=== PATIENT | male | born 1945 | race Caucasian/White ===

== ENCOUNTER 2018-01-06 07:55 | Inpatient (IN) | payer OTHER ==
--- OUTSIDE RECORDS SUMMARY | 2018-01-06 07:57 | XMS REPORT | Clinical Summary ---
:1945 Author Organization [facility] Address [address] [place] [address] Care Team Providers Name Role Phone Magdy Page MD Primary Care Provider Unavailable Allergies Active Allergy Reactions Severity Noted Date Comments Donepezil Anaphylaxis High 08/08/2017 Current Medications Prescription Sig. Disp. Refills Start Date End Date Status HYDROcodone-acetaminophen Take 1 tablet by Active (NORCO) 5-325 mg per tablet mouth every 6 (six) hours as needed for moderate pain. amLODIPine (NORVASC) 10 mg Take 10 mg by Active tablet mouth daily. bisacodyl 5 mg tablet Take by mouth. Active cephalexin (KEFLEX) 500 MG Take 500 mg by Active capsule mouth 4 (four) times a day. cholecalciferol, vitamin Take 1,000 Units Active D3, (VITAMIN D3) 1,000 unit by mouth daily. tablet senna (SENOKOT) 8.6 mg Take 1 tablet by Active tablet mouth daily. ferrous sulfate, as mg of Take 15 mg by Active FE, (ZIGGY-IN-HANH) 15 mg iron mouth daily. (75 mg)/mL drops hydroCHLOROthiazide Take 12.5 mg by Active (HYDRODIURIL) 12.5 MG mouth daily. tablet lactulose (CEPHULAC) 10 Take 10 g by Active gram packet mouth 3 (three) times a day. memantine (NAMENDA) 10 MG Take 10 mg by Active tablet mouth 2 (two) times a day. menthol-zinc oxide Apply topically Active (CALMOSEPTINE) 0.44-20.6 % as needed. ointment ondansetron (ZOFRAN) 4 MG Take 4 mg by Active tablet mouth every 8 (eight) hours as needed for nausea or vomiting. POLYETHYLENE GLYCOL 3350 Take by mouth. Active (MIRALAX ORAL) simethicone 80 mg tablet Take by mouth. Active tamsulosin (FLOMAX) 0.4 mg Take 0.4 mg by Active capsule,extended release mouth daily. 24hr cholecalciferol, vitamin Take 50,000 Units Active D3, (DECARA) 50,000 unit by mouth daily. capsule Hospital, Clinic, or Other Ordered Dose Route Frequency Start Date End Date Status Facility Administered Medication cefTRIAXone (ROCEPHIN) 1 g IM once 08/08/2017 08/08/2017 Ended injection 1 gIndications: Kidney stone Active Problems Not on file Encounters Date Type Specialty Care Team Description 10/25/2017 Procedure Pass Urology 09/04/2017 Hospital Encounter Radiology Gayle Norman MD 09/04/2017 Hospital Encounter Radiology Gayle Norman MD 09/04/2017 Hospital Encounter Radiology Gayle Norman MD 09/04/2017 Ancillary Orders Radiology Gayle Norman MD 09/04/2017 Telephone Neurology Raciel Nichole MD 08/19/2017 Telephone Urology Gayle Norman MD 08/19/2017 Telephone Urology Gayle Norman MD 08/15/2017 Telephone Urology Gayle Norman, Cerebrovascular accident (CVA), unspecified mechanism (Primary Dx) 08/13/2017 Telephone Urology Gayle Norman MD 08/09/2017 Telephone Urology Gayle Norman MD 08/08/2017 Office Visit Urology Gayle Norman, Kidney stone (Primary Dx); Urinary retention 08/07/2017 Telephone Urology Barbara Brooks MA after 01/05/2017 Social History Tobacco Use Types Packs/Day Years Used Date Former Smoker Smokeless Tobacco: Former User Alcohol Use Drinks/Week oz/Week Comments No Sex Assigned at Date Recorded Not on file Last Filed Vital Signs Not on file Plan of Treatment Health Maintenance Due Date Last Done Comments COLON CANCER SCREENING 1997 SHINGRIX VACCINE (#1) 1997 ZOSTER VACCINE 2007 PNEUMOCOCCAL POLYSACCHARIDE VACCINE AGE 65 AND OVER 02/08/2012 PNEUMOCOCCAL-13 02/08/2012 INFLUENZA VACCINE 03/05/[address] Abd/Pelvic External Study (07/02/2017 3:33 PM) Specimen Performing Laboratory [facility] [address] [place] [address] Narrative This exam was not acquired at a [facility] facility and has not been interpreted by a [facility] Provider.The exam was imported into our imaging system for comparisons purposes. XR Abd/Pelvic External Study (07/02/2017 3:19 PM) Specimen Performing Laboratory [facility] [address] [place] [address] Narrative This exam was not acquired at a [facility] facility and has not been interpreted by a [facility] Provider.The exam was imported into our imaging system for comparisons purposes. XR Chest External Study (07/02/2017 1:24 PM) Specimen Performing Laboratory [facility] [address] [place] [address] Narrative This exam was not acquired at a [facility] facility and has not been interpreted by a [facility] Provider.The exam was imported into our imaging system for comparisons purposes. after 01/05/2017 Insurance Payer Benefit Plan / Group Subscriber ID Type Phone Address MEDICARE MEDICARE PART A AND B xxxxxxxxxx Medicare [place], [place] MEDICAID MEDICAID xxxxxxxxx Medicaid Home: [address] [phone] [place] [address] [address] [place] [address]
[2018-01-06] MEDS ORDERED: GLYCERIN ADULT SUPP PR ONE (09:00)
[2018-01-06 09:04] LABS: Absolute Lymphocytes (CBC) 0.3 K/uL (0.7-4.9); Absolute Monocytes 0.5 K/uL (0.1-1.3); Absolute Neutrophil 6.2 K/uL (1.8-8.0); Basophils % 0.3 % (0-1.3); Eosinophils % 0.7 % (0-4.4); Hematocrit 36.3 % (39.6-49.0); Lymphocytes % 4.2 % (15.3-44.8); MCH 28.4 pg (27.0-35.0); MCV 85.3 fL (80-100); MPV 9.1 fL (7.6-11.3); Monocytes % 7.2 % (3.3-12.3); RBC Red Blood Cell Count 4.25 M/uL (4.33-5.43)
[2018-01-06 09:19] LABS: Potassium 3.8 mEq/L (3.6-5.0)
[2018-01-06] MEDS ORDERED: ONDANSETRON 4 MG/2 ML VIAL ONE (09:20)
[2018-01-06] MEDS ORDERED: NA CHLORIDE 0.9% 1,000 ML ONE (09:24)
[2018-01-06 09:25] LABS: Albumin 3.9 g/dL (3.2-5.5); Bilirubin Direct 0.1 mg/dL (0-0.2); Bilirubin Total 0.6 mg/dL (0.3-1.2); Protein, Total 7.3 g/dL (6.0-8.3)
[2018-01-06 09:56] LABS: Urine Bacteria >50 /HPF (NONE SEEN)
[2018-01-06 09:57] LABS: Urine Culture Reflex Order NOT NEEDED
--- NOTE | 2018-01-06 10:00 | ER ---
Nurse's Notes [facility] Name: Adam Rosas Age: 72 yrs Sex: Male : 1945 Arrival Date: 01/06/2018 Time: 07:58 Bed 20 Private MD: None, None Diagnosis: Vomiting-intractable;Upper abdominal pain, unspecified Presentation: 01/06 08:13 Presenting complaint: Child states: pt has been vomiting "non stop" since 0630 this iw morning, states it was brown and looked like "coffee grounds", emesis noted in basin, appears to be yellow bile, denies diarrhea, pt also c/o abd pain. Transition of care: patient was not received from another setting of care. Onset of symptoms was January 06, 2018. Risk Assessment: Do you want to hurt yourself or someone else? Patient reports no desire to harm self or others. Initial Sepsis Screen: Does the patient meet any 2 criteria? No. Patient's initial sepsis screen is negative. Does the patient have a suspected source of infection? No. Patient's initial sepsis screen is negative. Care prior to arrival: None. 08:13 Method Of Arrival: Wheelchair iw 08:13 Acuity: SCOTT 3 iw Triage Assessment: 14:22 GI: Reports lower abdominal pain, upper abdominal pain, vomiting. ae1 Historical: - Allergies: 08:16 Aricept; iw - Home Meds: 08:22 finasteride 5 mg oral tab 1 tab once daily [Active]; memantine 10 mg oral tab 1 tab iw daily [Active]; tamsulosin 0.4 mg oral cp24 1 cap once daily [Active]; amlodipine 2.5 mg tab 1 tab for BP over 130 systolic [Active]; cephalexin 500 mg Oral cap daily for UTI [Active]; ferrous sulfate 325 mg (65 mg iron) Oral TbEC twice a day [Active]; bisacodyl 5 mg Oral TbEC 1 tab once daily [Active]; Macrobid 100 mg Oral cap daily [Active]; trazodone 50 mg Oral tab 1 tab nightly [Active]; multivitamin oral cap [Active]; - PMHx: 08:16 Dementia; Hyperlipidemia; Hypertension; Kidney stones; one kidney; iw - PSHx: 08:16 Hernia repair; AAA repair; Kidney stents; iw - Immunization history:: Adult Immunizations up to date. - Ebola Screening: : Patient negative for fever greater than or equal to 101.5 degrees Fahrenheit, and additional compatible Ebola Virus Disease symptoms Patient denies exposure to infectious person Patient denies travel to an Ebola-affected area in the 21 days before illness onset No symptoms or risks identified at this time. - Social history:: Smoking status: Patient/guardian denies using tobacco. Screenin:18 Abuse screen: No signs of abuse noted. Nutritional screening: No deficits noted. aa5 Tuberculosis screening: No symptoms or risk factors identified. Fall Risk Fall in past 12 months (25 points). Secondary diagnosis (15 points) dementia, Mental Status- Overestimates/Forgets Limitations (15 pts.). Total Mckay Fall Scale indicates High Risk Score (45 or more points). Fall prevention measures have been instituted. Side Rails Up X 2 Placed Close to Nursing Station Family Present and informed to notify staff if the need to leave the bedside. Assessment: 08:14 General: Appears comfortable, Behavior is calm, cooperative. Pain: Complains of pain in aa5 abdomen Unable to use pain scale. Does not appear to understand pain scale. Pt is unable to state exact location of pain. When asked if he has abdominal pain, pt states "yes". Pt's son states "he told me this morning his stomach was hurting". Neuro: Level of Consciousness is awake, obeys commands, confused, Oriented to none Marine Surveyor are weak bilaterally Moves all extremities. Speech is normal, Facial symmetry appears normal, Pupils are PERRL. Cardiovascular: Heart tones S1 S2 present Rhythm is regular. Respiratory: Airway is patent Respiratory effort is even, unlabored, Respiratory pattern is regular, symmetrical, Breath sounds are clear bilaterally. GI: Abdomen is flat, non-distended, Bowel sounds present X 4 quads. Abd is soft X 4 quads Parent/caregiver reports the patient having vomiting, Pt's son denies diarrhea. : Ro in place to gravity drainage Pt's son reports Ro was placed 2 weeks ago for urinary retention. EENT: No signs and/or symptoms were reported regarding the EENT system. Derm: Skin is pink, warm \\T\\ dry. Musculoskeletal: Range of motion: intact in all extremities. 09:00 Neuro: Level of Consciousness is awake, obeys commands, confused, Oriented to person. aa5 Respiratory: Airway is patent Respiratory effort is even, unlabored, Respiratory pattern is regular, symmetrical. Derm: Skin is pink, warm \\T\\ dry. 09:07 Reassessment: Pt finished drinking CT oral contrast, CT notified . aa5 09:17 Reassessment: Pt vomited bile, approximately 400cc, GOLF BALL MARKER notified . aa5 09:19 Reassessment: GOLF BALL MARKER states CT will be without oral contrast or IV contrast now, CT aa5 notified. . 09:29 Reassessment: Family at bedside, updated on approximate wait time for CT and results. ae1 13:30 Reassessment: Called 2nd floor to give report to receiving nurse, spoke to Claribel, [email or web address] Claribel states Samantha is the nurse and needs "at least 30 minutes" before report can be given, will continue to monitor. 14:23 Reassessment: Called 2nd floor to give report to Samantha, spoke to Ailyn, Ailyn states ae1 Samantha just got a patient back from the shellfish processing laborer and needs "at least 15 minutes" Will continue to monitor. 14:26 Reassessment: Patient appears in no apparent distress at this time. Patient states ae1 feeling better. Vital Signs: 08:16 BP 126 / 79; Pulse 85; Resp 17 S; Temp 97.8(TE); Pulse Ox 99% on R/A; iw 09:25 BP 136 / 85; Pulse 60; Resp 18 S; Pulse Ox 99% ; aa5 11:59 BP 137 / 97; Pulse 72; Resp 16; Pulse Ox 100% on R/A; ae1 12:52 BP 133 / 88; Pulse 68; Resp 16; Pulse Ox 100% on R/A; ae1 14:25 BP 140 / 75; Pulse 82; Resp 16 S; Pulse Ox 97% on R/A; ae1 ED Course: 07:58 Patient arrived in ED. mr 07:59 None, None is Private Physician. mr 08:08 Araceli Elam, RN is Primary Nurse. aa5 08:15 Triage completed. iw 08:16 Arm band placed on. iw 08:16 Patient has correct armband on for positive identification. Bed in low position. Side aa5 rails up X2. Adult w/ patient. 08:19 Ronda Sutherland FNP-C is [facility]. snw 08:19 Dexter Jackson MD is Attending Physician. snw 08:50 Initial lab(s) drawn, by me, sent to lab. Inserted saline lock: 20 gauge in left aa5 forearm, using aseptic technique. Blood collected. 09:07 Report given to YUNIEL Moore. aa5 09:58 Abdomen In Process Unspecified. EDMS 09:58 FranciscaLamine phillips DO is Hospitalizing Provider. snw 11:00 NGT: inserted 14 Fr. via right nare. verified placement of air over stomach, verified ae1 return of gastric contents, Patient tolerated well. 15:10 No provider procedures requiring assistance completed. Patient admitted, IV remains in ae1 place. 19:12 Occult Blood--Ancillary Sent. rg2 Administered Medications: 09:15 Drug: Glycerin (Adult) Suppository 1 supp Route: NH; aa5 09:19 Drug: Zofran 4 mg Route: IVP; Site: left forearm; aa5 09:24 Follow up: Response: No adverse reaction aa5 09:22 Drug: NS 0.9% 1000 ml Route: IV; Rate: 125 ml/hr; Site: left forearm; ae1 10:51 Drug: Cipro 400 mg Volume: 200 ml; Route: IVPB; Infused Over: 60 mins; Site: left ae1 forearm; Outcome: 09:59 Decision to Hospitalize by Provider. snw 15:10 Admitted to Med/surg accompanied by tech, family with patient, via stretcher, room 215, ae1 with chart, Report called to YUNIEL Singh 15:10 Condition: stable 15:10 Instructed on the need for admit, Demonstrated understanding of instructions. 15:11 Patient left the ED. ae1 Signatures: Dispatcher [employer] EDNM Alonzo Esposito rg2 Ronda Sutherland, JAMISON-C ENLISTED ADVISOR-Petra Rodrigues Irene, RN RN iw Araceli Elam RN RN aa5 Oscar Holman RN RN ae1 Corrections: (The following items were deleted from the chart) 08:22 08:16 BP 126 / 79; Pulse 85bpm; Resp 17bpm; Spontaneous; Pulse Ox 99% RA; iw iw 09:22 09:19 Zofran 4 mg IVP in right forearm aa5 aa5 14:25 13:30 Reassessment: Called 2nd floor to give report to receiving nurse, spoke to ae1 Claribel Sorensen states Samantha is the nurse and needs at least 30 minutes before report can be given, will continue to monitor. ae1 19:34 14:25 BP 140 / 75; Pulse 16bpm; Resp 82bpm; Pulse Ox 97% RA; ae1 ae1
--- NOTE | 2018-01-06 10:00 | EDPHYS ---
Physician Documentation [facility] Name: Adam Rosas Age: 72 yrs Sex: Male : 1945 Arrival Date: 01/06/2018 Time: 07:58 Bed 20 Private MD: None, None ED Physician Dexter Jackson HPI: 01/06 10:28 This 72 yrs old Male presents to ER via Wheelchair with complaints of snw Vomiting. 10:28 The patient presents to the emergency department with nausea, vomiting. Onset: The snw symptoms/episode began/occurred suddenly, this morning. Possible causes: unknown. Associated signs and symptoms: Pertinent positives: nausea, vomiting. The patient has not experienced similar symptoms in the past. hx of chronic UTI, + po antibiotics. Historical: - Allergies: 08:16 Aricept; iw - Home Meds: 08:22 finasteride 5 mg oral tab 1 tab once daily [Active]; memantine 10 mg oral tab 1 tab iw daily [Active]; tamsulosin 0.4 mg oral cp24 1 cap once daily [Active]; amlodipine 2.5 mg tab 1 tab for BP over 130 systolic [Active]; cephalexin 500 mg Oral cap daily for UTI [Active]; ferrous sulfate 325 mg (65 mg iron) Oral TbEC twice a day [Active]; bisacodyl 5 mg Oral TbEC 1 tab once daily [Active]; Macrobid 100 mg Oral cap daily [Active]; trazodone 50 mg Oral tab 1 tab nightly [Active]; multivitamin oral cap [Active]; - PMHx: 08:16 Dementia; Hyperlipidemia; Hypertension; Kidney stones; one kidney; iw - PSHx: 08:16 Hernia repair; AAA repair; Kidney stents; iw - Immunization history:: Adult Immunizations up to date. - Ebola Screening: : Patient negative for fever greater than or equal to 101.5 degrees Fahrenheit, and additional compatible Ebola Virus Disease symptoms Patient denies exposure to infectious person Patient denies travel to an Ebola-affected area in the 21 days before illness onset No symptoms or risks identified at this time. - Social history:: Smoking status: Patient/guardian denies using tobacco. ROS: 10:27 Constitutional: Negative for fever, chills, and weight loss, Eyes: Negative for injury, snw pain, redness, and discharge, ENT: Negative for injury, pain, and discharge, Neck: Negative for injury, pain, and swelling, Cardiovascular: Negative for chest pain, palpitations, and edema, Respiratory: Negative for shortness of breath, cough, wheezing, and pleuritic chest pain, Back: Negative for injury and pain, : Negative for injury, bleeding, discharge, and swelling, MS/Extremity: Negative for injury and deformity, Skin: Negative for injury, rash, and discoloration, Neuro: Negative for headache, weakness, numbness, tingling, and seizure. 10:27 Abdomen/GI: Positive for abdominal pain, vomiting, of the epigastric area, right upper quadrant and left upper quadrant. Exam: 08:54 Head/Face: Normocephalic, atraumatic. Eyes: Pupils equal round and reactive to light, snw extra-ocular motions intact. Lids and lashes normal. Conjunctiva and sclera are non-icteric and not injected. Cornea within normal limits. Periorbital areas with no swelling, redness, or edema. ENT: Nares patent. No nasal discharge, no septal abnormalities noted. Tympanic membranes are normal and external auditory canals are clear. Oropharynx with no redness, swelling, or masses, exudates, or evidence of obstruction, uvula midline. Mucous membranes moist. Neck: Trachea midline, no thyromegaly or masses palpated, and no cervical lymphadenopathy. Supple, full range of motion without nuchal rigidity, or vertebral point tenderness. No Meningismus. Chest/axilla: Normal chest wall appearance and motion. Nontender with no deformity. No lesions are appreciated. Cardiovascular: Regular rate and rhythm with a normal S1 and S2. No gallops, murmurs, or rubs. Normal PMI, no JVD. No pulse deficits. Respiratory: Lungs have equal breath sounds bilaterally, clear to auscultation and percussion. No rales, rhonchi or wheezes noted. No increased work of breathing, no retractions or nasal flaring. 08:54 Back: No spinal tenderness. No costovertebral tenderness. Full range of motion. MS/ Extremity: Pulses equal, no cyanosis. Neurovascular intact. Full, normal range of motion. Neuro: Awake and alert, GCS 15, oriented to person, place, time, and situation. Cranial nerves II-XII grossly intact. Motor strength 5/5 in all extremities. Sensory grossly intact. Cerebellar exam normal. Normal gait. 08:54 Constitutional: The patient appears alert, awake, frail, uncomfortable. 08:54 Abdomen/GI: Inspection: abdomen appears normal, Bowel sounds: diminished, Palpation: moderate abdominal tenderness, in the right upper quadrant and left upper quadrant, Rectal exam: rectal tone normal, Stool: guaiac negative, the exam is chaperoned by the nurse, + stool in vault, stool black but guaiac negative. 08:54 Skin: Appearance: normal except for affected area, stage 2 pressure sore to sacral area. Vital Signs: 08:16 BP 126 / 79; Pulse 85; Resp 17 S; Temp 97.8(TE); Pulse Ox 99% on R/A; iw 09:25 BP 136 / 85; Pulse 60; Resp 18 S; Pulse Ox 99% ; aa5 11:59 BP 137 / 97; Pulse 72; Resp 16; Pulse Ox 100% on R/A; ae1 12:52 BP 133 / 88; Pulse 68; Resp 16; Pulse Ox 100% on R/A; ae1 14:25 BP 140 / 75; Pulse 82; Resp 16 S; Pulse Ox 97% on R/A; ae1 MDM: 08:20 Patient medically screened. snw 09:59 Data reviewed: vital signs, nurses notes. Data interpreted: Pulse oximetry: on room air snw is 99 %. 01/06 08:42 Order name: Amylase, Serum; Complete Time: 09:28 snw 01/06 08:42 Order name: Basic Metabolic Panel; Complete Time: 09:28 snw 01/06 08:42 Order name: CBC with Diff; Complete Time: 10:26 snw 01/06 08:42 Order name: Creatinine for Radiology; Complete Time: 09:18 snw 01/06 08:42 Order name: Hepatic Function; Complete Time: 09:28 snw 01/06 08:42 Order name: Lipase; Complete Time: 09:28 snw 01/06 08:42 Order name: Urine Microscopic Only; Complete Time: 09:58 snw 01/06 08:54 Order name: Occult Blood--Ancillary bd 01/06 09:07 Order name: CBC Smear Scan; Complete Time: 10:26 EDMS 01/06 09:21 Order name: Urine Dipstick--Ancillary (enter results); Complete Time: 10:04 bd 01/06 09:22 Order name: Abdomen ; Complete Time: 10:26 EDMS 01/06 08:42 Order name: IV Saline Lock; Complete Time: 09:02 snw 01/06 08:42 Order name: Labs collected and sent; Complete Time: 09:02 snw 01/06 08:42 Order name: Urine Dipstick-Ancillary (obtain specimen); Complete Time: 09:24 snw 01/06 10:27 Order name: NG Tube; Complete Time: 11:20 snw Administered Medications: 09:15 Drug: Glycerin (Adult) Suppository 1 supp Route: DC; aa5 09:19 Drug: Zofran 4 mg Route: IVP; Site: left forearm; aa5 09:24 Follow up: Response: No adverse reaction aa5 09:22 Drug: NS 0.9% 1000 ml Route: IV; Rate: 125 ml/hr; Site: left forearm; ae1 10:51 Drug: Cipro 400 mg Volume: 200 ml; Route: IVPB; Infused Over: 60 mins; Site: left ae1 forearm; Disposition: 01/07 08:14 Co-signature as Attending Physician, Dexter Jackson MD I agree with the assessment and [facility] plan of care. Disposition: 01/06/18 09:59 Hospitalization ordered by Lamine Wu for Observation. Preliminary diagnosis are Vomiting - intractable, Upper abdominal pain, unspecified. - Bed requested for Telemetry/MedSurg (observation). - Status is Observation. ae1 - Condition is Stable. - Problem is new. - Symptoms are unchanged. UTI on Admission? Yes Signatures: Dispatcher [employer] [facility] Katrin Flores Corey, MD MD cha Therrien, Shelly, BUCKLE FRAME SHAPER-C BUCKLE FRAME SHAPER-[employer] Lillian Woo, RN RN iw Araceli Elam, RN RN aa5 Oscar Holman RN RN ae1 Corrections: (The following items were deleted from the chart) 01/06 09:22 08:42 Abdomen Pelvis W Con+CT.RAD.BRZ ordered. EDCT EDMS 13:39 09:59 Hospitalization Ordered by Lamine Wu DO for Observation. Preliminary bd diagnosis is Vomiting - intractable; Upper abdominal pain, unspecified. Bed requested for Telemetry/MedSurg (observation). Status is Observation. Condition is Stable. Problem is new. Symptoms are unchanged. UTI on Admission? Yes. sn 15:11 13:39 01/06/2018 09:59 Hospitalization Ordered by Lamine Wu DO for Observation. ae1 Preliminary diagnosis is Vomiting - intractable; Upper abdominal pain, unspecified. Bed requested for Telemetry/MedSurg (observation). Status is Observation. Condition is Stable. Problem is new. Symptoms are unchanged. UTI on Admission? Yes. bd
[2018-01-06 10:01] LABS: Urine Blood 2+ (NEG); Urine Glucose NEGATIVE (NEG); Urine Protein 3+ (NEG); Urine Specific Gravity >1.030 (1.005-1.030)
[2018-01-06 10:10] LABS: Blood Morphology Comment NOT SEEN (NOT SEEN); Platelet Estimate ADEQ; Urine White Blood Cell Casts OK
--- NOTE | 2018-01-06 10:22 | RAD REPORT ---
EXAM DESCRIPTION: CT - Abdomen Pelvis Wo Contrast - 01/06/2018 9:58 am CLINICAL HISTORY: Abdominal pain, coffee-ground emesis, vomiting COMPARISON: CT study September 2017 TECHNIQUE: Axial [address] imaging of the abdomen and pelvis was performed without IV contrast. No IV contrast was given because of allergy, abnormal renal function, patient refusal or physician re quest. Oral contrast was administered. All CT scans are performed using dose optimization technique as appropriate and may include automated exposure control or mA/KV adjustment according to patient size. FINDINGS: No suspicious findings in the lung bases. The liver, spleen and pancreas show no suspicious findings on non-contrast imaging. Cholecystectomy c lips are present. No biliary tree dilatation. Left kidney is absent. No hydronephrosis of the right kidney. Vascular calcifications are present. No nobstructing caliceal calculi seen lower pole on the right. Bladder is fully contracted around a Fole y catheter. No significant adrenal finding. Isodense renal masses and pyelonephritis cannot be exclu ded in the absence of IV contrast. No gastric dilatation. Stomach is distended mostly by air. Oral contrast is present. No gastric wall thickening or mass. Oral CT contrast has made it into the proximal small bowel. Jejunum is normal in diameter. There is significant dilatation of the jejunum and proximal ileum. Exact transition site is not identifiable. An obstructing mass is not seen. Point of transition is believed to be mid to lowe r right abdomen. Moderately large stool volume present throughout a nondilated colon. The rectum is dilated by a large amount of stool. A primary, acute colon process is not suspected. No free air, free fluid or inflammatory stranding. No mass or bulky lymphadenopathy. No omental thic kening. Disc and bony degenerative changes are present. Patient has dense vascular calcifications. Aortoiliac bypass is in place. No periaortic abnormality seen. Vascular assessment is limited in the absence of IV contrast. IMPRESSION: Small bowel obstruction pattern with an exact transition point not identifiable. Transit ion is most likely in the mid to lower right abdomen. No free air or surgically emergent finding. No bowel wall edema seen. Moderate stool volume throughout the colon with a large amount of stool dilating the rectum. The Left kidney is absent. No hydronephrosis or acute right renal finding. Full assessment is limited is the absence of IV contrast.
[2018-01-06] MEDS ORDERED: CIPROFLOXACIN 400mg IV 400 MG/200 ML BAG IV ONE (10:47)
[2018-01-06] MEDS ORDERED: ACETAMINOPHEN 650MG/RECT SUPP PR PRN (11:05)
[2018-01-06] MEDS ORDERED: SODIUM CHLORIDE 0.9% 10ML INJ IV PRN (11:05)
[2018-01-06] MEDS ORDERED: ACETAMINOPHEN 500 MG TAB PO PRN (11:05)
--- NOTE | 2018-01-06 11:22 | P.HP ---
Certification for Inpatient Patient admitted to: Inpatient With expected LOS: >2 Midnights Patient will require the following post-hospital care: None Practitioner: I am a practitioner with admitting privileges, knowledge of patient current condition, hospital course, and medical plan of care. Services: Services provided to patient in accordance with Admission requirements found in Title 42 Section 412.3 of the Code of Federal Regulations Patient History Date of Service: 01/06/18 Primary Care Provider: Dr. Alvarado; Urology-Dr. Little Reason for admission: Nausea and vomiting History of Present Illness: 72-year-old male presented emergency room with intractable nausea and vomiting. Family at bedside. Family reports the patient has underlying dementia. Patient had intractable nausea and vomiting starting this morning about 6:00 a.m.. Patient had mild pain. As reported by family patient was doing well over the weekend. No fever, chills noted. No significant chest pain or shortness of breath noted. Patient with history of chronic renal disease with prior left nephrectomy and right partial nephrectomy due to renal cell carcinoma. Patient also with underlying BPH, anemia-iron deficiency, hypertension. In the ER patient had multiple episodes of bilious emesis. On lab white count 7.1, hemoglobin 12.1. Sodium 136, potassium 3.8. BUN of 42, creatinine 2.08 with a GFR 32. Glucose 140. Amylase 110, lipase 20. Urinalysis showed possible UTI. CT scan showed small-bowel obstruction transition point likely mid to lower right lower quadrant. Moderate amount of stool was also noted in the rectal area. Due to nature the findings the patient was admitted for treatment. In the ER patient appeared stable when I evaluated him. No significant vomiting noted. Patient was still slightly nauseous. He reported minimal pain to the abdomen. Allergies donepezil [From Aricept] Allergy (Verified 06/26/17 08:24) Unknown Home medications list reviewed: Yes Home Medications: Allopurinol [Zyloprim*] 300 mg PO DAILY 06/25/17 Amlodipine Besylate 5 mg PO DAILY 06/25/17 Bisacodyl [Dulcolax*] 10 mg PO DAILYPRN PRN 06/25/17 Memantine HCl [Namenda*] 20 mg PO BID 06/25/17 Mirtazapine [Remeron] 15 mg PO DAILY 06/25/17 Trazodone [Desyrel*] 50 mg PO BEDTIME 06/25/17 Ferrous Sulfate [Ferrous Sulfate*] 325 mg PO BID 09/04/17 Lactulose [Cephulac*] 20 gm PO DAILY 09/04/17 Polyethylene Glycol 3350 [Miralax] 17 gm PO BID 09/04/17 Tamsulosin [Flomax*] 0.4 mg PO BID 09/04/17 Hydrochlorothiazide [Hydrochlorothiazide*] 12.5 mg PO DAILY 09/05/17 Doxazosin [Cardura*] 1 mg PO DAILY 09/07/17 Hydrocodone 10/APAP 325 [[place] 10/325*] 1 tab PO Q6H PRN 09/07/17 Fludrocortisone [Florinef *] 0.1 mg PO DAILY WITH BREAKFAST #30 tab 09/11/17 Levofloxacin [Levaquin] 500 mg PO DAILY #7 tab 09/11/17 - Past Medical/Surgical History Diabetic: No -: Dementia, Alzheimer's -: History CVA x3 -: Hypertension -: Hyperlipidemia -: Gout -: CAD -: BPH -: Chronic renal disease -: Renal cell carcinoma -: History left nephrectomy, right partial nephrectomy -: History tobacco/alcohol abuse -: History AAA repair -: Left nephrectomy -: Partial right nephrectomy -: AAA repair -: Kidney stents x3 Psychosocial/ Personal History: The patient lives with his son. He is fully dependent on the son. Patient is a . - Family History Father -: Cancer Notes: kidney Mother -: Cancer Notes: throat, lung Brother -: Cancer (Colon cancer) - Social History Smoking Status: Former smoker Alcohol use: No CD- Drugs: No Caffeine use: Yes Place of Residence: Home Review of Systems General: Weakness, As per HPI Eyes: Unremarkable ENT: Unremarkable Respiratory: Unremarkable Cardiovascular: Unremarkable Gastrointestinal: Nausea, Vomiting, Constipation, As per HPI Genitourinary: Unremarkable Musculoskeletal: Unremarkable Integumentary: Unremarkable Neurological: As per HPI Lymphatics: Unremarkable Physical Examination - Physical Exam General: Alert, In no apparent distress, Cooperative, Demented HEENT: Atraumatic, Other (Dry mucous membranes) Neck: Supple, No Thyromegaly Respiratory: Clear to auscultation bilaterally, Normal air movement Cardiovascular: Normal pulses, Regular rate/rhythm Gastrointestinal: Normal bowel sounds, Soft and benign, Non-distended, No masses , No rebound, No guarding, Tenderness (Mild pain to the abdomen) Musculoskeletal: No erythema, No tenderness, No warmth Integumentary: No tenderness/swelling, No erythema, No warmth, No cyanosis Neurological: Normal speech, Normal strength at 5/5 x4 extr, Normal tone, Normal affect, Dementia - Studies Laboratory Data (last 24 hrs) 01/06/18 08:50: Creatinine 2.08 H 01/06/18 08:50: WBC 7.1, Hgb 12.1 L, Hct 36.3 L, Plt Count 149 L 01/06/18 08:50: Sodium 136, Potassium 3.8, BUN 42 H, Creatinine 2.09 H, Glucose 140 H, Total Bilirubin 0.6, AST 21, ALT 14, Alkaline Phosphatase 80, Amylase 110 H, Lipase 20 L Assessment and Plan - Problems (Diagnosis) (1) Small bowel obstruction Current Visit: Yes Status: Acute Plan: Small-bowel obstruction noted. Will place NG tube to intermittent suction. Surgery consulted. Await further recommendations. Will monitor serial abdominal exams. Patient will start IV antibiotic therapy to cover for UTI. (2) Fecal retention Current Visit: Yes Status: Acute Plan: Moderate stool retention noted in the the rectum. Patient may require disimpaction. Qualifiers: Constipation type: unspecified constipation type Qualified Code(s): K59.00 - Constipation, unspecified (3) Chronic renal disease Current Visit: Yes Status: Acute Plan: Acute on chronic renal disease likely from dehydration. Will provide IV fluids. Will monitor closely. Nephrology consulted due to history of left nephrectomy and right partial nephrectomy due to history of renal cell carcinoma. Qualifiers: Chronic kidney disease stage: stage 3 (moderate) Qualified Code(s): N18.3 - Chronic kidney disease, stage 3 (moderate) (4) Urinary tract infection Onset Date: 09/05/17 Current Visit: No Status: Acute Plan: IV antibiotics started. Blood culture and urine culture obtained. Qualifiers: Urinary tract infection type: catheter-associated UTI Indwelling urinary catheter type: indwelling urethral catheter Encounter type: initial encounter Qualified Code(s): T83.511A - Infection and inflammatory reaction due to indwelling urethral catheter, initial encounter; N39.0 - Urinary tract infection , site not specified; N39.0 - Urinary tract infection, site not specified (5) Alzheimer disease Onset Date: 07/01/17 Current Visit: No Status: Chronic Plan: Will monitor closely. Qualifiers: Alzheimer's disease onset: late-onset Dementia behavioral disturbance: without behavioral disturbance Qualified Code(s): G30.1 - Alzheimer's disease with late onset; F02.80 - Dementia in other diseases classified elsewhere without behavioral disturbance; F02.80 - Dementia in other diseases classified elsewhere without behavioral disturbance; F02.80 - Dementia in other diseases classified elsewhere without behavioral disturbance (6) Coronary artery disease Onset Date: 07/01/17 Current Visit: No Status: Chronic Plan: Will continue with DVT prophylaxis. Qualifiers: Coronary Disease-Associated Artery/Lesion type: [place] artery [place] vs. transplanted heart: [place] heart Associated angina: without angina Qualified Code(s): I25.10 - Atherosclerotic heart disease of [place] coronary artery without angina pectoris (7) Essential hypertension Onset Date: 07/01/17 Current Visit: No Status: Chronic Plan: Will provide medication as needed. (8) History of ischemic stroke without residual deficits Onset Date: 07/01/17 Current Visit: No Status: Chronic Plan: Will continue with DVT prophylaxis. (9) Hyperlipidemia Onset Date: 07/01/17 Current Visit: No Status: Chronic Plan: Will obtain and verify home medication Qualifiers: Hyperlipidemia type: mixed hyperlipidemia Qualified Code(s): E78.2 - Mixed hyperlipidemia Discharge Plan: Home Plan to discharge in: Greater than 2 days - Advance Directives Does patient have a Living Will: No Does patient have a Durable POA for Healthcare: Yes - Code Status/Comfort Care Code Status Assessed: Yes (Address with medical power of commercial real estate attorney) Time Spent Managing Pts Care (In Minutes): 55
[2018-01-06] MEDS: NA CHLORIDE 0.9% 1,000 ML IV SCH ×2 (15:34→21:28)
--- NOTE | 2018-01-06 15:45 | P.CNS ---
Date of Consult: 01/06/18 PC: This 72-year-old male was brought to the emergency room by his caretakers for diagnosis and treatment. HPC: Patient had been doing well over the weekend. Was down in [place] yesterday. Patient has Alzheimer's was riding in a car all day. He this morning had almost projectile type vomiting. Copious amounts of vomitus with food abdominal pain. No bowel movement last 48 hr. PMH: Previous left nephrectomy, retention, Alzheimer's, demented PSHx: Nephrectomy SOC: Medications reviewed SYS REVIEW: Patient apparently is relatively active male. He eats well at home. Usually has bowel movements today. Has a Ro catheter O/E awake alert looks comfortable at the moment HEENT: Nasogastric tube draining at the current time Chest: Chest movement equal bilateral ABD: Soft nontender, flat no upper abdominal fullness LOCO: Intact DATA: CT scan suggests possible mid jejunum ileal obstruction IMPRESSION: Possible small bowel ulcer PLAN: Patient has been admitted at this time for IV fluids and nasogastric suction as well as pain relief. We will follow with you. Patient may require surgery next 24-48 hr however.
[2018-01-06 16:41] VITALS: BMI 20.7
[2018-01-06] MEDS ORDERED: ENOXAPARIN 40 MG/0.4 ML SQ SCH (17:00)
[2018-01-06] MEDS ORDERED: ENOXAPARIN 30 MG/0.3 ML SQ SCH (17:00)
[2018-01-06] MEDS: METRONIDAZOLE 500mg IVPB 500 MG/100 ML BAG IV SCH (17:18)
[2018-01-06 19:21] LABS: Urine Appearance CLOUDY; Urine Bilirubin NEGATIVE (NEG); Urine Blood 3+ (NEG); Urine Color DK YELLOW; Urine Glucose NEGATIVE (NEG); Urine Protein 2+ (NEG); Urine Specific Gravity 1.025 (1.005-1.030)
[2018-01-06 19:22] LABS: Urine Microscopic Reflex ORDER UMIC
[2018-01-06 19:38] LABS: Urine Bacteria 20-50 /HPF (NONE SEEN)
[2018-01-06 19:39] LABS: Urine Amorphous Sediment 1+ /HPF (NONE SEEN); Urine Culture Reflex Order REFLEXED; Urine Mucus 1+ /HPF (NONE SEEN)
--- NOTE | 2018-01-06 19:55 | P.CNS ---
Date of Consult: 01/06/18 Reason for Consult: KERRY/ CKD III. Requesting Physician: Lamine Wu Primary Care Provider: Dr. Alvarado; Urology-Dr. Little Chief Complaint: Nausea and vomiting History of Present Illness: 72-year-old male presented emergency room with intractable nausea and vomiting. Family at bedside. Family reports the patient has underlying dementia. Patient had intractable nausea and vomiting starting this morning about 6:00 a.m.. Patient had mild pain. As reported by family patient was doing well over the weekend. No fever, chills noted. No significant chest pain or shortness of breath noted. Patient with history of chronic renal disease with prior left nephrectomy and right partial nephrectomy due to renal cell carcinoma. Patient also with underlying BPH, anemia-iron deficiency, hypertension. In the ER patient had multiple episodes of bilious emesis. On lab white count 7.1, hemoglobin 12.1. Sodium 136, potassium 3.8. BUN of 42, creatinine 2.08 with a GFR 32. Glucose 140. Amylase 110, lipase 20. Urinalysis showed possible UTI. CT scan showed small-bowel obstruction transition point likely mid to lower right lower quadrant. Moderate amount of stool was also noted in the rectal area. Due to nature the findings the patient was admitted for treatment. 10:28 This 72 yrs old Male presents to ER via Wheelchair with complaints of snw Vomiting. 10:28 The patient presents to the emergency department with nausea, vomiting. Onset: The snw symptoms/episode began/occurred suddenly, this morning. Possible causes: unknown. Associated signs and symptoms: Pertinent positives: nausea, vomiting. The patient has not experienced similar symptoms in the past. hx of chronic UTI, + po antibiotics. Limited HPI/ ROS due to dementia. Case discussed with his family at the bedside. Allergies donepezil [From Aricept] Allergy (Verified 01/07/18 11:46) Itching/Hives/Rash Home medications list reviewed: Yes Home Medications: Amlodipine Besylate 2.5 mg PO DAILY 06/25/17 Bisacodyl [Dulcolax*] 10 mg PO DAILYPRN PRN 06/25/17 Memantine HCl [Namenda*] 20 mg PO BID 06/25/17 Trazodone [Desyrel*] 50 mg PO BEDTIME 06/25/17 Ferrous Sulfate [Ferrous Sulfate*] 325 mg PO BID 09/04/17 Lactulose [Cephulac*] 20 gm PO DAILY 09/04/17 Tamsulosin [Flomax*] 0.8 mg PO BEDTIME 09/04/17 Hydrocodone 10/APAP 325 [[place] 10/325*] 1 tab PO Q6H PRN 09/07/17 Cephalexin [Keflex] 500 mg PO DAILY 01/06/18 Finasteride [Proscar] 5 mg PO DAILY 01/06/18 Folic Acid/Mv,Fe,Min [One Daily Complete Tablet] 1 each PO DAILY 01/06/18 Nitrofurantoin Monohyd/M-Cryst [Macrobid 100 mg Capsule] 100 mg PO DAILY - Past Medical/Surgical History Diabetic: No -: Dementia, Alzheimer's -: History CVA x3 -: Hypertension -: Hyperlipidemia -: Gout -: CAD -: BPH -: Chronic renal disease -: Renal cell carcinoma -: History left nephrectomy, right partial nephrectomy -: History tobacco/alcohol abuse -: History AAA repair -: Left nephrectomy -: Partial right nephrectomy -: AAA repair -: Kidney stents x3 Psychosocial/ Personal History: The patient lives with his son. He is fully dependent on the son. Patient is a . - Family History Father Medical History: Cancer Notes: kidney Mother Medical History: Cancer Notes: throat, lung Brother Medical History: Cancer - Social History Smoking Status: Unknown if ever smoked Alcohol use: No CD- Drugs: No Caffeine use: No Place of Residence: Home Review of Systems 10-point ROS is otherwise unremarkable General: Weakness, Malaise Gastrointestinal: Nausea, Vomiting, Abdominal Pain Neurological: Weakness Physical Examination Temp Pulse Resp BP Pulse Ox 97.5 F 71 16 161/90 H 94 01/06/18 16:00 01/06/18 16:00 01/06/18 16:00 01/06/18 16:00 01/06/18 16:00 General: Alert, Cooperative HEENT: Atraumatic, Normocephalic Neck: Supple, JVD not distended Respiratory: Clear to auscultation bilaterally, Normal air movement Cardiovascular: Regular rate/rhythm, No rubs Gastrointestinal: Non-distended, No guarding, Tenderness Musculoskeletal: No clubbing, No contractures Integumentary: No rashes, No cyanosis Neurological: Normal speech Laboratory Data (last 24 hrs) 01/06/18 08:50: Creatinine 2.08 H 01/06/18 08:50: WBC 7.1, Hgb 12.1 L, Hct 36.3 L, Plt Count 149 L 01/06/18 08:50: Sodium 136, Potassium 3.8, BUN 42 H, Creatinine 2.09 H, Glucose 140 H, Total Bilirubin 0.6, AST 21, ALT 14, Alkaline Phosphatase 80, Amylase 110 H, Lipase 20 L Imagings Data: EXAM DESCRIPTION: CT - Abdomen Pelvis Wo Contrast - 01/06/2018 9:58 am CLINICAL HISTORY: Abdominal pain, coffee-ground emesis, vomiting COMPARISON: CT study September 2017 TECHNIQUE: Axial [address] imaging of the abdomen and pelvis was performed without IV contrast. No IV contrast was given because of allergy, abnormal renal function, patient refusal or physician request. Oral contrast was administered. All CT scans are performed using dose optimization technique as appropriate and may include automated exposure control or mA/KV adjustment according to patient size. FINDINGS: No suspicious findings in the lung bases. The liver, spleen and pancreas show no suspicious findings on non-contrast imaging. Cholecystectomy clips are present. No biliary tree dilatation. Left kidney is absent. No hydronephrosis of the right kidney. Vascular calcifications are present. Nonobstructing caliceal calculi seen lower pole on the right. Bladder is fully contracted around a Virk catheter. No significant adrenal finding. Isodense renal masses and pyelonephritis cannot be excluded in the absence of IV contrast. No gastric dilatation. Stomach is distended mostly by air. Oral contrast is present. No gastric wall thickening or mass. Oral CT contrast has made it into the proximal small bowel. Jejunum is normal in diameter. There is significant dilatation of the jejunum and proximal ileum. Exact transition site is not identifiable. An obstructing mass is not seen. Point of transition is believed to be mid to lower right abdomen. Moderately large stool volume present throughout a nondilated colon. The rectum is dilated by a large amount of stool. A primary, acute colon process is not suspected. No free air, free fluid or inflammatory stranding. No mass or bulky lymphadenopathy. No omental thickening. Disc and bony degenerative changes are present. Patient has dense vascular calcifications. Aortoiliac bypass is in place. No periaortic abnormality seen. Vascular assessment is limited in the absence of IV contrast. IMPRESSION: Small bowel obstruction pattern with an exact transition point not identifiable. Transition is most likely in the mid to lower right abdomen. No free air or surgically emergent finding. No bowel wall edema seen. Moderate stool volume throughout the colon with a large amount of stool dilating the rectum. The Left kidney is absent. No hydronephrosis or acute right renal finding. Full assessment is limited is the absence of IV contrast. Conclusions/Impression: A/ KERRY likely prerenal azotemia in the setting of SBO. CKD III with proteinuria. Left nephrectomy with RCC. Partial right nephrectomy. Kidney stents X3. HTN with CKD. IFG. Anemia in chronic illness. Thrombocytopenia. Gout. BPH/ LUTS with chronic virk X2 weeks. SBO. Constipation/ Fecal retention. Alz dementia. P/ Continue current POC and Medications. Surgery evaluation for SBO. NPO. Agree with abx and NGT. Start IVF. AM labs. Daily weight. No NSAIDs. Thank you kindly for the consultation.
[2018-01-06] MEDS ORDERED: TAMSULOSIN 0.4 MG SR CAP PO SCH ×2 (21:00)
[2018-01-06] MEDS ORDERED: DONEPEZIL HCL 5 MG TAB PO SCH (21:00)
[2018-01-06] MEDS: Ciprofloxacin 200mg IV 200 MG/100 ML IV.SOLN. IV SCH (21:28)
[2018-01-07] MEDS: METRONIDAZOLE 500mg IVPB 500 MG/100 ML BAG IV SCH ×3 (00:09→17:16)
[2018-01-07] MEDS ORDERED: LIDOCAINE VISCOUS 2% SOLN 15 ML UDC ONE (04:56)
[2018-01-07 05:14] LABS: Absolute Lymphocytes (CBC) 0.8 K/uL (0.7-4.9); Absolute Monocytes 0.5 K/uL (0.1-1.3); Absolute Neutrophil 2.9 K/uL (1.8-8.0); Basophils % 0.2 % (0-1.3); Eosinophils % 1.8 % (0-4.4); Hematocrit 38.1 % (39.6-49.0); MCH 28.4 pg (27.0-35.0); MCV 85.8 fL (80-100); MPV 8.9 fL (7.6-11.3); Monocytes % 12.5 % (3.3-12.3); RBC Red Blood Cell Count 4.44 M/uL (4.33-5.43)
[2018-01-07 07:17] LABS: Magnesium 1.9 mg/dL (1.8-2.5); Phosphorus 3.6 mg/dL (2.5-4.3); Thyroid Stimulating Hormone 0.96 uIU/mL (0.34-5.60); Uric Acid 6.1 mg/dL (4.8-8.7)
[2018-01-07] MEDS ORDERED: BISACODYL 10 MG RECTAL SUPP PR ONE (07:30)
[2018-01-07] MEDS ORDERED: TRAZODONE 50 MG TABLET PO PRN (08:12)
--- NOTE | 2018-01-07 08:18 | P.PN ---
Subjective Date of Service: 01/07/18 Primary Care Provider: Dr. Alvarado; Urology-Dr. Little Chief Complaint: Nausea and vomiting Subjective: Doing well (Patient is doing better today. Patient pulled out NG tube last night. Patient without any nausea vomiting this morning. No significant pain noted. Daughter at bedside. Daughter reports the patient has had bowel movement and passed gas.) Physical Examination - Vital Signs Temperature: 97.0 F Blood Pressure: 175/95 Pulse: 72 Respirations: 16 Pulse Ox (%): 97 - Physical Exam General: Alert, In no apparent distress, Cooperative, Demented HEENT: Atraumatic Neck: Supple Respiratory: Clear to auscultation bilaterally, Normal air movement Cardiovascular: Normal pulses, Regular rate/rhythm Gastrointestinal: Normal bowel sounds, Soft and benign, Non-distended, No tenderness, No masses, No rebound, No guarding Musculoskeletal: No contractures, No erythema, No tenderness, No warmth Integumentary: No tenderness/swelling, No erythema, No warmth, No cyanosis Neurological: Normal speech, Normal strength at 5/5 x4 extr, Normal tone, Normal affect, Dementia Lymphatics: No axilla or inguinal lymphadenopathy - Studies Laboratory Data (last 24 hrs) 01/06/18 08:50: Creatinine 2.08 H 01/06/18 08:50: WBC 7.1, Hgb 12.1 L, Hct 36.3 L, Plt Count 149 L 01/06/18 08:50: Sodium 136, Potassium 3.8, BUN 42 H, Creatinine 2.09 H, Glucose 140 H, Total Bilirubin 0.6, AST 21, ALT 14, Alkaline Phosphatase 80, Amylase 110 H, Lipase 20 L Medications List Reviewed: Yes Assessment & Plan - Problems (Diagnosis) (1) Small bowel obstruction Onset Date: 01/07/18 Current Visit: Yes Status: Acute Plan: Small-bowel obstruction noted. Will recheck KUB this morning. Patient removed NG tube last night. Patient without any abdominal pain or nausea vomiting. Patient has passed gas and stool. If KUB shows improvement will give a trial of clear liquids. Will discuss with surgery. (2) Fecal retention Onset Date: 01/07/18 Current Visit: Yes Status: Acute Plan: Moderate stool retention noted in the the rectum. This has improved. Will provide lactulose. Qualifiers: Constipation type: unspecified constipation type Qualified Code(s): K59.00 - Constipation, unspecified (3) Chronic renal disease Onset Date: 01/07/18 Current Visit: Yes Status: Acute Plan: Acute on chronic renal disease likely from dehydration. Will continue with IV fluids. Nephrology consulted. Patient has history of left nephrectomy and right partial nephrectomy due to history of renal cell carcinoma. Qualifiers: Chronic kidney disease stage: stage 3 (moderate) Qualified Code(s): N18.3 - Chronic kidney disease, stage 3 (moderate) (4) Urinary tract infection Onset Date: 09/05/17 Current Visit: No Status: Acute Plan: IV antibiotics started. Blood culture and urine culture obtained. Qualifiers: Urinary tract infection type: catheter-associated UTI Indwelling urinary catheter type: indwelling urethral catheter Encounter type: initial encounter Qualified Code(s): T83.511A - Infection and inflammatory reaction due to indwelling urethral catheter, initial encounter; N39.0 - Urinary tract infection , site not specified; N39.0 - Urinary tract infection, site not specified (5) Alzheimer disease Onset Date: 07/01/17 Current Visit: No Status: Chronic Plan: Will monitor closely. Will continue with his medication Qualifiers: Alzheimer's disease onset: late-onset Dementia behavioral disturbance: without behavioral disturbance Qualified Code(s): G30.1 - Alzheimer's disease with late onset; F02.80 - Dementia in other diseases classified elsewhere without behavioral disturbance; F02.80 - Dementia in other diseases classified elsewhere without behavioral disturbance; F02.80 - Dementia in other diseases classified elsewhere without behavioral disturbance (6) Coronary artery disease Onset Date: 07/01/17 Current Visit: No Status: Chronic Plan: Will continue with DVT prophylaxis. Qualifiers: Coronary Disease-Associated Artery/Lesion type: [place] artery [place] vs. transplanted heart: [place] heart Associated angina: without angina Qualified Code(s): I25.10 - Atherosclerotic heart disease of [place] coronary artery without angina pectoris (7) Essential hypertension Onset Date: 07/01/17 Current Visit: No Status: Chronic Plan: Will continue with his medication and adjust appropriately. (8) History of ischemic stroke without residual deficits Onset Date: 07/01/17 Current Visit: No Status: Chronic Plan: Will continue with DVT prophylaxis. (9) BPH (benign prostatic hyperplasia) Current Visit: Yes Status: Chronic Plan: Will restart his home medication Qualifiers: Lower urinary tract symptom presence: unspecified whether lower urinary tract symptoms present Qualified Code(s): N40.0 - Benign prostatic hyperplasia without lower urinary tract symptoms (10) GERD (gastroesophageal reflux disease) Current Visit: Yes Status: Suspected Plan: Will provide PPI Qualifiers: Esophagitis presence: esophagitis presence not specified Qualified Code(s) : K21.9 - Gastro-esophageal reflux disease without esophagitis Discharge Plan: Home Plan to discharge in: 48 Hours Time Spent Managing Pts Care (In Minutes): 55
[2018-01-07] MEDS: Ciprofloxacin 200mg IV 200 MG/100 ML IV.SOLN. IV SCH (09:19)
[2018-01-07] MEDS: FINASTERIDE 5 MG TAB PO SCH (09:20)
[2018-01-07] MEDS: LACTULOSE 20 GM/30 ML UCUP PO SCH (09:20)
[2018-01-07] MEDS: PANTOPRAZOLE 40 MG INJ IVP SCH (09:20)
[2018-01-07] MEDS: MEMANTINE HCL 10 MG TABLET PO SCH ×2 (09:21→21:00)
[2018-01-07] MEDS: AMLODIPINE 2.5 MG TAB PO SCH (09:22)
[2018-01-07] MEDS: MULTIVIT W/ MINERAL TAB PO SCH (09:22)
[2018-01-07] MEDS: NA CHLORIDE 0.9% 1,000 ML IV SCH ×2 (09:23→17:17)
[2018-01-07] MEDS: HYDRALAZINE HCL 20 MG/ML VIAL IV PRN (09:25)
[2018-01-07 10:57] LABS: A1c Component 0.45 mg/dL; Hemoglobin A1c 5.4 % (4-6.0)
[2018-01-07] MEDS: ONDANSETRON 4 MG/2 ML VIAL IV PRN (11:56)
--- NOTE | 2018-01-07 13:09 | RAD REPORT ---
EXAM DESCRIPTION: RAD - Abdomen 1 View (KUB) - 01/07/2018 12:35 pm CLINICAL HISTORY: Bowel obstruction. COMPARISON: 01/06/2018, 09/10/2017 FINDINGS: Multiple prominent left-sided small bowel loops are again noted, appearing mildly to moder ately improved since comparative study. No pneumatosis suspected. Diffuse osteopenia is seen. IMPRESSION: Mild to moderate improvement in small bowel obstruction pattern since 01/06/2018 CT.
[2018-01-07] MEDS ORDERED: PROPOFOL 200 MG/20 ML VIAL IV ONE (13:53)
[2018-01-07] MEDS ORDERED: FENTANYL CITR 100 MCG/2 ML ONE (13:54)
[2018-01-07] MEDS ORDERED: ROCURONIUM 50 MG/5 ML VIAL IV ONE (13:54)
[2018-01-07] MEDS ORDERED: SUCCINYLCHOLINE 20 MG/ML (10 ML) IV ONE (14:02)
--- NOTE | 2018-01-07 14:20 | P.PN ---
Date of Service: 01/07/18 S.: Patient does not feel much better today. NG tube has come out. Still having some abdominal discomfort. O : Abdomen is soft, but still feels distended in the upper abdomen. A : Patient has been decompressed with nasogastric tube. Patient portion pulled out. I do not feel that this is going to resolve however with conservative management. He is still has tenderness and fullness in the low in the abdomen and I think he has a distal small bowel obstruction. P: I will take him to the operating room for exploratory laparotomy. The risks of this procedure have been explained above to the patient and his family. He understands and wants us to proceed.
[2018-01-07] MEDS ORDERED: EPHEDRINE SULF 50 MG/5 ML SYR ONE (14:24)
[2018-01-07] MEDS ORDERED: NS 0.9% VIAL 10 ML ONE ×2 (14:25→14:34)
[2018-01-07] MEDS ORDERED: Phenylephrine HCl 10 MG/ML 1 ML VIAL ONE (14:34)
[2018-01-07] MEDS ORDERED: NA CHLORIDE 0.9% 1,000 ML ONE ×2 (14:34→15:09)
[2018-01-07] MEDS ORDERED: GLYCOPYRROLATE 0.2 MG/ML SYR ONE (15:23)
[2018-01-07] MEDS ORDERED: NEOSTIGMINE 1 MG/ML -5 ML SYRINGE ONE (15:24)
[2018-01-07] MEDS ORDERED: Ringers Lactate 1,000 ML IV ONE (15:35)
--- NOTE | 2018-01-07 15:50 | P.OP ---
Preoperative diagnosis: Small-bowel obstruction Postoperative diagnosis: Small-bowel obstruction secondary to extensive intra- abdominal adhesions Primary procedure: Exploratory laparotomy Secondary procedure: Lyses of extensive intra-abdominal adhesions Anesthesia: General Estimated blood loss: Less than 30 cc Specimen: none Findings: Distal jejunal partial obstruction Operative Technique: The patient brought the operating room placed supine on the table. After the induction of adequate general endotracheal anesthesia, the area of the abdomen was prepped with a DuraPrep solution, and he was draped in usual aseptic manner. A generous midline incision was made. This brought down through the skin and subcutaneous tissue. The fascia was opened in the midline. All suture material was removed. The incision extended from 4 fingers breath below the xiphoid to 4 fingers abruptly pubic symphysis. We were able to enter the peritoneal cavity. We could see dilated loops of proximal small bowel. This extends from the ligament of Treitz down to an area on the right side of the abdomen and consistent with the proximal jejunum. From this point down to the ileocecal valve. There were numerous adhesions of the small bowel to each other with the coiling at, and curling of the bowel at the most dilated section we worked down towards the ileocecal valve. These adhesions were taken down using blunt sharp dissection. As we maneuver to the ileocecal valve we could see that the small bowel was adherent at the mid ileum to the patient's old vascular graft. This was carefully dissected free. The bowel have now completely free, and had dilated up to its normal caliber. Once again the small bowel was run from the ligament of Treitz stent to the ileocecal valve. The whole bowel had now been freed. It was placed back in his normal anatomical position into the peritoneal cavity. The small amount of omentum was placed over the bowel itself. The midline incision was closed with 2 running sutures of 0 nylon 1 started from the top 1 from the bottom tied in the middle. The knot was then buried. Malcolm were used to approximate the skin. At the end of the procedure he was in a stable condition when sent to the recovery room. Needle sponge instrument count were correct. No drains were placed. Complications: None Transferred to: Recovery Room Condition: Good
[2018-01-07] MEDS: MORPHINE 4 MG/ML SYR ONE ×2 (16:18→16:23)
[2018-01-07] MEDS: MORPHINE 4 MG/ML SYR IV PRN (19:47)
[2018-01-07] MEDS: TAMSULOSIN 0.4 MG SR CAP PO SCH (21:00)
--- NOTE | 2018-01-07 21:37 | P.PN ---
Date of Service: 01/07/18 Vital Signs Temp Pulse Resp BP Pulse Ox 98.4 F 89 16 139/92 H 98 01/07/18 20:00 01/07/18 21:00 01/07/18 21:00 01/07/18 21:00 01/07/18 21:00 Medications Acetaminophen (Tylenol -Extra Strength) 500 mg PO Q4HP PRN PRN Reason: [id number] Stop: 02/05/18 11:06 Acetaminophen (Tylenol Suppository) 650 mg [place] Q6HP PRN PRN Reason: [id number] Stop: 02/05/18 11:06 Last Admin: 01/07/18 18:29 Dose: 650 mg Amlodipine Besylate (Norvasc) 2.5 mg PO DAILY [facility] Stop: 02/06/18 09:01 Last Admin: 01/07/18 09:22 Dose: 2.5 mg Finasteride (Proscar) 5 mg PO DAILY [facility] Stop: 02/06/18 09:01 Last Admin: 01/07/18 09:20 Dose: 5 mg Hydralazine HCl (Apresoline) 10 mg IV Q6HP PRN PRN Reason: HIGH BP Stop: 02/05/18 11:06 Last Admin: 01/07/18 09:25 Dose: 10 mg Sodium Chloride (Ns 1000 Ml Ivbag) 1,000 mls @ 100 mls/hr IV .Q10H [facility] Stop: 02/05/18 12:01 Last Admin: 01/07/18 17:17 Dose: 1,000 mls Lactulose (Cephulac) 20 gm PO DAILY [facility] Stop: 02/06/18 09:01 Last Admin: 01/07/18 09:20 Dose: 20 gm Memantine (Namenda) 20 mg PO BID [facility] Stop: 02/06/18 09:01 Last Admin: 01/07/18 21:00 Dose: Not Given Morphine Sulfate (Morphine Sulfate) 4 mg IV Q2H PRN PRN Reason: Pain scale 8-10 (Severe) Stop: 02/06/18 19:24 Last Admin: 01/07/18 19:47 Dose: 4 mg Multivitamins/Minerals (Centrum Silver) 1 tab PO DAILY [facility] Stop: 02/06/18 09:01 Last Admin: 01/07/18 09:22 Dose: 1 tab Ondansetron HCl (Zofran) 4 mg IV Q6HP PRN PRN Reason: NAUSEA / VOMITING Stop: 02/05/18 11:06 Last Admin: 01/07/18 11:56 Dose: 4 mg Pantoprazole Sodium (Protonix Inj) 40 mg IVP DAILY [facility] Stop: 02/06/18 09:01 Last Admin: 01/07/18 09:20 Dose: 40 mg Sodium Chloride (Normal Saline Flush) 10 ml IV BID [facility] Stop: 02/05/18 21:01 Last Admin: 01/07/18 21:00 Dose: Not Given Sodium Chloride (Sodium Chloride 10 Ml Inj) 10 ml IV UD PRN PRN Reason: Diluant Stop: 02/05/18 11:06 Tamsulosin HCl (Flomax) 0.8 mg PO BEDTIME [facility] Stop: 02/06/18 21:01 Last Admin: 01/07/18 21:00 Dose: Not Given Trazodone HCl (Desyrel) 50 mg PO BEDTIME PRN PRN Reason: INSOMNIA Stop: 02/06/18 08:13 Microbiology Results 01/06/18 08:54 Stool Occult Blood - Final Assessment/ Plan: Nephrology. Seen and examined in the ICU. Limited IH/ ROS due to dementia. Denies pain at this time. Case discussed with nurse; reduced urine output since surgery. Vitals, medications, blood work and imaging reviewed in the chart. General: Alert, Cooperative HEENT: Atraumatic, Normocephalic Neck: Supple, JVD not distended Respiratory: Clear to auscultation bilaterally, Normal air movement Cardiovascular: Regular rate/rhythm, No rubs Gastrointestinal: Non-distended, No guarding, Tenderness, surgical wound Musculoskeletal: No clubbing, No contractures. No edema. Integumentary: No rashes, No cyanosis Neurological: Normal speech Laboratory Data (last 24 hrs) 01/06/18 08:50: Creatinine 2.08 H 01/06/18 08:50: WBC 7.1, Hgb 12.1 L, Hct 36.3 L, Plt Count 149 L 01/06/18 08:50: Sodium 136, Potassium 3.8, BUN 42 H, Creatinine 2.09 H, Glucose 140 H, Total Bilirubin 0.6, AST 21, ALT 14, Alkaline Phosphatase 80, Amylase 110 H, Lipase 20 L Imagings Data: EXAM DESCRIPTION: CT - Abdomen Pelvis Wo Contrast - 01/06/2018 9:58 am CLINICAL HISTORY: Abdominal pain, coffee-ground emesis, vomiting COMPARISON: CT study September 2017 TECHNIQUE: Axial [address] imaging of the abdomen and pelvis was performed without IV contrast. No IV contrast was given because of allergy, abnormal renal function, patient refusal or physician request. Oral contrast was administered. All CT scans are performed using dose optimization technique as appropriate and may include automated exposure control or mA/KV adjustment according to patient size. FINDINGS: No suspicious findings in the lung bases. The liver, spleen and pancreas show no suspicious findings on non-contrast imaging. Cholecystectomy clips are present. No biliary tree dilatation. Left kidney is absent. No hydronephrosis of the right kidney. Vascular calcifications are present. Nonobstructing caliceal calculi seen lower pole on the right. Bladder is fully contracted around a Virk catheter. No significant adrenal finding. Isodense renal masses and pyelonephritis cannot be excluded in the absence of IV contrast. No gastric dilatation. Stomach is distended mostly by air. Oral contrast is present. No gastric wall thickening or mass. Oral CT contrast has made it into the proximal small bowel. Jejunum is normal in diameter. There is significant dilatation of the jejunum and proximal ileum. Exact transition site is not identifiable. An obstructing mass is not seen. Point of transition is believed to be mid to lower right abdomen. Moderately large stool volume present throughout a nondilated colon. The rectum is dilated by a large amount of stool. A primary, acute colon process is not suspected. No free air, free fluid or inflammatory stranding. No mass or bulky lymphadenopathy. No omental thickening. Disc and bony degenerative changes are present. Patient has dense vascular calcifications. Aortoiliac bypass is in place. No periaortic abnormality seen. Vascular assessment is limited in the absence of IV contrast. IMPRESSION: Small bowel obstruction pattern with an exact transition point not identifiable. Transition is most likely in the mid to lower right abdomen. No free air or surgically emergent finding. No bowel wall edema seen. Moderate stool volume throughout the colon with a large amount of stool dilating the rectum. The Left kidney is absent. No hydronephrosis or acute right renal finding. Full assessment is limited is the absence of IV contrast. Conclusions/Impression: A/ KERRY likely prerenal azotemia in the setting of SBO. CKD III with proteinuria. Left nephrectomy with RCC. Partial right nephrectomy. Kidney stents X3. HTN with CKD. IFG. Anemia in chronic illness. Thrombocytopenia. Gout. BPH/ LUTS with chronic virk X2 weeks. SBO. Constipation/ Fecal retention. Alz dementia. GNR cystitis. P/ Continue current POC and Medications. Surgery evaluation for SBO. Consider abx for cystitis. Continue IVF. Pain control as needed. AM labs. Daily weight. No NSAIDs.
[2018-01-08] MEDS: MORPHINE 4 MG/ML SYR IV PRN (02:27)
[2018-01-08] MEDS: NA CHLORIDE 0.9% 1,000 ML IV SCH ×3 (04:11→20:12)
[2018-01-08 05:31] LABS: Absolute Lymphocytes (CBC) 0.4 K/uL (0.7-4.9); Absolute Monocytes 0.4 K/uL (0.1-1.3); Absolute Neutrophil 3.9 K/uL (1.8-8.0); Basophils % 0.1 % (0-1.3); Eosinophils % 0.3 % (0-4.4); Lymphocytes % 7.7 % (15.3-44.8); MCH 29.1 pg (27.0-35.0); MCV 85.9 fL (80-100); MPV 8.5 fL (7.6-11.3); Monocytes % 8.9 % (3.3-12.3); RBC Red Blood Cell Count 4.08 M/uL (4.33-5.43)
[2018-01-08 05:50] LABS: Magnesium 1.6 mg/dL (1.8-2.5); Phosphorus 3.2 mg/dL (2.5-4.3); Potassium 4.3 mEq/L (3.6-5.0); Uric Acid 5.3 mg/dL (4.8-8.7)
[2018-01-08 06:22] LABS: Urine Appearance CLOUDY; Urine Bilirubin NEGATIVE (NEG); Urine Blood TRACE (NEG); Urine Color YELLOW; Urine Glucose NEGATIVE (NEG); Urine Protein 1+ (NEG); Urine Urobilinogen 0.2 mg/dL (0.2-1.0)
[2018-01-08] MEDS ORDERED: MAGNESIUM SULFATE 1 gm IVPB 1 GM/100 ML BAG IV ONE (06:26)
[2018-01-08 06:32] LABS: Urine Culture Reflex Order NOT NEEDED
[2018-01-08 06:34] LABS: Urine Bacteria 20-50 /HPF (NONE SEEN); Urine Mucus 1+ /HPF (NONE SEEN); Urine RBC <5 /HPF (NONE SEEN)
[2018-01-08] MEDS: PANTOPRAZOLE 40 MG INJ IVP SCH (08:17)
[2018-01-08] MEDS: ONDANSETRON 4 MG/2 ML VIAL IV PRN (08:17)
[2018-01-08] MEDS: MULTIVIT W/ MINERAL TAB PO SCH (08:18)
[2018-01-08] MEDS: FINASTERIDE 5 MG TAB PO SCH (08:18)
[2018-01-08] MEDS: AMLODIPINE 2.5 MG TAB PO SCH (08:18)
[2018-01-08] MEDS: MEMANTINE HCL 10 MG TABLET PO SCH ×2 (08:19→20:12)
[2018-01-08] MEDS: LACTULOSE 20 GM/30 ML UCUP PO SCH (08:24)
[2018-01-08] MEDS ORDERED: Meropenem 500 MG VIAL IV SCH (09:00)
[2018-01-08] MEDS: Meropenem 500 MG in NA CHLORIDE 0.9% 100 ML IV SCH ×2 (09:01→16:35)
[2018-01-08] MEDS: Morphine 2 MG/2 ML SYR IV PRN ×2 (11:46→18:09)
--- NOTE | 2018-01-08 13:47 | PN ---
Date of Progress Note: 01/08/2018 Subjective: The patient is seen and examined. Chart reviewed and case discussed with RN. The patie nt had uneventful night. No acute events. States pain is controlled. Review of Systems: Negative except as above. Medications: Reviewed. Physical Examination: Vital Signs: Temperature 98, heart rate 84, blood pressure 145/95, respirations 18, O2 97% on room a ir. General: Awake, alert, oriented to self. The patient is elderly gentleman, who is demented, somewha t ill-appearing. CV: S1, S2. Regular rate and rhythm. Peripheral pulses present. No murmurs. Respiratory: Clear to auscultation bilaterally. No wheezing. Gastrointestinal: Abdomen is soft. Mild tenderness to palpation around the incision site. Nondiste nded. Hypoactive bowel sounds. Extremities: No clubbing, cyanosis, edema. Neurologic: Nonfocal. Laboratory Data: Sodium 140, potassium 4.3, chloride 111, CO2 23, BUN 38, creatinine 2, glucose 107, calcium 8.6, magnesium 1.6. WBC 4.7, H and H 11.8 and 35, platelets 61, neutrophils 83%. Blood cul tures, no growth to date. Urine culture shows E. coli as ESBL producing. Assessment And Plan: A 72-year-old male with: 1.Small bowel obstruction, status post exploratory laparotomy, lysis of extensive intraabdominal adh esions, postoperative day #1. Appreciate Dr. Herring's input. The patient to be started on a clear liquid diet. 2.Hypomagnesemia, replace and monitor. 3.Chronic kidney disease, stage 3. The patient has left nephrectomy and right partial nephrectomy d ue to a history of renal cell carcinoma. Nephrology on board. 4.History of renal cell carcinoma status post nephrectomy. 5.Urinary tract infection, ESBL producing Escherichia coli. We will switch antibiotics to meropenem . We will obtain a PICC line. The patient will need at least 2-4 weeks of long-term IV antibiotics. 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 7.Coronary artery disease, [place] artery and [place] heart without angina, stable. 8.Essential hypertension. Continue home medications. 9.History of ischemic stroke without residual deficits. Continue with Lovenox, start once the patie nt is 24 hours post surgery. 10.Hyperlipidemia, mixed. 11.Gout. 12.Gastrointestinal and deep venous thrombosis prophylaxis with PPI, and start Lovenox 24 hours post surgery. Plan: Continue antibiotics. We will likely need SNF referral. /LORENA Voice ID: [id number] Report ID: [id number]
--- NOTE | 2018-01-08 16:00 | RAD REPORT ---
EXAM DESCRIPTION: RAD - Chest Single View - 01/08/2018 3:50 pm CLINICAL HISTORY: PICC line placement COMPARISON: None. FINDINGS: Portable chest was obtained following placement of a left upper extremity PICC line. The c atheter tip is in the mid SVC.
--- NOTE | 2018-01-08 16:48 | P.PN ---
Date of Service: 01/08/18 Vital Signs Temp Pulse Resp BP Pulse Ox 98 F 84 18 145/95 H 98 01/08/18 04:00 01/08/18 08:18 01/08/18 06:00 01/08/18 08:18 01/08/18 06:00 Medications Acetaminophen (Tylenol -Extra Strength) 500 mg PO Q4HP PRN PRN Reason: [id number] Stop: 02/05/18 11:06 Acetaminophen (Tylenol Suppository) 650 mg [place] Q6HP PRN PRN Reason: [id number] Stop: 02/05/18 11:06 Last Admin: 01/07/18 18:29 Dose: 650 mg Amlodipine Besylate (Norvasc) 2.5 mg PO DAILY [facility] Stop: 02/06/18 09:01 Last Admin: 01/08/18 08:18 Dose: 2.5 mg Finasteride (Proscar) 5 mg PO DAILY [facility] Stop: 02/06/18 09:01 Last Admin: 01/08/18 08:18 Dose: 5 mg Hydralazine HCl (Apresoline) 10 mg IV Q6HP PRN PRN Reason: HIGH BP Stop: 02/05/18 11:06 Last Admin: 01/07/18 09:25 Dose: 10 mg Sodium Chloride (Ns 1000 Ml Ivbag) 1,000 mls @ 100 mls/hr IV .Q10H [facility] Stop: 02/05/18 12:01 Last Admin: 01/08/18 16:36 Dose: 1,000 mls Meropenem 500 mg/ Sodium (Chloride) 100 mls @ 100 mls/hr IV Q8HR [facility] Stop: 02/07/18 09:01 Last Admin: 01/08/18 16:35 Dose: 100 mls Lactulose (Cephulac) 20 gm PO DAILY [facility] Stop: 02/06/18 09:01 Last Admin: 01/08/18 08:24 Dose: Not Given Memantine (Namenda) 20 mg PO BID [facility] Stop: 02/06/18 09:01 Last Admin: 01/08/18 08:19 Dose: 20 mg Morphine Sulfate (Morphine Sulfate) 4 mg IV Q2H PRN PRN Reason: Pain scale 8-10 (Severe) Stop: 02/07/18 08:13 Last Admin: 01/08/18 11:46 Dose: 4 mg Multivitamins/Minerals (Centrum Silver) 1 tab PO DAILY [facility] Stop: 02/06/18 09:01 Last Admin: 01/08/18 08:18 Dose: 1 tab Ondansetron HCl (Zofran) 4 mg IV Q6HP PRN PRN Reason: NAUSEA / VOMITING Stop: 02/05/18 11:06 Last Admin: 01/08/18 08:17 Dose: 4 mg Pantoprazole Sodium (Protonix Inj) 40 mg IVP DAILY [facility] Stop: 02/06/18 09:01 Last Admin: 01/08/18 08:17 Dose: 40 mg Sodium Chloride (Normal Saline Flush) 10 ml IV BID [facility] Stop: 02/05/18 21:01 Last Admin: 01/08/18 08:18 Dose: 10 ml Sodium Chloride (Sodium Chloride 10 Ml Inj) 10 ml IV UD PRN PRN Reason: Diluant Stop: 02/05/18 11:06 Tamsulosin HCl (Flomax) 0.8 mg PO BEDTIME [facility] Stop: 02/06/18 21:01 Last Admin: 01/07/18 21:00 Dose: Not Given Trazodone HCl (Desyrel) 50 mg PO BEDTIME PRN PRN Reason: INSOMNIA Stop: 02/06/18 08:13 Microbiology Results 01/06/18 08:54 Stool Occult Blood - Final Assessment/ Plan: Nephrology. Seen and examined in the ICU. Limited IH/ ROS due to dementia. Denies pain at this time. Case discussed with nurse; No acute events overnight. Vitals, medications, blood work and imaging reviewed in the chart. General: Alert, Cooperative HEENT: Atraumatic, Normocephalic Neck: Supple, JVD not distended Respiratory: Clear to auscultation bilaterally, Normal air movement Cardiovascular: Regular rate/rhythm, No rubs Gastrointestinal: Non-distended, No guarding, Tenderness, surgical wound Musculoskeletal: No clubbing, No contractures. No edema. Integumentary: No rashes, No cyanosis Neurological: Normal speech Laboratory Data (last 24 hrs) 01/06/18 08:50: Creatinine 2.08 H 01/06/18 08:50: WBC 7.1, Hgb 12.1 L, Hct 36.3 L, Plt Count 149 L 01/06/18 08:50: Sodium 136, Potassium 3.8, BUN 42 H, Creatinine 2.09 H, Glucose 140 H, Total Bilirubin 0.6, AST 21, ALT 14, Alkaline Phosphatase 80, Amylase 110 H, Lipase 20 L Imagings Data: EXAM DESCRIPTION: CT - Abdomen Pelvis Wo Contrast - 01/06/2018 9:58 am CLINICAL HISTORY: Abdominal pain, coffee-ground emesis, vomiting COMPARISON: CT study September 2017 TECHNIQUE: Axial [address] imaging of the abdomen and pelvis was performed without IV contrast. No IV contrast was given because of allergy, abnormal renal function, patient refusal or physician request. Oral contrast was administered. All CT scans are performed using dose optimization technique as appropriate and may include automated exposure control or mA/KV adjustment according to patient size. FINDINGS: No suspicious findings in the lung bases. The liver, spleen and pancreas show no suspicious findings on non-contrast imaging. Cholecystectomy clips are present. No biliary tree dilatation. Left kidney is absent. No hydronephrosis of the right kidney. Vascular calcifications are present. Nonobstructing caliceal calculi seen lower pole on the right. Bladder is fully contracted around a Virk catheter. No significant adrenal finding. Isodense renal masses and pyelonephritis cannot be excluded in the absence of IV contrast. No gastric dilatation. Stomach is distended mostly by air. Oral contrast is present. No gastric wall thickening or mass. Oral CT contrast has made it into the proximal small bowel. Jejunum is normal in diameter. There is significant dilatation of the jejunum and proximal ileum. Exact transition site is not identifiable. An obstructing mass is not seen. Point of transition is believed to be mid to lower right abdomen. Moderately large stool volume present throughout a nondilated colon. The rectum is dilated by a large amount of stool. A primary, acute colon process is not suspected. No free air, free fluid or inflammatory stranding. No mass or bulky lymphadenopathy. No omental thickening. Disc and bony degenerative changes are present. Patient has dense vascular calcifications. Aortoiliac bypass is in place. No periaortic abnormality seen. Vascular assessment is limited in the absence of IV contrast. IMPRESSION: Small bowel obstruction pattern with an exact transition point not identifiable. Transition is most likely in the mid to lower right abdomen. No free air or surgically emergent finding. No bowel wall edema seen. Moderate stool volume throughout the colon with a large amount of stool dilating the rectum. The Left kidney is absent. No hydronephrosis or acute right renal finding. Full assessment is limited is the absence of IV contrast. Conclusions/Impression: A/ KERRY likely prerenal azotemia in the setting of SBO. CKD III with proteinuria. Left nephrectomy with RCC. Partial right nephrectomy. Kidney stents X3. HTN with CKD. IFG. Anemia in chronic illness. Thrombocytopenia. Gout. BPH/ LUTS with chronic virk X2 weeks. Dr. Little SBO. Constipation/ Fecal retention. Alz dementia. ESBL E.coli cystitis. P/ Continue current POC and Medications. Follow up with surgery for SBO. Agree with meropenem. Continue IVF. Advance diet as tolerated. Pain control as needed. AM labs. Daily weight. No NSAIDs.
--- NOTE | 2018-01-08 17:47 | P.PN ---
Date of Service: 01/08/18 S.: Patient resting at the moment. Was transferred out of the ICU today. Had been up ambulating, is tolerating a soft mechanical diet. 0: Vital signs remain stable incision is clean has hypoactive bowel sounds A: From a surgical standpoint is doing well. Has a PICC line placed. Has been started on a soft mechanical diet. P: Mobilize patient, continue with incentive spirometry. He is going to be markedly hypoproteinemic I suspect and will require supplemental feeding.
[2018-01-08] MEDS: TAMSULOSIN 0.4 MG SR CAP PO SCH (20:11)
[2018-01-09] MEDS: Meropenem 500 MG in NA CHLORIDE 0.9% 100 ML IV SCH ×4 (00:10→22:13)
[2018-01-09] MEDS: HYDRALAZINE HCL 20 MG/ML VIAL IV PRN ×2 (03:38→22:12)
[2018-01-09] MEDS: ONDANSETRON 4 MG/2 ML VIAL IV PRN (03:38)
[2018-01-09] MEDS: Morphine 2 MG/2 ML SYR IV PRN (03:39)
[2018-01-09 05:21] LABS: Absolute Lymphocytes (CBC) 0.4 K/uL (0.7-4.9); Absolute Monocytes 0.5 K/uL (0.1-1.3); Absolute Neutrophil 4.1 K/uL (1.8-8.0); Basophils % 0.2 % (0-1.3); Eosinophils % 2.4 % (0-4.4); Lymphocytes % 7.8 % (15.3-44.8); MCH 28.2 pg (27.0-35.0); MCV 85.1 fL (80-100); MPV 8.5 fL (7.6-11.3); RBC Red Blood Cell Count 3.76 M/uL (4.33-5.43)
[2018-01-09 05:50] LABS: Magnesium 1.9 mg/dL (1.8-2.5); Uric Acid 5.6 mg/dL (4.8-8.7)
[2018-01-09] MEDS ORDERED: MORPHINE 4 MG/ML SYR IV PRN (07:26)
[2018-01-09] MEDS: LACTULOSE 20 GM/30 ML UCUP PO SCH (09:12)
[2018-01-09] MEDS: ENOXAPARIN 30 MG/0.3 ML SQ SCH (09:12)
[2018-01-09] MEDS: PANTOPRAZOLE 40 MG INJ IVP SCH (09:13)
[2018-01-09] MEDS: MEMANTINE HCL 10 MG TABLET PO SCH ×2 (09:13→22:13)
[2018-01-09] MEDS: MULTIVIT W/ MINERAL TAB PO SCH (09:13)
[2018-01-09] MEDS: AMLODIPINE 2.5 MG TAB PO SCH (09:14)
[2018-01-09] MEDS: FINASTERIDE 5 MG TAB PO SCH (09:14)
[2018-01-09] MEDS: NA CHLORIDE 0.9% 1,000 ML IV SCH ×2 (10:00→19:50)
--- NOTE | 2018-01-09 13:13 | PN ---
Date of Progress Note: 01/09/2018 Subjective: The patient seen and examined, chart reviewed, and case discussed with RN. Daughter-in- law at the bedside. Treatment plan explained. All questions answered. The patient having some diff iculty swallowing his pills, was made n.p.o. Speech Therapy evaluation ordered. Review of Systems: Limited due to the patient's medical condition. Medications: Reviewed. Objective: Vital Signs: Temperature 97.6, heart rate 94, blood pressure 156/83, respirations 16, an d O2 97% on room air. General: awake, alert, oriented x3, not in any acute distress. Elderly male, demented. CV: S1, S2. No murmurs. Regular rate and rhythm. Peripheral pulses present. Respiratory: Clear to auscultation bilaterally. No wheezing. No stridor. No use of accessory musc les Gastrointestinal: Abdomen is soft, nontender, nondistended. Positive bowel sounds. No guarding or rigidity. Extremities: No clubbing, cyanosis, or edema. Neurologic: Nonfocal. Laboratory Data: Sodium 139, potassium 4, chloride 110, CO2 24, BUN 34, creatinine 1.81, and glucose 97. Hemoglobin A1c 5.4%. Calcium 8.4, magnesium 1.9. WBC 5.1, H and H 10.6, 32, and platelets 169 . Urine culture growing an ESBL E coli. Blood cultures, no growth to date. Chest x-ray from 2016 shows placement of left upper extremity PICC line. Catheter tip in SVC. Assessment: A 72-year-old male with; 1.Small bowel obstruction, status post exploratory laparotomy, lysis of extensive intraabdominal adh esions. Postoperative day #2. Dr. Herring on board. Started on diet, tolerating well. 2.Dysphagia. Speech Therapy evaluation is completed. We will order modified barium swallow study. Keep n.p.o. for now. 3.Chronic kidney disease stage 3. Creatinine improving. The patient has had left nephrectomy and r ight partial nephrectomy due to history of renal cell carcinoma. Appreciate Nephrology input. 4.History of renal cell carcinoma, status post nephrectomy. 5.Urinary tract infection with extended-spectrum beta-lactamase producing Escherichia coli. Continu e meropenem. PICC line has been placed. The patient will need at least 2 weeks of IV antibiotics. We will obtain SNF referral. [facility] in [place]. 6.Alzheimer's dementia without behavioral disturbance. 7.Coronary artery disease, [place] artery and [place] heart without angina. 8.Essential hypertension. Continue home medications. 9.History of ischemic stroke without residual deficits. Continue Lovenox. 10.Hyperlipidemia, mixed. 11.Gout. Uric acid level is normal. 12.Gastrointestinal and deep venous thrombosis prophylaxis with PPI and Lovenox. Plan: Discharge to SNF once excepted. Followup on modified barium swallow study. /LORENA Voice ID: [id number] Report ID: [id number]
--- NOTE | 2018-01-09 16:55 | RAD REPORT ---
EXAM DESCRIPTION: RAD - Barium Swallow Modified - 01/09/2018 4:32 pm CLINICAL HISTORY: Cough, difficulty swallowing, choking COMPARISON: None. TECHNIQUE: The patient was given liquid, semi-solid and solid forms of barium. Lateral view fluorosc opic imaging was performed in conjunction with speech pathology service. FINDINGS: Aspiration was observed with only a weak cough reflex triggered by the aspiration. Promine nt retention of contrast within the valleculae and piriform sinuses. Patient had a delayed swallow re flex. IMPRESSION: Aspiration was observed with little cough reflex. Findings are further detailed on speech pathology report.
--- NOTE | 2018-01-09 20:51 | P.PN ---
Date of Service: 01/09/18 Vital Signs Temp Pulse Resp BP Pulse Ox 97.6 F 84 16 189/93 H 98 01/09/18 16:00 01/09/18 16:00 01/09/18 16:00 01/09/18 16:00 01/09/18 16:00 Medications Acetaminophen (Tylenol -Extra Strength) 500 mg PO Q4HP PRN PRN Reason: [id number] Stop: 02/05/18 11:06 Amlodipine Besylate (Norvasc) 2.5 mg PO DAILY [facility] Stop: 02/06/18 09:01 Last Admin: 01/09/18 09:14 Dose: 2.5 mg Enoxaparin Sodium (Lovenox 30 Mg Inj) 30 mg SQ DAILY [facility] Stop: 02/08/18 09:01 Last Admin: 01/09/18 09:12 Dose: 30 mg Finasteride (Proscar) 5 mg PO DAILY [facility]ANK Stop: 02/06/18 09:01 Last Admin: 01/09/18 09:14 Dose: 5 mg Hydralazine HCl (Apresoline) 10 mg IV Q6HP PRN PRN Reason: HIGH BP Stop: 02/05/18 11:06 Last Admin: 01/09/18 03:38 Dose: 10 mg Sodium Chloride (Ns 1000 Ml Ivbag) 1,000 mls @ 100 mls/hr IV .Q10H [facility] Stop: 02/05/18 12:01 Last Admin: 01/09/18 19:50 Dose: 1,000 mls Meropenem 500 mg/ Sodium (Chloride) 100 mls @ 100 mls/hr IV Q8HR [facility] Stop: 02/07/18 09:01 Last Admin: 01/09/18 16:50 Dose: 100 mls Lactulose (Cephulac) 20 gm PO DAILY [facility] Stop: 02/06/18 09:01 Last Admin: 01/09/18 09:12 Dose: 20 gm Memantine (Namenda) 20 mg PO BID [facility] Stop: 02/06/18 09:01 Last Admin: 01/09/18 09:13 Dose: 20 mg Morphine Sulfate (Morphine Sulfate) 4 mg IV Q2H PRN PRN Reason: Pain scale 8-10 (Severe) Stop: 02/08/18 07:27 Last Admin: 06/07/18 09:13 Dose: 4 mg Multivitamins/Minerals (Centrum Silver) 1 tab PO DAILY [facility] Stop: 02/06/18 09:01 Last Admin: 01/09/18 09:13 Dose: 1 tab Ondansetron HCl (Zofran) 4 mg IV Q6HP PRN PRN Reason: NAUSEA / VOMITING Stop: 02/05/18 11:06 Last Admin: 01/09/18 03:38 Dose: 4 mg Pantoprazole Sodium (Protonix Inj) 40 mg IVP DAILY [facility] Stop: 02/06/18 09:01 Last Admin: 01/09/18 09:13 Dose: 40 mg Sodium Chloride (Normal Saline Flush) 10 ml IV BID [facility] Stop: 02/05/18 21:01 Last Admin: 01/09/18 09:15 Dose: 10 ml Sodium Chloride (Sodium Chloride 10 Ml Inj) 10 ml IV UD PRN PRN Reason: Diluant Stop: 02/05/18 11:06 Tamsulosin HCl (Flomax) 0.8 mg PO BEDTIME [facility] Stop: 02/06/18 21:01 Last Admin: 01/08/18 20:11 Dose: 0.8 mg Trazodone HCl (Desyrel) 50 mg PO BEDTIME PRN PRN Reason: INSOMNIA Stop: 02/06/18 08:13 Microbiology Results 01/06/18 08:54 Stool Occult Blood - Final Assessment/ Plan: Nephrology. Seen and examined in his room. Limited IH/ ROS due to dementia. Denies pain at this time. No acute events overnight. Vitals, medications, blood work and imaging reviewed in the chart. General: Alert, Cooperative HEENT: Atraumatic, Normocephalic Neck: Supple, JVD not distended Respiratory: Clear to auscultation bilaterally, Normal air movement Cardiovascular: Regular rate/rhythm, No rubs Gastrointestinal: Non-distended, No guarding, Tenderness, surgical wound Musculoskeletal: No clubbing, No contractures. No edema. Integumentary: No rashes, No cyanosis Neurological: Normal speech Laboratory Data (last 24 hrs) 01/06/18 08:50: Creatinine 2.08 H 01/06/18 08:50: WBC 7.1, Hgb 12.1 L, Hct 36.3 L, Plt Count 149 L 01/06/18 08:50: Sodium 136, Potassium 3.8, BUN 42 H, Creatinine 2.09 H, Glucose 140 H, Total Bilirubin 0.6, AST 21, ALT 14, Alkaline Phosphatase 80, Amylase 110 H, Lipase 20 L Imagings Data: EXAM DESCRIPTION: CT - Abdomen Pelvis Wo Contrast - 01/06/2018 9:58 am CLINICAL HISTORY: Abdominal pain, coffee-ground emesis, vomiting COMPARISON: CT study September 2017 TECHNIQUE: Axial [address] imaging of the abdomen and pelvis was performed without IV contrast. No IV contrast was given because of allergy, abnormal renal function, patient refusal or physician request. Oral contrast was administered. All CT scans are performed using dose optimization technique as appropriate and may include automated exposure control or mA/KV adjustment according to patient size. FINDINGS: No suspicious findings in the lung bases. The liver, spleen and pancreas show no suspicious findings on non-contrast imaging. Cholecystectomy clips are present. No biliary tree dilatation. Left kidney is absent. No hydronephrosis of the right kidney. Vascular calcifications are present. Nonobstructing caliceal calculi seen lower pole on the right. Bladder is fully contracted around a Virk catheter. No significant adrenal finding. Isodense renal masses and pyelonephritis cannot be excluded in the absence of IV contrast. No gastric dilatation. Stomach is distended mostly by air. Oral contrast is present. No gastric wall thickening or mass. Oral CT contrast has made it into the proximal small bowel. Jejunum is normal in diameter. There is significant dilatation of the jejunum and proximal ileum. Exact transition site is not identifiable. An obstructing mass is not seen. Point of transition is believed to be mid to lower right abdomen. Moderately large stool volume present throughout a nondilated colon. The rectum is dilated by a large amount of stool. A primary, acute colon process is not suspected. No free air, free fluid or inflammatory stranding. No mass or bulky lymphadenopathy. No omental thickening. Disc and bony degenerative changes are present. Patient has dense vascular calcifications. Aortoiliac bypass is in place. No periaortic abnormality seen. Vascular assessment is limited in the absence of IV contrast. IMPRESSION: Small bowel obstruction pattern with an exact transition point not identifiable. Transition is most likely in the mid to lower right abdomen. No free air or surgically emergent finding. No bowel wall edema seen. Moderate stool volume throughout the colon with a large amount of stool dilating the rectum. The Left kidney is absent. No hydronephrosis or acute right renal finding. Full assessment is limited is the absence of IV contrast. Conclusions/Impression: A/ KERRY likely prerenal azotemia in the setting of SBO, improving with IVF. CKD III with proteinuria. Left nephrectomy with RCC. Partial right nephrectomy. Kidney stents X3. HTN with CKD. IFG. Anemia in chronic illness. Thrombocytopenia. Gout. BPH/ LUTS with chronic virk X2 weeks. Dr. Little SBO. Constipation/ Fecal retention. Alz dementia. ESBL E.coli cystitis. P/ Continue current POC and Medications. Follow up with surgery for SBO. Agree with meropenem. Continue IVF; monitor volume status. Continue Virk catheter. Advance diet as tolerated. Pain control as needed. AM labs. Daily weight. No NSAIDs. Plan for discharge to SNF soon.
[2018-01-09] MEDS: TAMSULOSIN 0.4 MG SR CAP PO SCH (22:13)
[2018-01-10 02:40] VITALS: O2SAT 95
[2018-01-10] MEDS: NA CHLORIDE 0.9% 1,000 ML IV SCH ×2 (04:10→05:55)
[2018-01-10] MEDS: HYDRALAZINE HCL 20 MG/ML VIAL IV PRN (04:36)
[2018-01-10 05:00] LABS: Absolute Lymphocytes (CBC) 0.6 K/uL (0.7-4.9); Absolute Monocytes 0.4 K/uL (0.1-1.3); Basophils % 0.5 % (0-1.3); Eosinophils % 3.8 % (0-4.4); Hematocrit 30.8 % (39.6-49.0); MCH 29.1 pg (27.0-35.0); MCV 84.9 fL (80-100); MPV 8.2 fL (7.6-11.3); Monocytes % 7.1 % (3.3-12.3); RBC Red Blood Cell Count 3.63 M/uL (4.33-5.43)
[2018-01-10 05:56] LABS: Albumin 2.6 g/dL (3.2-5.5); Bilirubin Total 0.7 mg/dL (0.3-1.2); Potassium 3.7 mEq/L (3.6-5.0); Protein, Total 5.2 g/dL (6.0-8.3)
[2018-01-10] MEDS ORDERED: KCL 20 MEQ/100 mL IVPB 20 MEQ/100 ML BAG IV SCH (07:00)
[2018-01-10] MEDS: MEMANTINE HCL 10 MG TABLET PO SCH ×2 (09:31→20:42)
[2018-01-10] MEDS: MULTIVIT W/ MINERAL TAB PO SCH (09:31)
[2018-01-10] MEDS: ENOXAPARIN 30 MG/0.3 ML SQ SCH (09:31)
[2018-01-10] MEDS: Meropenem 500 MG in NA CHLORIDE 0.9% 100 ML IV SCH ×2 (09:31→16:18)
[2018-01-10] MEDS: LACTULOSE 20 GM/30 ML UCUP PO SCH (09:31)
[2018-01-10] MEDS: AMLODIPINE 2.5 MG TAB PO SCH (09:32)
[2018-01-10] MEDS: FINASTERIDE 5 MG TAB PO SCH (09:32)
[2018-01-10] MEDS: PANTOPRAZOLE 40 MG INJ IVP SCH (09:32)
--- NOTE | 2018-01-10 10:50 | P.PN ---
Subjective Date of Service: 01/10/18 Primary Care Provider: Dr. Alvarado; Urology-Dr. Little [place] Complaint: Nausea and vomiting Subjective: Improving Physical Examination - Vital Signs Temperature: 97.7 F Blood Pressure: 170/82 Pulse: 89 Respirations: 16 Pulse Ox (%): 96 - Physical Exam General: Alert, In no apparent distress, Oriented x3, Cooperative, Demented HEENT: Atraumatic Neck: Supple Respiratory: Clear to auscultation bilaterally, Normal air movement Cardiovascular: Normal pulses, Regular rate/rhythm Gastrointestinal: Normal bowel sounds, Soft and benign, Non-distended, No tenderness, No masses, No rebound, No guarding Musculoskeletal: No erythema, No tenderness, No warmth Integumentary: No tenderness/swelling, No erythema, No warmth, No cyanosis Neurological: Normal speech, Normal strength at 5/5 x4 extr, Normal tone, Normal affect, Dementia - Studies Medications List Reviewed: Yes Assessment & Plan - Problems (Diagnosis) (1) Small bowel obstruction Onset Date: 01/07/18 Current Visit: Yes Status: Acute Plan: Patient status post surgery. Lysis of adhesions noted. Patient doing well this time. Awaiting transfer to skilled facility. Patient with UTI. E coli-ESBL identified. PICC line in place. Patient will need 2 weeks of IV antibiotic therapy. Patient currently on meropenem 500 mg IV 3 times a day. (2) Fecal retention Onset Date: 01/07/18 Current Visit: Yes Status: Acute Plan: This appears resolved. Qualifiers: Constipation type: unspecified constipation type Qualified Code(s): K59.00 - Constipation, unspecified (3) Chronic renal disease Onset Date: 01/07/18 Current Visit: Yes Status: Acute Plan: Acute on chronic renal disease likely from dehydration. This has improved. Patient appears to be at baseline. Will discontinue IV fluids. Will discuss with nephrology for further recommendation. Patient has history of left nephrectomy and right partial nephrectomy due to history of renal cell carcinoma. Qualifiers: Chronic kidney disease stage: stage 3 (moderate) Qualified Code(s): N18.3 - Chronic kidney disease, stage 3 (moderate) (4) Urinary tract infection Onset Date: 09/05/17 Current Visit: No Status: Acute Plan: PICC line in place. Patient will need meropenem 500 mg IV 3 times a day for 2 weeks. Patient awaiting skilled placement transfer approval. Qualifiers: Urinary tract infection type: catheter-associated UTI Indwelling urinary catheter type: indwelling urethral catheter Encounter type: initial encounter Qualified Code(s): T83.511A - Infection and inflammatory reaction due to indwelling urethral catheter, initial encounter; N39.0 - Urinary tract infection , site not specified; N39.0 - Urinary tract infection, site not specified (5) Alzheimer disease Onset Date: 07/01/17 Current Visit: No Status: Chronic Plan: Will monitor closely. Will continue with his medication Qualifiers: Alzheimer's disease onset: late-onset Dementia behavioral disturbance: without behavioral disturbance Qualified Code(s): G30.1 - Alzheimer's disease with late onset; F02.80 - Dementia in other diseases classified elsewhere without behavioral disturbance; F02.80 - Dementia in other diseases classified elsewhere without behavioral disturbance; F02.80 - Dementia in other diseases classified elsewhere without behavioral disturbance (6) Coronary artery disease Onset Date: 07/01/17 Current Visit: No Status: Chronic Plan: Will continue with DVT prophylaxis. Qualifiers: Coronary Disease-Associated Artery/Lesion type: [place] artery [place] vs. transplanted heart: [place] heart Associated angina: without angina Qualified Code(s): I25.10 - Atherosclerotic heart disease of [place] coronary artery without angina pectoris (7) Essential hypertension Onset Date: 07/01/17 Current Visit: No Status: Chronic Plan: Blood pressure medication adjusted. (8) History of ischemic stroke without residual deficits Onset Date: 07/01/17 Current Visit: No Status: Chronic Plan: Will continue with DVT prophylaxis. (9) BPH (benign prostatic hyperplasia) Current Visit: Yes Status: Chronic Plan: Continue with home medication Qualifiers: Lower urinary tract symptom presence: unspecified whether lower urinary tract symptoms present Qualified Code(s): N40.0 - Benign prostatic hyperplasia without lower urinary tract symptoms (10) GERD (gastroesophageal reflux disease) Current Visit: Yes Status: Suspected Plan: Will provide PPI Qualifiers: Esophagitis presence: esophagitis presence not specified Qualified Code(s) : K21.9 - Gastro-esophageal reflux disease without esophagitis (11) Dysphagia Current Visit: Yes Status: Acute Plan: Swallow evaluated by speech. Recommendation is to continue a pureed diet. Discharge Plan: Other (Skilled placement facility) Plan to discharge in: 24 Hours Time Spent Managing Pts Care (In Minutes): 55
--- NOTE | 2018-01-10 16:08 | P.DS ---
Admission Date: 01/06/18 Discharge Date: 01/10/18 Primary Care Provider: Dr. Alvarado; Urology-Dr. Little Disposition: TRANSFER TO SNF - MEDICAL Discharge Condition: GOOD Reason for Admission: Nausea and vomiting Consultations: Surgery-Dr. Herring Nephrology-Dr. Simpson Procedures: Surgery: Date 01/07/2018. Surgeon Dr. Adam Herring Preop diagnosis: Small-bowel obstruction Postop diagnosis: Small-bowel obstruction secondary to extensive intra- abdominal adhesions Primary procedure: Exploratory laparotomy Secondary procedure: Lyses of extensive intra-abdominal adhesions. Findings: distal jejunal partial obstruction Speech pathology evaluation: Moderate pharyngeal dysphagia characterized by delayed swallow initiaton, reduced base of tongue retraction and reduced hyolaryngeal excursion. Pooling noted to the pyriform sinuses with thin liquid and nectar thick liquids. Pooling to the valleculae noted with honey and puree consistencies. Moderate to severe pharyngeal residue noted with all consistencies in the valleculae and pyriform sinuses. Deep penetration was observed with thin liquid via cup during the swallow, with aspiration observed post completion of the swallow. Weak, ineffective cough noted with aspiration. ST recommends nectar thick liquids, pureed solids and pills crushed with strict aspiration precautions: SLOW rate of PO intake, sit at 90 degrees with all PO intake, no straws, remain elevated for 30 mins post PO intake. - Problems (1) Small bowel obstruction Onset Date: 01/07/18 Current Visit: Yes Status: Acute (2) Fecal retention Onset Date: 01/07/18 Current Visit: Yes Status: Acute Qualifiers: Constipation type: unspecified constipation type Qualified Code(s): K59.00 - Constipation, unspecified (3) Chronic renal disease Onset Date: 01/07/18 Current Visit: Yes Status: Acute Qualifiers: Chronic kidney disease stage: stage 3 (moderate) Qualified Code(s): N18.3 - Chronic kidney disease, stage 3 (moderate) (4) Urinary tract infection Onset Date: 09/05/17 Current Visit: No Status: Acute Qualifiers: Urinary tract infection type: catheter-associated UTI Indwelling urinary catheter type: indwelling urethral catheter Encounter type: initial encounter Qualified Code(s): T83.511A - Infection and inflammatory reaction due to indwelling urethral catheter, initial encounter; N39.0 - Urinary tract infection , site not specified; N39.0 - Urinary tract infection, site not specified (5) Alzheimer disease Onset Date: 07/01/17 Current Visit: No Status: Chronic Qualifiers: Alzheimer's disease onset: late-onset Dementia behavioral disturbance: without behavioral disturbance Qualified Code(s): G30.1 - Alzheimer's disease with late onset; F02.80 - Dementia in other diseases classified elsewhere without behavioral disturbance; F02.80 - Dementia in other diseases classified elsewhere without behavioral disturbance; F02.80 - Dementia in other diseases classified elsewhere without behavioral disturbance (6) Coronary artery disease Onset Date: 07/01/17 Current Visit: No Status: Chronic Qualifiers: Coronary Disease-Associated Artery/Lesion type: [place] artery [place] vs. transplanted heart: [place] heart Associated angina: without angina Qualified Code(s): I25.10 - Atherosclerotic heart disease of [place] coronary artery without angina pectoris (7) Essential hypertension Onset Date: 07/01/17 Current Visit: No Status: Chronic (8) History of ischemic stroke without residual deficits Onset Date: 07/01/17 Current Visit: No Status: Chronic (9) BPH (benign prostatic hyperplasia) Current Visit: Yes Status: Chronic Qualifiers: Lower urinary tract symptom presence: unspecified whether lower urinary tract symptoms present Qualified Code(s): N40.0 - Benign prostatic hyperplasia without lower urinary tract symptoms (10) GERD (gastroesophageal reflux disease) Current Visit: Yes Status: Suspected Qualifiers: Esophagitis presence: esophagitis presence not specified Qualified Code(s) : K21.9 - Gastro-esophageal reflux disease without esophagitis (11) Dysphagia Current Visit: Yes Status: Acute Brief History of Present Illness: 72-year-old male presented emergency room with intractable nausea and vomiting. Family at bedside. Family reports the patient has underlying dementia. Patient had intractable nausea and vomiting starting this morning about 6:00 a.m.. Patient had mild pain. As reported by family patient was doing well over the weekend. No fever, chills noted. No significant chest pain or shortness of breath noted. Patient with history of chronic renal disease with prior left nephrectomy and right partial nephrectomy due to renal cell carcinoma. Patient also with underlying BPH, anemia-iron deficiency, hypertension. In the ER patient had multiple episodes of bilious emesis. On lab white count 7.1, hemoglobin 12.1. Sodium 136, potassium 3.8. BUN of 42, creatinine 2.08 with a GFR 32. Glucose 140. Amylase 110, lipase 20. Urinalysis showed possible UTI. CT scan showed small-bowel obstruction transition point likely mid to lower right lower quadrant. Moderate amount of stool was also noted in the rectal area. Due to nature the findings the patient was admitted for treatment. In the ER patient appeared stable when I evaluated him. No significant vomiting noted. Patient was still slightly nauseous. He reported minimal pain to the abdomen. Hospital Course: During the course of stay abdominal pain was secondary to his small-bowel obstruction. Surgery was consulted. Patient condition did not improve. Patient required surgery. Surgery performed 01/07/2018 by surgery. Small- bowel obstruction secondary to extensive intra-abdominal adhesions identified. Laparotomy performed with Lyses of extensive intra-abdominal adhesions. Findings findings were consistent of distal jejunal partial obstruction. The patient did well postoperatively. His condition improved. At discharge he was ambulating. Patient will need to follow up with surgery as recommended. Continue with postoperative recommendations. The patient was found to have a UTI as well. Patient was positive for E coli- ESBL. This required IV antibiotic therapy. At discharge patient will continue with meropenem 500 mg IV 3 times a day for total of 2 weeks. Recommendation is to continue with UTI prevention. Recommendation is to recheck urine culture after that time to monitor resolution. PICC line can be removed once this has resolved. Pharmacy will need to monitor and adjust medication. Patient is a history of CVA. Patient did have some dysphagia. Patient was evaluated by speech pathology. Modified barium swallow was done. Speech pathology identified moderate pharyngeal dysphagia characterized by delayed swallow initiaton, reduced base of tongue retraction and reduced hyolaryngeal excursion. Pooling noted to the pyriform sinuses with thin liquid and nectar thick liquids. Pooling to the valleculae noted with honey and puree consistencies. Moderate to severe pharyngeal residue noted with all consistencies in the valleculae and pyriform sinuses. Deep penetration was observed with thin liquid via cup during the swallow, with aspiration observed post completion of the swallow. Weak, ineffective cough noted with aspiration. Speech therapy recommends nectar thick liquids, pureed solids and pills crushed with strict aspiration precautions: SLOW rate of PO intake, sit at 90 degrees with all PO intake, no straws, remain elevated for 30 mins post. Patient with hypertension. Medications have been adjusted. Patient will continue with blood pressure medication-Norvasc 5 mg daily. Recommendations to maintain blood pressures less 150/80. Further adjustment can be done by his PCP. Patient has GERD. Patient continue with Protonix 40 mg 1 pill once daily. Patient with dementia. Patient continue with medication-Namenda 10 mg 1 pill twice daily Patient has BPH. Patient continue with Proscar 5 mg daily and Flomax 0.8 mg daily. Patient with anemia. Patient continue with multi vitamin daily. Patient may continue with aspirin 81 mg daily. Patient with chronic renal disease. This has improved during the course of the stay. Recommendations for the patient follow up with nephrology as directed. Recommendation to recheck lab-BMP in 1 week to monitor his progress. Future medications will need to be renally dosed. Recommendation on no further use of nonsteroidal anti-inflammatories. Vital Signs/Physical Exam: Temp Pulse Resp BP Pulse Ox 98.2 F 84 16 137/80 95 01/10/18 12:00 01/10/18 12:00 01/10/18 12:00 01/10/18 12:00 01/10/18 12:00 General: Alert, In no apparent distress, Oriented x3, Cooperative, Demented HEENT: Atraumatic Neck: Supple Respiratory: Clear to auscultation bilaterally, Normal air movement Cardiovascular: Normal pulses, Regular rate/rhythm Gastrointestinal: Normal bowel sounds, Soft and benign, Non-distended, No tenderness, No masses, No rebound, No guarding Musculoskeletal: No erythema, No tenderness, No warmth Integumentary: No tenderness/swelling, No erythema, No warmth, No cyanosis Neurological: Normal speech, Normal strength at 5/5 x4 extr, Normal tone, Normal affect Lymphatics: No axilla or inguinal lymphadenopathy Laboratory Data at Discharge: WBC 6.3 K/uL (4.3-10.9) D 01/10/18 04:47 Hgb 10.6 g/dL (13.6-17.9) L 01/10/18 04:47 Hct 30.8 % (39.6-49.0) L 01/10/18 04:47 Plt Count 146 K/uL (152-406) L 01/10/18 04:47 Sodium 140 mEq/L (135-145) 01/10/18 04:47 Potassium 3.7 mEq/L (3.6-5.0) 01/10/18 04:47 BUN 27 mg/dL (6-20) H 01/10/18 04:47 Creatinine 1.53 mg/dL (0.61-1.24) H 01/10/18 04:47 Glucose 92 mg/dL (65-120) 01/10/18 04:47 Uric Acid 5.6 mg/dL (4.8-8.7) 01/09/18 04:50 Phosphorus 3.2 mg/dL (2.5-4.3) 01/08/18 05:13 Magnesium 1.9 mg/dL (1.8-2.5) 01/09/18 04:50 Total Bilirubin 0.7 mg/dL (0.3-1.2) 01/10/18 04:47 AST 20 IU/L (10-42) 01/10/18 04:47 ALT 12 IU/L (10-60) 01/10/18 04:47 Alkaline Phosphatase 55 IU/L (42-121) 01/10/18 04:47 Amylase 110 U/L (28-100) H 01/06/18 08:50 Lipase 20 U/L (22-51) L 01/06/18 08:50 Home Medications: Memantine HCl [Namenda*] 20 mg PO BID 06/25/17 Trazodone [Desyrel*] 50 mg PO BEDTIME 06/25/17 Lactulose [Cephulac*] 20 gm PO DAILY 09/04/17 Tamsulosin [Flomax*] 0.8 mg PO BEDTIME 09/04/17 Finasteride [Proscar*] 5 mg PO DAILY 01/06/18 Folic Acid/Mv,Fe,Min [One Daily Complete Tablet] 1 each PO DAILY 01/06/18 Amlodipine [Norvasc*] 5 mg PO DAILY #30 tab 01/10/18 Aspirin [Aspirin EC 81 MG] 81 mg PO DAILY #90 tablet. 01/10/18 Pantoprazole [Protonix Tab] 40 mg PO DAILY #30 tab 01/10/18 New Medications: Amlodipine [Norvasc*] 5 mg PO DAILY #30 tab Aspirin [Aspirin EC 81 MG] 81 mg PO DAILY #90 tablet. Pantoprazole [Protonix Tab] 40 mg PO DAILY #30 tab Patient Discharge Instructions: 1. Patient will go to [facility] facility continue IV antibiotic therapy. Patient may follow up with PCP after that time. 2. Patient presented with abdominal pain. Patient found to have small bowel obstruction secondary to extensive adhesions. Patient had surgery including laparotomy with lysis of adhesions. Patient will continue with postoperative care. Patient will follow up with surgery as directed. 3. Patient found to have a UTI. Patient was positive for E coli-ESBL. PICC line in place. Patient will continue with IV antibiotic therapy-meropenem 500 mg IV 3 times a day for total of 2 weeks. UTI prevention will need to be enforced. Recheck urine culture after that time to monitor resolution. PICC line can be removed after resolution her UTI. Pharmacy will need to monitor and adjust medication. 4. Patient has hypertension. Medications have been adjusted. Patient will continue with Norvasc 5 mg 1 pill daily. Recommendation is to maintain blood pressures less 150/80. Further adjustment can be done by his PCP. 5. Patient has a history of CVA. Patient with dysphagia. Recommendation is to continue with aspirin 81 mg daily. Patient will also continue with speech recommendations for oral intake. 6. Patient has GERD. Patient continue with Protonix 40 mg 1 pill once daily. 7. Patient has BPH. Patient will continue with medication-Proscar 5 mg daily and Flomax 0.8 mg daily. 8. Patient has chronic renal disease. This has remained stable. Recommendation is to recheck lab-BMP in 1-2 weeks to monitor his care. Patient will follow up with nephrology as an outpatient to further monitor. Future medications will need to be renally dosed. Recommendation on no further use of nonsteroidal anti-inflammatories. 9. Patient with mild anemia,patient will continue with multi vitamin daily. Diet: As per speech therapy Activity: Fall precautions Time spent managing pt's care (in minutes): 55
--- NOTE | 2018-01-10 19:53 | P.PN ---
Date of Service: 01/10/18 Patient had a temp of 100.6. Patient's HR was 108; I was told that the family was reluctant to take him to the [facility]. Spoke with son, [id number], and patient; however, patient had dementia and was not really able to tell me a lot about his current condition. Nurses state that room was hot; however, with patient's numerous medical issues, and with his dementia, along with recent abdominal surgery, and now having fever of 100.6 with elevated HR we will err on the side of caution and watch him overnight. If he does well then the patient should be able to go to [facility].
--- NOTE | 2018-01-10 20:04 | P.PN ---
Date of Service: 01/10/18 Vital Signs Temp Pulse Resp BP Pulse Ox 99.1 F 89 16 159/89 H 95 01/10/18 19:57 01/10/18 19:57 01/10/18 19:57 01/10/18 19:57 01/10/18 19:57 Medications Acetaminophen (Tylenol -Extra Strength) 500 mg PO Q4HP PRN PRN Reason: [id number] Stop: 02/05/18 11:06 Amlodipine Besylate (Norvasc) 5 mg PO DAILY [facility] Stop: 02/10/18 09:01 Enoxaparin Sodium (Lovenox 30 Mg Inj) 30 mg SQ DAILY [facility] Stop: 02/08/18 09:01 Last Admin: 01/10/18 09:31 Dose: 30 mg Finasteride (Proscar) 5 mg PO DAILY [facility] Stop: 02/06/18 09:01 Last Admin: 01/10/18 09:32 Dose: 5 mg Hydralazine HCl (Apresoline) 10 mg IV Q6HP PRN PRN Reason: HIGH BP Stop: 02/05/18 11:06 Last Admin: 01/10/18 04:36 Dose: 10 mg Meropenem 500 mg/ Sodium (Chloride) 100 mls @ 100 mls/hr IV Q8HR [facility] Stop: 02/07/18 09:01 Last Admin: 01/10/18 16:18 Dose: 100 mls Lactulose (Cephulac) 20 gm PO DAILY [facility] Stop: 02/06/18 09:01 Last Admin: 01/10/18 09:31 Dose: 20 gm Memantine (Namenda) 20 mg PO BID [facility] Stop: 02/06/18 09:01 Last Admin: 01/10/18 09:31 Dose: 20 mg Morphine Sulfate (Morphine Sulfate) 4 mg IV Q2H PRN PRN Reason: Pain scale 8-10 (Severe) Stop: 02/08/18 07:27 Last Admin: 01/09/18 09:13 Dose: 4 mg Multivitamins/Minerals (Centrum Silver) 1 tab PO DAILY [facility] Stop: 02/06/18 09:01 Last Admin: 01/10/18 09:31 Dose: 1 tab Ondansetron HCl (Zofran) 4 mg IV Q6HP PRN PRN Reason: NAUSEA / VOMITING Stop: 02/05/18 11:06 Last Admin: 01/09/18 03:38 Dose: 4 mg Pantoprazole Sodium (Protonix Inj) 40 mg IVP DAILY FR[facility] Stop: 02/06/18 09:01 Last Admin: 01/10/18 09:32 Dose: 40 mg Sodium Chloride (Normal Saline Flush) 10 ml IV BID FRANK Stop: 02/05/18 21:01 Last Admin: 01/10/18 09:31 Dose: 10 ml Sodium Chloride (Sodium Chloride 10 Ml Inj) 10 ml IV UD PRN PRN Reason: Diluant Stop: 02/05/18 11:06 Tamsulosin HCl (Flomax) 0.8 mg PO BEDTIME FRANK Stop: 02/06/18 21:01 Last Admin: 01/09/18 22:13 Dose: 0.8 mg Trazodone HCl (Desyrel) 50 mg PO BEDTIME PRN PRN Reason: INSOMNIA Stop: 02/06/18 08:13 Microbiology Results 01/06/18 08:54 Stool Occult Blood - Final Assessment/ Plan: Nephrology. Seen and examined in his room. Limited IH/ ROS due to dementia. Denies pain at this time. No acute events overnight. Vitals, medications, blood work and imaging reviewed in the chart. General: Alert, Cooperative HEENT: Atraumatic, Normocephalic Neck: Supple, JVD not distended Respiratory: Clear to auscultation bilaterally, Normal air movement Cardiovascular: Regular rate/rhythm, No rubs Gastrointestinal: Non-distended, No guarding, Tenderness, surgical wound Musculoskeletal: No clubbing, No contractures. No edema. Integumentary: No rashes, No cyanosis Neurological: Normal speech Laboratory Data (last 24 hrs) 01/06/18 08:50: Creatinine 2.08 H 01/06/18 08:50: WBC 7.1, Hgb 12.1 L, Hct 36.3 L, Plt Count 149 L 01/06/18 08:50: Sodium 136, Potassium 3.8, BUN 42 H, Creatinine 2.09 H, Glucose 140 H, Total Bilirubin 0.6, AST 21, ALT 14, Alkaline Phosphatase 80, Amylase 110 H, Lipase 20 L Imagings Data: EXAM DESCRIPTION: CT - Abdomen Pelvis Wo Contrast - 01/06/2018 9:58 am CLINICAL HISTORY: Abdominal pain, coffee-ground emesis, vomiting COMPARISON: CT study September 2017 TECHNIQUE: Axial [address] imaging of the abdomen and pelvis was performed without IV contrast. No IV contrast was given because of allergy, abnormal renal function, patient refusal or physician request. Oral contrast was administered. All CT scans are performed using dose optimization technique as appropriate and may include automated exposure control or mA/KV adjustment according to patient size. FINDINGS: No suspicious findings in the lung bases. The liver, spleen and pancreas show no suspicious findings on non-contrast imaging. Cholecystectomy clips are present. No biliary tree dilatation. Left kidney is absent. No hydronephrosis of the right kidney. Vascular calcifications are present. Nonobstructing caliceal calculi seen lower pole on the right. Bladder is fully contracted around a Virk catheter. No significant adrenal finding. Isodense renal masses and pyelonephritis cannot be excluded in the absence of IV contrast. No gastric dilatation. Stomach is distended mostly by air. Oral contrast is present. No gastric wall thickening or mass. Oral CT contrast has made it into the proximal small bowel. Jejunum is normal in diameter. There is significant dilatation of the jejunum and proximal ileum. Exact transition site is not identifiable. An obstructing mass is not seen. Point of transition is believed to be mid to lower right abdomen. Moderately large stool volume present throughout a nondilated colon. The rectum is dilated by a large amount of stool. A primary, acute colon process is not suspected. No free air, free fluid or inflammatory stranding. No mass or bulky lymphadenopathy. No omental thickening. Disc and bony degenerative changes are present. Patient has dense vascular calcifications. Aortoiliac bypass is in place. No periaortic abnormality seen. Vascular assessment is limited in the absence of IV contrast. IMPRESSION: Small bowel obstruction pattern with an exact transition point not identifiable. Transition is most likely in the mid to lower right abdomen. No free air or surgically emergent finding. No bowel wall edema seen. Moderate stool volume throughout the colon with a large amount of stool dilating the rectum. The Left kidney is absent. No hydronephrosis or acute right renal finding. Full assessment is limited is the absence of IV contrast. Conclusions/Impression: A/ KERRY likely prerenal azotemia in the setting of SBO, improving with IVF. CKD III with proteinuria. Left nephrectomy with RCC. Partial right nephrectomy. Kidney stents X3. HTN with CKD. IFG. Anemia in chronic illness. Thrombocytopenia. Gout. BPH/ LUTS with chronic virk X2 weeks. Dr. Little SBO. Constipation/ Fecal retention. Alz dementia. ESBL E.coli cystitis. P/ Continue current POC and Medications. Follow up with surgery for SBO. Agree with meropenem. IVF discontinued today. Continue Virk catheter due to obstruction. Advance diet as tolerated. Pain control as needed. AM labs. Daily weight. No NSAIDs. Plan for discharge to SNF soon.
[2018-01-10] MEDS: TAMSULOSIN 0.4 MG SR CAP PO SCH (20:42)
[2018-01-11] MEDS: Meropenem 500 MG in NA CHLORIDE 0.9% 100 ML IV SCH (01:22)
[2018-01-11 05:37] LABS: Magnesium 1.6 mg/dL (1.8-2.5); Potassium 3.7 mEq/L (3.6-5.0)
[2018-01-11] MEDS ORDERED: AMLODIPINE 5 MG TAB PO SCH (09:00)
[2018-01-11 09:46] VITALS: BP 160/96; TEMP 98.9
== END 2018-01-11 08:55 | DRG 336 ==
LOC: ER 07:55 → ERHOLD 10:52 → 2ND 13:54 → ERHOLD 13:54 → 2ND 14:57 → 3RD-ICU 01-07 16:56 → 2ND 01-08 16:50
PROVIDERS: ADMIT Family Medicine; ATTEND Family Medicine
PROC: 0DN80ZZ Release Small Intestine, Open Approach (ICD-10-PCS; principal; 2018-01-07 13:15)
PROC: 02HV33Z Insertion of Infusion Device into Superior Vena Cava, Percutaneous Approach (ICD-10-PCS; 2018-01-08)
DX: K56.50 Intestinal adhesions [bands], unspecified as to partial versus complete obstruction (principal); T83.511A Infection and inflammatory reaction due to indwelling urethral catheter, initial encounter; N30.00 Acute cystitis without hematuria; B96.20 Unspecified Escherichia coli [E. coli] as the cause of diseases classified elsewhere; E83.42 Hypomagnesemia; R73.01 Impaired fasting glucose; I12.9 Hypertensive chronic kidney disease with stage 1 through stage 4 chronic kidney disease, or unspecified chronic kidney disease; N18.3 Chronic kidney disease, stage 3 (moderate); E78.5 Hyperlipidemia, unspecified; N40.0 Benign prostatic hyperplasia without lower urinary tract symptoms; G30.9 Alzheimer's disease, unspecified; F02.80 Dementia in other diseases classified elsewhere, unspecified severity, without behavioral disturbance, psychotic disturbance, mood disturbance, and anxiety; I25.10 Atherosclerotic heart disease of native coronary artery without angina pectoris; Z86.73 Personal history of transient ischemic attack (TIA), and cerebral infarction without residual deficits; Z85.528 Personal history of other malignant neoplasm of kidney
CPT/HCPCS: 36415; 71045; 74018; 74176; 74230; 80048; 80053; 80076; 81001; 81003; 81015; 82150; 82272; 83036; 83690; 83735; 84100; 84439; 84443; 84550; 85025; 87040; 87077; 87086; 87088; 87186; 96374; 96375; 97002; 97163; 99285; C9113; J0330; J0360; J0744; J1650; J2270; J2370; J2405; J2710; J3010; J3475; J7030

== ENCOUNTER 2018-02-26 13:03 | Emergency (ER) | payer OTHER ==
--- OUTSIDE RECORDS SUMMARY | 2018-02-26 13:05 | XMS REPORT | Clinical Summary ---
:1945 Author Organization [facility] Address [address] [place] [address] Care Team Providers Name Role Phone Magdy [...] unspecified mechanism (Primary Dx) 08/13/2017 Telephone Urology Gyale Norman MD 08/09/2017 Telephone Urology Gayle Norman MD 08/08/2017 Office Visit Urology Gayle Norman, Kidney stone (Primary Dx); Urinary retention 08/07/2017 Telephone Urology Barbara Brooks MA after 02/25/2017 Social History Tobacco Use Types Packs/Day Years [...] OVER 02/08/2012 PNEUMOCOCCAL-13 02/08/2012 INFLUENZA VACCINE 03/05/2018 Procedures Procedure Name Priority Date/Time Associated Diagnosis Comments CT ABD/PELVIC Routine 07/02/2017 3:33 PM Results for this EXTERNAL [employer]TER procedure are in the results section. XR ABD/PELVIC Routine 07/02/2017 3:19 PM Results for this EXTERNAL STUDY COAL CUTTER procedure are in the results section. XR CHEST EXTERNAL Routine 07/02/2017 1:24 PM Results for this STUDY COAL CUTTER procedure are in the results section. after 02/25/[address] Abd/Pelvic External Study (07/02/2017 3:33 PM) Narrative Performed At This exam was not acquired at a [facility] facility and has not been [facility] interpreted by a [facility] Provider.The exam was imported into our imaging system for comparisons purposes. Performing Organization Address [facility] Phone Number [facility] [address] [place] [address] XR Abd/Pelvic External Study (07/02/2017 3:19 PM) Narrative Performed At This exam was not acquired at a [facility] facility and has not been [facility] interpreted by a [facility] Provider.The exam was imported into our imaging system for comparisons purposes. Performing Organization Address [facility] Phone Number [facility] [address] [place] [address] XR Chest External Study (07/02/2017 1:24 PM) Narrative Performed At This exam was not acquired at a [facility] facility and has not been [facility] interpreted by a [facility] Provider.The exam was imported into our imaging system for comparisons purposes. Performing Organization Address [facility] Phone Number [facility] [address] [place] [address] after 02/25/2017 Insurance Payer Benefit Plan / Group Subscriber ID Type Phone Address MEDICARE MEDICARE PART A AND B xxxxxxxxxx Medicare [place], [place] MEDICA[place] MEDICAID xxxxxxxxx Medicaid
[2018-02-26] MEDS ORDERED: NA CHLORIDE 0.9% 500 ML ONE ×2 (13:40→15:49)
[2018-02-26] MEDS ORDERED: CEFTRIAXONE/SWI 1gm 1 GM/10 ML SYR ONE (13:41)
--- NOTE | 2018-02-26 14:04 | RAD REPORT ---
EXAM DESCRIPTION: RAD - Chest Single View - 02/26/2018 1:58 pm CLINICAL HISTORY: AMS Chest pain. COMPARISON: Chest Single View dated 01/08/2018; Abdomen 1 View (KUB) dated 01/07/2018; Chest Pa And Lat (2 Views) dated 09/04/2017; Chest Single View dated 09/04/2017 FINDINGS: Portable technique limits examination quality. The lungs are grossly clear. The heart is normal in size. Tortuous thoracic aorta. IMPRESSION: No acute intrathoracic process suspected.
--- NOTE | 2018-02-26 14:15 | EKG ---
Test Date: 2018-02-26 Test Time: 13:01:53 Fur Remodeler: WIL MEASUREMENT RESULTS: Intervals: Rate: 54 SD: 140 QRSD: 92 QT: 442 QTc: 419 [place]: P: 81 SD: 140 QRS: 53 T: 57 INTERPRETIVE STATEMENTS: Sinus bradycardia Otherwise normal ECG Compared to ECG 09/04/2017 12:31:12 Sinus rhythm no longer present Electronically Signed On 02-26-18 14:15:16 CDT by Son Ferguson
[2018-02-26 14:19] LABS: Albumin 3.8 g/dL (3.4-5.0); Bilirubin Direct 0.1 mg/dL (0-0.2); Bilirubin Total 0.5 mg/dL (0.2-1.0); Potassium 4.7 mmol/L (3.5-5.1); Protein, Total 7.8 g/dL (6.4-8.2)
[2018-02-26 14:23] LABS: Urine Bacteria <20 /HPF (NONE SEEN); Urine Culture Reflex Order NOT NEEDED; Urine RBC <5 /HPF (NONE SEEN)
[2018-02-26 14:27] LABS: Urine Blood 1+ (NEG); Urine Glucose NEGATIVE (NEG); Urine Protein 2+ (NEG); Urine pH 5.5 (5.0-7.0)
--- NOTE | 2018-02-26 14:31 | RAD REPORT ---
EXAM DESCRIPTION: CT - Head Brain Wo Cont - 02/26/2018 2:01 pm CLINICAL HISTORY: confusion Drowsiness COMPARISON: No comparisons TECHNIQUE: All CT scans are performed using dose optimization technique as appropriate and may inclu de automated exposure control or mA/KV adjustment according to patient size. FINDINGS: No intracranial hemorrhage, hydrocephalus or extra-axial fluid collection.Moderate general ized brain atrophy is present with mild to moderate periventricular and deep white matter chronic davion rovascular ischemic changes.No areas of brain edema or evidence of midline shift. The paranasal sinuses and mastoids are clear. The calvarium is intact. IMPRESSION: No acute intracranial abnormality.
[2018-02-26 14:53] LABS: Absolute Monocytes 0.4 K/uL (0.1-1.3); Absolute Neutrophil 3.6 K/uL (1.8-8.0); Basophils % 0.6 % (0-1.3); Eosinophils % 5.3 % (0-4.4); Hematocrit 37.3 % (39.6-49.0); Lymphocytes % 18.8 % (15.3-44.8); MCH 29.5 pg (27.0-35.0); MCV 88.3 fL (80-100); MPV 9.2 fL (7.6-11.3); Monocytes % 8.4 % (3.3-12.3); RBC Red Blood Cell Count 4.23 M/uL (4.33-5.43)
--- NOTE | 2018-02-26 15:33 | ER ---
Nurse's Notes [facility] Name: Adam Rosas Age: 73 yrs Sex: Male : 1945 Arrival Date: 02/26/2018 Time: 13:10 Bed 15 Private MD: Diagnosis: Urinary tract infection, site not specified;Dehydration Presentation: 02/26 13:10 Presenting complaint: EMS states: was called for pt having high BP and low O2 sat; BP- hj 158/96; O2 sat on scene- 98% RA; hx of dementia, Alzheimer's; A\T\O x 2;. Transition of care: patient was not received from another setting of care. Onset of symptoms was February 26, 2018. Risk Assessment: Do you want to hurt yourself or someone else? Patient reports no desire to harm self or others. Initial Sepsis Screen: Does the patient meet any 2 criteria? No. Patient's initial sepsis screen is negative. Does the patient have a suspected source of infection? No. Patient's initial sepsis screen is negative. Care prior to arrival: None. 13:10 Method Of Arrival: EMS: [facility] 13:10 Acuity: SCOTT 3 hj Triage Assessment: 13:15 General: Appears in no apparent distress. uncomfortable, Behavior is calm, cooperative, hj appropriate for age. Pain: Denies pain. Historical: - Allergies: 13:14 Aricept; hj - Home Meds: 13:14 allopurinol 300 mg Oral tab 1 tab once daily [Active]; amlodipine 5 mg tab 1 tab once hj daily [Active]; amlodipine 2.5 mg tab 1 tab for BP over 130 systolic [Active]; bisacodyl 5 mg Oral chew 2 tabs once daily [Active]; bisacodyl 5 mg Oral chew 1 tab once daily [Active]; ferrous sulfate 325 mg (65 mg iron) Oral tab [Active]; ferrous sulfate 325 mg (65 mg iron) Oral chew twice a day [Active]; finasteride 5 mg Oral tab 1 tab once daily [Active]; hydrochlorothiazide 12.5 mg Oral tab 1 tab once daily [Active]; trazodone 50 mg Oral tab 1 tab nightly [Active]; tamsulosin 0.4 mg Oral cp24 1 cap once daily [Active]; mirtazapine 15 mg Oral tab 1 tab once daily [Active]; memantine 10 mg Oral tab 1 tab daily [Active]; - PMHx: 13:14 Dementia; Hyperlipidemia; Hypertension; Kidney stones; one kidney; hj - PSHx: 13:14 Hernia repair; AAA repair; Kidney stents; hj - Immunization history:: Adult Immunizations unknown. - Social history:: Smoking status: Patient/guardian denies using tobacco. - Ebola Screening: : Patient negative for fever greater than or equal to 101.5 degrees Fahrenheit, and additional compatible Ebola Virus Disease symptoms Patient denies exposure to infectious person Patient denies travel to an Ebola-affected area in the 21 days before illness onset. - Family history:: not pertinent. - Hospitalizations: : No recent hospitalization is reported. Screenin:14 Abuse screen: Denies threats or abuse. Denies injuries from another. Nutritional hj screening: No deficits noted. Tuberculosis screening: No symptoms or risk factors identified. Fall Risk None identified. Assessment: 13:15 Reassessment: see triage for assessment;. hj 14:06 Reassessment: Patient and/or family updated on plan of care and expected duration. Pain hj level reassessed. Patient is alert, oriented x 3, equal unlabored respirations, skin warm/dry/pink. back from CT; family in room;. Vital Signs: 13:15 BP 176 / 102; Pulse 58; Resp 18; Temp 97.9(O); Pulse Ox 100% on R/A; Weight 117.93 kg; hj Height 6 ft. 0 in. (182.88 cm); Pain 0/10; 13:15 Body Mass Index 35.26 (117.93 kg, 182.88 cm) ED Course: 13:10 Patient arrived in ED. sc1 13:10 Chiki Fitzpatrick, RN is Primary Nurse. hj 13:11 Triage completed. hj 13:12 Kimberley Powers FNP is PHCP. kav 13:12 Marcelo Catherine MD is Attending Physician. kav 13:15 Arm band placed on right wrist. hj 13:15 Patient has correct armband on for positive identification. Placed in gown. Bed in low hj position. Call light in reach. Side rails up X2. Adult w/ patient. 13:20 EKG done, by materials engineering technician. reviewed by Marcelo Catherine MD. at1 13:20 Initial lab(s) drawn, by me, sent to lab. Inserted saline lock: 22 gauge in left hj forearm, using aseptic technique. Blood collected. 13:58 XRAY Chest (1 view) In Process Unspecified. EDMS 14:01 CT Head Brain wo Cont In Process Unspecified. EDMS 16:43 No provider procedures requiring assistance completed. IV discontinued, intact, hj bleeding controlled, No redness/swelling at site. Pressure dressing applied. Administered Medications: 13:44 Drug: NS 0.9% 500 ml Route: IV; Rate: bolus; Site: left forearm; hj 15:47 Follow up: IV Status: Completed infusion hj 13:44 Drug: Rocephin - (cefTRIAXone) 1 grams Route: IVPB; Infused Over: 30 mins; Site: left hj forearm; 15:48 Follow up: IV Status: Completed infusion hj 15:25 Drug: NS 0.9% 500 ml Route: IV; Rate: bolus; Site: left forearm; hj 15:47 Follow up: IV Status: Completed infusion Outcome: 15:33 Discharge ordered by MD. rn 16:43 Discharged to home ambulatory, with family. 16:43 Condition: stable 16:43 Discharge instructions given to patient, family, Instructed on discharge instructions, follow up and referral plans. medication usage, Demonstrated understanding of instructions, follow-up care, medications, Prescriptions given X 1. 17:02 Patient left the ED. sv Addendum: 03/01/2018 07:32 Addendum: Culture Results: Positive urine culture. No further action required. Bacteria s s sensitive to prescribed antibiotic. Signatures: Dispatcher [employer] EDOH Maria Guadalupe Fenton, RN Kimberley Hill, WORKERS' COMPENSATION COMMISSIONER WORKERS' COMPENSATION COMMISSIONER Marcelo Maxwell MD MD rn Smirch, Shelby, RN RN Rachel crowe, engineer process EKG Tat1 Chiki Fitzpatrick RN YUNIEL Jonelle Aldrich, RN RN sc1
--- NOTE | 2018-02-26 15:33 | EDPHYS ---
Physician Documentation [facility] Name: Adam Rosas Age: 73 yrs Sex: Male : 1945 Arrival Date: 02/26/2018 Time: 13:10 Bed 15 Private MD: ED Physician Marcelo Catherine HPI: 02/26 15:26 This 73 yrs old Male presents to ER via EMS with complaints of high blood rn pressure, fatigue. 15:26 Reports tired a lot lately, laying in bed a lot, not wanting to do anything, no fever, rn + UTI without meds, Dr. Little sent culture but did not prescribe abx, has indwelling virk. Family member states not really confused or altered, seems at baseline.. Onset: The symptoms/episode began/occurred 4 day(s) ago. Severity of symptoms: At their worst the symptoms were mild in the emergency department the symptoms are unchanged. The patient has experienced similar episodes in the past. The patient has been recently seen by a physician:. Historical: - Allergies: 13:14 Aricept; hj - Home Meds: 13:14 allopurinol 300 mg Oral tab 1 tab once daily [Active]; amlodipine 5 mg tab 1 tab once hj daily [Active]; amlodipine 2.5 mg tab 1 tab for BP over 130 systolic [Active]; bisacodyl 5 mg Oral chew 2 tabs once daily [Active]; bisacodyl 5 mg Oral chew 1 tab once daily [Active]; ferrous sulfate 325 mg (65 mg iron) Oral tab [Active]; ferrous sulfate 325 mg (65 mg iron) Oral chew twice a day [Active]; finasteride 5 mg Oral tab 1 tab once daily [Active]; hydrochlorothiazide 12.5 mg Oral tab 1 tab once daily [Active]; trazodone 50 mg Oral tab 1 tab nightly [Active]; tamsulosin 0.4 mg Oral cp24 1 cap once daily [Active]; mirtazapine 15 mg Oral tab 1 tab once daily [Active]; memantine 10 mg Oral tab 1 tab daily [Active]; - PMHx: 13:14 Dementia; Hyperlipidemia; Hypertension; Kidney stones; one kidney; hj - PSHx: 13:14 Hernia repair; AAA repair; Kidney stents; hj - Immunization history:: Adult Immunizations unknown. - Social history:: Smoking status: Patient/guardian denies using tobacco. - Ebola Screening: : Patient negative for fever greater than or equal to 101.5 degrees Fahrenheit, and additional compatible Ebola Virus Disease symptoms Patient denies exposure to infectious person Patient denies travel to an Ebola-affected area in the 21 days before illness onset. - Family history:: not pertinent. - Hospitalizations: : No recent hospitalization is reported. ROS: 15:26 Constitutional: Negative for fever, chills, and weight loss, Eyes: Negative for injury, rn pain, redness, and discharge, Neck: Negative for injury, pain, and swelling, Cardiovascular: Negative for chest pain, palpitations, and edema, Respiratory: Negative for shortness of breath, cough, wheezing, and pleuritic chest pain, Abdomen/GI: Negative for abdominal pain, nausea, vomiting, diarrhea, and constipation, Back: Negative for injury and pain, MS/Extremity: Negative for injury and deformity, Skin: Negative for injury, rash, and discoloration, Neuro: Negative for headache,numbness, tingling, and seizure. Exam: 15:26 Constitutional: This is a well developed, well nourished patient who is awake, alert, rn and in no acute distress. Head/Face: Normocephalic, atraumatic. Eyes: Pupils equal round and reactive to light, extra-ocular motions intact. Lids and lashes normal. Conjunctiva and sclera are non-icteric and not injected. Cornea within normal limits. Periorbital areas with no swelling, redness, or edema. ENT: dry MM Neck: Trachea midline, no thyromegaly or masses palpated, and no cervical lymphadenopathy. Supple, full range of motion without nuchal rigidity, or vertebral point tenderness. No Meningismus. Cardiovascular: Regular rate and rhythm with a normal S1 and S2. No gallops, murmurs, or rubs. Normal PMI, no JVD. No pulse deficits. Respiratory: Lungs have equal breath sounds bilaterally, clear to auscultation and percussion. No rales, rhonchi or wheezes noted. No increased work of breathing, no retractions or nasal flaring. Abdomen/GI: Soft, non-tender, with normal bowel sounds. No distension or tympany. No guarding or rebound. No evidence of tenderness throughout. Male : + virk in place, cloudy urine MS/ Extremity: Pulses equal, no cyanosis. Neurovascular intact. Full, normal range of motion. Equal circumference. Neuro: Awake and alert, GCS 15, oriented to person, and situation, not time or place. Cranial nerves II-XII grossly intact. Motor strength 4/5 in all extremities. Sensory grossly intact. Vital Signs: 13:15 BP 176 / 102; Pulse 58; Resp 18; Temp 97.9(O); Pulse Ox 100% on R/A; Weight 117.93 kg; hj Height 6 ft. 0 in. (182.88 cm); Pain 0/10; 13:15 Body Mass Index 35.26 (117.93 kg, 182.88 cm) hj MDM: 13:17 Patient medically screened. rn 15:26 Differential Diagnosis UTI, dehydration. Data reviewed: vital signs, nurses notes. rn Counseling: I had a detailed discussion with the patient and/or guardian regarding: the historical points, exam findings, and any diagnostic results supporting the discharge/admit diagnosis, lab results, radiology results, the need for outpatient follow up, to return to the emergency department if symptoms worsen or persist or if there are any questions or concerns that arise at home. Response to treatment: the patient's symptoms have mildly improved after treatment, and as a result, I will discharge patient. Special discussion: I discussed with the patient/guardian in detail that at this point there is no indication for admission to the hospital. It is understood, however, that if the symptoms persist or worsen the patient needs to return immediately for re-evaluation. ED course: Offered observation in hospital, last urine culture shows only oral sensitivity is macrobid, worked before for him, family member wants to take him home, if worsens will return for IV abx and admission.. 02/26 13:21 Order name: CBC with Diff; Complete Time: 15:25 rn 02/26 13:21 Order name: Basic Metabolic Panel; Complete Time: 15:25 rn 02/26 13:21 Order name: Urine Culture rn 02/26 13:21 Order name: Urine Microscopic Only; Complete Time: 15:25 rn 02/26 13:21 Order name: Troponin (emerg Dept Use Only); Complete Time: 15:25 rn 02/26 13:21 Order name: Blood Culture Adult (2) rn 02/26 13:21 Order name: Procalcitonin; Complete Time: 15:25 rn 02/26 13:21 Order name: XRAY Chest (1 view); Complete Time: 15:25 rn 02/26 13:21 Order name: CT Head Brain wo Cont; Complete Time: 15:25 rn 02/26 13:21 Order name: Lipase; Complete Time: 15:25 rn 02/26 13:21 Order name: LFT's; Complete Time: 15:25 rn 02/26 14:24 Order name: Urine Dipstick--Ancillary (enter results); Complete Time: 15:25 bd 02/26 13:21 Order name: IV Start; Complete Time: 13:36 rn 02/26 13:21 Order name: Urine Dipstick-Ancillary (obtain specimen); Complete Time: 13:36 rn 02/26 13:21 Order name: EKG; Complete Time: 13:21 rn 02/26 13:21 Order name: EKG - Nurse/Tech; Complete Time: 13:22 rn Administered Medications: 13:44 Drug: NS 0.9% 500 ml Route: IV; Rate: bolus; Site: left forearm; hj 15:47 Follow up: IV Status: Completed infusion hj 13:44 Drug: Rocephin - (cefTRIAXone) 1 grams Route: IVPB; Infused Over: 30 mins; Site: left hj forearm; 15:48 Follow up: IV Status: Completed infusion hj 15:25 Drug: NS 0.9% 500 ml Route: IV; Rate: bolus; Site: left forearm; hj 15:47 Follow up: IV Status: Completed infusion hj Disposition: 02/26/18 15:33 Discharged to Home. Impression: Urinary tract infection, site not specified, Dehydration. - Condition is Stable. - Discharge Instructions: Dehydration, Adult, Urinary Tract Infection, Adult. - Prescriptions for Macrobid 100 mg Oral Capsule - take 1 capsule by ORAL route every 12 hours for 10 days; 20 capsule. - Medication Reconciliation Form, Thank You Letter, Antibiotic Education, Prescription Opioid Use form. - Follow up: Private Physician; When: 2 - 3 days; Reason: Recheck today's complaints, Re-evaluation by your physician. - Problem is new. - Symptoms have improved. Signatures: Dispatcher [employer] Maria Guadalupe Mueller RN RN sv Nieto, Roman, MD MD rn Joaquin, Henry, RN RN Corrections: (The following items were deleted from the chart) 17:02 15:33 02/26/2018 15:33 Discharged to Home. Impression: Urinary tract infection, site sv not specified; Dehydration. Condition is Stable. Forms are Medication Reconciliation Form, Thank You Letter, Antibiotic Education, Prescription Opioid Use. Follow up: Private Physician; When: 2 - 3 days; Reason: Recheck today's complaints, Re-evaluation by your physician. Problem is new. Symptoms have improved. rn
[2018-02-26 17:08] VITALS: BP 176/102; TEMP 97.9; O2SAT 100
== END 2018-02-26 17:02 | disposition home or self-care (01) ==
LOC: ER 13:03
DX: N39.0 Urinary tract infection, site not specified (principal); E86.0 Dehydration; I10 Essential (primary) hypertension; E78.5 Hyperlipidemia, unspecified; F03.90 Unspecified dementia, unspecified severity, without behavioral disturbance, psychotic disturbance, mood disturbance, and anxiety; Z88.8 Allergy status to other drugs, medicaments and biological substances
CPT/HCPCS: 36415; 70450; 71045; 80048; 80076; 83690; 84145; 84484; 85025; 87040 ×2; 87077; 87086; 87088; 87186; 93005; 96365; 96366; 99284; J0696; 81003; 81015

== ENCOUNTER 2018-03-03 13:24 | Inpatient (IN) | payer OTHER ==
--- OUTSIDE RECORDS SUMMARY | 2018-03-03 13:27 | XMS REPORT | Clinical Summary ---
:1945 Author Organization [facility] Address [address] [place] [address] Care Team Providers Name Role Phone Magdy [...] 08/07/2017 Telephone Urology Barbara Brooks MA after 03/02/2017 Social History Tobacco Use Types Packs/Day Years [...] 3:33 PM Results for this EXTERNAL STUDY CUTTER V GROOVE procedure are in the results section. XR ABD/PELVIC Routine 07/02/2017 3:19 PM Results for this EXTERNAL STUDY CUTTER V GROOVE procedure are in the results section. XR CHEST EXTERNAL Routine 07/02/2017 1:24 PM Results for this STUDY CUTTER V GROOVE procedure are in the results section. after 03/02/[address] Abd/Pelvic External Study (07/02/2017 3:33 PM) Narrative Performed At This exam was not acquired at a [facility] facility and has not been [facility] interpreted by a [facility] Provider.The exam was imported into our imaging system for comparisons purposes. Performing Organization Address [facility] Phone Number [facility] [address] [place] [address] XR Abd/Pelvic External Study (07/02/2017 3:19 PM) Narrative Performed At This exam was not acquired at a [facility] facility and has not been [facility] interpreted by a [facility] Provider.The exam was imported into our imaging system for comparisons purposes. Performing Organization Address [facility] Phone Number [facility] [address] [place] [address] XR Chest External Study (07/02/2017 1:24 PM) Narrative Performed At This exam was not acquired at a [facility] facility and has not been [facility] interpreted by a [facility] Provider.The exam was imported into our imaging system for comparisons purposes. Performing Organization Address [facility] Phone Number [facility] [address] [place] [address] after 03/02/2017 Insurance Payer Benefit Plan / Group Subscriber ID Type Phone Address MEDICARE MEDICARE PART A AND B xxxxxxxxxx Medicare [place], [place] MEDICAID MEDICAID xxxxxxxxx Medicaid
[2018-03-03] MEDS ORDERED: NA CHLORIDE 0.9% 1,000 ML ONE (15:01)
[2018-03-03] MEDS ORDERED: CEFTRIAXONE/SWI 1gm 1 GM/10 ML SYR ONE (15:01)
[2018-03-03 15:30] LABS: Absolute Monocytes 0.5 K/uL (0.1-1.3); Basophils % 0.6 % (0-1.3); Eosinophils % 3.8 % (0-4.4); Hematocrit 35.3 % (39.6-49.0); MCH 29.4 pg (27.0-35.0); MCV 87.6 fL (80-100); MPV 9.2 fL (7.6-11.3); Monocytes % 9.4 % (3.3-12.3); RBC Red Blood Cell Count 4.03 M/uL (4.33-5.43)
--- NOTE | 2018-03-03 15:30 | RAD REPORT ---
EXAM DESCRIPTION: RAD - Chest Single View - 03/03/2018 3:22 pm CLINICAL HISTORY: Sepsis Chest pain. COMPARISON: Chest Single View dated 02/26/2018; Chest Single View dated 01/08/2018; Abdomen 1 View (KUB ) dated 01/07/2018; Chest Pa And Lat (2 Views) dated 09/04/2017 FINDINGS: Portable technique limits examination quality. The lungs are grossly clear. The heart is normal in size. Tortuous thoracic aorta. Calcified right hi lar lymph nodes are present with a granuloma in the right lower lobe compatible with prior granulomat ous infection. IMPRESSION: No acute intrathoracic process suspected.
[2018-03-03 15:42] LABS: Albumin 3.7 g/dL (3.4-5.0); Bilirubin Total 0.5 mg/dL (0.2-1.0); Potassium 4.5 mmol/L (3.5-5.1); Protein, Total 7.6 g/dL (6.4-8.2)
[2018-03-03 15:55] LABS: Urine Blood 2+ (NEG); Urine Glucose NEGATIVE (NEG); Urine Protein 2+ (NEG); Urine Specific Gravity >1.030 (1.005-1.030); Urine pH 5.5 (5.0-7.0)
--- NOTE | 2018-03-03 16:16 | ER ---
Nurse's Notes [facility] Name: Adam Rosas Age: 73 yrs Sex: Male : 1945 Arrival Date: 03/03/2018 Time: 13:27 Bed 26 Private MD: Wanda Alvarado Atiq Diagnosis: complicated UTI;encephalopathy Presentation: 03/03 13:28 Presenting complaint: daughter in law, he started running fever since Saturday with hj urinary problem, with virk catheter placed 2 weeks ago; denies nausea and vomiting;. Transition of care: patient was not received from another setting of care. Onset of symptoms was March 03, 2018. Risk Assessment: Do you want to hurt yourself or someone else? Patient reports no desire to harm self or others. Initial Sepsis Screen: Does the patient meet any 2 criteria? No. Patient's initial sepsis screen is negative. Does the patient have a suspected source of infection? No. Patient's initial sepsis screen is negative. Care prior to arrival: virk catheter. 13:28 Method Of Arrival: Ambulatory 13:28 Acuity: SCOTT 3 hj Triage Assessment: 13:30 General: Appears in no apparent distress. uncomfortable, Behavior is calm, cooperative, hj appropriate for age. Pain: Denies pain. Historical: - Allergies: 13:31 Aricept; hj - Home Meds: 13:31 allopurinol 300 mg Oral tab 1 tab once daily [Active]; amlodipine 5 mg tab 1 tab once hj daily [Active]; amlodipine 2.5 mg tab 1 tab for BP over 130 systolic [Active]; bisacodyl 5 mg Oral chew 2 tabs once daily [Active]; bisacodyl 5 mg Oral chew 1 tab once daily [Active]; ferrous sulfate 325 mg (65 mg iron) Oral tab [Active]; ferrous sulfate 325 mg (65 mg iron) Oral chew twice a day [Active]; finasteride 5 mg Oral tab 1 tab once daily [Active]; hydrochlorothiazide 12.5 mg Oral tab 1 tab once daily [Active]; memantine 10 mg Oral tab 1 tab daily [Active]; mirtazapine 15 mg Oral tab 1 tab once daily [Active]; tamsulosin 0.4 mg Oral cp24 1 cap once daily [Active]; trazodone 50 mg Oral tab 1 tab nightly [Active]; - PMHx: 13:31 Dementia; Hyperlipidemia; Hypertension; Kidney stones; one kidney; hj - PSHx: 13:31 Hernia repair; AAA repair; Kidney stents; hj - Immunization history:: Adult Immunizations up to date. - Social history:: Smoking status: Patient/guardian denies using tobacco, Patient/guardian denies using alcohol. - Ebola Screening: : Patient negative for fever greater than or equal to 101.5 degrees Fahrenheit, and additional compatible Ebola Virus Disease symptoms Patient denies exposure to infectious person Patient denies travel to an Ebola-affected area in the 21 days before illness onset. Screenin:29 Abuse screen: Denies threats or abuse. Denies injuries from another. Nutritional hj screening: No deficits noted. Tuberculosis screening: No symptoms or risk factors identified. Fall Risk None identified. Assessment: 14:45 General: Appears comfortable, Behavior is calm, cooperative, Pt's daughter reports aa5 fever of 104.0 F this morning and states "he has been dealing with a UTI and Dr. Little sent him here to be admitted and put on antibiotics again" . Pain: Denies pain. Neuro: Level of Consciousness is awake, obeys commands, confused, Oriented to person. Cardiovascular: Heart tones S1 S2 present Rhythm is regular. Respiratory: Airway is patent Respiratory effort is even, unlabored, Respiratory pattern is regular, symmetrical. GI: Abdomen is flat, non-distended, Bowel sounds present X 4 quads. Abd is soft and non tender X 4 quads. : Virk in place to gravity drainage. EENT: No signs and/or symptoms were reported regarding the EENT system. Derm: Skin is pink, warm \\T\\ dry. Musculoskeletal: Range of motion: intact in all extremities. 17:34 Reassessment: 2nd floor nurse is busy right now. she will call back to receive the mg2 report. Vital Signs: 13:31 BP 127 / 96; Pulse 74; Resp 18; Temp 98.7(O); Pulse Ox 100% on R/A; Weight 59.87 kg; Height 5 ft. 8 in. (172.72 cm); Pain 0/10; 15:58 BP 162 / 80; Pulse 61; Resp 18; Pulse Ox 100% ; Pain 0/10; mg2 13:31 Body Mass Index 20.07 (59.87 kg, 172.72 cm) ED Course: 13:27 Patient arrived in ED. rg4 13:28 Wanda Alvarado MD is Private Physician. rg4 13:29 Triage completed. hj 13:30 Arm band placed on left wrist. hj 13:31 Patient has correct armband on for positive identification. Placed in gown. Bed in low hj position. Call light in reach. Side rails up X 1. 14:25 Crow Figueroa MD is Attending Physician. ps1 14:44 Araceli Elam, YUNIEL is Primary Nurse. aa5 14:59 Report given to YUNIEL Fuller. aa5 15:23 CXR XRAY In Process Unspecified. EDMS 15:38 Inserted saline lock: 20 gauge in right forearm, using aseptic technique. Blood mg2 collected. 16:01 Door closed. Cleaned of incontinence. mg2 16:15 Lamine Wu DO is Hospitalizing Provider. ps1 17:45 First set of blood cultures drawn. mg2 18:18 Cleaned of incontinence. mg2 18:18 No provider procedures requiring assistance completed. Patient admitted, IV remains in mg2 place. Administered Medications: 15:36 Drug: NS 0.9% 1000 ml Route: IV; Rate: 1 bolus; Site: right forearm; mg2 17:13 Follow up: Response: No adverse reaction; IV Status: Completed infusion mg2 15:37 Drug: Rocephin - (cefTRIAXone) 1 grams Route: IVPB; Infused Over: 30 mins; Site: right mg2 forearm; 17:13 Follow up: Response: No adverse reaction; IV Status: Completed infusion mg2 Outcome: 16:16 Decision to Hospitalize by Provider. ps1 18:19 Admitted to mg2 18:20 Admitted to Med/surg accompanied by nurse, family with patient, via wheelchair, room mg2 213, with chart, Report called to Nurse Pedro 18:20 Condition: stable 18:20 Instructed on the need for admit. 18:21 Patient left the ED. mg2 Signatures: Dispatcher [employer] EDMS Araceli Elam, YUNIEL BRICE aa5 Chiki Fitzpatrick RN RN hj Garcia, Rubi rg4 Crow Figueroa MD MD ps1 Monty Bach RN RN mg2 Corrections: (The following items were deleted from the chart) 13:34 13:31 Pulse 74bpm; Resp 18bpm; Pulse Ox 100% RA; Temp 98.7F Oral; 59.87 kg; Height 5 hj ft. 8 in.; BMI: 20.0; Pain 0/10; hj
--- NOTE | 2018-03-03 16:16 | EDPHYS ---
Physician Documentation [facility] Name: Adam Rosas Age: 73 yrs Sex: Male : 1945 Arrival Date: 03/03/2018 Time: 13:27 Bed 26 Private MD: Wanda Alvarado Atiq ED Physician Crow Figueroa Historical: - Allergies: 03/03 13:31 Aricept; hj - Home Meds: 13:31 allopurinol 300 mg Oral tab 1 tab once daily [Active]; amlodipine 5 mg tab 1 tab once hj daily [Active]; amlodipine 2.5 mg tab 1 tab for BP over 130 systolic [Active]; bisacodyl 5 mg Oral chew 2 tabs once daily [Active]; bisacodyl 5 mg Oral chew 1 tab once daily [Active]; ferrous sulfate 325 mg (65 mg iron) Oral tab [Active]; ferrous sulfate 325 mg (65 mg iron) Oral chew twice a day [Active]; finasteride 5 mg Oral tab 1 tab once daily [Active]; hydrochlorothiazide 12.5 mg Oral tab 1 tab once daily [Active]; memantine 10 mg Oral tab 1 tab daily [Active]; mirtazapine 15 mg Oral tab 1 tab once daily [Active]; tamsulosin 0.4 mg Oral cp24 1 cap once daily [Active]; trazodone 50 mg Oral tab 1 tab nightly [Active]; - PMHx: 13:31 Dementia; Hyperlipidemia; Hypertension; Kidney stones; one kidney; hj - PSHx: 13:31 Hernia repair; AAA repair; Kidney stents; hj - Immunization history:: Adult Immunizations up to date. - Social history:: Smoking status: Patient/guardian denies using tobacco, Patient/guardian denies using alcohol. - Ebola Screening: : Patient negative for fever greater than or equal to 101.5 degrees Fahrenheit, and additional compatible Ebola Virus Disease symptoms Patient denies exposure to infectious person Patient denies travel to an Ebola-affected area in the 21 days before illness onset. Vital Signs: 13:31 BP 127 / 96; Pulse 74; Resp 18; Temp 98.7(O); Pulse Ox 100% on R/A; Weight 59.87 kg; hj Height 5 ft. 8 in. (172.72 cm); Pain 0/10; 15:58 BP 162 / 80; Pulse 61; Resp 18; Pulse Ox 100% ; Pain 0/10; mg2 13:31 Body Mass Index 20.07 (59.87 kg, 172.72 cm) MDM: 14:51 Patient medically screened. [facility] 03/03 13:51 Order name: Urine Microscopic Only 03/03 14:53 Order name: CBC with Diff; Complete Time: 15:50 ps1 03/03 14:53 Order name: CMP; Complete Time: 15:50 [facility] 03/03 14:53 Order name: Lactate; Complete Time: 15:50 [facility] 03/03 14:53 Order name: Urine Culture [facility] 03/03 15:51 Order name: Urine Dipstick--Ancillary (enter results); Complete Time: 15:59 03/03 13:51 Order name: Urine Dipstick-Ancillary (obtain specimen); Complete Time: 15:35 03/03 14:53 Order name: Urine Dipstick-Ancillary (obtain specimen); Complete Time: 15:35 [facility] 03/03 14:53 Order name: CXR XRAY; Complete Time: 15:32 ps1 Administered Medications: 15:36 Drug: NS 0.9% 1000 ml Route: IV; Rate: 1 bolus; Site: right forearm; mg2 17:13 Follow up: Response: No adverse reaction; IV Status: Completed infusion mg2 15:37 Drug: Rocephin - (cefTRIAXone) 1 grams Route: IVPB; Infused Over: 30 mins; Site: right mg2 forearm; 17:13 Follow up: Response: No adverse reaction; IV Status: Completed infusion mg2 Disposition: 03/03/18 16:16 Hospitalization ordered by Lamine Wu for Inpatient Admission. Preliminary diagnosis are complicated UTI, encephalopathy. - Bed requested for Telemetry/MedSurg (Inpatient). - Status is Inpatient Admission. mg2 - Condition is Fair. - Problem is an ongoing problem. - Symptoms have worsened. UTI on Admission? Yes Signatures: Dispatcher [employer] EDMS Katrin Flores Henry, RN RN Crow Figueroa MD MD ps1 Monty Bach RN RN mg2 Corrections: (The following items were deleted from the chart) 17:15 16:16 Hospitalization Ordered by Lamine Wu DO for Inpatient Admission. Preliminary bd diagnosis is complicated UTI; encephalopathy. Bed requested for Telemetry/MedSurg (Inpatient). Status is Inpatient Admission. Condition is Fair. Problem is an ongoing problem. Symptoms have worsened. UTI on Admission? Yes. ps1 18:21 17:15 03/03/2018 16:16 Hospitalization Ordered by Lamine Wu DO for Inpatient mg2 Admission. Preliminary diagnosis is complicated UTI; encephalopathy. Bed requested for Telemetry/MedSurg (Inpatient). Status is Inpatient Admission. Condition is Fair. Problem is an ongoing problem. Symptoms have worsened. UTI on Admission? Yes. bd
[2018-03-03] MEDS ORDERED: ONDANSETRON 4 MG/2 ML VIAL IV PRN (16:39)
[2018-03-03] MEDS ORDERED: ACETAMINOPHEN 500 MG TAB PO PRN (16:39)
--- NOTE | 2018-03-03 16:50 | P.HP ---
Certification for Inpatient Patient admitted to: Inpatient With expected LOS: >2 Midnights Patient will require the following post-hospital care: Other Practitioner: I am a practitioner with admitting privileges, knowledge of patient current condition, hospital course, and medical plan of care. Services: Services provided to patient in accordance with Admission requirements found in Title 42 Section 412.3 of the Code of Federal Regulations Patient History Date of Service: 03/03/18 Primary Care Provider: Dr. Alvarado; Urology-Dr. Little Reason for admission: Fever, UTI History of Present Illness: 73-year-old male presented to emergency room after he was sent over by urology for complicated recurrent UTI. Patient has chronic indwelling catheter. Patient seen by urology recently. Patient found to have UTI earlier in the week. Urine culture was sent off. Patient was sent home with Macrobid. The patient persisted to have fever. Patient had increasing fatigue. Family reports that the patient was not acting himself. Patient has Alzheimer's dementia. Patient has a complicated history of left nephrectomy and partial right nephrectomy with previous recurrent infections. He was sent to the ER for further evaluation and treatment. In the ER patient was evaluated. White count 5.8. Hemoglobin 11.9. BUN of 39 , creatinine 1.7 with a GFR 40. Urinalysis showed evidence bacteria. On 2017 urine culture was positive for E coli-ESBL. Patient admitted for treatment. I saw the patient ER, patient remained stable. He did not appear in any distress. Family was at bedside. Patient with history of dementia, hypertension , previous CVA, BPH. Allergies donepezil [From Aricept] Allergy (Verified 01/07/18 11:46) Itching/Hives/Rash Home medications list reviewed: Yes Home Medications: Memantine HCl [Namenda*] 20 mg PO BID 06/25/17 Trazodone [Desyrel*] 50 mg PO BEDTIME 06/25/17 Lactulose [Cephulac*] 20 gm PO DAILY 09/04/17 Tamsulosin [Flomax*] 0.8 mg PO BEDTIME 09/04/17 Finasteride [Proscar*] 5 mg PO DAILY 01/06/18 Folic Acid/Mv,Fe,Min [One Daily Complete Tablet] 1 each PO DAILY 01/06/18 Amlodipine [Norvasc*] 5 mg PO DAILY #30 tab 01/10/18 Aspirin [Aspirin EC 81 MG] 81 mg PO DAILY #90 tablet. 01/10/18 Meropenem [Merrem 500 MG/100 ML NS IVPB] 500 mg IV Q8H 21 Days bag 01/10/18 Pantoprazole [Protonix Tab] 40 mg PO DAILY #30 tab 01/10/18 - Past Medical/Surgical History Diabetic: No -: Dementia, Alzheimer's -: History CVA x3 -: Hypertension -: Hyperlipidemia -: Gout -: CAD -: BPH -: Chronic renal disease -: Renal cell carcinoma -: History left nephrectomy, right partial nephrectomy -: History tobacco/alcohol abuse -: History AAA repair -: Left nephrectomy -: Partial right nephrectomy -: AAA repair -: Kidney stents x3 Psychosocial/ Personal History: The patient lives with his son. He is fully dependent on the son. Patient is a . - Family History Father -: Cancer Notes: kidney Mother -: Cancer Notes: throat, lung Brother -: Cancer - Social History Smoking Status: Never smoker Alcohol use: No CD- Drugs: No Caffeine use: No Place of Residence: Home Review of Systems General: Fever, Weakness, Malaise, As per HPI Eyes: Unremarkable ENT: Unremarkable Respiratory: Unremarkable Cardiovascular: Unremarkable Gastrointestinal: Unremarkable Genitourinary: As per HPI Musculoskeletal: Unremarkable Integumentary: Unremarkable Neurological: Weakness, Confusion, As per HPI Lymphatics: Unremarkable Physical Examination - Physical Exam General: Alert, In no apparent distress, Cooperative, Demented HEENT: Atraumatic, Normocephalic, Other (Dry mucous membranes) Neck: Supple, No Thyromegaly Respiratory: Clear to auscultation bilaterally, Normal air movement Cardiovascular: Normal pulses, Regular rate/rhythm Gastrointestinal: Normal bowel sounds, Soft and benign, Non-distended, No tenderness, No masses, No rebound, No guarding Musculoskeletal: No erythema, No tenderness, No warmth Integumentary: No tenderness/swelling, No erythema, No warmth, No cyanosis Neurological: Normal speech, Normal strength at 5/5 x4 extr, Normal tone, Dementia Urinary: Ro catheter - Studies Laboratory Data (last 24 hrs) 03/03/18 15:10: Sodium 141, Potassium 4.5, BUN 39 H, Creatinine 1.70 H, Glucose 84, Total Bilirubin 0.5, AST 19, ALT 13, Alkaline Phosphatase 100 03/03/18 15:10: WBC 5.8, Hgb 11.9 L, Hct 35.3 L, Plt Count 152 Assessment and Plan - Problems (Diagnosis) (1) Toxic encephalopathy Current Visit: Yes Status: Acute Plan: Secondary to complicated recurrent UTI with history of left nephrectomy and partial right nephrectomy. Patient also with indwelling catheter. Patient found to have E coli-ESBL on urine culture done 02/26/2018. Patient will be started on meropenem. PICC line has been ordered. Urology consulted. Will need to discuss plan of care by urology. Patient will likely need long-term IV antibiotic therapy. Patient may require placement to continue antibiotics. I will turn the service over to Dr. Pulido tomorrow. I will go over the plan of care with her. (2) Chronic renal disease Onset Date: 01/07/18 Current Visit: No Status: Acute Plan: Will start IV fluids. Continue as above. Qualifiers: Chronic kidney disease stage: stage 3 (moderate) (3) UTI (urinary tract infection) Onset Date: 01/07/18 Current Visit: No Status: Acute Plan: Continue as above. Qualifiers: Urinary tract infection type: site unspecified Hematuria presence: without hematuria Qualified Code(s): N39.0 - Urinary tract infection, site not specified (4) Alzheimer disease Onset Date: 07/01/17 Current Visit: No Status: Chronic Plan: Continue medication Qualifiers: (5) BPH (benign prostatic hyperplasia) Current Visit: No Status: Chronic Plan: Continue medication Qualifiers: Lower urinary tract symptom detail: unspecified (6) Essential hypertension Onset Date: 07/01/17 Current Visit: No Status: Chronic Plan: Continue medication (7) History of ischemic stroke without residual deficits Onset Date: 07/01/17 Current Visit: No Status: Chronic Plan: Overall stable. Will monitor closely. (8) GERD (gastroesophageal reflux disease) Current Visit: No Status: Suspected Plan: Provide medication. Qualifiers: - Advance Directives Does patient have a Living Will: No Does patient have a Durable POA for Healthcare: Yes - Code Status/Comfort Care Code Status Assessed: Yes (Patient is DNR.) Time Spent Managing Pts Care (In Minutes): 55
[2018-03-03] MEDS ORDERED: TRAZODONE 50 MG TABLET PO PRN (18:30)
[2018-03-03] MEDS ORDERED: LACTULOSE 20 GM/30 ML UCUP PO PRN (18:30)
[2018-03-03] MEDS: FINASTERIDE 5 MG TAB PO SCH (20:24)
[2018-03-03] MEDS: ENOXAPARIN 40 MG/0.4 ML SQ SCH (20:24)
[2018-03-03] MEDS: MEMANTINE HCL 10 MG TABLET PO SCH (20:25)
[2018-03-03] MEDS ORDERED: Meropenem 1000 MG/VIAL IV SCH (21:00)
[2018-03-03] MEDS ORDERED: TAMSULOSIN 0.4 MG SR CAP PO SCH (21:00)
[2018-03-03 23:17] LABS: Urine Culture Reflex Order NOT NEEDED
[2018-03-03 23:19] LABS: Urine Bacteria >50 /HPF (NONE SEEN); Urine RBC NONE SEEN /HPF (NONE SEEN)
--- NOTE | 2018-03-04 02:12 | CON ---
Reason For Consultation: Mr. Rosas is admitted for ESBL - E. coli, which is sensitive to nitrofuranto in, cefoxitin, cefotetan, meropenem, amikacin. The patient was having fever at home of 104 and the c atheter was little cloudy, so he was told to come to emergency room where he was admitted by the [facility]. The patient has a history of Alzheimer's dementia, history of left nephrectomy, and partial right nephrectomy. He is admitted for IV antibiotics. Physical Examination: Vital Signs: When he admitted was 98.7, pulse rate 74, respiratory rate 18, blood pressure 127/96, s ats 100%. Allergies: TO ARICEPT. Home Medications: Include Namenda, Desyrel, lactulose, Flomax, Proscar, folic acid, multivitamin, No rvasc, aspirin, meropenem, IV Protonix. Past Medical History: Alzheimer's dementia, history of CVA, hypertension, hyperlipidemia, gout, [place] artery disease, BPH, renal chronic disease, renal cell carcinoma, history of left nephrectomy, r ight partial nephrectomy, tobacco use or alcohol use, a history of AAA repair, kidney stents x3. The patient is a . Family History: Father had cancer. Mother had cancer. Social History: Smoking status, never smoked. Alcohol use, none. Drug use, none. Caffeine use, no ne. Resides at home. Review of Systems: General: Positive for fever, weakness, malaise. Eyes: Unremarkable. ENT: Unremarkable. Respiratory: Unremarkable. Cardiovascular: Unremarkable. Gastrointestinal: Unremarkable. Genitourinary: Unremarkable. Musculoskeletal: Unremarkable. Skin: Unremarkable. Neurologic: Some weakness and confusion. Lymphatics: Unremarkable. Physical Examination: General: He appears alert, oriented. Vital Signs: As mentioned above. HEENT: Atraumatic, normocephalic. Neck: Supple. Respiratory: Clear. Cardiovascular: S1, S2. Gastrointestinal: Normal bowel sounds. Urinary: Ro catheter draining clear urine. Lab Studies: Shows a normal white count of 5.8, H and H 11.9 and 35, platelet count 152. Chemistry: Sodium 141, potassium 4.5, chloride 108, carbon dioxide 26, BUN 39, creatinine 1.7, GFR 40, glucose 84. Urine study shows positive nitrates and positive leukocyte esterase. Urine culture as mentione d above. Assessment: Extended spectrum beta-lactamases. Plan: For IV meropenem, PICC placement, finish antibiotics at home. Thank you very much. GIUSEPPE Voice ID: [id number] Report ID: [id number]
[2018-03-04] MEDS ORDERED: Meropenem 1 GM/100 ML BAG ONE (02:57)
[2018-03-04] MEDS: NA CHLORIDE 0.9% 1,000 ML IV SCH ×2 (03:00→03:01)
[2018-03-04] MEDS: Meropenem 1,000 MG in NA CHLORIDE 0.9% 100 ML IV SCH ×3 (03:02→20:29)
[2018-03-04 05:34] LABS: Absolute Lymphocytes (CBC) 0.8 K/uL (0.7-4.9); Absolute Monocytes 0.4 K/uL (0.1-1.3); Absolute Neutrophil 3.2 K/uL (1.8-8.0); Basophils % 0.7 % (0-1.3); Eosinophils % 4.9 % (0-4.4); Hematocrit 30.8 % (39.6-49.0); MCH 30.3 pg (27.0-35.0); MCV 88.2 fL (80-100); MPV 9.1 fL (7.6-11.3); Monocytes % 9.2 % (3.3-12.3); RBC Red Blood Cell Count 3.49 M/uL (4.33-5.43)
[2018-03-04 05:45] LABS: Potassium 4.1 mmol/L (3.5-5.1)
--- NOTE | 2018-03-04 08:12 | P.CNS ---
Date of Consult: 03/04/18 Reason for Consult: KERRY/ CKD Requesting Physician: Lamine Wu Primary Care Provider: Dr. Alvarado; Urology-Dr. Little Chief Complaint: Fever, UTI History of Present Illness: 73 yo WM Dementia, CKD presented to the ER with AMS in the setting of acute on chronic cystitis. Limited IH/ ROS due to dementia. 73-year-old male presented to emergency room after he was sent over by urology for complicated recurrent UTI. Patient has chronic indwelling catheter. Patient seen by urology recently. Patient found to have UTI earlier in the week. Urine culture was sent off. Patient was sent home with Macrobid. The patient persisted to have fever. Patient had increasing fatigue. Family reports that the patient was not acting himself. Patient has Alzheimer's dementia. Patient has a complicated history of left nephrectomy and partial right nephrectomy with previous recurrent infections. He was sent to the ER for further evaluation and treatment. Allergies donepezil [From Aricept] Allergy (Verified 01/07/18 11:46) Itching/Hives/Rash Home medications list reviewed: Yes Home Medications: Amlodipine [Norvasc*] 10 mg PO DAILY 03/04/18 Ferrous Sulfate 1 tab PO BID 03/04/18 Lactulose 30 ml PO BEDTIME 03/04/18 Memantine HCl 1 tab PO BID 03/04/18 Mirtazapine 1 tab PO BEDTIME 03/04/18 Polyethylene Glycol 8000 [Polyethylene Glycol] 17 gr PO SEECOM 03/04/18 Tamsulosin [Flomax*] 1 cap PO DAILY 03/04/18 Trazodone [Desyrel*] 1 tab PO BEDTIME 03/04/18 Vit D 3 50,000 unit PO SEECOM 03/04/18 - Past Medical/Surgical History Diabetic: No -: Dementia, Alzheimer's -: History CVA x3 -: Hypertension -: Hyperlipidemia -: Gout -: CAD -: BPH -: Chronic renal disease -: Renal cell carcinoma -: History left nephrectomy, right partial nephrectomy -: History tobacco/alcohol abuse -: History AAA repair -: Left nephrectomy -: Partial right nephrectomy -: AAA repair -: Kidney stents x3 Psychosocial/ Personal History: The patient lives with his son. He is fully dependent on the son. Patient is a . - Family History Father Medical History: Cancer Notes: kidney Mother Medical History: Cancer Notes: throat, lung Brother Medical History: Cancer - Social History Smoking Status: Unknown if ever smoked Alcohol use: No CD- Drugs: No Caffeine use: No Place of Residence: Home Review of Systems 10-point ROS is otherwise unremarkable Physical Examination Temp Pulse Resp BP Pulse Ox 97.9 F 52 18 154/77 H 96 03/04/18 04:00 03/04/18 04:00 03/04/18 04:00 03/04/18 04:00 03/04/18 04:00 General: In no apparent distress, Cooperative HEENT: Normocephalic, Mucous membr. moist/pink Neck: Supple, JVD not distended Respiratory: Clear to auscultation bilaterally Cardiovascular: No edema, Regular rate/rhythm, No rubs Gastrointestinal: Soft and benign, Non-distended, No guarding Musculoskeletal: No clubbing, No contractures Integumentary: No rashes, No cyanosis Neurological: Normal speech Laboratory Data (last 24 hrs) 03/03/18 15:10: Sodium 141, Potassium 4.5, BUN 39 H, Creatinine 1.70 H, Glucose 84, Total Bilirubin 0.5, AST 19, ALT 13, Alkaline Phosphatase 100 03/03/18 15:10: WBC 5.8, Hgb 11.9 L, Hct 35.3 L, Plt Count 152 Imagings Data: EXAM DESCRIPTION: RAD - Chest Single View - 03/03/2018 3:22 pm CLINICAL HISTORY: Sepsis Chest pain. COMPARISON: Chest Single View dated 02/26/2018; Chest Single View dated 01/08/2018 ; Abdomen 1 View (KUB) dated 01/07/2018; Chest Pa And Lat (2 Views) dated 2017 FINDINGS: Portable technique limits examination quality. The lungs are grossly clear. The heart is normal in size. Tortuous thoracic aorta. Calcified right hilar lymph nodes are present with a granuloma in the right lower lobe compatible with prior granulomatous infection. IMPRESSION: No acute intrathoracic process suspected. Conclusions/Impression: A/ KERRY in the setting of hypovolemia. CKD III with proteinuria. Left total and Partial Right nephrectomy. HTN with CKD. Anemia in chronic illness. BPH with LUTS. Acute on chronic cystitis. Gout. AMS/ Dementia. P/ Continue current POC and medications. Change IVF 1/2NS. Agree with Abx. Follow up with urology. No NSAIDs. AM labs. Daily weight. Thank you kindly for the consultation.
--- NOTE | 2018-03-04 08:47 | RAD REPORT ---
EXAM DESCRIPTION: RAD - Chest Single View - 03/04/2018 1:42 am CLINICAL HISTORY: PICC line placement A preliminary report was provided at the time of the study and reviewed prior to final report. COMPARISON: March 03 FINDINGS: Portable chest was obtained following placement of a right upper extremity PICC line. The catheter tip is in the mid SVC.
[2018-03-04] MEDS ORDERED: AMLODIPINE 5 MG TAB PO SCH (09:00)
[2018-03-04] MEDS: PANTOPRAZOLE 40MG TABLET PO SCH (09:13)
[2018-03-04] MEDS: MEMANTINE HCL 10 MG TABLET PO SCH ×2 (09:14→20:31)
[2018-03-04] MEDS: ASPIRIN EC 81 MG TAB PO SCH (09:14)
[2018-03-04] MEDS: NACHLORIDE 0.45% 1,000 ML IV SCH ×2 (09:19→20:29)
[2018-03-04] MEDS: ENOXAPARIN 40 MG/0.4 ML SQ SCH (09:44)
--- NOTE | 2018-03-04 11:58 | PN ---
Subjective: The patient is doing well, having breakfast. Objective: Vital Signs: 97.9, pulse 52, respirations 18, BP 154/77, 96% sats on room air. I's and O's, intake 400, output 800. Urine is clear. Assessment: Extended-spectrum beta-lactamase Escherichia coli. The patient on meropenem. Arrangeme nts were made for PICC line and home medications and home IV antibiotics. MEENA/LORENA Voice ID: [id number] Report ID: [id number]
--- NOTE | 2018-03-04 14:35 | P.PN ---
Subjective Date of Service: 03/04/18 Primary Care Provider: Dr. Alvarado; Urology-Dr. Little Chief Complaint: Fever, UTI Subjective: No new changes, No C/O voiced, Tolerating diet, Doing well, Demented Review of Systems General: As per HPI Physical Examination - Vital Signs Temperature: 97.8 F Blood Pressure: 130/79 Pulse: 63 Respirations: 16 Pulse Ox (%): 99 - Physical Exam General: Alert, In no apparent distress, Demented HEENT: Atraumatic Neck: Supple, JVD not distended Respiratory: Clear to auscultation bilaterally, Normal air movement Cardiovascular: Regular rate/rhythm, Normal S1 S2 Gastrointestinal: Normal bowel sounds, Soft and benign, Non-distended, No tenderness Musculoskeletal: No tenderness Integumentary: No rashes Neurological: Normal speech, Normal tone, Normal affect Lymphatics: No axilla or inguinal lymphadenopathy - Studies Laboratory Data (last 24 hrs) 03/03/18 15:10: Sodium 141, Potassium 4.5, BUN 39 H, Creatinine 1.70 H, Glucose 84, Total Bilirubin 0.5, AST 19, ALT 13, Alkaline Phosphatase 100 03/03/18 15:10: WBC 5.8, Hgb 11.9 L, Hct 35.3 L, Plt Count 152 Medications List Reviewed: Yes Assessment & Plan - Problems (Diagnosis) (1) Sepsis Onset Date: 09/05/17 Current Visit: No Status: Acute Plan: Most Likely 2.2 to UTI with ESBL -Resolved now -IV meropeneum -Hemodynamically stable -Blood culture pending Qualifiers: Sepsis type: Escherichia coli Qualified Code(s): A41.51 - Sepsis due to Escherichia coli [E. coli] (2) Toxic encephalopathy Onset Date: 03/04/18 Current Visit: Yes Status: Acute Plan: Most likely 2.2 to UTI. At baseline Patient is demented. -currently alert but not oriented to place time or person -Will await Clinical Improvement (3) Chronic renal disease Onset Date: 01/07/18 Current Visit: No Status: Acute Plan: BUN.CR improved today -IV fluids for now Qualifiers: Chronic kidney disease stage: stage 3 (moderate) Qualified Code(s): N18.3 - Chronic kidney disease, stage 3 (moderate) (4) UTI (urinary tract infection) Onset Date: 01/07/18 Current Visit: No Status: Acute Plan: UTI with ESBL 2.2 to Indwelling catheter -Urine Culture + for ESBL from 03/03/18 -Urology consulted. -IV meropenum for 7 days BID Qualifiers: Urinary tract infection type: catheter-associated UTI Indwelling urinary catheter type: indwelling urethral catheter Encounter type: initial encounter Qualified Code(s): T83.511A - Infection and inflammatory reaction due to indwelling urethral catheter, initial encounter; N39.0 - Urinary tract infection , site not specified (5) Alzheimer disease Onset Date: 07/01/17 Current Visit: No Status: Chronic Qualifiers: Alzheimer's disease onset: early-onset Dementia behavioral disturbance: without behavioral disturbance Qualified Code(s): G30.0 - Alzheimer's disease with early onset; F02.80 - Dementia in other diseases classified elsewhere without behavioral disturbance (6) Coronary artery disease Onset Date: 07/01/17 Current Visit: No Status: Chronic Qualifiers: Coronary Disease-Associated Artery/Lesion type: [place] artery [place] vs. transplanted heart: [place] heart Associated angina: without angina Qualified Code(s): I25.10 - Atherosclerotic heart disease of [place] coronary artery without angina pectoris (7) Essential hypertension Onset Date: 07/01/17 Current Visit: No Status: Chronic (8) History of ischemic stroke without residual deficits Onset Date: 07/01/17 Current Visit: No Status: Chronic (9) GERD (gastroesophageal reflux disease) Onset Date: 03/04/18 Current Visit: No Status: Suspected Qualifiers: Discharge Plan: Home Plan to discharge in: 48 Hours - Code Status/Comfort Care Code Status Assessed: Yes Critical Care: No
[2018-03-04] MEDS ORDERED: POLYETHYLENE GLYCOL PO SCH (16:45)
[2018-03-04] MEDS ORDERED: VIT D PO SCH (16:45)
[2018-03-04] MEDS: POLYETHYL GLY 3350 17 GM/DOSE PO SCH (18:09)
[2018-03-04] MEDS: TRAZODONE 50 MG TABLET PO SCH (20:30)
[2018-03-04] MEDS: FERROUS SULFATE 325 MG TAB PO SCH (20:31)
[2018-03-04] MEDS: LACTULOSE 20 GM/30 ML UCUP PO SCH (20:31)
[2018-03-04] MEDS: MIRTAZAPINE 15 MG TAB PO SCH (20:31)
[2018-03-04] MEDS: FINASTERIDE 5 MG TAB PO SCH (20:31)
[2018-03-04] MEDS ORDERED: HOME MED 1 EA UNK (Lactulose [Lactulose] 30 ML) PO SCH (21:00)
[2018-03-05] MEDS: NACHLORIDE 0.45% 1,000 ML IV SCH ×2 (04:01→14:26)
[2018-03-05 05:04] LABS: Absolute Lymphocytes (CBC) 0.8 K/uL (0.7-4.9); Absolute Monocytes 0.4 K/uL (0.1-1.3); Absolute Neutrophil 3.1 K/uL (1.8-8.0); Basophils % 0.9 % (0-1.3); Eosinophils % 5.3 % (0-4.4); Lymphocytes % 18.2 % (15.3-44.8); MCH 30.3 pg (27.0-35.0); MCV 87.5 fL (80-100); MPV 9.1 fL (7.6-11.3); Monocytes % 8.6 % (3.3-12.3); RBC Red Blood Cell Count 3.54 M/uL (4.33-5.43)
[2018-03-05 05:15] LABS: Phosphorus 2.6 mg/dL (2.5-4.9); Potassium 3.9 mmol/L (3.5-5.1); Uric Acid 5.6 mg/dL (3.5-7.2)
[2018-03-05 05:41] LABS: Urine Appearance CLOUDY; Urine Bilirubin NEGATIVE (NEG); Urine Blood TRACE (NEG); Urine Color YELLOW; Urine Glucose NEGATIVE (NEG); Urine Protein NEGATIVE (NEG); Urine Specific Gravity <=1.005 (1.005-1.030); Urine Urobilinogen 0.2 mg/dL (0.2-1.0)
[2018-03-05] MEDS ORDERED: POTASSIUM 25 MEQ EFFERV TAB PO ONE (06:00)
[2018-03-05 06:08] LABS: Urine Culture Reflex Order NOT NEEDED
[2018-03-05 06:10] LABS: Urine Bacteria <20 /HPF (NONE SEEN); Urine RBC <5 /HPF (NONE SEEN)
[2018-03-05] MEDS: FERROUS SULFATE 325 MG TAB PO SCH ×2 (08:56→20:45)
[2018-03-05] MEDS: AMLODIPINE 10 MG TAB PO SCH (08:57)
[2018-03-05] MEDS: MEMANTINE HCL 10 MG TABLET PO SCH ×2 (08:57→20:45)
[2018-03-05] MEDS: ASPIRIN EC 81 MG TAB PO SCH (08:57)
[2018-03-05] MEDS: TAMSULOSIN 0.4 MG SR CAP PO SCH (08:58)
[2018-03-05] MEDS: PANTOPRAZOLE 40MG TABLET PO SCH (08:59)
[2018-03-05] MEDS ORDERED: DRISDOL (VITAMIN D=ERGOCALCIFEROL) 50000 UNIT CAP PO SCH (09:00)
[2018-03-05] MEDS: POLYETHYL GLY 3350 17 GM/DOSE PO SCH (09:00)
[2018-03-05] MEDS: ENOXAPARIN 40 MG/0.4 ML SQ SCH (09:03)
[2018-03-05] MEDS: Meropenem 1,000 MG in NA CHLORIDE 0.9% 100 ML IV SCH ×2 (09:05→20:47)
--- NOTE | 2018-03-05 15:48 | P.PN ---
Subjective Date of Service: 03/05/18 Primary Care Provider: Dr. Alvarado; Urology-Dr. Little Chief Complaint: Fever, UTI Subjective: No new changes, Tolerating diet, Improving, Doing well Review of Systems General: As per HPI Physical Examination - Vital Signs Temperature: 97.8 F Blood Pressure: 143/87 Pulse: 65 Respirations: 18 Pulse Ox (%): 100 - Physical Exam General: Alert, In no apparent distress, Demented HEENT: Atraumatic, PERRLA, EOMI Neck: Supple, JVD not distended Respiratory: Clear to auscultation bilaterally, Normal air movement Cardiovascular: Regular rate/rhythm, Normal S1 S2 Gastrointestinal: Normal bowel sounds, No tenderness Musculoskeletal: No tenderness Integumentary: No rashes Neurological: Normal speech, Normal tone, Normal affect Lymphatics: No axilla or inguinal lymphadenopathy - Studies Microbiology Data (last 24 hrs): 03/03/18 15:40 Catheterized Urine [place] Count - Final >100,000 CFU/ML. 03/03/18 15:40 Catheterized Urine - Final Escherichia Coli Medications List Reviewed: Yes Assessment & Plan - Problems (Diagnosis) (1) Sepsis Onset Date: 09/05/17 Current Visit: No Status: Acute Plan: Most Likely 2.2 to UTI with ESBL -Resolved now -IV meropeneum -Hemodynamically stable -Blood culture pending Qualifiers: Sepsis type: Escherichia coli Qualified Code(s): A41.51 - Sepsis due to Escherichia coli [E. coli] (2) Toxic encephalopathy Onset Date: 03/04/18 Current Visit: Yes Status: Acute Plan: Most likely 2.2 to UTI. At baseline Patient is demented. -currently alert but not oriented to place time or person -Will await Clinical Improvement (3) Chronic renal disease Onset Date: 01/07/18 Current Visit: No Status: Acute Plan: BUN.CR improved today -IV fluids for now Qualifiers: Chronic kidney disease stage: stage 3 (moderate) Qualified Code(s): N18.3 - Chronic kidney disease, stage 3 (moderate) (4) UTI (urinary tract infection) Onset Date: 01/07/18 Current Visit: No Status: Acute Plan: UTI with ESBL 2.2 to Indwelling catheter -Urine Culture + for ESBL from 03/03/18 -Urology consulted. Appreciate Reccs -IV meropenum for 14 days BID Qualifiers: Urinary tract infection type: catheter-associated UTI Indwelling urinary catheter type: indwelling urethral catheter Encounter type: initial encounter Qualified Code(s): T83.511A - Infection and inflammatory reaction due to indwelling urethral catheter, initial encounter; N39.0 - Urinary tract infection , site not specified (5) Alzheimer disease Onset Date: 07/01/17 Current Visit: No Status: Chronic Qualifiers: Alzheimer's disease onset: early-onset Dementia behavioral disturbance: without behavioral disturbance Qualified Code(s): G30.0 - Alzheimer's disease with early onset; F02.80 - Dementia in other diseases classified elsewhere without behavioral disturbance (6) Coronary artery disease Onset Date: 07/01/17 Current Visit: No Status: Chronic Qualifiers: Coronary Disease-Associated Artery/Lesion type: [place] artery [place] vs. transplanted heart: [place] heart Associated angina: without angina Qualified Code(s): I25.10 - Atherosclerotic heart disease of [place] coronary artery without angina pectoris (7) Essential hypertension Onset Date: 07/01/17 Current Visit: No Status: Chronic (8) History of ischemic stroke without residual deficits Onset Date: 07/01/17 Current Visit: No Status: Chronic (9) GERD (gastroesophageal reflux disease) Onset Date: 03/04/18 Current Visit: No Status: Suspected Qualifiers:
--- NOTE | 2018-03-05 19:43 | P.PN ---
Date of Service: 03/05/18 Vital Signs Temp Pulse Resp BP Pulse Ox 98.3 F 62 18 152/88 H 99 03/05/18 16:00 03/05/18 16:00 03/05/18 16:00 03/05/18 16:00 03/05/18 16:00 Medications Acetaminophen (Tylenol -Extra Strength) 500 mg PO Q4HP PRN PRN Reason: [id number] Stop: 04/02/18 16:40 Amlodipine Besylate (Norvasc) 10 mg PO DAILY FRANK Stop: 04/04/18 09:01 Last Admin: 03/05/18 08:57 Dose: 10 mg Aspirin (Aspirin Ec) 81 mg PO DAILY FRANK Stop: 04/03/18 09:01 Last Admin: 03/05/18 08:57 Dose: 81 mg Enoxaparin Sodium (Lovenox 40 Mg Inj) 40 mg SQ DAILY FRANK Stop: 04/02/18 17:01 Last Admin: 03/05/18 09:03 Dose: 40 mg Ergocalciferol (Drisdol) 50,000 unit PO Q7D@0900 FRANK Stop: 04/04/18 09:01 Last Admin: 03/05/18 08:59 Dose: 50,000 unit Ferrous Sulfate (Feosol) 325 mg PO BID FRANK Stop: 04/03/18 21:01 Last Admin: 03/05/18 08:56 Dose: 325 mg Finasteride (Proscar) 5 mg PO BEDTIME FRANK Stop: 04/02/18 21:01 Last Admin: 03/04/18 20:31 Dose: 5 mg Meropenem 1,000 mg/ Sodium (Chloride) 100 mls @ 100 mls/hr IV Q12HR FRANK Stop: 04/02/18 21:01 Last Admin: 03/05/18 09:05 Dose: 100 mls Sodium Chloride (Sodium Chloride 0.45%) 1,000 mls @ 100 mls/hr IV .Q10H FRANK Stop: 04/03/18 09:01 Last Admin: 03/05/18 14:26 Dose: 1,000 mls Lactulose (Cephulac) 10 gm PO BID PRN PRN Reason: CONSTIPATION Stop: 04/02/18 18:31 Lactulose (Cephulac) 20 gm PO BEDTIME FRANK Stop: 04/03/18 21:01 Last Admin: 03/04/18 20:31 Dose: 20 gm Memantine (Namenda) 10 mg PO BID FRANK Stop: 04/03/18 21:01 Last Admin: 03/05/18 08:57 Dose: 10 mg Mirtazapine (Remeron) 15 mg PO BEDTIME FRANK Stop: 04/03/18 21:01 Last Admin: 03/04/18 20:31 Dose: 15 mg Ondansetron HCl (Zofran) 4 mg IV Q6HP PRN PRN Reason: NAUSEA / VOMITING Stop: 04/02/18 16:40 Pantoprazole Sodium (Protonix Tab) 40 mg PO ACB FRANK Stop: 04/03/18 07:31 Last Admin: 03/05/18 08:59 Dose: 40 mg Polyethylene Glycol (Glycolax) 17 gm PO DAILY FRANK Stop: 04/03/18 18:01 Last Admin: 03/05/18 09:00 Dose: 17 gm Sodium Chloride (Normal Saline Flush) 10 ml IV BID FRANK Stop: 04/02/18 21:01 Last Admin: 03/05/18 09:05 Dose: 10 ml Tamsulosin HCl (Flomax) 0.4 mg PO DAILY FRANK Stop: 04/04/18 09:01 Last Admin: 03/05/18 08:58 Dose: 0.4 mg Trazodone HCl (Desyrel) 50 mg PO BEDTIME FRANK Stop: 04/03/18 21:01 Last Admin: 03/04/18 20:30 Dose: 50 mg Microbiology Results 03/03/18 15:40 Catheterized Urine [place] Count - Final >100,000 CFU/ML. 03/03/18 15:40 Catheterized Urine - Final Escherichia Coli Assessment/ Plan: Nephrology. CPS stable without CP or SOB. Good urine output. No acute events overnight. Limited IH/ ROS due to dementia. Vitals, medications, blood work and imaging reviewed in the chart. General: In no apparent distress, Cooperative HEENT: Normocephalic, Mucous membr. moist/pink Neck: Supple, JVD not distended Respiratory: Clear to auscultation bilaterally Cardiovascular: No edema, Regular rate/rhythm, No rubs Gastrointestinal: Soft and benign, Non-distended, No guarding Musculoskeletal: No clubbing, No contractures Integumentary: No rashes, No cyanosis Neurological: Normal speech Laboratory Data (last 24 hrs) 03/03/18 15:10: Sodium 141, Potassium 4.5, BUN 39 H, Creatinine 1.70 H, Glucose 84, Total Bilirubin 0.5, AST 19, ALT 13, Alkaline Phosphatase 100 03/03/18 15:10: WBC 5.8, Hgb 11.9 L, Hct 35.3 L, Plt Count 152 Imagings Data: EXAM DESCRIPTION: RAD - Chest Single View - 03/03/2018 3:22 pm CLINICAL HISTORY: Sepsis Chest pain. COMPARISON: Chest Single View dated 02/26/2018; Chest Single View dated 01/08/2018 ; Abdomen 1 View (KUB) dated 01/07/2018; Chest Pa And Lat (2 Views) dated 2017 FINDINGS: Portable technique limits examination quality. The lungs are grossly clear. The heart is normal in size. Tortuous thoracic aorta. Calcified right hilar lymph nodes are present with a granuloma in the right lower lobe compatible with prior granulomatous infection. IMPRESSION: No acute intrathoracic process suspected. Conclusions/Impression: A/ KERRY in the setting of hypovolemia. CKD III with proteinuria. Left total and Partial Right nephrectomy. HTN with CKD. Anemia in chronic illness. BPH with LUTS. Acute on chronic cystitis. Gout. AMS/ Dementia. P/ Continue current POC and medications. Continue current IVF; monitor volume status. Agree with Abx. Follow up with urology. No NSAIDs. AM labs. Daily weight.
[2018-03-05] MEDS: MIRTAZAPINE 15 MG TAB PO SCH (20:45)
[2018-03-05] MEDS: FINASTERIDE 5 MG TAB PO SCH (20:45)
[2018-03-05] MEDS: LACTULOSE 20 GM/30 ML UCUP PO SCH (20:45)
[2018-03-05] MEDS: TRAZODONE 50 MG TABLET PO SCH (20:45)
[2018-03-06] MEDS: NACHLORIDE 0.45% 1,000 ML IV SCH ×2 (00:20→11:00)
[2018-03-06 05:28] LABS: Magnesium 1.9 mg/dL (1.8-2.4); Potassium 4.5 mmol/L (3.5-5.1)
[2018-03-06 05:32] LABS: Absolute Lymphocytes (CBC) 0.8 K/uL (0.7-4.9); Absolute Monocytes 0.5 K/uL (0.1-1.3); Absolute Neutrophil 3.4 K/uL (1.8-8.0); Basophils % 0.7 % (0-1.3); Eosinophils % 6.9 % (0-4.4); Hematocrit 31.6 % (39.6-49.0); Lymphocytes % 15.9 % (15.3-44.8); MCH 30.1 pg (27.0-35.0); MCV 87.4 fL (80-100); RBC Red Blood Cell Count 3.62 M/uL (4.33-5.43)
[2018-03-06] MEDS: Meropenem 1,000 MG in NA CHLORIDE 0.9% 100 ML IV SCH (09:09)
[2018-03-06] MEDS: ENOXAPARIN 40 MG/0.4 ML SQ SCH (09:09)
[2018-03-06] MEDS: FERROUS SULFATE 325 MG TAB PO SCH (09:10)
[2018-03-06] MEDS: TAMSULOSIN 0.4 MG SR CAP PO SCH (09:10)
[2018-03-06] MEDS: AMLODIPINE 10 MG TAB PO SCH (09:11)
[2018-03-06] MEDS: POLYETHYL GLY 3350 17 GM/DOSE PO SCH (09:12)
[2018-03-06] MEDS: PANTOPRAZOLE 40MG TABLET PO SCH (09:12)
[2018-03-06] MEDS: ASPIRIN EC 81 MG TAB PO SCH (09:12)
[2018-03-06] MEDS: MEMANTINE HCL 10 MG TABLET PO SCH (09:12)
[2018-03-06 09:46] VITALS: O2SAT 98
[2018-03-06 15:20] VITALS: BP 146/73; TEMP 98.1
--- NOTE | 2018-03-06 15:55 | P.DS ---
Admission Date: 03/03/18 Discharge Date: 03/06/18 Primary Care Provider: Dr. Alvarado; Urology-Dr. Little Disposition: DC HOME/HOME HEALTH CARE Discharge Condition: GOOD Reason for Admission: Fever, UTI Consultations: Dr Little - Problems (1) Sepsis Onset Date: 09/05/17 Status: Acute Qualifiers: Sepsis type: Escherichia coli Qualified Code(s): A41.51 - Sepsis due to Escherichia coli [E. coli] (2) Toxic encephalopathy Onset Date: 03/04/18 Status: Acute (3) Chronic renal disease Onset Date: 01/07/18 Status: Acute Qualifiers: Chronic kidney disease stage: stage 3 (moderate) Qualified Code(s): N18.3 - Chronic kidney disease, stage 3 (moderate) (4) UTI (urinary tract infection) Onset Date: 01/07/18 Status: Acute Qualifiers: Urinary tract infection type: catheter-associated UTI Indwelling urinary catheter type: indwelling urethral catheter Encounter type: initial encounter Qualified Code(s): T83.511A - Infection and inflammatory reaction due to indwelling urethral catheter, initial encounter; N39.0 - Urinary tract infection , site not specified (5) Alzheimer disease Onset Date: 07/01/17 Status: Chronic Qualifiers: Alzheimer's disease onset: early-onset Dementia behavioral disturbance: without behavioral disturbance Qualified Code(s): G30.0 - Alzheimer's disease with early onset; F02.80 - Dementia in other diseases classified elsewhere without behavioral disturbance (6) Coronary artery disease Onset Date: 07/01/17 Status: Chronic Qualifiers: Coronary Disease-Associated Artery/Lesion type: [place] artery [place] vs. transplanted heart: [place] heart Associated angina: without angina Qualified Code(s): I25.10 - Atherosclerotic heart disease of [place] coronary artery without angina pectoris (7) Essential hypertension Onset Date: 07/01/17 Status: Chronic (8) History of ischemic stroke without residual deficits Onset Date: 07/01/17 Status: Chronic (9) GERD (gastroesophageal reflux disease) Onset Date: 03/04/18 Status: Suspected Qualifiers: Brief History of Present Illness: 73-year-old male presented to emergency room after he was sent over by urology for complicated recurrent UTI. Patient has chronic indwelling catheter. Patient seen by urology recently. Patient found to have UTI earlier in the week. Urine culture was sent off. Patient was sent home with Macrobid. The patient persisted to have fever. Patient had increasing fatigue. Family reports that the patient was not acting himself. Patient has Alzheimer's dementia. Patient has a complicated history of left nephrectomy and partial right nephrectomy with previous recurrent infections. He was sent to the ER for further evaluation and treatment. In the ER patient was evaluated. White count 5.8. Hemoglobin 11.9. BUN of 39 , creatinine 1.7 with a GFR 40. Urinalysis showed evidence bacteria. On 2017 urine culture was positive for E coli-ESBL. Patient admitted for treatment. I saw the patient ER, patient remained stable. He did not appear in any distress. Family was at bedside. Patient with history of dementia, hypertension , previous CVA, BPH. Hospital Course: Overall during the hospital stay patient remained stable Patient was initially admitted to the hospital for toxic encephalopathy most likely secondary to UTI. Patient was initially started on IV antibiotics and was found to have E. coli which was multi-drug resistant and thus was switched over to IV meropenem. Patient had a PICC line placed here in the hospital. And home health was arranged for home infusion for IV meropenem 1 g twice daily for total 14 days per urology is recommendation. Patient lives at home with family and is chronically demented at baseline. Family agreed with the plan and patient was then discharged home under stable condition once he had resolution of his symptoms with home health with [facility] to do IV antibiotics for total 14 days Vital Signs/Physical Exam: Temp Pulse Resp BP Pulse Ox 98.1 F 69 18 146/73 H 99 03/06/18 12:00 03/06/18 12:00 03/06/18 12:00 03/06/18 12:03/06/18 12:00 General: Alert, In no apparent distress, Demented HEENT: Atraumatic, PERRLA, EOMI Neck: Supple, JVD not distended Respiratory: Clear to auscultation bilaterally, Normal air movement Cardiovascular: Regular rate/rhythm, Normal S1 S2 Gastrointestinal: Normal bowel sounds, No tenderness Musculoskeletal: No tenderness Integumentary: No rashes Neurological: Normal speech, Normal tone, Normal affect Lymphatics: No axilla or inguinal lymphadenopathy Laboratory Data at Discharge: WBC 5.2 K/uL (4.3-10.9) 03/06/18 05:00 Hgb 10.9 g/dL (13.6-17.9) L 03/06/18 05:00 Hct 31.6 % (39.6-49.0) L 03/06/18 05:00 Plt Count 143 K/uL (152-406) L 03/06/18 05:00 Sodium 144 mmol/L (136-145) 03/06/18 05:00 Potassium 4.5 mmol/L (3.5-5.1) 03/06/18 05:00 BUN 25 mg/dL (7-18) H 03/06/18 05:00 Creatinine 1.20 mg/dL (0.55-1.3) 03/06/18 05:00 Glucose 81 mg/dL (74-106) 03/06/18 05:00 Uric Acid 5.6 mg/dL (3.5-7.2) 03/05/18 04:36 Phosphorus 2.6 mg/dL (2.5-4.9) 03/05/18 04:36 Magnesium 1.9 mg/dL (1.8-2.4) 03/06/18 05:00 Total Bilirubin 0.5 mg/dL (0.2-1.0) 03/03/18 15:10 AST 19 U/L (15-37) 03/03/18 15:10 ALT 13 U/L (12-78) 03/03/18 15:10 Alkaline Phosphatase 100 U/L (45-117) 03/03/18 15:10 Home Medications: Amlodipine [Norvasc*] 10 mg PO DAILY 03/04/18 Ferrous Sulfate 1 tab PO BID 03/04/18 Lactulose 30 ml PO BEDTIME 03/04/18 Memantine HCl 1 tab PO BID 03/04/18 Mirtazapine 1 tab PO BEDTIME 03/04/18 Polyethylene Glycol 8000 [Polyethylene Glycol] 17 gr PO SEECOM 03/04/18 Tamsulosin [Flomax*] 1 cap PO DAILY 03/04/18 Trazodone [Desyrel*] 1 tab PO BEDTIME 03/04/18 Vit D 3 50,000 unit PO SEECOM 03/04/18 Finasteride [Proscar*] 5 mg PO BEDTIME #30 tab 03/05/18 Meropenem [Merrem 1 GM/100 ML NS IVPB] 1 gm IV Q12H #28 bag 03/05/18 New Medications: Finasteride [Proscar*] 5 mg PO BEDTIME #30 tab Meropenem [Merrem 1 GM/100 ML NS IVPB] 1 gm IV Q12H #28 bag Diet: Regular Activity: Ad anjel Followup: Mary Little MD [ACTIVE - CAN ADMIT] - 1 Week (Follow up in office in 1 week. Call to schedule an appointment.)
--- NOTE | 2018-03-07 19:56 | P.PN ---
Date of Service: 03/06/18 Vital Signs Temp Pulse Resp BP Pulse Ox 98.1 F 69 18 146/73 H 99 03/06/18 12:00 03/06/18 12:00 03/06/18 12:00 03/06/18 12:00 03/06/18 12:00 Microbiology Results 03/03/18 15:40 Catheterized Urine [place] Count - Final >100,000 CFU/ML. 03/03/18 15:40 Catheterized Urine - Final Escherichia Coli Assessment/ Plan: Nephrology. CPS stable without CP or SOB. Good urine output. No acute events overnight. Limited IH/ ROS due to dementia. Vitals, medications, blood work and imaging reviewed in the chart. General: In no apparent distress, Cooperative HEENT: Normocephalic, Mucous membr. moist/pink Neck: Supple, JVD not distended Respiratory: Clear to auscultation bilaterally Cardiovascular: No edema, Regular rate/rhythm, No rubs Gastrointestinal: Soft and benign, Non-distended, No guarding Musculoskeletal: No clubbing, No contractures Integumentary: No rashes, No cyanosis Neurological: Normal speech Laboratory Data (last 24 hrs) 03/03/18 15:10: Sodium 141, Potassium 4.5, BUN 39 H, Creatinine 1.70 H, Glucose 84, Total Bilirubin 0.5, AST 19, ALT 13, Alkaline Phosphatase 100 03/03/18 15:10: WBC 5.8, Hgb 11.9 L, Hct 35.3 L, Plt Count 152 Imagings Data: EXAM DESCRIPTION: RAD - Chest Single View - 03/03/2018 3:22 pm CLINICAL HISTORY: Sepsis Chest pain. COMPARISON: Chest Single View dated 02/26/2018; Chest Single View dated 01/08/2018 ; Abdomen 1 View (KUB) dated 01/07/2018; Chest Pa And Lat (2 Views) dated 2017 FINDINGS: Portable technique limits examination quality. The lungs are grossly clear. The heart is normal in size. Tortuous thoracic aorta. Calcified right hilar lymph nodes are present with a granuloma in the right lower lobe compatible with prior granulomatous infection. IMPRESSION: No acute intrathoracic process suspected. Conclusions/Impression: A/ KERRY in the setting of hypovolemia. CKD III with proteinuria. Total Left and Partial Right nephrectomy. HTN with CKD. Anemia in chronic illness. BPH with LUTS. Acute on chronic cystitis. Gout. AMS/ Dementia. P/ Continue current POC and medications. Continue current IVF; monitor volume status. May need to titrate anti-hypertensives. Agree with Abx. Follow up with urology. No NSAIDs. AM labs. Daily weight.
== END 2018-03-06 13:02 | disposition home health service (06) | DRG 698 ==
LOC: ER 13:24 → ERHOLD 16:20 → 2ND 18:00
PROVIDERS: ADMIT Family Medicine; ATTEND Family Medicine
DX: T83.518A Infection and inflammatory reaction due to other urinary catheter, initial encounter (principal); G92 Toxic encephalopathy; A41.51 Sepsis due to Escherichia coli [E. coli]; N17.9 Acute kidney failure, unspecified; Z16.12 Extended spectrum beta lactamase (ESBL) resistance; N18.3 Chronic kidney disease, stage 3 (moderate); G30.0 Alzheimer's disease with early onset; F02.80 Dementia in other diseases classified elsewhere, unspecified severity, without behavioral disturbance, psychotic disturbance, mood disturbance, and anxiety; I12.9 Hypertensive chronic kidney disease with stage 1 through stage 4 chronic kidney disease, or unspecified chronic kidney disease; N40.0 Benign prostatic hyperplasia without lower urinary tract symptoms; K21.9 Gastro-esophageal reflux disease without esophagitis; E78.5 Hyperlipidemia, unspecified; I25.10 Atherosclerotic heart disease of native coronary artery without angina pectoris; M1A.9XX0 Chronic gout, unspecified, without tophus (tophi); D63.8 Anemia in other chronic diseases classified elsewhere; N40.1 Benign prostatic hyperplasia with lower urinary tract symptoms; Z66 Do not resuscitate; Z86.73 Personal history of transient ischemic attack (TIA), and cerebral infarction without residual deficits; Z90.5 Acquired absence of kidney; Z85.528 Personal history of other malignant neoplasm of kidney; Z91.09 Other allergy status, other than to drugs and biological substances
CPT/HCPCS: 36415; 71045; 80048; 80053; 81001; 81003; 81015; 83605; 83735; 84100; 84145; 84550; 85025; 87040; 87077; 87086; 87088; 87186; 96365; 96366; 99285; J0696; J1650; J2185; J7030

== ENCOUNTER 2018-04-09 17:53 | Inpatient (IN) | payer OTHER ==
--- OUTSIDE RECORDS SUMMARY | 2018-04-09 17:55 | XMS REPORT | Clinical Summary ---
:1945 Author Organization [facility] Address [address] [place] [address] Care Team Providers Name Role Phone Magdy [...] 08/07/2017 Telephone Urology Barbara Brooks MA after 04/08/2017 Social History Tobacco Use Types Packs/Day Years [...] 3:33 PM Results for this EXTERNAL STUDY SOLUTION SPEC procedure are in the results section. XR ABD/PELVIC Routine 07/02/2017 3:19 PM Results for this EXTERNAL STUDY SOLUTION SPEC procedure are in the results section. XR CHEST EXTERNAL Routine 07/02/2017 1:24 PM Results for this STUDY SOLUTION SPEC procedure are in the results section. after 04/08/[address] Abd/Pelvic External Study (07/02/2017 3:33 PM) Narrative Performed At This exam was not acquired at a [employer] facility and has not been [facility] interpreted by a [employer] Provider.The exam was imported into our imaging system for comparisons purposes. Performing Organization Address [facility] Phone Number [facility] [address] [place] [address] XR Abd/Pelvic External Study (07/02/2017 3:19 PM) Narrative Performed At This exam was not acquired at a [employer] facility and has not been [facility] interpreted by a [employer] Provider.The exam was imported into our imaging system for comparisons purposes. Performing Organization Address [facility] Phone Number [facility] [address] [place] [address] XR Chest External Study (07/02/2017 1:24 PM) Narrative Performed At This exam was not acquired at a [employer] facility and has not been [facility] interpreted by a [employer] Provider.The exam was imported into our imaging system for comparisons purposes. Performing Organization Address [facility] Phone Number [facility] [address] [place] [address] after 04/08/2017 Insurance Payer Benefit Plan / Group Subscriber ID Type Phone Address MEDICARE MEDICARE PART A AND B xxxxxxxxxx Medicare [place], [place] MEDICAID MEDICAID xxxxxxxxx Medicaid
--- NOTE | 2018-04-09 21:09 | ER ---
Nurse's Notes [facility] Name: Adam Rosas Age: 73 yrs Sex: Male : 1945 Arrival Date: 04/09/2018 Time: 17:58 Bed 20 Private MD: Wanda Alvarado Atiq Diagnosis: Extended spectrum beta lactamase (ESBL) resistance;Urinary tract infection, site not specified Presentation: 04/09 18:20 Presenting complaint: Pt's caregiver states "Dr. Little called today and said to come to aa the ER to be admitted because his urine is positive for ESBL". Jayjay noted. Transition of care: patient was not received from another setting of care. Onset of symptoms was April 09, 2018. Risk Assessment: Do you want to hurt yourself or someone else? Patient reports no desire to harm self or others. Initial Sepsis Screen: Does the patient meet any 2 criteria? No. Patient's initial sepsis screen is negative. Does the patient have a suspected source of infection? No. Patient's initial sepsis screen is negative. Care prior to arrival: None. 18:20 Method Of Arrival: Wheelchair aa 18:20 Acuity: SCOTT 3 aa5 Historical: - Allergies: 18:22 Aricept; aa5 - PMHx: 18:22 Dementia; Hyperlipidemia; Hypertension; Kidney stones; one kidney; aa5 - PSHx: 18:22 Hernia repair; AAA repair; Kidney stents; aa5 - Immunization history:: Adult Immunizations up to date. - Social history:: Smoking status: Patient/guardian denies using tobacco. - Ebola Screening: : No symptoms or risks identified at this time. Screenin:56 Abuse screen: Denies threats or abuse. Nutritional screening: No deficits noted. ea Tuberculosis screening: No symptoms or risk factors identified. Fall Risk None identified. Assessment: 19:54 General: Appears in no apparent distress. Behavior is calm, cooperative, appropriate ea for age. Pain: Denies pain. Neuro: Level of Consciousness is awake, alert, Oriented to person. Cardiovascular: Patient's skin is warm and dry. Respiratory: Airway is patent Respiratory effort is even, unlabored, Respiratory pattern is regular, symmetrical, Breath sounds are clear bilaterally. GI: Abdomen is flat, Bowel sounds present X 4 quads. Abd is soft and non tender X 4 quads. : Ro in place to gravity drainage clamped. EENT: No signs and/or symptoms were reported regarding the EENT system. Derm: Skin is pink, warm \\T\\ dry. Musculoskeletal:. Musculoskeletal: Circulation, motion, and sensation intact. 20:45 Reassessment: Patient and/or family updated on plan of care and expected duration. Pain ea level reassessed. Pt alert and oriented to self, respirations even and unlabored. Chest expansions even and symmetrical. No s/s of pain or discomfort noted at this time. Family at bedside. 21:54 Reassessment: Patient and/or family updated on plan of care and expected duration. Pain ea level reassessed. Pt alert and oriented to self and place, denies pain at this time. Respirations even and unlabored. Chest expansions even and symmetrical. No s/s of pain or discomfort noted at this time. 22:31 Reassessment: Report given to Todd BRICE. ea 22:37 Reassessment: Patient and/or family updated on plan of care and expected duration. Pain ea level reassessed. Pt alert and oriented to self and place. Respirations even and unlabored. Chest expansions even and symmetrical. No s/s of pain or discomfort noted at this time. Pt taken to second floor via stretcher per magnetic testing technician, accompanied by family. Vital Signs: 18:22 BP 149 / 95; Pulse 86; Resp 18 S; Temp 97.8(TE); Pulse Ox 100% on R/A; aa5 20:27 BP 159 / 87; Pulse 57; Resp 16; Pulse Ox 98% on R/A; aa1 21:45 BP 174 / 88; Pulse 58; Resp 18; Temp 98(O); Pulse Ox 99% on R/A; ea 22:35 BP 141 / 77; Pulse 60; Resp 18; Pulse Ox 99% ; Pain 0/10; ea ED Course: 17:58 Patient arrived in ED. mr 17:58 Wanda Alvarado MD is Private Physician. mr 18:21 Triage completed. aa5 18:21 Arm band placed on. aa5 19:04 [facility] jr[facility] 19:04 Dexter Jackson MD is Attending Physician. jr8 19:26 Veronica Alcazar, YUNIEL is Primary Nurse. ea 19:56 Patient has correct armband on for positive identification. Bed in low position. Call ea light in reach. Side rails up X2. 20:25 Initial lab(s) drawn, by me, sent to lab. Inserted saline lock: 22 gauge in left aa1 forearm, using aseptic technique. Blood collected. 21:08 Nitesh Ware MD is Hospitalizing Provider. jr8 21:52 No provider procedures requiring assistance completed. Patient admitted, IV remains in ea place. Administered Medications: 21: Drug: Meropenem 1 grams Route: IV; Rate: calculated rate; Site: left forearm; ea 21:57 Follow up: Response: No adverse reaction; IV Status: Completed infusion; IV Intake: ea 100ml Intake: :57 IV: 100ml; Total: 100ml. ea Outcome: 21:09 Decision to Hospitalize by Provider. jr8 21:51 Instructed on the need for admit, Demonstrated understanding of instructions. ea 22:35 Admitted to Med/surg accompanied by tech, room 224, with chart, Report called to Todd johnston RN 22:35 Condition: stable 22:39 Patient left the ED. ea Signatures: Reva Sy, RN RN aa1 Petra Antonio Araceli Elam, RN RN aa5 Dov Lance PA PA jr8 Veronica Alcazar RN RN ea
--- NOTE | 2018-04-09 21:09 | EDPHYS ---
Physician Documentation [facility] Name: Adam Rosas Age: 73 yrs Sex: Male : 1945 Arrival Date: 04/09/2018 Time: 17:58 Bed 20 Private MD: Wanda Alvarado Atiq ED Physician Dexter Jackson HPI: 04/09 20:57 This 73 yrs old Male presents to ER via Wheelchair with complaints of Urinary jr8 Problem. 20:57 Onset: The symptoms/episode began/occurred gradually, 2 day(s) ago. Associated signs jr8 and symptoms: The patient has no apparent associated signs or symptoms. Modifying factors: The patient symptoms are alleviated by nothing, the patient symptoms are aggravated by nothing. It is unknown whether or not the patient has had similar symptoms in the past. The patient has been recently seen by a physician:. Patient had been running fevers. Urine was cultured and came back ESBL positive. Has indwelling catheter for bladder retention. Saw Dr. Little today and told to come to ED for admission . Historical: - Allergies: 18:22 Aricept; aa5 - PMHx: 18:22 Dementia; Hyperlipidemia; Hypertension; Kidney stones; one kidney; aa5 - PSHx: 18:22 Hernia repair; AAA repair; Kidney stents; aa5 - Immunization history:: Adult Immunizations up to date. - Social history:: Smoking status: Patient/guardian denies using tobacco. - Ebola Screening: : No symptoms or risks identified at this time. ROS: 20:57 Eyes: Negative for injury, pain, redness, and discharge, ENT: Negative for injury, jr8 pain, and discharge, Neck: Negative for injury, pain, and swelling, Cardiovascular: Negative for chest pain, palpitations, and edema, Respiratory: Negative for shortness of breath, cough, wheezing, and pleuritic chest pain, Abdomen/GI: Negative for abdominal pain, nausea, vomiting, diarrhea, and constipation, Back: Negative for injury and pain, MS/Extremity: Negative for injury and deformity, Skin: Negative for injury, rash, and discoloration, Neuro: Negative for headache, weakness, numbness, tingling, and seizure. 20:57 Constitutional: Positive for fever. 20:57 : Positive for urinary symptoms. Exam: 20:57 Eyes: Pupils equal round and reactive to light, extra-ocular motions intact. Lids and jr8 lashes normal. Conjunctiva and sclera are non-icteric and not injected. Cornea within normal limits. Periorbital areas with no swelling, redness, or edema. ENT: Nares patent. No nasal discharge, no septal abnormalities noted. Tympanic membranes are normal and external auditory canals are clear. Oropharynx with no redness, swelling, or masses, exudates, or evidence of obstruction, uvula midline. Mucous membranes moist. Neck: Trachea midline, no thyromegaly or masses palpated, and no cervical lymphadenopathy. Supple, full range of motion without nuchal rigidity, or vertebral point tenderness. No Meningismus. Cardiovascular: Regular rate and rhythm with a normal S1 and S2. No gallops, murmurs, or rubs. Normal PMI, no JVD. No pulse deficits. Respiratory: Lungs have equal breath sounds bilaterally, clear to auscultation and percussion. No rales, rhonchi or wheezes noted. No increased work of breathing, no retractions or nasal flaring. Abdomen/GI: Soft, non-tender, with normal bowel sounds. No distension or tympany. No guarding or rebound. No evidence of tenderness throughout. Back: No spinal tenderness. No costovertebral tenderness. Full range of motion. Skin: Warm, dry with normal turgor. Normal color with no rashes, no lesions, and no evidence of cellulitis. MS/ Extremity: Pulses equal, no cyanosis. Neurovascular intact. Full, normal range of motion. Neuro: Awake and alert, GCS 15, oriented to person. Cranial nerves II-XII grossly intact. Motor strength 5/5 in all extremities. Sensory grossly intact. Baseline dementia Vital Signs: 18:22 BP 149 / 95; Pulse 86; Resp 18 S; Temp 97.8(TE); Pulse Ox 100% on R/A; aa5 20:27 BP 159 / 87; Pulse 57; Resp 16; Pulse Ox 98% on R/A; aa1 21:45 BP 174 / 88; Pulse 58; Resp 18; Temp 98(O); Pulse Ox 99% on R/A; ea 22:35 BP 141 / 77; Pulse 60; Resp 18; Pulse Ox 99% ; Pain 0/10; ea MDM: 19:06 Patient medically screened. [facility] 20:57 Data reviewed: vital signs, nurses notes, old medical records, lab test result(s), and jr8 as a result, I will admit patient. Data interpreted: Pulse oximetry: on room air is 98 %. Interpretation: normal. Counseling: I had a detailed discussion with the patient and/or guardian regarding: the historical points, exam findings, and any diagnostic results supporting the discharge/admit diagnosis, lab results, the need for further work-up and treatment in the hospital. 21:05 Physician consultation: Nitesh Ware MD was called at 21:07, was contacted at 21:07, jr8 regarding admission, to the medical/surgical unit. consult, patient's condition, and will see patient. 04/09 21: Order name: CBC with Diff; Complete Time: 21:38 8 04/09 21:02 Order name: Basic Metabolic Panel; Complete Time: 21:38 [facility] 04/09 19:55 Order name: IV; Complete Time: 20:26 [facility] 04/09 21:03 Order name: CONS Physician Consult EDMS Administered Medications: 21: Drug: Meropenem 1 grams Route: IV; Rate: calculated rate; Site: left forearm; ea 21:57 Follow up: Response: No adverse reaction; IV Status: Completed infusion; IV Intake: ea 100ml Disposition: 04/10 06:49 Co-signature as Attending Physician, Dexter Jackson MD I agree with the assessment and glenis plan of care. Disposition: 04/09/18 21:09 Hospitalization ordered by Nitesh Ware for Inpatient Admission. Preliminary diagnosis are Extended spectrum beta lactamase (ESBL) resistance, Urinary tract infection, site not specified. - Bed requested for Telemetry/MedSurg (Inpatient). - Status is Inpatient Admission. ea - Condition is Stable. - Problem is new. - Symptoms are unchanged. UTI on Admission? Yes Signatures: Dispatcher [employer] EDMS Aditi Ward RN RN kl Anderson, Corey, MD MD cha Calderon, Audri RN RN aa5 Dov Lance PA PA jr8 Veronica Alcazar RN RN ea Corrections: (The following items were deleted from the chart) 04/09 20:27 19:55 CBC with Automated Diff ordered. EDMS EDMS 20:27 19:55 Basic Metabolic Panel ordered. EDPR EDMS 21:49 21:09 Hospitalization Ordered by Nitesh Ware MD for Inpatient Admission. Preliminary kl diagnosis is Extended spectrum beta lactamase (ESBL) resistance; Urinary tract infection, site not specified. Bed requested for Telemetry/MedSurg (Inpatient). Status is Inpatient Admission. Condition is Stable. Problem is new. Symptoms are unchanged. UTI on Admission? Yes. jr8 22:39 21:49 04/09/2018 21:09 Hospitalization Ordered by Nitesh Ware MD for Inpatient ea Admission. Preliminary diagnosis is Extended spectrum beta lactamase (ESBL) resistance; Urinary tract infection, site not specified. Bed requested for Telemetry/MedSurg (Inpatient). Status is Inpatient Admission. Condition is Stable. Problem is new. Symptoms are unchanged. UTI on Admission? Yes. kl
[2018-04-09] MEDS ORDERED: Meropenem 1 GM/100 ML BAG ONE (21:17)
[2018-04-09 21:27] LABS: Absolute Lymphocytes (CBC) 0.8 K/uL (0.7-4.9); Absolute Monocytes 0.3 K/uL (0.1-1.3); Absolute Neutrophil 4.6 K/uL (1.8-8.0); Basophils % 0.4 % (0-1.3); Eosinophils % 1.7 % (0-4.4); Hematocrit 34.9 % (39.6-49.0); Lymphocytes % 14.2 % (15.3-44.8); MCH 29.8 pg (27.0-35.0); MCV 88.3 fL (80-100); MPV 9.4 fL (7.6-11.3); Monocytes % 5.6 % (3.3-12.3); RBC Red Blood Cell Count 3.95 M/uL (4.33-5.43)
[2018-04-09 21:35] LABS: Potassium 4.3 mmol/L (3.5-5.1)
--- NOTE | 2018-04-09 21:39 | P.HP ---
Certification for Inpatient Patient admitted to: Inpatient With expected LOS: >2 Midnights Practitioner: I am a practitioner with admitting privileges, knowledge of patient current condition, hospital course, and medical plan of care. Services: Services provided to patient in accordance with Admission requirements found in Title 42 Section 412.3 of the Code of Federal Regulations Patient History Date of Service: 04/09/18 Reason for admission: E coli with ESBL UTI History of Present Illness: Mr Rosas is a 73-year-old male with history of multiple medical problems including dementia, hypertension, BPH with chronic indwelling catheter placement , who was admitted about 1 month ago due to sepsis secondary to UTI. At that time urine culture was positive for E coli with ESBL. He was discharged home with 14 days of IV meropenem. According to the family after finished his treatment the patient was doing okay, however today he was spiking fever. Dr. Little was following up the patient, and recently he ordered a new urine culture , which according to Dr. Little, it is again positive for E coli with ESBL. Therefore, the patient was referred to the hospital for admission and start IV antibiotics. Allergies donepezil [From Aricept] Allergy (Verified 01/07/18 11:46) Itching/Hives/Rash Home Medications: Amlodipine [Norvasc*] 10 mg PO DAILY 03/04/18 Ferrous Sulfate 1 tab PO BID 03/04/18 Lactulose 30 ml PO BEDTIME 03/04/18 Memantine HCl 1 tab PO BID 03/04/18 Mirtazapine 1 tab PO BEDTIME 03/04/18 Polyethylene Glycol 8000 [Polyethylene Glycol] 17 gr PO SEECOM 03/04/18 Tamsulosin [Flomax*] 1 cap PO DAILY 03/04/18 Trazodone [Desyrel*] 1 tab PO BEDTIME 03/04/18 Vit D 3 50,000 unit PO SEECOM 03/04/18 Finasteride [Proscar*] 5 mg PO BEDTIME #30 tab 03/05/18 Meropenem [Merrem 1 GM/100 ML NS IVPB] 1 gm IV Q12H #28 bag 03/05/18 - Past Medical/Surgical History Diabetic: No -: Dementia, Alzheimer's -: History CVA x3 -: Hypertension -: Hyperlipidemia -: Gout -: CAD -: BPH -: Chronic renal disease -: Renal cell carcinoma -: History left nephrectomy, right partial nephrectomy -: History tobacco/alcohol abuse -: History AAA repair -: Left nephrectomy -: Partial right nephrectomy -: AAA repair -: Kidney stents x3 Psychosocial/ Personal History: The patient lives with his son. He is fully dependent on the son. Patient is a . - Family History Father -: Cancer Notes: kidney Mother -: Cancer Notes: throat, lung Brother -: Cancer - Social History Smoking Status: Former smoker Alcohol use: No CD- Drugs: No Caffeine use: No Place of Residence: Home Review of Systems 10-point ROS is otherwise unremarkable Physical Examination - Physical Exam General: Alert, In no apparent distress, Demented HEENT: Atraumatic, PERRLA, Mucous membr. moist/pink, EOMI, Sclerae nonicteric Neck: Supple, 2+ carotid pulse no bruit, No LAD, Without JVD or thyroid abnormality Respiratory: Clear to auscultation bilaterally, Normal air movement Cardiovascular: Regular rate/rhythm, Normal S1 S2 Gastrointestinal: Normal bowel sounds, No tenderness Musculoskeletal: No tenderness Integumentary: No rashes Neurological: Normal strength at 5/5 x4 extr, Normal tone, Sensation intact, Normal affect Lymphatics: No axilla or inguinal lymphadenopathy - Studies Laboratory Data (last 24 hrs) 04/09/18 19:55: Sodium Cancelled, Potassium Cancelled, BUN Cancelled, Creatinine Cancelled, Glucose Cancelled 04/09/18 19:55: WBC Cancelled, Hgb Cancelled, Hct Cancelled, Plt Count Cancelled 04/09/18 19:05: WBC 5.9, Hgb 11.8 L, Hct 34.9 L, Plt Count 151 L Assessment and Plan - Problems (Diagnosis) (1) UTI related to indwelling catheter Current Visit: Yes Status: Acute (2) Alzheimer disease Onset Date: 07/01/17 Current Visit: No Status: Chronic Qualifiers: Alzheimer's disease onset: early-onset Dementia behavioral disturbance: without behavioral disturbance Qualified Code(s): G30.0 - Alzheimer's disease with early onset; F02.80 - Dementia in other diseases classified elsewhere without behavioral disturbance (3) BPH (benign prostatic hyperplasia) Onset Date: 03/04/18 Current Visit: No Status: Chronic Qualifiers: Lower urinary tract symptom detail: unspecified (4) CKD (chronic kidney disease) stage 3, GFR 30-59 ml/min Onset Date: 07/01/17 Current Visit: No Status: Chronic (5) Coronary artery disease Onset Date: 07/01/17 Current Visit: No Status: Chronic Qualifiers: Coronary Disease-Associated Artery/Lesion type: [place] artery [place] vs. transplanted heart: [place] heart Associated angina: without angina Qualified Code(s): I25.10 - Atherosclerotic heart disease of [place] coronary artery without angina pectoris (6) Essential hypertension Onset Date: 07/01/17 Current Visit: No Status: Chronic - Plan The patient will be admitted to the hospital and start IV meropenem. He will need to continue another round of 14 days. Will order PICC line, social service consult for IV antibiotics arrangement at home. Consult for follow-up while he is in the hospital. - Advance Directives Does patient have a Living Will: No Does patient have a Durable POA for Healthcare: Yes - Code Status/Comfort Care Code Status Assessed: Yes Code Status: Do Not Resuscitate
[2018-04-09] MEDS ORDERED: ONDANSETRON 4 MG/2 ML VIAL IV PRN (22:53)
[2018-04-09] MEDS ORDERED: ACETAMINOPHEN 500 MG TAB PO PRN (22:53)
[2018-04-10] MEDS ORDERED: Meropenem 1000 MG/VIAL IV SCH (03:00)
[2018-04-10] MEDS ORDERED: Meropenem 1 GM/100 ML BAG ONE (03:43)
[2018-04-10 05:21] LABS: Absolute Lymphocytes (CBC) 0.8 K/uL (0.7-4.9); Absolute Monocytes 0.4 K/uL (0.1-1.3); Basophils % 0.5 % (0-1.3); Eosinophils % 6.8 % (0-4.4); Hematocrit 32.3 % (39.6-49.0); Lymphocytes % 18.7 % (15.3-44.8); MCH 29.9 pg (27.0-35.0); MCV 87.9 fL (80-100); MPV 9.3 fL (7.6-11.3); Monocytes % 8.1 % (3.3-12.3); RBC Red Blood Cell Count 3.67 M/uL (4.33-5.43)
[2018-04-10 05:24] LABS: Urine Appearance CLOUDY; Urine Bilirubin NEGATIVE (NEG); Urine Blood TRACE (NEG); Urine Color YELLOW; Urine Glucose NEGATIVE (NEG); Urine Protein 2+ (NEG); Urine Urobilinogen 0.2 mg/dL (0.2-1.0)
[2018-04-10 05:37] LABS: Potassium 3.7 mmol/L (3.5-5.1)
[2018-04-10 06:09] LABS: Urine Microscopic Reflex ORDER UMIC
[2018-04-10 06:13] LABS: Urine Bacteria <20 /HPF (NONE SEEN); Urine Culture Reflex Order REFLEXED; Urine RBC <5 /HPF (NONE SEEN)
[2018-04-10] MEDS ORDERED: KCL 20 MEQ/100 mL IVPB 20 MEQ/100 ML BAG IV SCH (07:00)
--- NOTE | 2018-04-10 08:30 | RAD REPORT ---
EXAM DESCRIPTION: RAD - Chest Single View - 04/10/2018 12:51 am CLINICAL HISTORY: PICC Line COMPARISON: Chest Single View dated 03/04/2018; Chest Single View dated 03/03/2018; Chest Single View dated 02/26/2018; Chest Single View dated 01/08/2018 FINDINGS: Portable chest was obtained following placement of a right upper extremity PICC line. The catheter tip projects over the SVC.
--- NOTE | 2018-04-10 08:34 | P.PN ---
Subjective Date of Service: 04/10/18 Primary Care Provider: Unknown Chief Complaint: E coli with ESBL UTI Subjective: Demented (Patient doing well this time. No complaints noted.) Physical Examination - Vital Signs Temperature: 97.5 F Blood Pressure: 160/85 Pulse: 66 Respirations: 18 Pulse Ox (%): 97 - Physical Exam General: Alert, Cooperative, Demented (But appropriate) Neck: Supple Respiratory: Clear to auscultation bilaterally, Normal air movement Cardiovascular: Normal pulses, Regular rate/rhythm Gastrointestinal: Normal bowel sounds, Soft and benign, Non-distended, No tenderness, No masses, No rebound, No guarding Musculoskeletal: No erythema, No tenderness, No warmth Integumentary: No erythema, No warmth, No cyanosis Neurological: Normal speech, Normal strength at 5/5 x4 extr, Normal tone, Dementia - Studies Laboratory Data (last 24 hrs) 04/09/18 20:27: Sodium 144, Potassium 4.3, BUN 35 H, Creatinine 1.60 H, Glucose 86 04/09/18 19:55: Sodium Cancelled, Potassium Cancelled, BUN Cancelled, Creatinine Cancelled, Glucose Cancelled 04/09/18 19:55: WBC Cancelled, Hgb Cancelled, Hct Cancelled, Plt Count Cancelled 04/09/18 19:05: WBC 5.9, Hgb 11.8 L, Hct 34.9 L, Plt Count 151 L Medications List Reviewed: Yes Assessment & Plan Discharge Plan: Home Plan to discharge in: 48 Hours Physician Review Additional Text: Impression: Recurrent complicated UTI with prior history of E coli-ESBL. BPH Alzheimer's dementia Hypertension History of CVA without residual deficits Chronic renal disease Anemia of chronic disease Insomnia Chronic constipation Plan: Patient recently evaluated by urology. Patient admitted for IV antibiotic therapy for recurrent complicated UTI with prior history of E coli-ESBL. Patient likely has recurrent ESBL. Will need to obtain recent urine culture from urology. PICC line in place. Patient will likely continue with IV meropenem 1000 mg IV 3 times a day for at least 10 days. Will need to check with family to determine whether this will be done at home versus skilled placement. Will discuss with family later. Will continue with BPH medication. Will also continue with hypertensive medication. Patient also takes medication for dementia and insomnia. Patient with chronic renal disease and anemia of chronic disease. Currently stable this time. Will continue monitor electrolytes and lab closely. Pharmacy to monitor and adjust medication. maintenance services dispatcher consulted to help in process of possible IV antibiotic therapy at home. Time Spent Managing Pts Care (In Minutes): 55
[2018-04-10] MEDS ORDERED: CHOLECALCIFEROL 50000 UNIT PO SCH (09:00)
[2018-04-10] MEDS: AMLODIPINE 10 MG TAB PO SCH (09:52)
[2018-04-10] MEDS: TAMSULOSIN 0.4 MG SR CAP PO SCH (09:52)
[2018-04-10] MEDS: MEMANTINE HCL 10 MG TABLET PO SCH ×2 (09:52→21:06)
[2018-04-10] MEDS: DRISDOL (VITAMIN D=ERGOCALCIFEROL) 50000 UNIT CAP PO SCH (09:52)
[2018-04-10] MEDS: FERROUS SULFATE 325 MG TAB PO SCH ×2 (09:52→21:06)
[2018-04-10] MEDS: NA CHLORIDE 0.9% 1,000 ML IV SCH ×2 (09:53)
[2018-04-10] MEDS: Meropenem 1,000 MG in NA CHLORIDE 0.9% 100 ML IV SCH ×2 (09:53→16:35)
[2018-04-10] MEDS: D5 0.45 NS 1,000 ML IV SCH (14:36)
--- NOTE | 2018-04-10 15:24 | CON ---
History Of Present Illness: A 73-year-old gentleman with multiple medical problems including dementi a, hypertension, BPH, chronic indwelling catheter. He was supposed to be irrigating his catheter at home, but that is not happening, so he keeps having these UTIs, usually ESBL and he has to be treated with IV meropenem, now twice a month. The family has failed to do what they need to do to keep the infection down. So, he is admitted again for IV meropenem. Allergies: DONEPEZIL. Home Medications: Amlodipine, iron, lactulose, rimantadine, mirtazapine, polyethylene glycol, tamsul osin, Detrol, vitamin D3, finasteride, meropenem. Past Medical History: Hypertension, hyperlipidemia, gout, coronary artery disease, BPH, chronic chris l disease, renal cell carcinoma, history of left nephrectomy, right partial nephrectomy, history of a lcohol abuse, tobacco abuse, AAA repair, left kidney stents x3. Psychosocial: Lives with his family. Family History: Father had kidney cancer. Mother had throat cancer and lung cancer. Brother had ca ncer also. Social History: Former smoker. No alcohol use. No drug use. No caffeine use. Resides at home. Review of Systems: A 10-point review of systems otherwise unremarkable. Physical Examination: General: He is afebrile, demented, no acute distress. Vital Signs: Stable. HEENT: Atraumatic, normocephalic. Neck: Supple. Respiratory: Clear. Cardiovascular: S1-S2. Gastrointestinal: Soft. Bowel sounds nontender. Musculoskeletal: No tenderness. Skin: No rashes. Neurological: He is alert. Sensations intact. Motor intact. Lymphatics: Negative. Laboratory Data: The patient has some type of ESBL growing, grew on 03/03 was E coli. We are going t o treat him with fosfomycin, but family was not agreeable to paying the 300 dollars for the cost, can s occur for IV antibiotics. He had a new urine culture now and is growing gram-negative rods, most l ikely the same organism. Plan: I agree with plan. I agree with IV meropenem for now. He does need catheter flushes 2-3 time s a day at home, may not be drinking enough fluids, but I cannot get the family to do it for some jamil son and see if social service worker can work on the issue. MEENA/LORENA Voice ID: [id number] Report ID: [id number]
[2018-04-10] MEDS: MIRTAZAPINE 15 MG TAB PO SCH (21:06)
[2018-04-10] MEDS: TRAZODONE 50 MG TABLET PO SCH (21:07)
[2018-04-10] MEDS: FINASTERIDE 5 MG TAB PO SCH (21:07)
[2018-04-11] MEDS: Meropenem 1,000 MG in NA CHLORIDE 0.9% 100 ML IV SCH ×3 (01:22→16:03)
[2018-04-11] MEDS: D5 0.45 NS 1,000 ML IV SCH ×3 (04:41→23:05)
[2018-04-11 05:04] VITALS: BMI 19.1
[2018-04-11 05:08] LABS: Potassium 3.7 mmol/L (3.5-5.1)
[2018-04-11] MEDS ORDERED: KCL 20 MEQ/100 mL IVPB 20 MEQ/100 ML BAG IV SCH (06:00)
[2018-04-11] MEDS: TAMSULOSIN 0.4 MG SR CAP PO SCH (09:18)
[2018-04-11] MEDS: FERROUS SULFATE 325 MG TAB PO SCH ×2 (09:18→22:44)
[2018-04-11] MEDS: MEMANTINE HCL 10 MG TABLET PO SCH ×2 (09:19→22:45)
[2018-04-11] MEDS: AMLODIPINE 10 MG TAB PO SCH (09:19)
--- NOTE | 2018-04-11 14:27 | P.PN ---
Subjective Date of Service: 04/11/18 Primary Care Provider: Unknown Chief Complaint: E coli with ESBL UTI Subjective: Doing well, Demented Physical Examination - Vital Signs Temperature: 97.8 F Blood Pressure: 141/82 Pulse: 62 Respirations: 18 Pulse Ox (%): 99 - Physical Exam General: Alert, Cooperative, Demented HEENT: Atraumatic Neck: Supple Respiratory: Clear to auscultation bilaterally, Normal air movement Cardiovascular: Normal pulses, Regular rate/rhythm Gastrointestinal: Normal bowel sounds, Soft and benign, Non-distended, No tenderness, No masses, No rebound, No guarding Musculoskeletal: No erythema, No tenderness, No warmth Integumentary: No erythema, No warmth, No cyanosis Neurological: Normal speech, Normal strength at 5/5 x4 extr, Normal tone, Normal affect, Dementia - Studies Medications List Reviewed: Yes Assessment & Plan Physician Review Additional Text: Impression: Recurrent complicated UTI with prior history of E coli-ESBL. BPH Alzheimer's dementia Hypertension History of CVA without residual deficits Chronic renal disease Anemia of chronic disease Insomnia Chronic constipation Plan: Patient recently evaluated by urology. Will continue with IV antibiotic therapy for for current complicated UTI likely E coli with ESBL. Patient with history of ESBL. PICC line in place. Patient continues on IV meropenem 1000 mg IV 3 times a day. Family desires the patient to go to a skilled facility. Patient looking to go to [facility] which can do IV antibiotic therapy. Spoke with public health social worker to help arrange for this. So far urine culture pending. Anticipate need for IV antibiotic therapy for 10 days. Will continue with his other medications. Will monitor closely. Pharmacy to monitor and adjust appropriately. Patient on medication for hypertension, BPH and dementia.
--- NOTE | 2018-04-11 19:20 | PN ---
Subjective: The patient is feeling well. He is sitting up in bed having lunch. Objective: The patient's urine culture grew Pseudomonas and E coli, sensitive to meropenem. Assessment: Extended-spectrum beta-lactamase and Pseudomonas, chronic Ro catheter. Plan: Continue IV meropenem for 7-10 days. Teach family how to irrigate catheter 2-3 times a day with 1:10 strength vinegar, acetic acid. This patient has dementia. I believe he is not drinking enough water at home, therefore, his bladder needs to be flushed more at home. The family NEEDS to get more involved in helping this patient out. MEENA/LORENA Voice ID: [id number] Report ID: [id number] [facility]
[2018-04-11] MEDS: MIRTAZAPINE 15 MG TAB PO SCH (22:44)
[2018-04-11] MEDS: TRAZODONE 50 MG TABLET PO SCH (22:46)
[2018-04-11] MEDS: FINASTERIDE 5 MG TAB PO SCH (22:46)
[2018-04-12] MEDS: Meropenem 1,000 MG in NA CHLORIDE 0.9% 100 ML IV SCH ×3 (01:08→22:22)
[2018-04-12 05:12] LABS: Magnesium 1.9 mg/dL (1.8-2.4); Potassium 3.8 mmol/L (3.5-5.1)
[2018-04-12] MEDS ORDERED: KCL 20 MEQ/100 mL IVPB 20 MEQ/100 ML BAG IV SCH (07:00)
[2018-04-12] MEDS: AMLODIPINE 10 MG TAB PO SCH (08:49)
[2018-04-12] MEDS: MEMANTINE HCL 10 MG TABLET PO SCH ×2 (08:49→22:05)
[2018-04-12] MEDS: TAMSULOSIN 0.4 MG SR CAP PO SCH (08:49)
[2018-04-12] MEDS: FERROUS SULFATE 325 MG TAB PO SCH ×2 (08:49→22:05)
[2018-04-12 09:10] LABS: Absolute Lymphocytes (CBC) 0.4 K/uL (0.7-4.9); Absolute Monocytes 0.4 K/uL (0.1-1.3); Absolute Neutrophil 3.4 K/uL (1.8-8.0); Basophils % 0.4 % (0-1.3); Eosinophils % 7.2 % (0-4.4); Hematocrit 31.6 % (39.6-49.0); Lymphocytes % 9.4 % (15.3-44.8); MCV 86.9 fL (80-100); MPV 10.4 fL (7.6-11.3); Monocytes % 8.4 % (3.3-12.3); RBC Red Blood Cell Count 3.64 M/uL (4.33-5.43)
--- NOTE | 2018-04-12 11:53 | P.PN ---
Subjective Date of Service: 04/12/18 Primary Care Provider: Unknown Chief Complaint: E coli with ESBL UTI Subjective: Doing well Physical Examination - Vital Signs Temperature: 97.8 F Blood Pressure: 151/84 Pulse: 64 Respirations: 18 Pulse Ox (%): 96 - Physical Exam General: Alert, Cooperative, Demented HEENT: Atraumatic Neck: Supple Respiratory: Clear to auscultation bilaterally, Normal air movement Cardiovascular: Normal pulses, Regular rate/rhythm Gastrointestinal: Normal bowel sounds, Soft and benign, Non-distended, No tenderness, No masses, No rebound, No guarding Musculoskeletal: No erythema, No tenderness, No warmth Integumentary: No tenderness/swelling, No erythema, No warmth, No cyanosis Neurological: Normal speech, Normal strength at 5/5 x4 extr, Normal tone, Dementia - Studies Medications List Reviewed: Yes Assessment & Plan Physician Review Additional Text: Impression: Recurrent complicated UTI with prior history of E coli-ESBL. BPH Alzheimer's dementia Hypertension History of CVA without residual deficits Chronic renal disease Anemia of chronic disease Insomnia Chronic constipation Plan: Patient recently evaluated by urology. Will continue with IV antibiotic therapy for current complicated UTI likely E coli with ESBL. Patient with history of ESBL. PICC line in place. So far urine culture unremarkable on this admission. Will need to obtain urine culture done as an outpatient. Case discussed with urology. Patient needs to continue with IV antibiotic therapy. Will continue to [facility] which [facility] IV antibiotic therapy. This will likely occur on Saturday. Patient to get a total of 10 days of IV antibiotic therapy. Will further discuss with urology. Continue with medication for BPH, dementia, hypertension. Otherwise patient is stable. Will continue with physical therapy. Time Spent Managing Pts Care (In Minutes): 55
[2018-04-12] MEDS: D5 0.45 NS 1,000 ML IV SCH ×2 (15:04→22:04)
[2018-04-12] MEDS: FINASTERIDE 5 MG TAB PO SCH (22:05)
[2018-04-12] MEDS: TRAZODONE 50 MG TABLET PO SCH (22:05)
[2018-04-12] MEDS: MIRTAZAPINE 15 MG TAB PO SCH (22:05)
[2018-04-12] MEDS: LACTULOSE 20 GM/30 ML UCUP PO PRN (22:05)
[2018-04-13 04:58] LABS: Absolute Lymphocytes (CBC) 0.8 K/uL (0.7-4.9); Absolute Monocytes 0.4 K/uL (0.1-1.3); Absolute Neutrophil 2.4 K/uL (1.8-8.0); Basophils % 0.6 % (0-1.3); Eosinophils % 9.5 % (0-4.4); Hematocrit 31.4 % (39.6-49.0); Lymphocytes % 19.1 % (15.3-44.8); MCH 30.1 pg (27.0-35.0); MPV 9.4 fL (7.6-11.3); RBC Red Blood Cell Count 3.61 M/uL (4.33-5.43)
--- NOTE | 2018-04-13 08:59 | P.PN ---
Subjective Date of Service: 04/13/18 Primary Care Provider: Unknown Chief Complaint: E coli with ESBL UTI Subjective: Improving Physical Examination - Vital Signs Temperature: 97.6 F Blood Pressure: 160/80 Pulse: 60 Respirations: 15 Pulse Ox (%): 99 - Physical Exam General: Alert, In no apparent distress, Cooperative, Demented HEENT: Atraumatic Neck: Supple Respiratory: Clear to auscultation bilaterally, Normal air movement Cardiovascular: Normal pulses, Regular rate/rhythm Gastrointestinal: Normal bowel sounds, Soft and benign, Non-distended, No tenderness, No masses, No rebound, No guarding Musculoskeletal: No erythema, No tenderness, No warmth Integumentary: No erythema, No warmth, No cyanosis Neurological: Normal speech, Normal strength at 5/5 x4 extr, Normal tone, Dementia - Studies Medications List Reviewed: Yes Assessment & Plan Discharge Plan: Other (Skilled placement/rehab) Plan to discharge in: 24 Hours Physician Review Additional Text: Impression: Recurrent complicated UTI likely ESBL with prior history of E coli-ESBL. BPH Alzheimer's dementia Hypertension History of CVA without residual deficits Chronic renal disease Anemia of chronic disease Insomnia Chronic constipation Plan: Patient recently evaluated by urology. Urology recommends to continue with IV antibiotic therapy for complicated recurrent UTI for 10 days. Tomorrow will be his 4th day. PICC line in place. Patient currently on IV meropenem. Patient will continue with medication for another 5 more days after tomorrow. enterprise services manager currently arranging skilled placement at [facility] which can do IV antibiotic therapy. Will continue with medication for BPH, dementia, hypertension. Will discontinue IV fluids. Overall stable. Lab stable. Patient continues to work with physical therapy. Time Spent Managing Pts Care (In Minutes): 55
[2018-04-13] MEDS: TAMSULOSIN 0.4 MG SR CAP PO SCH (09:13)
[2018-04-13] MEDS: MEMANTINE HCL 10 MG TABLET PO SCH ×2 (09:13→21:56)
[2018-04-13] MEDS: Meropenem 1,000 MG in NA CHLORIDE 0.9% 100 ML IV SCH ×2 (09:14→21:50)
[2018-04-13] MEDS: AMLODIPINE 10 MG TAB PO SCH (09:14)
[2018-04-13] MEDS: FERROUS SULFATE 325 MG TAB PO SCH ×2 (09:14→21:50)
[2018-04-13] MEDS: ASPIRIN EC 81 MG TAB PO SCH (10:03)
[2018-04-13] MEDS: ENOXAPARIN 30 MG/0.3 ML SQ SCH (17:10)
[2018-04-13] MEDS: FINASTERIDE 5 MG TAB PO SCH (21:50)
[2018-04-13] MEDS: TRAZODONE 50 MG TABLET PO SCH (21:51)
[2018-04-13] MEDS: MIRTAZAPINE 15 MG TAB PO SCH (21:51)
[2018-04-14 04:59] LABS: Absolute Lymphocytes (CBC) 0.9 K/uL (0.7-4.9); Absolute Monocytes 0.4 K/uL (0.1-1.3); Absolute Neutrophil 2.9 K/uL (1.8-8.0); Basophils % 0.9 % (0-1.3); Eosinophils % 8.1 % (0-4.4); Hematocrit 32.5 % (39.6-49.0); MCH 30.1 pg (27.0-35.0); MCV 87.4 fL (80-100); MPV 9.5 fL (7.6-11.3); Monocytes % 8.9 % (3.3-12.3); RBC Red Blood Cell Count 3.72 M/uL (4.33-5.43)
[2018-04-14 05:09] LABS: Magnesium 2.1 mg/dL (1.8-2.4); Potassium 4.4 mmol/L (3.5-5.1)
[2018-04-14] MEDS: Meropenem 1,000 MG in NA CHLORIDE 0.9% 100 ML IV SCH ×2 (09:18→22:01)
[2018-04-14] MEDS: TAMSULOSIN 0.4 MG SR CAP PO SCH (09:19)
[2018-04-14] MEDS: FERROUS SULFATE 325 MG TAB PO SCH ×2 (09:19→21:51)
[2018-04-14] MEDS: AMLODIPINE 10 MG TAB PO SCH (09:20)
[2018-04-14] MEDS: ASPIRIN EC 81 MG TAB PO SCH (09:20)
[2018-04-14] MEDS: MEMANTINE HCL 10 MG TABLET PO SCH ×2 (09:20→21:51)
--- NOTE | 2018-04-14 12:38 | P.PN ---
Subjective Date of Service: 04/14/18 Primary Care Provider: Unknown Chief Complaint: E coli with ESBL UTI Subjective: Doing well (Stable. No changes noted.) Physical Examination - Vital Signs Temperature: 97.5 F Blood Pressure: 137/75 Pulse: 65 Respirations: 16 Pulse Ox (%): 98 - Physical Exam General: Alert, In no apparent distress, Cooperative HEENT: Atraumatic Neck: Supple Respiratory: Clear to auscultation bilaterally, Normal air movement Cardiovascular: Normal pulses, Regular rate/rhythm Gastrointestinal: Normal bowel sounds, Soft and benign, Non-distended, No tenderness, No masses, No rebound, No guarding Musculoskeletal: No tenderness, No warmth Integumentary: No erythema, No warmth, No cyanosis Neurological: Normal speech, Normal strength at 5/5 x4 extr, Normal tone, Dementia - Studies Medications List Reviewed: Yes Assessment & Plan Discharge Plan: Other (Rehab versus skilled placement facility) Plan to discharge in: 24 Hours Physician Review Additional Text: Impression: Recurrent complicated UTI likely ESBL with prior history of E coli-ESBL. BPH Alzheimer's dementia Hypertension History of CVA without residual deficits Chronic renal disease Anemia of chronic disease Insomnia Chronic constipation Plan: Patient recently evaluated by urology. Urology recommends to continue with IV antibiotic therapy for complicated recurrent UTI for total of 10 days. Today we will make his 5th day. PICC line in place. Will continue with IV meropenem. Patient will need to continue with 5 more days of IV antibiotic therapy. Recheck urine culture and blood culture at that time to determine whether the patient will require more therapy. Family desires patient to go to a skilled facility at [facility]. Awaiting approval. If not approved to go to [facility], other option would be a skilled facility in the local area. non emergency services ambulance driver is helping arrange for transfer. Patient with BPH, continue medication. Patient with dementia, continue medication. Overall stable. Continue with hypertensive medication. Will continue monitor and adjust appropriately. Otherwise stable. I will turn the service over to Dr. Pulido tomorrow. I will go over the plan of her with her. Time Spent Managing Pts Care (In Minutes): 55
[2018-04-14] MEDS: ENOXAPARIN 30 MG/0.3 ML SQ SCH (17:33)
--- NOTE | 2018-04-14 17:37 | PN ---
Subjective: The patient is feeling well. Urine is clear. Nurses have been irrigating once a day an d nurse told to showed the family how to irrigate. I do not believe much irrigation has been done at home. They need to take care of this patient better at home by irrigating his catheter 2-3 times a day with 1/10th of vinegar. He is here for IV meropenem for another ESBL Pseudomonas and E coli. He is going to go to a skilled care nursing facility to continue for 10 days. He has done about 4 days now and the family needs to take care of this patient at home. MEENA/LORENA Voice ID: [id number] Report ID: [id number]
[2018-04-14] MEDS: FINASTERIDE 5 MG TAB PO SCH (21:50)
[2018-04-14] MEDS: TRAZODONE 50 MG TABLET PO SCH (21:51)
[2018-04-14] MEDS: MIRTAZAPINE 15 MG TAB PO SCH (21:51)
[2018-04-15 05:43] LABS: Absolute Lymphocytes (CBC) 0.9 K/uL (0.7-4.9); Absolute Monocytes 0.4 K/uL (0.1-1.3); Absolute Neutrophil 2.6 K/uL (1.8-8.0); Eosinophils % 8.8 % (0-4.4); Hematocrit 32.2 % (39.6-49.0); Lymphocytes % 20.5 % (15.3-44.8); MCH 29.9 pg (27.0-35.0); MCV 87.5 fL (80-100); MPV 9.8 fL (7.6-11.3); Monocytes % 8.3 % (3.3-12.3); RBC Red Blood Cell Count 3.67 M/uL (4.33-5.43)
[2018-04-15 05:54] LABS: Magnesium 2.4 mg/dL (1.8-2.4); Potassium 4.5 mmol/L (3.5-5.1)
[2018-04-15] MEDS: AMLODIPINE 10 MG TAB PO SCH (08:12)
[2018-04-15] MEDS: FERROUS SULFATE 325 MG TAB PO SCH ×2 (08:12→20:39)
[2018-04-15] MEDS: ASPIRIN EC 81 MG TAB PO SCH (08:12)
[2018-04-15] MEDS: MEMANTINE HCL 10 MG TABLET PO SCH ×2 (08:12→20:38)
[2018-04-15] MEDS: TAMSULOSIN 0.4 MG SR CAP PO SCH (08:12)
[2018-04-15] MEDS: Meropenem 1,000 MG in NA CHLORIDE 0.9% 100 ML IV SCH ×2 (08:12→20:38)
[2018-04-15] MEDS: ENOXAPARIN 30 MG/0.3 ML SQ SCH (16:30)
--- NOTE | 2018-04-15 16:54 | PN ---
Date of Progress Note: 04/15/2018 The patient seen and examined. Chart reviewed and case discussed with RN. Subjective: Code status, DNR. The patient has no complaints. No acute events overnight. Review of Systems: Negative except as above. Medications: List reviewed. Physical Examination: Vital Signs: Temperature 98, heart rate 81, blood pressure 108/72, respirations 16, O2 98% on room a ir. General: Awake, alert, oriented x3 without any acute distress, ill-appearing elderly male, cachectic , BMI 19. CV: S1, S2. No murmurs. Peripheral pulses present. Respiratory: Moving air well bilaterally. No wheezing. Gastrointestinal: Abdomen is soft, nontender, nondistended. Positive bowel sounds. No guarding or rigidity. Extremities: No clubbing, cyanosis, or edema. Neurologic: Nonfocal. Laboratory Data: Sodium 141, potassium 4.5, chloride 108, CO2 30, BUN 35, creatinine 1.5, glucose 77 , calcium 9, magnesium 2.4. WBC 4.3, H and H 11 and 32.2, platelets 147, neutrophils 61%. Urine cul ture shows mixed yoan. Assessment And Plan: 1.Recent complicated urinary tract infection with extended-spectrum beta-lactamase, Escherichia coli . We will continue meropenem for a total of 2 weeks. 2.Benign prostatic hyperplasia, on chronic indwelling catheter. 3.Alzheimer dementia, early onset without behavioral disturbance. 4.Essential hypertension. Continue home medications. 5.History of cerebrovascular accident without residual deficits, stable. 6.Chronic kidney disease, stage 2. We will monitor creatinine, currently at baseline. 7.Anemia of chronic disease. Monitor hemoglobin and hematocrit. 8.Insomnia. 9.Chronic constipation. Plan: Follow up neurology recommendations. PICC line has already been placed. We will continue IV meropenem, awaiting referral to SNF versus LTAC. [facility] is 1 option. Discharge once acce pted. /LORENA Voice ID: [id number] Report ID: [id number]
[2018-04-15] MEDS: LACTULOSE 20 GM/30 ML UCUP PO PRN (20:38)
[2018-04-15] MEDS: FINASTERIDE 5 MG TAB PO SCH (20:39)
[2018-04-15] MEDS: MIRTAZAPINE 15 MG TAB PO SCH (20:39)
[2018-04-15] MEDS: TRAZODONE 50 MG TABLET PO SCH (20:39)
--- NOTE | 2018-04-15 21:01 | PN ---
Subjective: The patient is feeling well. He is up and sitting in chair. Objective: Vital Signs: Afebrile, stable. Assessment: Extended-spectrum beta-lactamase Escherichia coli and Pseudomonas. He is receiving IV m eropenem. Will be going to his residential to finish up another week or so of his IV therapy. Sandra mo still needs to learn to irrigate the catheter with 1/10th of acetic acid b.i.d. while he is at [facility]. MEENA/LORENA Voice ID: [id number] Report ID: [id number]
[2018-04-16 05:40] LABS: Potassium 4.8 mmol/L (3.5-5.1)
[2018-04-16] MEDS: FERROUS SULFATE 325 MG TAB PO SCH ×2 (10:18→20:38)
[2018-04-16] MEDS: TAMSULOSIN 0.4 MG SR CAP PO SCH (10:18)
[2018-04-16] MEDS: ASPIRIN EC 81 MG TAB PO SCH (10:18)
[2018-04-16] MEDS: AMLODIPINE 10 MG TAB PO SCH (10:19)
[2018-04-16] MEDS: MEMANTINE HCL 10 MG TABLET PO SCH ×2 (10:19→20:37)
[2018-04-16] MEDS: Meropenem 1,000 MG in NA CHLORIDE 0.9% 100 ML IV SCH ×2 (10:20→20:36)
--- NOTE | 2018-04-16 19:46 | RAD REPORT ---
EXAM DESCRIPTION: CT - Pelvis Wo Cont - 04/16/2018 7:22 pm CLINICAL HISTORY: Surgical planning study, pending suprapubic catheter COMPARISON: None. FINDINGS: Axial 5 millimeter thick images of the abdomen were obtained. Initial images showed urinar y bladder fully contracted around a Ro catheter. Exam was repeated following retrograde filling of the urinary bladder. On second acquisition a 2 millimeter bone algorithm was inadvertently selected. On the initial imaging with the urinary bladder contracted there are several loops of bowel interpose d between the lower anterior abdominal wall in the bladder. Patient has a very large amount of stool dilating the rectum. Moderate stool elsewhere in the imaged portions of the colon. The second acquisition with the bladder well filled show superior disperse minute of the bowel loops. With the bladder well filled there is no bowel interposed between the urinary bladder and the distal 8 cm of the midline lower anterior abdominal wall. IMPRESSION: When the urinary bladder is well filled, there is no bowel interposed between the anteri or urinary bladder wall and the distal 8 cm of the midline lower anterior abdominal wall.
--- NOTE | 2018-04-16 19:53 | PN ---
Date of Progress Note: 04/16/2018 Subjective: The patient seen and examined. Chart reviewed and case discussed with RN and Dr. Little. Dr. Little recommends TURP. Spoke with the family, were agreeable to procedure. [id number] is the medical power of air crew supervisor. Son also present at the bedside. They understand the risks and complications, want to proceed. The patient denies any complaints. Review of Systems: Negative except as above. Medications: List reviewed. Physical Examination: Vital Signs: Temperature 97.3, heart rate 77, blood pressure 105/66, respirations 18, O2 92% on room air. General: Awake, alert, oriented x2, no acute distress. Elderly male, frail, cachectic appearing. CV: S1, S2. Peripheral pulses present. No murmurs. Regular rate and rhythm Respiratory: Moving air well bilaterally. No wheezing or stridor. Gastrointestinal: Abdomen is soft, nontender, nondistended. Positive bowel sounds. No guarding or rigidity. Extremities: No clubbing, cyanosis, or edema. Neuro: The patient is nonfocal. Laboratory Data: Sodium 143, potassium 4.8, chloride 107, CO2 29, BUN 45, creatinine 1.6, glucose 74, calcium 9.2. Assessment And Plan: 1. Recent complicated urinary tract infection with ESBL Escherichia coli. We will continue meropenem for a total of 2 weeks. 2. Benign prostatic hyperplasia, chronic indwelling catheter. Dr. Little with Urology recommends transurethral resection of the prostate. The patient and family agreeable. The patient had a recent echocardiogram with normal ejection fraction. 3. Alzheimer's dementia early onset without behavioral disturbance. 4. Essential hypertension, stable on home medications. 5. History of cerebrovascular accident without residual deficits, stable. 6. Chronic kidney disease stage 2. Creatinine slightly bumped up today. We will continue to monitor. 7. Anemia of chronic disease. We will monitor H and H, currently stable. 8. Insomnia. 9. Chronic constipation. We will continue bowel regimen. plan due to recurrent urinary tract infections and drug resistant bacterial infections recommendation for transurethral resection of the prostate, we will anticipate surgery. /LORENA Voice ID: [id number] Report ID: [id number] [place]
[2018-04-16] MEDS: MIRTAZAPINE 15 MG TAB PO SCH (20:37)
[2018-04-16] MEDS: FINASTERIDE 5 MG TAB PO SCH (20:38)
[2018-04-16] MEDS: TRAZODONE 50 MG TABLET PO SCH (20:38)
[2018-04-16] MEDS ORDERED: NA CHLORIDE 0.9% 100 ML ONE (20:39)
--- NOTE | 2018-04-16 20:44 | PN ---
Subjective: Mr. Rosas had an accident last night, pulled his catheter out again, had to be replaced. He has had multiple problems with his catheter including ESBL infections twice a month and lately tr aumatic catheter removal at home by him plus a [employer] [place] of problems continuously going on. In another hospital for IV antibiotics. He has never had a TURP. He does have dementia. The only option right now is to place a suprapubic tube plus or minus a TURP. I talked to the family. Family is in favor of it and doing something to get rid of the urethral catheter, which he pulls on. We can turn into suprapubic tube and go ahead and do a TURP to see if he can void by just pushing. 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 history, and we will stop his aspirin, Lovenox, and we will try to do about [address] scan of the pelvis is pending to rule out bowel between the abdominal wall and the bladder. Thank you very much end dictation. MEENA/LORENA Voice ID: [id number] Report ID: [id number]
[2018-04-17 05:32] LABS: Absolute Lymphocytes (CBC) 0.7 K/uL (0.7-4.9); Absolute Monocytes 0.5 K/uL (0.1-1.3); Absolute Neutrophil 3.9 K/uL (1.8-8.0); Basophils % 0.6 % (0-1.3); Eosinophils % 4.1 % (0-4.4); Hematocrit 29.4 % (39.6-49.0); Lymphocytes % 13.7 % (15.3-44.8); MCH 30.4 pg (27.0-35.0); MCV 87.4 fL (80-100); MPV 9.7 fL (7.6-11.3); Monocytes % 8.6 % (3.3-12.3); RBC Red Blood Cell Count 3.36 M/uL (4.33-5.43)
[2018-04-17 05:38] LABS: Albumin 3.3 g/dL (3.4-5.0); Bilirubin Total 0.4 mg/dL (0.2-1.0); Potassium 5.3 mmol/L (3.5-5.1); Protein, Total 6.7 g/dL (6.4-8.2)
[2018-04-17] MEDS: AMLODIPINE 10 MG TAB PO SCH (08:49)
[2018-04-17] MEDS: FERROUS SULFATE 325 MG TAB PO SCH ×2 (08:50→20:50)
[2018-04-17] MEDS: MEMANTINE HCL 10 MG TABLET PO SCH ×2 (08:50→20:51)
[2018-04-17] MEDS: DRISDOL (VITAMIN D=ERGOCALCIFEROL) 50000 UNIT CAP PO SCH (08:50)
[2018-04-17] MEDS: Meropenem 1,000 MG in NA CHLORIDE 0.9% 100 ML IV SCH ×2 (08:50→20:55)
[2018-04-17] MEDS: TAMSULOSIN 0.4 MG SR CAP PO SCH (08:50)
[2018-04-17] MEDS ORDERED: SOD POLYSTYREN SUL 15 GM/60 ML UCUP PO ONE (17:00)
[2018-04-17] MEDS: MIRTAZAPINE 15 MG TAB PO SCH (20:52)
[2018-04-17] MEDS: TRAZODONE 50 MG TABLET PO SCH (20:52)
[2018-04-17] MEDS: FINASTERIDE 5 MG TAB PO SCH (20:55)
[2018-04-17] MEDS ORDERED: NA CHLORIDE 0.9% 50 ML ONE (21:00)
--- NOTE | 2018-04-17 21:56 | PN ---
Date of Progress Note: 04/17/2018 Subjective: The patient was seen and examined. Chart reviewed and case discussed with RN and Dr. James alonso. The patient going for a TURP procedure tomorrow. No complaints today. Ambulating well with ph ysical therapy. Review of Systems: Negative except as above. Medications: List reviewed. Physical Examination: Vital Signs: Temperature 97.7, heart rate 75, blood pressure 101/64, respirations 18, O2 97% on room air. General: Awake, alert, oriented x3, no acute distress. Elderly male, frail, cachectic. CV: S1, S2. No murmurs. Respiratory: Moving air well bilaterally. No wheezing. Abdomen: Soft, nontender, nondistended. Positive bowel sounds. Extremities: No clubbing, cyanosis, or edema. Neurologic: Nonfocal. Laboratory Data: Sodium 140, potassium 5.3, chloride 108, CO2 29, BUN 49, creatinine 1.5, glucose 88 , calcium 9.2. WBC 5.3, H and H of 10.2 and 29.4, platelets 165, neutrophils 73%. Assessment And Plan: A 73-year-old male with: 1.Recent complicated urinary tract infection with extended spectrum Beta-Lactamase infection, acute cystitis. We will continue meropenem. 2.Benign prostatic hyperplasia with chronic indwelling catheter. The patient keeps Foley catheter. Urology recommendation is for TURP and suprapubic catheter. Family has agreed. The patie nt had a recent echocardiogram with normal ejection fraction. We will go ahead and proceed with surg ical clearance. 3.Alzheimer's dementia, early onset without behavioral disturbance. Continue home medications. 4.Essential hypertension, stable. 5.History of cerebrovascular accident without residual deficits, stable. 6.Chronic kidney disease stage 2. Creatinine is improved. Continue to monitor. 7.Hyperkalemia. We will give Kayexalate and monitor. 8.Anemia of chronic disease. Monitor H and H. 9.Insomnia. 10.Chronic constipation. Continue bowel regimen. Plan: Anticipate surgery in a.m. /LORENA Voice ID: [id number] Report ID: [id number]
--- NOTE | 2018-04-17 21:59 | PN ---
The patient is doing well. Informed consent has been obtained for the procedure tomorrow. He had a CT scan for planning the suprapubic placement to rule out bowel between the abdominal wall and the bl adder initially, and a CT scan. The bladder did not have enough urine, so it was retrograde fill. W hen the bladder was not full, I could see loops of intestines between the bladder wall and the abdomi nal wall. However, on the second acquisition when the bladder was full, there was no bowel between t he urinary bladder and distal 8 cm of the midline. No abdominal wall, which should be safe for placi ng a suprapubic tube. So plan is to do cysto-TURP tomorrow. All general information, alternatives, and risks were given and patient wishes to proceed. The [id number] wishes to proceed. MEENA/LORENA Voice ID: [id number] Report ID: [id number]
[2018-04-18] MEDS: LORAZEPAM 0.5 MG TABLET PO PRN ×2 (04:37→15:18)
[2018-04-18 09:56] LABS: Absolute Lymphocytes (CBC) 1.2 K/uL (0.7-4.9); Absolute Monocytes 0.5 K/uL (0.1-1.3); Basophils % 0.8 % (0-1.3); Eosinophils % 4.2 % (0-4.4); Hematocrit 28.7 % (39.6-49.0); Lymphocytes % 24.3 % (15.3-44.8); MCH 30.3 pg (27.0-35.0); MCV 87.8 fL (80-100); MPV 9.3 fL (7.6-11.3); Monocytes % 10.7 % (3.3-12.3); RBC Red Blood Cell Count 3.27 M/uL (4.33-5.43)
[2018-04-18] MEDS: Meropenem 1,000 MG in NA CHLORIDE 0.9% 100 ML IV SCH ×2 (10:26→20:21)
[2018-04-18 11:18] LABS: Albumin 3.4 g/dL (3.4-5.0); Bilirubin Total 0.2 mg/dL (0.2-1.0); Potassium 4.9 mmol/L (3.5-5.1); Protein, Total 6.9 g/dL (6.4-8.2)
[2018-04-18] MEDS ORDERED: MIDAZOLAM HCL 2 MG/2 ML INJ ONE (11:43)
[2018-04-18] MEDS ORDERED: Ringers Lactate 1,000 ML IV ONE (11:43)
[2018-04-18] MEDS ORDERED: LIDOCAINE 2% MPF 5 ML VIAL ONE (11:43)
[2018-04-18] MEDS ORDERED: PROPOFOL 200 MG/20 ML VIAL IV ONE (11:43)
[2018-04-18] MEDS ORDERED: FENTANYL CITR 100 MCG/2 ML ONE (11:43)
[2018-04-18] MEDS ORDERED: EPHEDRINE SULF 50 MG/10 ML SYR ONE (12:27)
[2018-04-18] MEDS ORDERED: LIDOCAINE 1% MPF 30 ML VIAL ONE (12:42)
[2018-04-18] MEDS ORDERED: GLYCOPYRROLATE 0.2 MG/ML SYR ONE (13:06)
[2018-04-18] MEDS ORDERED: SODIUM CHL 0.9% IRR SOLN 2000 ML IRR SCH ×2 (14:00)
[2018-04-18] MEDS: TAMSULOSIN 0.4 MG SR CAP PO SCH (15:18)
[2018-04-18] MEDS: AMLODIPINE 10 MG TAB PO SCH (15:18)
[2018-04-18] MEDS: MEMANTINE HCL 10 MG TABLET PO SCH ×2 (15:18→21:00)
[2018-04-18] MEDS: FERROUS SULFATE 325 MG TAB PO SCH ×2 (15:18→21:00)
[2018-04-18] MEDS: FINASTERIDE 5 MG TAB PO SCH (21:03)
[2018-04-18] MEDS: TRAZODONE 50 MG TABLET PO SCH (21:03)
[2018-04-18] MEDS: MIRTAZAPINE 15 MG TAB PO SCH (21:03)
--- NOTE | 2018-04-18 22:06 | PN ---
Date of Progress Note: 04/18/2018 Subjective: The patient was seen and examined. Chart was reviewed and case was discussed with RN. The patient was for TURP and suprapubic catheter placement today. The patient did have some agitatio n overnight, likely sundowning and calmed down after [id number] came to the hospital. Review of Systems: Negative except as above. Medications: List reviewed. Physical Examination: Vital Signs: Temperature 97.3, heart rate 79, blood pressure 147/79, respirations 16, and O2 100% on room air. General: Awake, alert, and oriented x2, in no acute distress, elderly frail male. CV: S1, S2. Peripheral pulses are present. No murmurs. Respiratory: Moving air well bilaterally. Abdomen: Soft, nontender, and nondistended. Positive bowel sounds. Extremities: No clubbing, cyanosis, or edema. Neurologic: Nonfocal. Laboratory Data: Sodium 142, potassium 4.9, chloride 107, CO2 29, BUN 50, creatinine 9.6, glucose 81 , and calcium 9. WBC 5, H and H 9.9 and 28.7, platelets 165, and neutrophils 60%. Assessment And Plan: A 73-year-old male with: 1.Recent complicated urinary tract infection with ESBL Escherichia coli, acute cystitis. Continue m eropenem. 2.Benign prostatic hyperplasia with chronic indwelling catheter with recurrent urinary tract infecti ons. The patient is undergoing transurethral resection of prostate today with suprapubic catheter pl acement. 3.Alzheimer's dementia, early onset, with behavioral disturbance overnight. The patient is likely s undowning. We will help to have family at the bedside. We will use current medication for behaviora l disturbance. 4.Essential hypertension, stable. 5.History of cerebrovascular accident without residual deficits, stable. Continue home medication. 6.Chronic kidney disease, stage 2. Creatinine is improved. 7.Hyperkalemia, corrected. We will continue to monitor. 8.Anemia of chronic disease. H and H stable. Continue to monitor. We will expect postoperative an emia. 9.Insomnia. 10.Chronic constipation, improving. Continue with bowel regimen. 11.Gastrointestinal and deep venous thrombosis prophylaxis. We will resume Lovenox 24 hours post araya rgery. /LORENA Voice ID: [id number] Report ID: [id number]
[2018-04-19 05:40] LABS: Absolute Lymphocytes (CBC) 0.7 K/uL (0.7-4.9); Absolute Monocytes 0.4 K/uL (0.1-1.3); Absolute Neutrophil 3.1 K/uL (1.8-8.0); Basophils % 0.7 % (0-1.3); Eosinophils % 3.7 % (0-4.4); Hematocrit 27.9 % (39.6-49.0); Lymphocytes % 16.6 % (15.3-44.8); MCH 30.3 pg (27.0-35.0); MCV 87.8 fL (80-100); MPV 9.2 fL (7.6-11.3); RBC Red Blood Cell Count 3.18 M/uL (4.33-5.43)
[2018-04-19] MEDS: NACL 0.9% IRR SOLN 2,000 ML IRR PRN ×2 (05:46→09:31)
[2018-04-19 05:57] LABS: Albumin 3.2 g/dL (3.4-5.0); Bilirubin Total 0.4 mg/dL (0.2-1.0); Potassium 4.5 mmol/L (3.5-5.1); Protein, Total 6.7 g/dL (6.4-8.2)
[2018-04-19] MEDS: FERROUS SULFATE 325 MG TAB PO SCH ×2 (08:41→21:20)
[2018-04-19] MEDS: TAMSULOSIN 0.4 MG SR CAP PO SCH (08:42)
[2018-04-19] MEDS: MEMANTINE HCL 10 MG TABLET PO SCH ×2 (08:42→21:20)
[2018-04-19] MEDS: AMLODIPINE 10 MG TAB PO SCH (08:44)
[2018-04-19] MEDS: Meropenem 1,000 MG in NA CHLORIDE 0.9% 100 ML IV SCH ×2 (08:44→21:21)
--- NOTE | 2018-04-19 12:53 | PN ---
Subjective: The patient is doing well. Objective: Afebrile. Vital signs stable. Ins and outs, 4560 in and 4800 out. Due to the CBI, his urine is clear. His abdomen is soft, nontender. Laboratory Data: H and H 9.6 and 28, stable. White count is stable at 4.4. Assessment: Status post transurethral resection of prostatic and suprapubic tube placement, postop d ay 1. Plan: We will go ahead and remove the urethral Ro today and probably slowly start his anticoagula tion next day or so. PB/MODL Voice ID: [id number] Report ID: [id number]
--- NOTE | 2018-04-19 15:58 | PN ---
Subjective: The patient seen and examined, chart reviewed, and case discussed with RN. The patient tolerated procedure well yesterday by Dr. Little, also had suprapubic catheter insertion. Review of Systems: Limited due to patient's medical condition; however, he denies any specific complaints or pain. No a cute events overnight per nursing staff. Medications: List reviewed. Physical Examination: Vital Signs: Temperature 98.1, heart rate 91, blood pressure 133/81, respirations 18, O2 99% on room air. General: Awake, alert, oriented x2. No acute distress. Elderly male, frail. BMI 19. CV: S1, S2. No murmurs. Pulses present. Respiratory: Moving air well bilaterally. No wheezing. Gastrointestinal: Abdomen is soft, nontender, nondistended. Positive bowel sounds. : Suprapubic catheter in place. Extremities: No clubbing, cyanosis, edema. Neurologic: Nonfocal. Laboratory Data: Sodium 142, potassium 4.5, chloride 108, CO2 29, BUN 39, creatinine 1.4, glucose 77 , calcium 8.9, albumin 3.2. WBC 4.4, H and H 9.6 and 27.9, platelets 148. Assessment And Plan: A 73-year-old male with. 1.Recurrent complicated urinary tract infections. 2.Acute cystitis, recurrent with Extended-Spectrum Beta-Lactamase Escherichia coli. We will continu e meropenem. 3.Benign prostatic hypertrophy with chronic indwelling Ro catheter, now status post TURP and supr apubic catheter by Dr. Little. The patient doing well postoperatively. 4.Alzheimer dementia early onset with behavioral disturbance. Continue medication. 5.Essential hypertension, stable. 6.History of cerebrovascular accident without residual deficits, stable. Continue home medications. 7.Chronic kidney disease stage 2. Creatinine stable. We will continue to monitor. 8.Anemia of chronic disease. H and H stable. No significant drop after surgery. We will continue to monitor. Transfuse as needed. 9.Insomnia. 10.Chronic constipation, improving. Continue stool softeners. 11.Gastrointestinal and deep venous thrombosis prophylaxis. We will resume Lovenox today 24 hours p ost surgery. Plan: DC once accepted to SNF. SA/MODL Voice ID: [id number] Report ID: [id number]
[2018-04-19] MEDS ORDERED: ENOXAPARIN 30 MG/0.3 ML SQ SCH (17:00)
[2018-04-19] MEDS: LACTULOSE 20 GM/30 ML UCUP PO PRN (21:18)
[2018-04-19] MEDS: MIRTAZAPINE 15 MG TAB PO SCH (21:20)
[2018-04-19] MEDS: FINASTERIDE 5 MG TAB PO SCH (21:20)
[2018-04-19] MEDS: TRAZODONE 50 MG TABLET PO SCH (21:21)
[2018-04-20 05:07] LABS: Absolute Lymphocytes (CBC) 0.9 K/uL (0.7-4.9); Absolute Monocytes 0.4 K/uL (0.1-1.3); Absolute Neutrophil 2.4 K/uL (1.8-8.0); Eosinophils % 4.6 % (0-4.4); Hematocrit 27.4 % (39.6-49.0); Lymphocytes % 22.3 % (15.3-44.8); MCH 30.1 pg (27.0-35.0); MCV 88.5 fL (80-100); MPV 9.1 fL (7.6-11.3); Monocytes % 10.6 % (3.3-12.3)
[2018-04-20 05:44] LABS: Albumin 3.2 g/dL (3.4-5.0); Bilirubin Total 0.3 mg/dL (0.2-1.0); Potassium 4.3 mmol/L (3.5-5.1); Protein, Total 6.7 g/dL (6.4-8.2)
[2018-04-20] MEDS: Meropenem 1,000 MG in NA CHLORIDE 0.9% 100 ML IV SCH ×2 (08:29→21:23)
[2018-04-20] MEDS: AMLODIPINE 10 MG TAB PO SCH (08:30)
[2018-04-20] MEDS: TAMSULOSIN 0.4 MG SR CAP PO SCH (08:30)
[2018-04-20] MEDS: FERROUS SULFATE 325 MG TAB PO SCH ×2 (08:30→21:23)
[2018-04-20] MEDS: MEMANTINE HCL 10 MG TABLET PO SCH ×2 (08:30→21:24)
--- NOTE | 2018-04-20 15:03 | PN ---
Subjective: The patient is doing okay. His Lovenox was started yesterday. His suprapubic tube urin e became bloody. Ureteral catheter has been removed. Objective: Vital Signs: 97.3, pulse 67, respirations 20, BP 158/79, 99% sats. Is and Os 416 in, 50 5 out via suprapubic tube. Laboratory Data: H and H stable at 9.3 and 27.4. Chemistry, creatinine stable at 1.4. GFR stable a t 50. Assessment: Status post TURP 2 days ago and suprapubic tube placement. Urethral catheter was removed yesterday. Lovenox was began, but the patient started bleeding, so we need to hold the Lovenox. Us ually, the prostate does not heal for 7 days. We will need to hold Lovenox manual irrigation for now . Once it is clear, I would start the aspirin first, 1 per day. MEENA/LORENA Voice ID: [id number] Report ID: [id number]
--- NOTE | 2018-04-20 18:15 | PN ---
Date of Progress Note: 04/20/2018 Subjective: The patient seen and examined. Chart reviewed and case discussed with RN. The patient doing well postoperatively. Urine is clearing up. No further behavior disturbances overnight. Review of Systems: Negative except as above. Medications: List reviewed. Physical Examination: Vital Signs: Temperature 97.6, heart rate 72, blood pressure 159/80, respirations 18, O2 97% on room air. General: Awake, alert, oriented x2, not in any acute distress. Elderly male, frail. BMI 19. CV: S1, S2. Peripheral pulses present. Regular rate and rhythm. Respiratory: Moving air well bilaterally. No wheezing. Gastrointestinal: Abdomen is soft, nontender, nondistended. Positive bowel sounds. Suprapubic cath eter in place. Extremities: No clubbing, cyanosis, edema. Neurologic: Nonfocal. Laboratory Data: Sodium 145, potassium 4.3, chloride 110, CO2 28, BUN 45, creatinine 1.4, glucose 89 , calcium 9 2. WBC 3.9, H and H 9.3, 27.4, platelets 162. Assessment And Plan: A 73-year-old male with recurrent complicated UTI, acute cystitis with extended spectrum beta lactamase E. coli. Continue meropenem. 1.Benign prostatic hypertrophy with chronic indwelling Ro catheter, status post TURP and now with suprapubic catheter. Appreciate Dr. Little's input. 2.Alzheimer's dementia early onset without behavioral disturbance. We will continue medication. 3.Essential hypertension, stable. 4.History of cerebrovascular accident without residual deficits, stable. 5.Chronic kidney disease stage 2. We will continue to monitor creatinine. 6.Anemia of chronic disease. H and H stable. Transfuse as needed. Continue iron. 7.Insomnia. 8.Chronic constipation, improving. No difficulty with bowel movements. 9.Gastrointestinal and deep venous thrombosis prophylaxis addressed. Plan: [facility] once [facility]. SA/MODL Voice ID: [id number] Report ID: [id number]
[2018-04-20] MEDS: MIRTAZAPINE 15 MG TAB PO SCH (21:23)
[2018-04-20] MEDS: FINASTERIDE 5 MG TAB PO SCH (21:24)
[2018-04-20] MEDS: TRAZODONE 50 MG TABLET PO SCH (21:24)
[2018-04-20] MEDS: LACTULOSE 20 GM/30 ML UCUP PO PRN (21:26)
[2018-04-21 05:32] LABS: Absolute Lymphocytes (CBC) 0.8 K/uL (0.7-4.9); Absolute Monocytes 0.5 K/uL (0.1-1.3); Absolute Neutrophil 2.8 K/uL (1.8-8.0); Basophils % 0.7 % (0-1.3); Eosinophils % 8.3 % (0-4.4); Lymphocytes % 18.2 % (15.3-44.8); MCH 30.4 pg (27.0-35.0); MCV 89.3 fL (80-100); MPV 9.1 fL (7.6-11.3); Monocytes % 10.2 % (3.3-12.3); RBC Red Blood Cell Count 3.13 M/uL (4.33-5.43)
[2018-04-21 05:44] LABS: Albumin 3.3 g/dL (3.4-5.0); Bilirubin Total 0.4 mg/dL (0.2-1.0); Potassium 4.2 mmol/L (3.5-5.1); Protein, Total 6.9 g/dL (6.4-8.2)
[2018-04-21] MEDS: Meropenem 1,000 MG in NA CHLORIDE 0.9% 100 ML IV SCH ×2 (08:31→21:29)
[2018-04-21] MEDS: FERROUS SULFATE 325 MG TAB PO SCH ×2 (08:32→21:22)
[2018-04-21] MEDS: TAMSULOSIN 0.4 MG SR CAP PO SCH (08:32)
[2018-04-21] MEDS: AMLODIPINE 10 MG TAB PO SCH (08:32)
[2018-04-21] MEDS: MEMANTINE HCL 10 MG TABLET PO SCH ×2 (08:33→21:22)
--- NOTE | 2018-04-21 17:33 | PN ---
Date of Progress Note: 04/21/2018 Subjective: The patient seen and examined. Chart reviewed and case discussed with RN. The patient doing well. No acute events overnight. Review of Systems: Negative except as above. Medications: List reviewed. Physical Examination: Vital Signs: Temperature 97, heart rate 72, blood pressure 163/79, respirations 18, O2 98% on room a ir. General: Awake, alert, oriented x2, elderly male, frail. CV: S1, S2. No murmurs. Regular rate and rhythm. Peripheral pulses present. Respiratory: Moving air well bilaterally. No wheezing. Gastrointestinal: Abdomen is soft, nontender, nondistended. Positive bowel sounds. Extremities: No clubbing, cyanosis, edema. Neurologic: Nonfocal. : Suprapubic catheter in place. Laboratory Data: Sodium 143, potassium 4.2, chloride 110, CO2 28, BUN 47, creatinine 1.3, glucose 95 , calcium 9.3. WBC 4.4, H and H 7.5, 28, platelets 148. Assessment And Plan: A 73-year-old male with: 1.Recurrent and complicated urinary tract infection, acute cystitis with extended spectrum beta lact amase E coli. We will continue meropenem, the patient has received a total of 10 days. 2.Benign prostatic hyperplasia with chronic indwelling Ro catheter, status post TURP, now with araya prapubic catheter. 3.Alzheimer's dementia early onset without behavior disturbance. 4.Essential hypertension, stable. Continue home medications. 5.History of cerebrovascular accident without residual deficits. 6.Chronic kidney disease stage 2. Creatinine improved, now normalized. Avoid NSAIDs. 7.Anemia of chronic disease. H and H is stable. Continue iron supplementation. 8.Insomnia. 9.Chronic constipation. The patient has not had a bowel movement despite bowel regimen and stool so fteners. We will add enema. 10.Gastrointestinal and deep venous thrombosis prophylaxis, addressed. Plan: The patient is ambulating well. We will have PT, OT reevaluate the patient and see if he can be discharged home with home PT as he has completed 10 days of meropenem. No chemical anticoagulatio n due to hematuria. We will discontinue Lovenox. SA/MODL Voice ID: [id number] Report ID: [id number]
--- NOTE | 2018-04-21 19:12 | PN ---
Subjective: The patient is doing well. No complaints. Objective: Vital signs: 97 temperature, 69 pulse, 18 respirations, 142/70, blood pressure, 98% sats on room air. The patient is doing well. Urine is now clear since the Lovenox was stopped. The patient is postope rative day 3 from suprapubic tube and TURP. His pathology is still pending. I believe he is okay to go home now. He should have enough of meropenem for his urinary tract infection. We started him on a baby aspirin and discharged home. Follow up in 1 month to have a suprapubic tube change in the of justin. The family still needs to irrigate his catheter twice a day at 1/10 of acetic acid strength, s tart in a few weeks once the prostate heals. MEENA/LORENA Voice ID: [id number] Report ID: [id number]
[2018-04-21] MEDS: FINASTERIDE 5 MG TAB PO SCH (21:22)
[2018-04-21] MEDS: TRAZODONE 50 MG TABLET PO SCH (21:22)
[2018-04-21] MEDS: MIRTAZAPINE 15 MG TAB PO SCH (21:22)
[2018-04-21] MEDS: MAGNESIUM HYDROXIDE 8% 30 ML PO PRN (21:23)
[2018-04-22 04:00] VITALS: O2SAT 98
[2018-04-22 05:32] LABS: Absolute Lymphocytes (CBC) 0.8 K/uL (0.7-4.9); Absolute Monocytes 0.4 K/uL (0.1-1.3); Absolute Neutrophil 2.5 K/uL (1.8-8.0); Basophils % 0.8 % (0-1.3); Hematocrit 26.6 % (39.6-49.0); Lymphocytes % 18.3 % (15.3-44.8); MCH 30.3 pg (27.0-35.0); MCV 87.7 fL (80-100); Monocytes % 9.8 % (3.3-12.3); RBC Red Blood Cell Count 3.03 M/uL (4.33-5.43)
[2018-04-22 05:52] LABS: Albumin 3.1 g/dL (3.4-5.0); Bilirubin Total 0.4 mg/dL (0.2-1.0); Potassium 4.5 mmol/L (3.5-5.1); Protein, Total 6.4 g/dL (6.4-8.2)
[2018-04-22] MEDS ORDERED: ASPIRIN EC 81 MG TAB PO SCH (09:00)
[2018-04-22] MEDS: FERROUS SULFATE 325 MG TAB PO SCH (09:37)
[2018-04-22] MEDS: MEMANTINE HCL 10 MG TABLET PO SCH (09:38)
[2018-04-22] MEDS: AMLODIPINE 10 MG TAB PO SCH (09:38)
[2018-04-22] MEDS: TAMSULOSIN 0.4 MG SR CAP PO SCH (09:38)
[2018-04-22] MEDS: MAGNESIUM HYDROXIDE 8% 30 ML PO PRN (09:38)
[2018-04-22] MEDS: Meropenem 1,000 MG in NA CHLORIDE 0.9% 100 ML IV SCH (09:38)
--- NOTE | 2018-04-22 11:53 | PN ---
Subjective: The patient is doing well. He is ambulating in the hallway with physical therapy today. Objective: Vital Signs: Temperature 98.1, pulse 71, respirations 18, blood pressure 146/73, 99% sat uration on room air. Genitourinary: Urine looks good. No significant bleeding just slight pink, which is looks normal af ter TURP and suprapubic tube. The TURP catheter is out, only the suprapubic tube is draining. Assessment: Status post transurethral resection of the prostate, suprapubic placement. Postop day # 4, doing well, almost ready for home. PB/MODL Voice ID: [id number] Report ID: [id number]
--- NOTE | 2018-04-22 15:52 | P.DS ---
Admission Date: 04/09/18 Discharge Date: 04/22/18 Primary Care Provider: Unknown Disposition: [place] HOME/HOME HEALTH CARE Discharge Condition: GOOD Reason for Admission: E coli with ESBL UTI Consultations: Urology-Dr. Little Procedures: Surgery: Cystoscopy, TURP and Suprapubic catheter placement Medical Problem List: Recurrent and complicated urinary tract infection, acute cystitis with ESBL-E coli. Completed treatment Benign prostatic hyperplasia status post cystoscopy, TURP and suprapubic catheter placement Alzheimer's dementia, early onset without behavioral disturbance History of CVA without residual deficit Chronic kidney disease, stage II Anemia of chronic disease Insomnia Chronic constipation Brief History of Present Illness: 73-year-old male presented emergency room after he is found to have recurrent and complicated UTI. He was sent over by urology for treatment. Patient has history of ESBL. Patient was admitted for treatment. Hospital Course: Patient presented with Recurrent and complicated urinary tract infection, acute cystitis with ESBL-E coli. Patient completed course of antibiotic therapy- meropenem. Patient received over 10 day course. Patient was evaluated by urology. Education on prevention of UTI was addressed in detail. Patient has history of Benign prostatic hyperplasia. patient had chronic indwelling catheter. Patient was evaluated by urology. Urology recommended urological intervention. Patient had cystoscopy, TURP and suprapubic catheter placement. Patient will need to continue with medication including Flomax 0.4 mg daily and Proscar 5 mg daily. Patient will need to have suprapubic catheter changed in 1 month. With load. Family will need to irrigate his catheter twice a day with 1/10 of acetic acid. Recommendation to follow up with urology in 1 week to follow up this hospitalization. Patient has Alzheimer's dementia, early onset without behavioral disturbance. Patient will continue with his medication including Namenda 20 mg 1 pill twice daily. Patient with history of CVA without residual deficit. Patient continue with aspirin 81 mg daily. Patient with Chronic kidney disease, stage II. Recommendation to recheck lab- BMP in 1 week to monitor his progress. Patient with Anemia of chronic disease. Recommendation to recheck lab-CBC in 1 week to monitor his progress. Patient will continue with iron supplementation 325 mg 1 pill twice daily. Patient with Insomnia. Patient will continue with his medication. Remeron 15 mg every night and trazodone 50 mg 1 pill daily. Patient with Chronic constipation. Patient will continue with lactulose twice daily as needed. Vital Signs/Physical Exam: Temp Pulse Resp BP Pulse Ox 97.6 F 104 H 18 100/52 L 98 04/22/18 12:00 04/22/18 12:00 04/22/18 12:00 04/22/18 12:00 04/22/18 12:00 General: Alert, In no apparent distress, Oriented x3, Cooperative HEENT: Atraumatic, Normocephalic Neck: Supple Respiratory: Clear to auscultation bilaterally, Normal air movement Cardiovascular: Normal pulses, Regular rate/rhythm Gastrointestinal: Normal bowel sounds, Soft and benign, Non-distended, No tenderness, No masses, No rebound, No guarding Musculoskeletal: No erythema, No tenderness, No warmth Integumentary: No tenderness/swelling, No erythema, No warmth, No cyanosis Neurological: Normal speech, Normal strength at 5/5 x4 extr, Normal tone, Normal affect Laboratory Data at Discharge: WBC 4.1 K/uL (4.3-10.9) L 04/22/18 04:58 Hgb 9.2 g/dL (13.6-17.9) L 04/22/18 04:58 Hct 26.6 % (39.6-49.0) L 04/22/18 04:58 Plt Count 158 K/uL (152-406) 04/22/18 04:58 Sodium 144 mmol/L (136-145) 04/22/18 04:58 Potassium 4.5 mmol/L (3.5-5.1) 04/22/18 04:58 BUN 45 mg/dL (7-18) H 04/22/18 04:58 Creatinine 1.50 mg/dL (0.55-1.3) H 04/22/18 04:58 Glucose 96 mg/dL (74-106) 04/22/18 04:58 Magnesium 2.4 mg/dL (1.8-2.4) 04/15/18 04:30 Total Bilirubin 0.4 mg/dL (0.2-1.0) 04/22/18 04:58 AST 15 U/L (15-37) 04/22/18 04:58 ALT 15 U/L (12-78) 04/22/18 04:58 Alkaline Phosphatase 65 U/L (45-117) 04/22/18 04:58 Home Medications: Amlodipine Besylate [Norvasc] 10 mg PO DAILY 04/10/18 Cholecalciferol (Vitamin D3) [Vitamin D] 50,000 unit PO SEECOM 04/10/18 Ferrous Sulfate [Feosol] 325 mg PO BID 04/10/18 Finasteride [Proscar*] 5 mg PO BEDTIME 04/10/18 Lactulose [Cephulac] 20 gm PO BEDTIME 04/10/18 Memantine HCl [Namenda] 2 tab PO BID 04/10/18 Mirtazapine 15 mg PO BEDTIME 04/10/18 Polyethylene Glycol 8000 [Polyethylene Glycol] 17 gr PO SEECOM 04/10/18 Tamsulosin [Flomax] 0.4 mg PO DAILY 04/10/18 Trazodone [Desyrel] 50 mg PO BEDTIME 04/10/18 LORazepam [Ativan*] 1 tab PO BID 04/13/18 Patient Discharge Instructions: 1. Patient will need to follow up with his PCP in 1 week to follow up this hospitalization. 2. Patient presented with Recurrent and complicated urinary tract infection, acute cystitis with ESBL-E coli. Patient completed course of antibiotic therapy-meropenem. Patient received over 10 day course. Patient was evaluated by urology. Education on prevention of UTI was addressed in detail. Teach virk care. 3. Patient has history of Benign prostatic hyperplasia. patient had chronic indwelling catheter. Patient was evaluated by urology. Urology recommended urological intervention. Patient had cystoscopy, TURP and suprapubic catheter placement. Patient will need to continue with medication including Flomax 0.4 mg daily and Proscar 5 mg daily. Patient will need to have suprapubic catheter changed in 1 month. With load. Family will need to irrigate his catheter twice a day with 1 /10 of acetic acid. Recommendation to follow up with urology in 1 week to follow up this hospitalization. 4. Patient has Alzheimer's dementia, early onset without behavioral disturbance. Patient will continue with his medication including Namenda 20 mg 1 pill twice daily. 5. Patient with history of CVA without residual deficit. Patient continue with aspirin 81 mg daily. 6. Patient with Chronic kidney disease, stage II. Recommendation to recheck lab-BMP in 1 week to monitor his progress. 7. Patient with Anemia of chronic disease. Recommendation to recheck lab-CBC in 1 week to monitor his progress. Patient will continue with iron supplementation 325 mg 1 pill twice daily. 7. Patient with Insomnia. Patient will continue with his medication. Remeron 15 mg every night and trazodone 50 mg 1 pill daily. 8. Patient with Chronic constipation. Patient will continue with lactulose twice daily as needed. Diet: Renal Activity: Fall precautions Time spent managing pt's care (in minutes): 55
[2018-04-22 17:15] VITALS: BP 92/52; TEMP 97.7
== END 2018-04-22 18:52 | disposition home health service (06) | DRG 667 ==
LOC: ER 17:53 → ERHOLD 21:21 → 2ND 22:11
PROVIDERS: ADMIT Internal Medicine; ATTEND Family Medicine
PROC: 02HV33Z Insertion of Infusion Device into Superior Vena Cava, Percutaneous Approach (ICD-10-PCS; 2018-04-10)
PROC: 0VT08ZZ Resection of Prostate, Via Natural or Artificial Opening Endoscopic (ICD-10-PCS; principal; 2018-04-18 12:00)
PROC: 0T9B30Z Drainage of Bladder with Drainage Device, Percutaneous Approach (ICD-10-PCS; 2018-04-18 12:00)
DX: T83.511A Infection and inflammatory reaction due to indwelling urethral catheter, initial encounter (principal); N40.1 Benign prostatic hyperplasia with lower urinary tract symptoms; N39.0 Urinary tract infection, site not specified; I12.9 Hypertensive chronic kidney disease with stage 1 through stage 4 chronic kidney disease, or unspecified chronic kidney disease; E78.5 Hyperlipidemia, unspecified; M10.9 Gout, unspecified; N18.2 Chronic kidney disease, stage 2 (mild); D63.1 Anemia in chronic kidney disease; B96.5 Pseudomonas (aeruginosa) (mallei) (pseudomallei) as the cause of diseases classified elsewhere; B96.20 Unspecified Escherichia coli [E. coli] as the cause of diseases classified elsewhere; E87.5 Hyperkalemia; I25.10 Atherosclerotic heart disease of native coronary artery without angina pectoris; K59.09 Other constipation; G30.9 Alzheimer's disease, unspecified; F02.80 Dementia in other diseases classified elsewhere, unspecified severity, without behavioral disturbance, psychotic disturbance, mood disturbance, and anxiety; G47.00 Insomnia, unspecified; Z87.891 Personal history of nicotine dependence
CPT/HCPCS: 36415; 71045; 72192; 80048; 80053; 81003; 81015; 82962; 83735; 85025; 87077; 87086; 87088; 87186; 88305; 96365; 97163; 99285; J1650; J2185; J2250; J3010; J7030

== ENCOUNTER 2018-04-28 11:02 | Emergency (ER) | payer OTHER ==
[2018-04-28 11:57] LABS: Absolute Lymphocytes (CBC) 0.8 K/uL (0.7-4.9); Absolute Monocytes 0.4 K/uL (0.1-1.3); Absolute Neutrophil 3.4 K/uL (1.8-8.0); Eosinophils % 2.6 % (0-4.4); Lymphocytes % 16.4 % (15.3-44.8); MCH 30.2 pg (27.0-35.0); MCV 89.3 fL (80-100); MPV 8.7 fL (7.6-11.3); Monocytes % 7.7 % (3.3-12.3); RBC Red Blood Cell Count 3.36 M/uL (4.33-5.43)
[2018-04-28 12:29] LABS: Urine Blood 3+ (NEG); Urine Glucose NEGATIVE (NEG); Urine Protein 3+ (NEG); Urine Specific Gravity 1.025 (1.005-1.030)
[2018-04-28 12:29] LABS: Urine Bacteria 20-50 /HPF (NONE SEEN); Urine Culture Reflex Order NOT NEEDED; Urine Mucus 2+ /HPF (NONE SEEN); Urine RBC >50 /HPF (NONE SEEN)
[2018-04-28] MEDS ORDERED: Meropenem 1 GM/100 ML BAG ONE (12:57)
--- OUTSIDE RECORDS SUMMARY | 2018-04-28 13:01 | XMS REPORT | Clinical Summary ---
:1945 Author Organization [facility] Address [address] [place] [address] Care Team Providers Name Role Phone Magdy [...] 08/07/2017 Telephone Urology Barbara Brooks MA after 04/27/2017 Social History Tobacco Use Types Packs/Day Years [...] 3:33 PM Results for this EXTERNAL STUDY GATE MANAGER procedure are in the results section. XR ABD/PELVIC Routine 07/02/2017 3:19 PM Results for this EXTERNAL STUDY GATE MANAGER procedure are in the results section. XR CHEST EXTERNAL Routine 07/02/2017 1:24 PM Results for this STUDY GATE MANAGER procedure are in the results section. after 04/27/[address] Abd/Pelvic External Study (07/02/2017 3:33 PM) Narrative Performed At This exam was not acquired at a [facility] facility and has not been [facility] interpreted by a [facility] Provider.The exam was imported into our imaging system for comparisons purposes. Performing Organization Address [facility] Phone Number [facility] [address] [place] [address] XR Abd/Pelvic External Study (07/02/2017 3:19 PM) Narrative Performed At This exam was not acquired at a [facility] facility and has not been [facility] interpreted by a [facility] Provider.The exam was imported into our imaging system for comparisons purposes. Performing Organization Address [facility] Phone Number [facility] [address] [place] [address] XR Chest External Study (07/02/2017 1:24 PM) Narrative Performed At This exam was not acquired at a [facility] facility and has not been [facility] interpreted by a [facility] Provider.The exam was imported into our imaging system for comparisons purposes. Performing Organization Address [facility] Phone Number [facility] [address] [place] [address] after 04/27/2017 Insurance Payer Benefit Plan / Group Subscriber ID Type Phone Address MEDICARE MEDICARE PART A AND B xxxxxxxxxx Medicare [place], [place] MEDICAID MEDICAID xxxxxxxxx Medicaid
[2018-04-28 13:03] LABS: Potassium 3.9 mmol/L (3.5-5.1)
--- NOTE | 2018-04-28 13:06 | ER ---
Nurse's Notes [facility] Name: Adam Rosas Age: 73 yrs Sex: Male : 1945 Arrival Date: 04/28/2018 Time: 11:07 Bed 23 Private MD: Wanda Alvarado Atiq Diagnosis: Urinary tract infection, site not specified Presentation: 04/28 11:11 Presenting complaint: caregiver reports being sent here by Dr. Little for positive urine aa5 culture. Transition of care: patient was not received from another setting of care. Onset of symptoms was April 28, 2018. Risk Assessment: Do you want to hurt yourself or someone else? Patient reports no desire to harm self or others. Initial Sepsis Screen: Does the patient meet any 2 criteria? No. Patient's initial sepsis screen is negative. Does the patient have a suspected source of infection? No. Patient's initial sepsis screen is negative. Care prior to arrival: None. 11:11 Method Of Arrival: Wheelchair aa5 11:11 Acuity: SCOTT 3 aa5 Historical: - Allergies: 11:14 Aricept; aa5 - PMHx: 11:14 Dementia; Hyperlipidemia; Hypertension; Kidney stones; Kidney cancer; aa5 11:14 Alzheimers; kidney failure; aa5 - PSHx: 11:14 Hernia repair; AAA repair; Kidney stents; Left kidney removed; aa5 - Immunization history:: Adult Immunizations. - Social history:: Smoking status: Patient/guardian denies using tobacco. - Ebola Screening: : No symptoms or risks identified at this time. Screenin:24 Abuse screen: Denies threats or abuse. Denies injuries from another. Nutritional aj screening: No deficits noted. Tuberculosis screening: No symptoms or risk factors identified. Fall Risk Ambulatory Aid- None/Bed Rest/Nurse Assist (0 pts). Gait- Impaired (20 pts.). Mental Status- Overestimates/Forgets Limitations (15 pts.). Assessment: 11:24 General: Appears in no apparent distress. comfortable, Behavior is calm, quiet. Pain: aj Unable to use pain scale. Does not appear to understand pain scale. Neuro: Level of Consciousness is awake, obeys commands, Oriented to WNL for patient according to caregiver. Respiratory: Airway is patent Respiratory effort is even, unlabored, Respiratory pattern is regular, symmetrical. : suprapubic catheter in place to gravity drainage Leg bag in place with 700 ML of cloudy foul smelling urine. Derm: Skin is intact, is healthy with good turgor, Skin is pink, warm \\T\\ dry. normal. 13:20 Reassessment: Patient's family requested clarification from Dr Nicholas about Home Health aj for patient. Dr Nicholas contacted and he stated that he would send Heel Wheeler to see patient and family in ER to discuss options. 14:08 Reassessment: Patient appears in no apparent distress at this time. No changes from previously documented assessment. Patient and/or family updated on plan of care and expected duration. Pain level reassessed. Patient is alert, oriented x 3, equal unlabored respirations, skin warm/dry/pink. Waiting for social scientist. 14:50 Reassessment: Asked patient's family if social scientist had been in to see her and the aj patient, family responded "yes she was just in here and I am upset because I don't understand why he isn't being admitted. I want to talk to Michi. " Patient's family member informed that Dr Borden dualtagracia come down and see the patient and decided, after speaking with Dr Murillo and Soraya SWIFT that patient did not meet admission criteria. Patient's family member then stated "this man is sick, it took 4 people to get him into the car today." This nurse stated to patient's family that I would get my director to come speak with her. Maddy Guallpa Notified and Dr Borden notified of family's complaints. 15:06 Reassessment: Maddy Guallpa at bedside speaking to family. 15:44 Reassessment: Dr Martinez, Heel Wheeler, and Soraya SWIFT at bedside spoke with patient's family member. Family member denied having any further questions for providers while they were in the room. When providers left room family member states "No, I'm not satisfied and I don't feel like they are going to do anything but you do what you do what you need to do, you are fine.". 15:52 Reassessment: Patient's son arrived to milk pickup driver patient. Vital Signs: 11:12 BP 125 / 79; Pulse 72; Resp 16 S; Temp 98.4(TE); Pulse Ox 99% on R/A; Pain 0/10; aa5 12:46 BP 156 / 95; Pulse 63; Resp 17; Temp 98.5; Pulse Ox 99% on R/A; aj 15:10 BP 149 / 81; Pulse 64; Resp 16; Pulse Ox 99% on R/A; aj ED Course: 11:07 Patient arrived in ED. mr 11:07 Wanda Alvarado MD is Private Physician. mr 11:12 Triage completed. aa5 11:12 Arm band placed on. aa5 11:14 Rachel Olivares, RN is Primary Nurse. aj 11:17 Soraya Shanks FNP-C is PHCP. kb 11:17 Dexter Jackson MD is Attending Physician. kb 11:24 Patient has correct armband on for positive identification. Placed in gown. Bed in low aj position. Call light in reach. Side rails up X2. Pulse ox on. NIBP on. 11:35 Initial lab(s) drawn, by sc, sent to lab. First set of blood cultures drawn. em1 11:45 Suprapubic catheter bandage changed. Brown bloody gauze with urine smell on initial aj dressing. Leg bag changed to gravity bag. Inserted saline lock: 20 gauge in right forearm, using aseptic technique. Blood collected. By Vernon Mcdonnell. 11:55 Second set of blood cultures drawn by sc. em1 13:06 Mary Little MD is Referral Physician. kb 15:52 No provider procedures requiring assistance completed. IV discontinued, intact, aj bleeding controlled, No redness/swelling at site. Pressure dressing applied. Administered Medications: 12:56 Drug: Meropenem 1 grams Route: IV; Rate: calculated rate; Site: right forearm; aj 13:45 Follow up: Response: No adverse reaction; IV Status: Completed infusion; IV Intake: aj 100ml Intake: 13:45 IV: 100ml; Total: 100ml. aj Outcome: 13:05 Discharge ordered by . kb 15:10 Discharged to home via wheelchair, with family. aj 15:10 Condition: stable 15:10 Discharge instructions given to family, Instructed on discharge instructions, follow up and referral plans. Demonstrated understanding of instructions, follow-up care. 15:54 Patient left the ED. aj Addendum: 05/01/2018 10:51 Addendum: Culture Results: Positive urine culture. Pt followed up with Dr. Pulido per s s Dr. Wu under strict instructions. Signatures: Soraya Shanks, FLOORING PROFESSIONAL-C FLOORING PROFESSIONAL-Ckb Rachel Olivares RN RN Petra Wu, Vernon em1 Araceli Elam RN RN aa5 Kala River RN RN ss Corrections: (The following items were deleted from the chart) 04/28 15:53 15:52 BP 149 / 81; Pulse 64bpm; Resp 16bpm; Pulse Ox 99% RA; manda holman
--- NOTE | 2018-04-28 13:06 | EDPHYS ---
Physician Documentation [facility] Name: Adam Rosas Age: 73 yrs Sex: Male : 1945 Arrival Date: 04/28/2018 Time: 11:07 Bed 23 Private MD: Wanda Alvarado Atiq ED Physician Dexter Jackson HPI: 04/28 12:11 This 73 yrs old Male presents to ER via Wheelchair with complaints of Urinary kb Problem. 12:11 The patient presents with urinary symptoms, dark urine. Onset: The symptoms/episode kb began/occurred yesterday. Modifying factors: The symptoms are alleviated by nothing, the symptoms are aggravated by nothing. Associated signs and symptoms: Pertinent positives: fever, Pertinent negatives: abdominal pain, constipation, diarrhea, dysuria, hematuria, nausea, vomiting. Severity of symptoms: At their worst the symptoms were moderate, in the emergency department the symptoms are unchanged. The patient has experienced similar episodes in the past. The patient has been recently been admitted at [facility], was discharged last week. Family member states she called Dr Little's office about pt running fever and dark urine. Was told to come to the ER for evaluation for admission. Historical: - Allergies: 11:14 Aricept; aa5 - PMHx: 11:14 Dementia; Hyperlipidemia; Hypertension; Kidney stones; Kidney cancer; aa5 11:14 Alzheimers; kidney failure; aa5 - PSHx: 11:14 Hernia repair; AAA repair; Kidney stents; Left kidney removed; aa5 - Immunization history:: Adult Immunizations. - Social history:: Smoking status: Patient/guardian denies using tobacco. - Ebola Screening: : No symptoms or risks identified at this time. ROS: 12:09 Cardiovascular: Negative for chest pain, palpitations, and edema, Respiratory: Negative kb for shortness of breath, cough, wheezing, and pleuritic chest pain, Abdomen/GI: Negative for abdominal pain, nausea, vomiting, diarrhea, and constipation, Back: Negative for injury and pain, MS/Extremity: Negative for injury and deformity, Skin: Negative for injury, rash, and discoloration. 12:09 Constitutional: Positive for fever, Negative for body aches, chills, fatigue, malaise, poor PO intake, weight loss. 12:09 : Positive for dark colored urine. Exam: 12:10 Constitutional: This is a well developed, well nourished patient who is awake, alert, kb and in no acute distress. Head/Face: Normocephalic, atraumatic. Chest/axilla: Normal chest wall appearance and motion. Nontender with no deformity. No lesions are appreciated. Cardiovascular: Regular rate and rhythm with a normal S1 and S2. No gallops, murmurs, or rubs. Normal PMI, no JVD. No pulse deficits. Respiratory: Lungs have equal breath sounds bilaterally, clear to auscultation and percussion. No rales, rhonchi or wheezes noted. No increased work of breathing, no retractions or nasal flaring. Back: No spinal tenderness. No costovertebral tenderness. Full range of motion. Skin: Warm, dry with normal turgor. Normal color with no rashes, no lesions, and no evidence of cellulitis. 12:10 : a suprapubic catheter is noted. Vital Signs: 11:12 BP 125 / 79; Pulse 72; Resp 16 S; Temp 98.4(TE); Pulse Ox 99% on R/A; Pain 0/10; aa5 12:46 BP 156 / 95; Pulse 63; Resp 17; Temp 98.5; Pulse Ox 99% on R/A; aj 15:10 BP 149 / 81; Pulse 64; Resp 16; Pulse Ox 99% on R/A; aj MDM: 11:17 Patient medically screened. kb 12:09 Data reviewed: vital signs, nurses notes. Data interpreted: Pulse oximetry: on room air kb is 99 %. Interpretation: normal. 12:46 Counseling: I had a detailed discussion with the patient and/or guardian regarding: the kb historical points, exam findings, and any diagnostic results supporting the discharge/admit diagnosis, lab results, the need for outpatient follow up, a family practitioner, a urologist, to return to the emergency department if symptoms worsen or persist or if there are any questions or concerns that arise at home. Physician consultation: Lamine Wu DO was contacted at 12:47, regarding consult, patient's condition, in the emergency department to see patient at 12:47. 16:48 ED course: Dr Wu, mental health social worker and I all spoke to [id number] about plan of kb care. Appt made with Dr Pulido for tomorrow at 1330 to establish care with PCP and get home health to start coming to see patient. . 04/28 11:23 Order name: CBC with Diff; Complete Time: 12:07 kb 04/28 11:23 Order name: Basic Metabolic Panel; Complete Time: 13:04 kb 04/28 11:23 Order name: Urine Culture 04/28 11:23 Order name: Urine Microscopic Only; Complete Time: 12:30 kb 04/28 11:23 Order name: Lactate; Complete Time: 12:18 kb 04/28 11:23 Order name: Procalcitonin; Complete Time: 12:32 kb 04/28 11:23 Order name: Urine Dipstick-Ancillary (obtain specimen); Complete Time: 12:11 kb 04/28 11:23 Order name: Blood Culture Adult (2) 04/28 11:23 Order name: IV Start; Complete Time: 11:47 kb 04/28 12:25 Order name: Urine Dipstick--Ancillary (enter results) 04/28 12:46 Order name: Consult Internal Medicine-Lamine Wu DO ([facility]) Administered Medications: 12:56 Drug: Meropenem 1 grams Route: IV; Rate: calculated rate; Site: right forearm; aj 13:45 Follow up: Response: No adverse reaction; IV Status: Completed infusion; IV Intake: aj 100ml Disposition: 16:11 Co-signature as Attending Physician, Dexter Jackson MD I agree with the assessment and glenis plan of care. Disposition: 04/28/18 13:05 Discharged to Home. Impression: Urinary tract infection, site not specified. - Condition is Stable. - Discharge Instructions: Urinary Tract Infection, Adult, [id number], Suprapubic Catheter Home Guide. - Medication Reconciliation Form, Thank You Letter, Antibiotic Education, Prescription Opioid Use form. - Follow up: Emergency Department; When: As needed; Reason: Worsening of condition. Follow up: Private Physician; When: 2 - 3 days; Reason: Recheck today's complaints, Continuance of care, Re-evaluation by your physician. Follow up: Mary Little MD; When: 2 - 3 days; Reason: Recheck today's complaints, Continuance of care, Re-evaluation by your physician. Signatures: Dispatcher [employer] Soraya Crum FNP-C COOK DESSERT-Ckb Rachel Olivares, RN Dexter Crandall MD MD cha Calderon, Audri, RN RN aa5 Corrections: (The following items were deleted from the chart) 13:06 13:05 04/28/2018 13:05 Discharged to Home. Impression: Urinary tract infection, site kb not specified. Condition is Stable. Forms are Medication Reconciliation Form, Thank You Letter, Antibiotic Education, Prescription Opioid Use. Follow up: Emergency Department; When: As needed; Reason: Worsening of condition. Follow up: Private Physician; When: 2 - 3 days; Reason: Recheck today's complaints, Continuance of care, Re-evaluation by your physician. kb 15:54 13:06 04/28/2018 13:05 Discharged to Home. Impression: Urinary tract infection, site aj not specified. Condition is Stable. Discharge Instructions: Urinary Tract Infection, Adult, [id number], Suprapubic Catheter Home Guide. Forms are Medication Reconciliation Form, Thank You Letter, Antibiotic Education, Prescription Opioid Use. Follow up: Emergency Department; When: As needed; Reason: Worsening of condition. Follow up: Private Physician; When: 2 - 3 days; Reason: Recheck today's complaints, Continuance of care, Re-evaluation by your physician. Follow up: Mary Little; When: 2 - 3 days; Reason: Recheck today's complaints, Continuance of care, Re-evaluation by your physician. kb
[2018-04-28 16:11] VITALS: O2SAT 99
[2018-04-28 16:12] VITALS: TEMP 98.5
[2018-04-28 16:13] VITALS: BP 149/81
--- NOTE | 2018-04-28 17:30 | P.CNS ---
Date of Consult: 04/28/18 Reason for Consult: ER consultation Primary Care Provider: None; Urology-Dr. Little Chief Complaint: Possible fever History of Present Illness: 73-year-old male presented to the ER with suspected UTI. Patient was recently hospitalized from 04/09/2018 through 04/22/2018. At that time patient had recurrent with complicated UTI and acute cystitis related to E coli-ESBL. Patient completed a 10 day course of IV antibiotic therapy. Patient also with history of benign prostatic hyperplasia, Alzheimer's dementia, history of CVA, chronic renal disease stage II, anemia of chronic disease, insomnia, and chronic constipation. Family brought the patient to the ER for suspected UTI. In the ER patient was evaluated. CBC unremarkable. Pro calcitonin unremarkable. BMP noted without any significant change from previous admission. Patient had asymptomatic bacteriuria I was asked by the ER to evaluate patient. When I evaluated the patient, he appeared appropriate. No fever noted. Blood pressure stable. Patient was appropriate as per last discharge. Patient did not appear in any distress. Patient reported no nausea, vomiting, fever, headaches, dizziness, chest pain, abdominal pain. Patient has suprapubic catheter in place. Patient with skin tear to the left arm. Allergies donepezil [From Aricept] Allergy (Verified 01/07/18 11:46) Itching/Hives/Rash Home Medications: Amlodipine Besylate [Norvasc] 10 mg PO DAILY 04/10/18 Cholecalciferol (Vitamin D3) [Vitamin D] 50,000 unit PO SEECOM 04/10/18 Ferrous Sulfate [Feosol] 325 mg PO BID 04/10/18 Finasteride [Proscar*] 5 mg PO BEDTIME 04/10/18 Lactulose [Cephulac] 20 gm PO BEDTIME 04/10/18 Memantine HCl [Namenda] 2 tab PO BID 04/10/18 Mirtazapine 15 mg PO BEDTIME 04/10/18 Polyethylene Glycol 8000 [Polyethylene Glycol] 17 gr PO SEECOM 04/10/18 Tamsulosin [Flomax] 0.4 mg PO DAILY 04/10/18 Trazodone [Desyrel] 50 mg PO BEDTIME 04/10/18 LORazepam [Ativan*] 1 tab PO BID 04/13/18 - Past Medical/Surgical History Diabetic: No -: Recurrent UTI with history of ESBL -: Hypertension -: Hypertension hyperlipidemia -: Benign prostatic hyperplasia now with suprapubic catheter -: Gout -: CAD -: Alzheimer's dementia with behavioral disturbance -: Chronic renal disease, stage II -: History of Renal cell carcinoma -: History left nephrectomy, right partial nephrectomy -: History tobacco/alcohol abuse -: History AAA repair -: Left nephrectomy -: Partial right nephrectomy -: AAA repair -: Kidney stents x3 -: Suprapubic catheter Psychosocial/ Personal History: The patient lives with his son. He is fully dependent on the son. Patient is a . - Family History Father Medical History: Cancer Notes: kidney Mother Medical History: Cancer Notes: throat, lung Brother Medical History: Cancer - Social History Smoking Status: Unknown if ever smoked Alcohol use: Yes CD- Drugs: No Caffeine use: No Place of Residence: Home Review of Systems General: Unremarkable Eyes: Unremarkable ENT: Unremarkable Respiratory: Unremarkable Cardiovascular: Unremarkable Gastrointestinal: Unremarkable Genitourinary: Unremarkable Integumentary: Unremarkable Neurological: As per HPI (Family is noting behavioral disturbances with his dementia. Family is considering fpc placement.) Lymphatics: Unremarkable Physical Examination Temp Pulse Resp BP Pulse Ox 98.5 F 64 16 149/81 H 04/28/18 12:46 04/28/18 15:10 04/28/18 15:10 04/28/18 15:10 General: Alert, In no apparent distress, Cooperative, Demented HEENT: Atraumatic, Normocephalic, PERRLA, Mucous membr. moist/pink Neck: Supple Respiratory: Clear to auscultation bilaterally, Normal air movement Cardiovascular: Normal pulses, Regular rate/rhythm Gastrointestinal: Normal bowel sounds, Soft and benign, Non-distended, No tenderness, No masses, No rebound, No guarding Musculoskeletal: No erythema, No tenderness, No warmth Integumentary: Other (Non bleeding skin tear small to the left arm) Neurological: Normal speech, Normal strength at 5/5 x4 extr, Normal tone, Dementia Urinary: Suprapubic catheter Laboratory Data (last 24 hrs) 04/28/18 11:35: Sodium 144, Potassium 3.9, BUN 34 H, Creatinine 1.70 H, Glucose 95 04/28/18 11:35: WBC 4.7 D, Hgb 10.1 L, Hct 30.0 L, Plt Count 206 D Conclusions/Impression: Impression: Asymptomatic bacteriuria with history of recurrent UTI and recent hospitalization for ESBL treated for 10 days now with suprapubic catheter Alzheimer's dementia with mild behavioral disturbance Skin tear left arm Chronic kidney disease, stage II Insomnia Chronic constipation Anemia chronic disease Plan: Asymptomatic bacteriuria with history of recurrent UTI and recent hospitalization for ESBL treated for 10 days now with suprapubic catheter: Patient with asymptomatic bacteriuria. Case discussed at length with urology. No need for the admission. No need for antibiotic therapy. Urology did recommend to provide 1 dose of meropenem in the emergency room. Urology also recommends to obtain urine culture. Patient will need a follow up with urology within 1 week to monitor his care. Patient to continue with prior recommendations of medication including irrigating catheter twice a day with 1/ 10 of acidic acid. Patient will need to establish care will local physician to continue home health. Since last admission it was recommended that the patient establish care with a PCP to continue home health. Family has not done this since the discharge. Social Work reported that home health had been counseling the [id number] daily to address this. Vnrcbqyg-vh-zit denies this. Alzheimer's dementia with mild behavioral disturbance: Patient with increasing behavioral disturbance. Patient seemed to be appropriate. Patient likely with sundowning. Recommendation is for the patient to establish care with a local physician to further address. Patient is seen by a custom feed mill operator helper. Recommend for reassessment for possible medication treatment. Gdefssoi-wn-vdq all expresses that it is been difficult to take care patient due to his dementia especially at night. Recommendation is for the patient to follow up with his custom feed mill operator helper more consistently with close follow up to address this issue. Family is considering fpc placement. This can be done as an outpatient Skin tear left arm: Wound care address in the emergency room. Tegaderm provide. Fall precautions address in detail. Chronic kidney disease, stage II: This remained stable. Recommendation to recheck lab-BMP in 1 week to monitor his progress. Insomnia: Patient takes trazodone. This can be continued and further addressed by PCP. Chronic constipation: Patient will continue with medication. Anemia chronic disease: Hemoglobin stable. This can be recheck in 1 week to monitor his progress. Plan of care was addressed in detail with the ijkbbrlu-il-wxo along with nurse practitioner, social work therapist and nurse supervisor heat treating. Nfsrcyxo-wv-hvd understands that she needs to follow up with a PCP to establish care. Social work and myself arranged for that the patient to be seen tomorrow by a local physician to establish care and continue with home health. Daughter in-law is considering plans for fpc placement. This can be done as an outpatient. It was explained that the patient does not require admission for antibiotic therapy. Patient with asymptomatic bacteriuria. Patient was given meropenem 1 dose as recommended by urology. Urine culture obtained. This can be followed up with Urology. Patient will need a follow up with urology as directed. It is also recommended that the patient follow up with his custom feed mill operator helper to further address his behavioral disturbance. Patient may require medication for this. Utswydgr-ft-udz all understands plan of care. She agrees with plan. Time Spent Managing Pts care (In Minutes): 55
== END 2018-04-28 15:54 | disposition home or self-care (01) ==
LOC: ER 11:02
DX: N39.0 Urinary tract infection, site not specified (principal); G30.9 Alzheimer's disease, unspecified; F02.80 Dementia in other diseases classified elsewhere, unspecified severity, without behavioral disturbance, psychotic disturbance, mood disturbance, and anxiety
CPT/HCPCS: 36415; 80048; 83605; 84145; 85025; 87040 ×2; 87077 ×2; 87086; 87088; 87186 ×2; 96365; 99284; J2185; 81003; 81015

== ENCOUNTER 2018-06-13 20:08 | Inpatient (IN) | payer OTHER ==
--- OUTSIDE RECORDS SUMMARY | 2018-06-13 20:11 | XMS REPORT | Clinical Summary ---
:1945 Author Organization [facility] Address [address] [place] [address] Care Team Providers Name Role Phone Magdy [...] 08/07/2017 Telephone Urology Barbara Brooks MA after 06/12/2017 Social History Tobacco Use Types Packs/Day Years [...] 3:33 PM Results for this EXTERNAL STUDY MEAT CUTTER APPRENTICE procedure are in the results section. XR ABD/PELVIC Routine 07/02/2017 3:19 PM Results for this EXTERNAL STUDY MEAT CUTTER APPRENTICE procedure are in the results section. XR CHEST EXTERNAL Routine 07/02/2017 1:24 PM Results for this STUDY MEAT CUTTER APPRENTICE procedure are in the results section. after 06/12/[address] Abd/Pelvic External Study (07/02/2017 3:33 PM) Narrative Performed At This exam was not acquired at a [facility] facility and has not been [facility] interpreted by a [facility] Provider.The exam was imported into our imaging system for comparisons purposes. Performing Organization Address [facility] [[email or web address] Phone Number [facility] [address] [place] [address] XR Abd/Pelvic External Study (07/02/2017 3:19 PM) Narrative Performed At This exam was not acquired at a [facility] facility and has not been [facility] interpreted by a [facility] Provider.The exam was imported into our imaging system for comparisons purposes. Performing Organization Address [facility] [[email or web address] Phone Number [facility] [address] [place] [address] XR Chest External Study (07/02/2017 1:24 PM) Narrative Performed At This exam was not acquired at a [facility] facility and has not been [facility] interpreted by a [facility] Provider.The exam was imported into our imaging system for comparisons purposes. Performing Organization Address [facility] Phone Number [facility] [address] [place] [address] after 06/12/2017 Insurance Payer Benefit Plan / Group Subscriber ID Type Phone Address MEDICARE MEDICARE PART A AND B xxxxxxxxxx Medicare [place], [place] MEDICAID MEDICAID xxxxxxxxx Medicaid
[2018-06-13 22:29] LABS: Urine RBC <5 /HPF (NONE SEEN)
[2018-06-13 22:30] LABS: Urine Bacteria LOADED /HPF (NONE SEEN); Urine Culture Reflex Order NOT NEEDED; Urine White Blood Cell Casts 0-5 /LPF (NONE SEEN)
[2018-06-13 22:38] LABS: Absolute Lymphocytes (CBC) 0.7 K/uL (0.7-4.9); Absolute Monocytes 0.7 K/uL (0.1-1.3); Absolute Neutrophil 8.5 K/uL (1.8-8.0); Basophils % 0.3 % (0-1.3); Eosinophils % 0.2 % (0-4.4); Hematocrit 35.8 % (39.6-49.0); Lymphocytes % 7.1 % (15.3-44.8); MCH 30.9 pg (27.0-35.0); MCV 90.2 fL (80-100); MPV 9.6 fL (7.6-11.3); Monocytes % 7.1 % (3.3-12.3); RBC Red Blood Cell Count 3.97 M/uL (4.33-5.43)
[2018-06-13 22:55] LABS: Protime INR 1.09
[2018-06-13 22:59] LABS: ALT/SGPT 16 U/L (12-78); AST/SGOT 16 U/L (15-37); Albumin 3.9 g/dL (3.4-5.0); Alkaline Phosphatase 87 U/L (45-117); BUN Blood Urea Nitrogen 43 mg/dL (7-18); Bicarbonate 28 mmol/L (21-32); Bilirubin Direct 0.1 mg/dL (0-0.2); Bilirubin Total 0.4 mg/dL (0.2-1.0); Glucose Level 111 mg/dL (74-106); NT PRO-BNP 529 pg/mL (<125); Potassium 4.6 mmol/L (3.5-5.1); Protein, Total 7.8 g/dL (6.4-8.2); Sodium Level 141 mmol/L (136-145); Troponin (Emerg Dept Use Only) < 0.02 ng/mL (0.0-0.045)
[2018-06-13] MEDS ORDERED: Meropenem 1 GM/100 ML BAG ONE (23:31)
--- NOTE | 2018-06-14 00:22 | ER ---
Nurse's Notes [facility] Name: Adam Rosas Age: 73 yrs Sex: Male : 1945 Arrival Date: 06/13/2018 Time: 20:11 Bed 19 Private MD: Diagnosis: Acute UTI Presentation: 06/13 20:19 Presenting complaint: Child states: Reports high blood pressure reading today by home aj health and PCP today. Also reports "cottage cheese" from suprapubic catheter. Transition of care: patient was not received from another setting of care. Onset of symptoms was June 13, 2018. Risk Assessment: Do you want to hurt yourself or someone else? Patient reports no desire to harm self or others. Initial Sepsis Screen: Does the patient meet any 2 criteria? No. Patient's initial sepsis screen is negative. Does the patient have a suspected source of infection? No. Patient's initial sepsis screen is negative. Care prior to arrival: None. 20:19 Method Of Arrival: Wheelchair aj 20:19 Acuity: SCOTT 3 aj Triage Assessment: 20:22 General: Appears in no apparent distress. comfortable, Behavior is calm, cooperative, aj appropriate for age. Neuro: Level of Consciousness is awake, confused, Oriented to WNL for patient. Respiratory: Airway is patent Respiratory effort is even, unlabored, Respiratory pattern is regular, symmetrical. : Parent/caregiver report the patient having. Derm: Skin is intact, is healthy with good turgor, Skin is pink, warm \\T\\ dry. normal. Historical: - Allergies: 20:22 Aricept; aj - Home Meds: 20:22 allopurinol 300 mg Oral tab 1 tab once daily [Active]; amlodipine 5 mg tab 1 tab once aj daily [Active]; amlodipine 2.5 mg tab 1 tab for BP over 130 systolic [Active]; bisacodyl 5 mg Oral chew 2 tabs once daily [Active]; bisacodyl 5 mg Oral chew 1 tab once daily [Active]; ferrous sulfate 325 mg (65 mg iron) Oral tab [Active]; ferrous sulfate 325 mg (65 mg iron) Oral chew twice a day [Active]; finasteride 5 mg Oral tab 1 tab once daily [Active]; hydrochlorothiazide 12.5 mg Oral tab 1 tab once daily [Active]; memantine 10 mg Oral tab 1 tab daily [Active]; mirtazapine 15 mg Oral tab 1 tab once daily [Active]; tamsulosin 0.4 mg Oral cp24 1 cap once daily [Active]; trazodone 50 mg Oral tab 1 tab nightly [Active]; - PMHx: 20:22 Alzheimers; Dementia; Hyperlipidemia; Hypertension; kidney cancer; kidney failure; aj Kidney stones; one kidney; CVA; suprapubic cathter; - PSHx: 20:22 Hernia repair; AAA repair; Kidney stents; Left kidney removed; aj - Immunization history:: Adult Immunizations up to date. - Social history:: Smoking status: Patient/guardian denies using tobacco. - Ebola Screening: : Patient negative for fever greater than or equal to 101.5 degrees Fahrenheit, and additional compatible Ebola Virus Disease symptoms Patient denies exposure to infectious person Patient denies travel to an Ebola-affected area in the 21 days before illness onset No symptoms or risks identified at this time. - Family history:: not pertinent. - Hospitalizations: : No recent hospitalization is reported. Screenin:00 Abuse screen: Denies threats or abuse. Nutritional screening: No deficits noted. jb4 Tuberculosis screening: No symptoms or risk factors identified. Fall Risk Secondary diagnosis (15 points) dementia, Mental Status- Overestimates/Forgets Limitations (15 pts.). Total Mckay Fall Scale indicates Low Risk Score (25-44 pts). Fall prevention measures have been instituted. Side Rails Up X 2 Placed close to Nursing Station Frequent Obs/Assesments occuring Family Present and informed to notify staff if they need to leave bedside As available Patient and Family Educated on Fall Prevention Program and strategies. Assessment: 21:00 General: Appears in no apparent distress. comfortable, Behavior is calm, cooperative. jb4 Pain: Denies pain. Neuro: Level of Consciousness is awake, alert, obeys commands, Oriented to person, Family reports this is the pt's norm.. Cardiovascular: Heart tones S1 S2 Patient's skin is warm and dry. Respiratory: Airway is patent Respiratory effort is even, unlabored, Respiratory pattern is regular, symmetrical, Breath sounds are clear bilaterally. GI: No signs and/or symptoms were reported involving the gastrointestinal system. : suprapubic catheter in place Urine is clear, odor noted to suprapubic catheter dressing. EENT: No signs and/or symptoms were reported regarding the EENT system. Derm: Skin is intact, Skin is pink, warm \\T\\ dry. Musculoskeletal: Circulation, motion, and sensation intact. 22:41 Reassessment: Patient appears in no apparent distress at this time. Patient and/or jb4 family updated on plan of care and expected duration. Pain level reassessed. respirations even and unlabored. Pt is A\\T\\O x1, this is the reported norm. see above documentation. family is at the bedside. 23:41 Reassessment: Patient appears in no apparent distress at this time. No changes from jb4 previously documented assessment. Patient and/or family updated on plan of care and expected duration. Pain level reassessed. 06/14 00:41 Reassessment: Patient appears in no apparent distress at this time. No changes from jb4 previously documented assessment. Patient and/or family updated on plan of care and expected duration. Pain level reassessed. family is no longer at the bedside. 01:24 Reassessment: Patient appears in no apparent distress at this time. No changes from jb4 previously documented assessment. Patient and/or family updated on plan of care and expected duration. Pain level reassessed. Vital Signs: 06/13 20:22 BP 121 / 82; Pulse 66; Resp 19; Temp 97.5; Pulse Ox 100% on R/A; Weight 62.14 kg; aj Height 5 ft. 8 in. (172.72 cm); 21:15 BP 169 / 83; Pulse 63; Resp 18; Pulse Ox 100% on R/A; jb4 22:30 BP 159 / 91; Pulse 59; Resp 18; Pulse Ox 100% on R/A; jb4 23:30 BP 170 / 99; Pulse 53; Resp 16; Pulse Ox 100% on R/A; jb4 06/14 00:45 BP 164 / 95; Pulse 60; Resp 14; Pulse Ox 100% on R/A; jb4 01:15 BP 156 / 88; Pulse 54; Resp 16; Pulse Ox 100% on R/A; jb4 06/13 20:22 Body Mass Index 20.83 (62.14 kg, 172.72 cm) aj ED Course: 06/13 20:11 Patient arrived in ED. ag3 20:21 Triage completed. aj 20:22 Arm band placed on left wrist. Patient placed in an exam room. aj 20:58 Adam Garner, RN is Primary Nurse. jb4 21:00 Patient has correct armband on for positive identification. Bed in low position. Call jb4 light in reach. Side rails up X2. Pulse ox on. NIBP on. 21:10 Av De Luna MD is Attending Physician. wi 22:20 Inserted saline lock: 20 gauge in left antecubital area, using aseptic technique. Blood mw2 collected. 22:44 XRAY Chest (1 view) In Process Unspecified. EDMS 23:30 Dressings: Tegaderm X 1; suprapubic area 4X4s X 2; suprapubic area. jb4 06/14 00:20 Carlos Lopez MD is Hospitalizing Provider. wi 01:41 No provider procedures requiring assistance completed. Patient admitted, IV remains in jb4 place. Administered Medications: 06/13 23:31 Drug: Meropenem 1000 mg Route: IV; Rate: mg/hr; Site: left antecubital; jb4 06/14 00:30 Follow up: Response: No adverse reaction; IV Status: Completed infusion jb4 Outcome: 00:21 Decision to Hospitalize by Provider. wa 01:41 Admitted to Med/surg accompanied by tech, via stretcher, room 220, with chart, Report jb4 called to YUNIEL Brooks 01:41 Condition: stable 01:41 Discharge instructions given to family, Instructed on the need for admit, Demonstrated understanding of instructions. 01:42 Patient left the ED. jb4 Signatures: Dispatcher [employer] EDWI Rachel Olivares RN RN aj Bryson, James, YUNIEL BRICE jb4 Av De Luna MD MD wa [place], MyKena mw2 Deborah Puentes ag3 Corrections: (The following items were deleted from the chart) 06/13 22:01 21:00 : suprapubic catheter in place jb4 jb4
--- NOTE | 2018-06-14 00:22 | EDPHYS ---
Physician Documentation [facility] Name: Adam Rosas Age: 73 yrs Sex: Male : 1945 Arrival Date: 06/13/2018 Time: 20:11 Bed 19 Private MD: ED Physician Av De Luna HPI: 06/14 00:11 This 73 yrs old Male presents to ER via Wheelchair with complaints of High wa Blood Pressure, Problem With Urinary Catheter. 00:11 The patient presents with discharge from suprapubic catheter site. also fever. daughter wa c/o elevated BP as well. pt unable to give history due to dementia. Onset: The symptoms/episode began/occurred today. Modifying factors: The symptoms are alleviated by nothing, the symptoms are aggravated by nothing. Associated signs and symptoms: Pertinent positives: fever, Pertinent negatives: diarrhea, vomiting. Severity of symptoms: At their worst the symptoms were moderate, in the emergency department the symptoms are unchanged. The patient has experienced similar episodes in the past, a few times. The patient has been recently seen by a physician: the patient's primary care provider. Historical: - Allergies: 06/13 20:22 Aricept; aj - Home Meds: 20:22 allopurinol 300 mg Oral tab 1 tab once daily [Active]; amlodipine 5 mg tab 1 tab once aj daily [Active]; amlodipine 2.5 mg tab 1 tab for BP over 130 systolic [Active]; bisacodyl 5 mg Oral chew 2 tabs once daily [Active]; bisacodyl 5 mg Oral chew 1 tab once daily [Active]; ferrous sulfate 325 mg (65 mg iron) Oral tab [Active]; ferrous sulfate 325 mg (65 mg iron) Oral chew twice a day [Active]; finasteride 5 mg Oral tab 1 tab once daily [Active]; hydrochlorothiazide 12.5 mg Oral tab 1 tab once daily [Active]; memantine 10 mg Oral tab 1 tab daily [Active]; mirtazapine 15 mg Oral tab 1 tab once daily [Active]; tamsulosin 0.4 mg Oral cp24 1 cap once daily [Active]; trazodone 50 mg Oral tab 1 tab nightly [Active]; - PMHx: 20:22 Alzheimers; Dementia; Hyperlipidemia; Hypertension; kidney cancer; kidney failure; aj Kidney stones; one kidney; CVA; suprapubic cathter; - PSHx: 20:22 Hernia repair; AAA repair; Kidney stents; Left kidney removed; aj - Immunization history:: Adult Immunizations up to date. - Social history:: Smoking status: Patient/guardian denies using tobacco. - Ebola Screening: : Patient negative for fever greater than or equal to 101.5 degrees Fahrenheit, and additional compatible Ebola Virus Disease symptoms Patient denies exposure to infectious person Patient denies travel to an Ebola-affected area in the 21 days before illness onset No symptoms or risks identified at this time. - Family history:: not pertinent. - Hospitalizations: : No recent hospitalization is reported. ROS: 06/14 00:14 ENT: Negative for injury, pain, and discharge, Neck: Negative for injury, pain, and wa swelling, Cardiovascular: Negative for chest pain, palpitations, and edema, Respiratory: Negative for shortness of breath, cough, wheezing, and pleuritic chest pain, Abdomen/GI: Negative for abdominal pain, nausea, vomiting, diarrhea, and constipation, Back: Negative for injury and pain, MS/Extremity: Negative for injury and deformity, Skin: Negative for injury, rash, and discoloration. Constitutional: Positive for fever. : Positive for discharge at catheter site. Exam: 00:15 Constitutional: This is a well developed, well nourished patient who is awake, alert, wa and in no acute distress. Head/Face: Normocephalic, atraumatic. Eyes: Pupils equal round and reactive to light, extra-ocular motions intact. Lids and lashes normal. Conjunctiva and sclera are non-icteric and not injected. Cornea within normal limits. Periorbital areas with no swelling, redness, or edema. ENT: Nares patent. No nasal discharge, no septal abnormalities noted. Tympanic membranes are normal and external auditory canals are clear. Oropharynx with no redness, swelling, or masses, exudates, or evidence of obstruction, uvula midline. Mucous membranes moist. Neck: Trachea midline, no thyromegaly or masses palpated, and no cervical lymphadenopathy. Supple, full range of motion without nuchal rigidity, or vertebral point tenderness. No Meningismus. Chest/axilla: Normal chest wall appearance and motion. Nontender with no deformity. No lesions are appreciated. Cardiovascular: Regular rate and rhythm with a normal S1 and S2. No gallops, murmurs, or rubs. Normal PMI, no JVD. No pulse deficits. Respiratory: Lungs have equal breath sounds bilaterally, clear to auscultation and percussion. No rales, rhonchi or wheezes noted. No increased work of breathing, no retractions or nasal flaring. Abdomen/GI: Soft, non-tender, with normal bowel sounds. No distension or tympany. No guarding or rebound. No evidence of tenderness throughout. Back: No spinal tenderness. No costovertebral tenderness. Full range of motion. Skin: Warm, dry with normal turgor. Normal color with no rashes, no lesions, and no evidence of cellulitis. MS/ Extremity: Pulses equal, no cyanosis. Neurovascular intact. Full, normal range of motion. Neuro: Awake and alert, GCS 15, oriented to person, place, time, and situation. Cranial nerves II-XII grossly intact. Motor strength 5/5 in all extremities. Sensory grossly intact. Cerebellar exam normal. Normal gait. 00:15 : Bladder: discharge noted at site of suprapubic catheter. Vital Signs: 06/13 20:22 BP 121 / 82; Pulse 66; Resp 19; Temp 97.5; Pulse Ox 100% on R/A; Weight 62.14 kg; aj Height 5 ft. 8 in. (172.72 cm); 21:15 BP 169 / 83; Pulse 63; Resp 18; Pulse Ox 100% on R/A; jb4 22:30 BP 159 / 91; Pulse 59; Resp 18; Pulse Ox 100% on R/A; jb4 23:30 BP 170 / 99; Pulse 53; Resp 16; Pulse Ox 100% on R/A; jb4 06/14 00:45 BP 164 / 95; Pulse 60; Resp 14; Pulse Ox 100% on R/A; jb4 01:15 BP 156 / 88; Pulse 54; Resp 16; Pulse Ox 100% on R/A; jb4 06/13 20:22 Body Mass Index 20.83 (62.14 kg, 172.72 cm) aj MDM: 06/13 21:10 Patient medically screened. dc 06/14 00:16 Differential diagnosis: fever. r/o acute infectious process. reassess. Data reviewed: dc vital signs, nurses notes. Test interpretation: by ED physician or midlevel provider: Cr noted at 2.0. CXR: no acute process. UA noted for TNTC wbc. Response to treatment: the patient's symptoms have markedly improved after treatment. Physician consultation: Carlos Lopez MD was called at 00:18. Admission orders: after a detailed discussion of the patient's condition and case, the admit orders are written by me. 00:18 ED course: fever, per family. multi-resistant organism from previous culture. merrem IV wa given. . 06/13 22:04 Order name: Basic Metabolic Panel; Complete Time: 23:12 dc 06/13 22:04 Order name: CBC with Diff dc 06/13 22:04 Order name: LFT's; Complete Time: 23:12 dc 06/13 22:04 Order name: NT PRO-BNP; Complete Time: 23:12 dc 06/13 22:04 Order name: PT-INR; Complete Time: 23:12 dc 06/13 22:04 Order name: Troponin (emerg Dept Use Only); Complete Time: 23:12 dc 06/13 22:04 Order name: XRAY Chest (1 view) dc 06/13 22:04 Order name: EKG; Complete Time: 22:27 dc 06/13 22:19 Order name: Urine Culture [facility] 06/13 22:24 Order name: Urine Microscopic Only; Complete Time: 23:12 EDNJ 06/14 00:54 Order name: CBC Smear Scan [facility] 06/13 22:04 Order name: Cardiac monitoring; Complete Time: 22:25 dc 06/13 22:04 Order name: EKG - Nurse/Tech; Complete Time: 22:24 dc 06/13 22:04 Order name: IV Saline Lock; Complete Time: 22:24 dc 06/13 22:04 Order name: Labs collected and sent; Complete Time: 22:24 dc 06/13 22:04 Order name: O2 Per Protocol; Complete Time: 22:05 dc 06/13 22:04 Order name: O2 Sat Monitoring; Complete Time: 22:05 dc 06/13 22:04 Order name: Urine Dipstick-Ancillary (obtain specimen); Complete Time: 22:19 dc Administered Medications: 06/13 23:31 Drug: Meropenem 1000 mg Route: IV; Rate: mg/hr; Site: left antecubital; jb4 06/14 00:30 Follow up: Response: No adverse reaction; IV Status: Completed infusion jb4 Disposition: 06/14/18 00:21 Hospitalization ordered by Carlos Lopez for Observation. Preliminary diagnosis is Acute UTI. - Bed requested for Telemetry/MedSurg (observation). - Status is Observation. jb4 - Condition is Stable. - Problem is chronic. - Symptoms have improved. UTI on Admission? Yes Signatures: Dispatcher [employer] EDNJ Aliya Caballero RN RN mw Myers, Amanda, RN RN aj Bryson, James, RN RN jb4 Av De Luna MD MD wa Corrections: (The following items were deleted from the chart) 06/13 22:32 22:26 UA MICROSCOPIC+U.LAB.BRZ ordered. EDNJ EDNJ 22:37 22:24 Urine Culture ordered. [facility] 06/14 00:43 00:21 Hospitalization Ordered by Carlos Lopez MD for Observation. Preliminary diagnosis is Acute UTI. Bed requested for Telemetry/MedSurg (observation). Status is Observation. Condition is Stable. Problem is chronic. Symptoms have improved. UTI on Admission? Yes. dc 01:42 00:43 06/14/2018 00:21 Hospitalization Ordered by Carlos Lopez MD for Observation. [facility] Preliminary diagnosis is Acute UTI. Bed requested for Telemetry/MedSurg (observation). Status is Observation. Condition is Stable. Problem is chronic. Symptoms have improved. UTI on Admission? Yes.
[2018-06-14 00:54] LABS: Blood Morphology Comment NOT SEEN (NOT SEEN); Platelet Estimate ADEQ; Urine White Blood Cell Casts OK
[2018-06-14] MEDS ORDERED: MORPHINE 2 MG/ML SYR IV PRN (01:15)
[2018-06-14] MEDS ORDERED: ONDANSETRON 4 MG/2 ML VIAL IV PRN (01:15)
[2018-06-14] MEDS ORDERED: ACETAMINOPHEN 500 MG TAB PO PRN (01:15)
[2018-06-14] MEDS: NA CHLORIDE 0.9% 1,000 ML IV SCH ×2 (02:21→12:56)
[2018-06-14 05:34] VITALS: BMI 20.8
--- NOTE | 2018-06-14 07:10 | EKG ---
Test Date: 2018-06-13 Test Time: 22:25:20 [employer] Technician: BONNIE MEASUREMENT RESULTS: Intervals: Rate: 55 OH: 134 QRSD: 90 QT: 438 QTc: 419 Apex: P: 39 OH: 134 QRS: 85 T: 46 INTERPRETIVE STATEMENTS: Sinus bradycardia Otherwise normal ECG Compared to ECG 02/26/2018 13:01:53 No significant changes Electronically Signed On 06-14-18 07:09:32 SAP BPC ARCHITECT by Son Ferguson
[2018-06-14 08:25] LABS: Absolute Lymphocytes (CBC) 0.6 K/uL (0.7-4.9); Absolute Neutrophil 8.7 K/uL (1.8-8.0); Basophils % 0.3 % (0-1.3); Eosinophils % 0.2 % (0-4.4); Hematocrit 34.4 % (39.6-49.0); Lymphocytes % 5.7 % (15.3-44.8); MCH 30.4 pg (27.0-35.0); MCV 90.4 fL (80-100); MPV 9.1 fL (7.6-11.3); Monocytes % 9.5 % (3.3-12.3)
[2018-06-14] MEDS ORDERED: LACTULOSE 20 GM/30 ML UCUP PO PRN (08:37)
[2018-06-14 08:38] LABS: Phosphorus 2.9 mg/dL (2.5-4.9); Potassium 4.2 mmol/L (3.5-5.1)
[2018-06-14] MEDS ORDERED: Meropenem 500 MG VIAL IV SCH (09:00)
--- NOTE | 2018-06-14 09:32 | RAD REPORT ---
EXAM DESCRIPTION: Evelyn Single View06/13/2018 10:44 pm CLINICAL HISTORY: Fever COMPARISON: April 2018 FINDINGS: The lungs appear clear of acute infiltrate. The heart is normal size. Aorta is tortuous/ectatic Calcified hilar lymph nodes and calcified lung granulomas seen IMPRESSION: No acute abnormalities displayed
[2018-06-14] MEDS: AMLODIPINE 10 MG TAB PO SCH (09:40)
[2018-06-14] MEDS: TAMSULOSIN 0.4 MG SR CAP PO SCH (09:40)
[2018-06-14] MEDS: Meropenem 500 MG in NA CHLORIDE 0.9% 100 ML IV SCH ×2 (09:40→20:36)
--- NOTE | 2018-06-14 10:30 | P.HP ---
Certification for Inpatient Patient admitted to: Observation With expected LOS: <2 Midnights Patient will require the following post-hospital care: None Practitioner: I am a practitioner with admitting privileges, knowledge of patient current condition, hospital course, and medical plan of care. Services: Services provided to patient in accordance with Admission requirements found in Title 42 Section 412.3 of the Code of Federal Regulations Patient History Date of Service: 06/14/18 Reason for admission: Suprapubic tenderness with purulent drainage History of Present Illness: Patient is a 73-year-old gentleman with a history of stroke, and pt is not really able to give much history. Patient presents to the hospital with suprapubic tenderness & drainage from the wound where a suprapubic catheter was placed. Patient's drainage was discolored and greenish. Patient was started on IV Merrem as patient has a history of ESBL resistant organism. This appears to be Pseudomonas which should be susceptible to Merrem. Await culture results. Allergies donepezil [From Aricept] Allergy (Verified 01/07/18 11:46) Itching/Hives/Rash Home Medications: Amlodipine [Norvasc] 10 mg PO DAILY 06/14/18 Finasteride [Proscar] 5 mg PO BEDTIME 06/14/18 Lactulose [Cephulac] 20 gm PO BEDTIME 06/14/18 Meclizine HCl [Antivert] 12.5 mg PO BID 06/14/18 Memantine HCl [Namenda] 2 tab PO BEDTIME 06/14/18 Mirtazapine [Remeron] 15 mg PO BEDTIME 06/14/18 Omeprazole 20 mg PO DAILY 06/14/18 Tamsulosin [Flomax] 0.4 mg PO DAILY 06/14/18 Trazodone [Desyrel] 50 mg PO BEDTIME 06/14/18 - Past Medical/Surgical History Has patient received pneumonia vaccine in the past: Yes Diabetic: No -: Recurrent UTI with history of ESBL -: Hypertension -: Hypertension hyperlipidemia -: Benign prostatic hyperplasia now with suprapubic catheter -: Gout -: CAD -: Alzheimer's dementia with behavioral disturbance -: Chronic renal disease, stage II -: History of Renal cell carcinoma -: History left nephrectomy, right partial nephrectomy -: History tobacco/alcohol abuse -: History AAA repair -: Left nephrectomy -: Partial right nephrectomy -: AAA repair -: Kidney stents x3 -: Suprapubic catheter Psychosocial/ Personal History: The patient lives with his son. He is fully dependent on the son. Patient is a . - Family History Father Medical History: Cancer Notes: kidney Mother Medical History: Cancer Notes: throat, lung Brother Medical History: Cancer - Social History Smoking Status: Never smoker Alcohol use: No CD- Drugs: No Caffeine use: No Place of Residence: Home Review of Systems 10-point ROS is otherwise unremarkable Physical Examination - Vital Signs Temperature: 97.8 F Blood Pressure: 154/85 Pulse: 63 Respirations: 18 Pulse Ox (%): 99 - Physical Exam General: Alert, In no apparent distress, Oriented x3 HEENT: Atraumatic, PERRLA, Mucous membr. moist/pink, EOMI, Sclerae nonicteric Neck: Supple, 2+ carotid pulse no bruit, No LAD, Without JVD or thyroid abnormality Respiratory: Clear to auscultation bilaterally, Normal air movement Cardiovascular: Regular rate/rhythm, Normal S1 S2 Gastrointestinal: Normal bowel sounds, No tenderness Musculoskeletal: No tenderness Integumentary: No rashes Neurological: Normal gait, Normal speech, Normal strength at 5/5 x4 extr, Normal tone, Normal affect, Other (Suprapubic tenderness) Lymphatics: No axilla or inguinal lymphadenopathy Urinary: Suprapubic catheter (With purulent drainage around the catheter) - Studies Laboratory Data (last 24 hrs) 06/13/18 22:22: PT 12.9 H, INR 1.09 06/13/18 22:22: WBC 10.0, Hgb 12.3 L, Hct 35.8 L, Plt Count 162 06/13/18 22:22: Sodium 141, Potassium 4.6, BUN 43 H, Creatinine 2.00 H, Glucose 111 H, Total Bilirubin 0.4, AST 16, ALT 16, Alkaline Phosphatase 87 Assessment & Plan - Problems (Diagnosis) (1) Obstructive uropathy Current Visit: Yes Status: Acute (2) Dehydration Onset Date: 07/01/17 Current Visit: No Status: Acute (3) UTI (urinary tract infection) Onset Date: 01/07/18 Current Visit: No Status: Acute Qualifiers: (4) Coronary artery disease Onset Date: 07/01/17 Current Visit: No Status: Chronic Qualifiers: (5) Essential hypertension Onset Date: 07/01/17 Current Visit: No Status: Chronic (6) History of ischemic stroke without residual deficits Onset Date: 07/01/17 Current Visit: No Status: Chronic - Plan 1. Continue with IV hydration 2. Continue with IV antibiotics 3. Continue with pain control 4. NPO 5. Urology consultation; outpatient colonoscopy/cystoscopy in 6-12 weeks 6. Serial H&H, and we will monitor CBC, BMP, LFTs and lipase along with electrolytes. 7. GI and DVT prophylaxis Discharge Plan: Home Plan to discharge in: 48 Hours - Advance Directives Does patient have a Living Will: Yes Does patient have a Durable POA for Healthcare: Yes - Code Status/Comfort Care Code Status Assessed: Yes Code Status: Full Code Critical Care: Yes Time Spent Managing PTS Care (In Minutes): 50
--- NOTE | 2018-06-14 11:20 | P.PN ---
Subjective Date of Service: 06/14/18 Primary Care Provider: Dr. Pulido Chief Complaint: Suprapubic tenderness with purulent drainage Subjective: Doing well, Demented Physical Examination - Vital Signs Temperature: 97.8 F Blood Pressure: 154/85 Pulse: 63 Respirations: 18 Pulse Ox (%): 99 - Physical Exam General: Alert, In no apparent distress, Demented HEENT: Atraumatic Neck: Supple Respiratory: Clear to auscultation bilaterally, Normal air movement Cardiovascular: Normal pulses, Regular rate/rhythm Gastrointestinal: Normal bowel sounds, Soft and benign, Non-distended, No masses , No rebound, No guarding Musculoskeletal: No tenderness, No warmth Integumentary: No erythema, No warmth, No cyanosis Neurological: Normal speech, Normal strength at 5/5 x4 extr, Normal tone, Dementia Urinary: Suprapubic catheter - Studies Laboratory Data (last 24 hrs) 06/13/18 22:22: PT 12.9 H, INR 1.09 06/13/18 22:22: WBC 10.0, Hgb 12.3 L, Hct 35.8 L, Plt Count 162 06/13/18 22:22: Sodium 141, Potassium 4.6, BUN 43 H, Creatinine 2.00 H, Glucose 111 H, Total Bilirubin 0.4, AST 16, ALT 16, Alkaline Phosphatase 87 Medications List Reviewed: Yes Assessment & Plan Discharge Plan: Home Plan to discharge in: 48 Hours Physician Review Additional Text: Impression: Recurrent UTI with history of complicated UTI and prior culture positive for ESBL Benign prostatic hyperplasia with recent side cystoscopy, TURP, suprapubic catheter placement Alzheimer's dementia, early onset without behavioral disturbance History of CVA without residual deficit Hypertension Acute on chronic kidney disease, stage III Insomnia Chronic constipation Anemia of chronic disease Plan: Recurrent UTI with history of complicated UTI and prior culture positive for ESBL: Will continue with IV antibiotic therapy-meropenem. Suspect ESBL again. Will monitor closely. Await urine culture results. Will continue with IV fluids. Benign prostatic hyperplasia with recent side cystoscopy, TURP, suprapubic catheter placement: Suprapubic catheter in place. Will continue with medications-Flomax and Proscar. Will monitor closely. Alzheimer's dementia, early onset without behavioral disturbance: Will review and restart home medication. Overall stable. History of CVA without residual deficit: Will continue with DVT prophylaxis. Will monitor closely. Hypertension: Will continue with home medication-Norvasc. Will monitor and adjust appropriately. Acute on chronic kidney disease, stage III: Patient with mild dehydration. Will continue with IV fluids. Will monitor and adjust appropriately. Insomnia: Will continue with home medication. Chronic constipation: Will provide medications-docusate and lactulose as needed. Anemia of chronic disease: Will monitor closely. Time Spent Managing Pts Care (In Minutes): 55
[2018-06-14] MEDS ORDERED: DOCUSATE NA 100 MG CAP PO PRN (11:22)
[2018-06-14] MEDS ORDERED: MIRTAZAPINE 15 MG TAB PO PRN (12:00)
[2018-06-14] MEDS: FINASTERIDE 5 MG TAB PO SCH (20:37)
[2018-06-14] MEDS: MEMANTINE HCL 10 MG TABLET PO SCH (20:37)
[2018-06-15] MEDS: TRAZODONE 50 MG TABLET PO PRN ×2 (00:48→20:11)
[2018-06-15] MEDS: PANTOPRAZOLE 40MG TABLET PO SCH (05:36)
[2018-06-15] MEDS: NA CHLORIDE 0.9% 1,000 ML IV SCH ×2 (05:36→19:02)
[2018-06-15 05:59] LABS: Absolute Lymphocytes (CBC) 0.4 K/uL (0.7-4.9); Absolute Monocytes 0.6 K/uL (0.1-1.3); Absolute Neutrophil 4.6 K/uL (1.8-8.0); Basophils % 0.3 % (0-1.3); Eosinophils % 1.2 % (0-4.4); Hematocrit 31.8 % (39.6-49.0); Lymphocytes % 6.7 % (15.3-44.8); MCH 30.9 pg (27.0-35.0); MCV 89.8 fL (80-100); MPV 9.9 fL (7.6-11.3); RBC Red Blood Cell Count 3.54 M/uL (4.33-5.43)
[2018-06-15 06:23] LABS: Magnesium 1.9 mg/dL (1.8-2.4)
[2018-06-15] MEDS ORDERED: HOME MED 1 EA UNK (Omeprazole [Omeprazole] 20 MG) PO SCH (09:00)
[2018-06-15] MEDS: AMLODIPINE 10 MG TAB PO SCH (09:34)
[2018-06-15] MEDS: Meropenem 500 MG in NA CHLORIDE 0.9% 100 ML IV SCH ×2 (09:34→20:10)
[2018-06-15] MEDS: TAMSULOSIN 0.4 MG SR CAP PO SCH (09:35)
--- NOTE | 2018-06-15 14:58 | P.PN ---
Subjective Date of Service: 06/15/18 (Hospitalist) Primary Care Provider: Dr. Pulido Chief Complaint: Suprapubic tenderness with purulent drainage Subjective: Improving (Patient doing well no new complaints) Review of Systems Unremarkable Physical Examination - Vital Signs Temperature: 97.6 F Blood Pressure: 140/85 Pulse: 85 Respirations: 16 Pulse Ox (%): 97 - Physical Exam General: Alert, Oriented x3, Cooperative Neck: Supple Respiratory: Clear to auscultation bilaterally Cardiovascular: No edema Gastrointestinal: Normal bowel sounds, Soft and benign - Studies Microbiology Data (last 24 hrs): 06/13/18 22:32 Catheterized Urine [place] Count - Final >100,000 CFU/ML. 06/13/18 22:32 Catheterized Urine - Final Kluyvera Ascorbata Medications List Reviewed: Yes Assessment & Plan - Problems (Diagnosis) (1) UTI related to indwelling catheter Onset Date: 04/10/18 Current Visit: No Status: Acute Plan: Patient is doing well he does have any has he has ESBL infection and will need 2 weeks of meropenem will plan for a PICC line discharged home once meropenem as been setup patient's renal function is improving although is little hypernatremic continue with IV fluids Physician Review Additional Text: Impression: Recurrent UTI with history of complicated UTI and prior culture positive for ESBL Benign prostatic hyperplasia with recent side cystoscopy, TURP, suprapubic catheter placement Alzheimer's dementia, early onset without behavioral disturbance History of CVA without residual deficit Hypertension Acute on chronic kidney disease, stage III Insomnia Chronic constipation Anemia of chronic disease Plan: Recurrent UTI with history of complicated UTI and prior culture positive for ESBL: Will continue with IV antibiotic therapy-meropenem. Suspect ESBL again. Will monitor closely. Await urine culture results. Will continue with IV fluids. Benign prostatic hyperplasia with recent side cystoscopy, TURP, suprapubic catheter placement: Suprapubic catheter in place. Will continue with medications-Flomax and Proscar. Will monitor closely. Alzheimer's dementia, early onset without behavioral disturbance: Will review and restart home medication. Overall stable. History of CVA without residual deficit: Will continue with DVT prophylaxis. Will monitor closely. Hypertension: Will continue with home medication-Norvasc. Will monitor and adjust appropriately. Acute on chronic kidney disease, stage III: Patient with mild dehydration. Will continue with IV fluids. Will monitor and adjust appropriately. Insomnia: Will continue with home medication. Chronic constipation: Will provide medications-docusate and lactulose as needed. Anemia of chronic disease: Will monitor closely.
[2018-06-15] MEDS: FINASTERIDE 5 MG TAB PO SCH (20:10)
[2018-06-15] MEDS: MEMANTINE HCL 10 MG TABLET PO SCH (20:11)
[2018-06-16] MEDS: PANTOPRAZOLE 40MG TABLET PO SCH (05:44)
[2018-06-16 06:21] LABS: Absolute Lymphocytes (CBC) 0.5 K/uL (0.7-4.9); Absolute Monocytes 0.7 K/uL (0.1-1.3); Absolute Neutrophil 2.4 K/uL (1.8-8.0); Basophils % 0.6 % (0-1.3); Eosinophils % 3.5 % (0-4.4); Hematocrit 30.5 % (39.6-49.0); Lymphocytes % 14.4 % (15.3-44.8); MCH 30.7 pg (27.0-35.0); MCV 89.5 fL (80-100); MPV 9.8 fL (7.6-11.3); Monocytes % 17.4 % (3.3-12.3); RBC Red Blood Cell Count 3.41 M/uL (4.33-5.43)
[2018-06-16 06:50] LABS: Magnesium 1.6 mg/dL (1.8-2.4); Potassium 4.1 mmol/L (3.5-5.1)
[2018-06-16] MEDS ORDERED: MAGNESIUM SULFATE 1 gm IVPB 1 GM/100 ML BAG IV ONE (07:00)
--- NOTE | 2018-06-16 07:12 | RAD REPORT ---
EXAM DESCRIPTION: RAD - Chest Single View - 06/15/2018 11:29 pm CLINICAL HISTORY: PICC line placement A preliminary report was provided at the time of the study and reviewed prior to final report. COMPARISON: June 13 FINDINGS: Portable chest was obtained following placement of a left upper extremity PICC line. The c atheter tip is in the distal SVC.
[2018-06-16] MEDS: NA CHLORIDE 0.9% 1,000 ML IV SCH ×2 (07:20→20:16)
[2018-06-16] MEDS: Meropenem 500 MG in NA CHLORIDE 0.9% 100 ML IV SCH ×2 (09:01→20:13)
[2018-06-16] MEDS: TAMSULOSIN 0.4 MG SR CAP PO SCH (09:02)
[2018-06-16] MEDS: AMLODIPINE 10 MG TAB PO SCH (09:02)
[2018-06-16] MEDS ORDERED: NACL 0.9% IV SCH (10:00)
[2018-06-16] MEDS ORDERED: GENTAMICIN IV SCH (10:00)
[2018-06-16] MEDS ORDERED: IRR IV SCH (10:00)
--- NOTE | 2018-06-16 15:25 | P.PN ---
Subjective Date of Service: 06/16/18 Primary Care Provider: Dr. Pulido Chief Complaint: Suprapubic tenderness with purulent drainage pt seen and examined at bedside and chart reviewed. Case DW with Urology. No complains to offer. Working with PT at this time. Review of Systems 10-point ROS is otherwise unremarkable Physical Examination - Vital Signs Temperature: 97.8 F Blood Pressure: 176/83 Pulse: 69 Respirations: 18 Pulse Ox (%): 94 - Physical Exam General: Alert, In no apparent distress, Oriented x1 HEENT: Atraumatic, PERRLA, EOMI Neck: Supple, JVD not distended Respiratory: Clear to auscultation bilaterally, Normal air movement Cardiovascular: Regular rate/rhythm, Normal S1 S2 Gastrointestinal: Normal bowel sounds, No tenderness Musculoskeletal: No tenderness Integumentary: No rashes Neurological: Normal speech, Normal tone, Normal affect Lymphatics: No axilla or inguinal lymphadenopathy - Studies Medications List Reviewed: Yes Assessment And Plan - Current Problems (Diagnosis) (1) Toxic encephalopathy Onset Date: 03/04/18 Current Visit: No Status: Acute Plan: AMS most likely 2.2 to UTI -Recurrent UTI with history of complicated UTI and prior culture positive for ESBL -Will continue with IV antibiotic therapy-meropenem. -Urine Culture + for ESBL again. Will monitor closely. (2) UTI (urinary tract infection) Onset Date: 06/16/18 Current Visit: Yes Status: Acute Plan: -Recurrent UTI with history of complicated UTI and prior culture positive for ESBL -This Culture + for ESBL as well -IV meropenum for now -Urology consulted. Appreciate [facility] Qualifiers: Urinary tract infection type: catheter-associated UTI Indwelling urinary catheter type: cystostomy catheter Encounter type: initial encounter Qualified Code(s): T83.510A - Infection and inflammatory reaction due to cystostomy catheter, initial encounter; N39.0 - Urinary tract infection, site not specified (3) Alzheimer disease Onset Date: 07/01/17 Current Visit: No Status: Chronic Qualifiers: Alzheimer's disease onset: early-onset Dementia behavioral disturbance: without behavioral disturbance Qualified Code(s): G30.0 - Alzheimer's disease with early onset; F02.80 - Dementia in other diseases classified elsewhere without behavioral disturbance (4) BPH (benign prostatic hyperplasia) Onset Date: 03/04/18 Current Visit: No Status: Chronic Plan: Benign prostatic hyperplasia with recent side cystoscopy, TURP, suprapubic catheter placement: Suprapubic catheter in place. Will continue with medications-Flomax and Proscar. Will monitor closely. Qualifiers: Lower urinary tract symptom detail: unspecified (5) CKD (chronic kidney disease) stage 3, GFR 30-59 ml/min Onset Date: 07/01/17 Current Visit: No Status: Chronic (6) Coronary artery disease Onset Date: 07/01/17 Current Visit: No Status: Chronic Qualifiers: Coronary Disease-Associated Artery/Lesion type: [place] artery [place] vs. transplanted heart: [place] heart Associated angina: without angina Qualified Code(s): I25.10 - Atherosclerotic heart disease of [place] coronary artery without angina pectoris (7) Essential hypertension Onset Date: 07/01/17 Current Visit: No Status: Chronic (8) GERD (gastroesophageal reflux disease) Onset Date: 03/04/18 Current Visit: No Status: Suspected Qualifiers: Esophagitis presence: without esophagitis Qualified Code(s): K21.9 - Gastro -esophageal reflux disease without esophagitis Discharge Plan: Home Plan to discharge in: 48 Hours - Code Status/Comfort Care Code Status Assessed: Yes Critical Care: No
--- NOTE | 2018-06-16 16:28 | CON ---
History Of Present Illness: A 73-year-old gentleman with history of stroke, BPH , urinary retention with a suprapubic tube. He is also status post TURP. The patient had a suprapubic tube, but has been dressed daily. The wound is not able to breathe and has some greenish purulent. Grew very resistant bug. He grew Kluyvera ascorbata only sensitive to meropenem and Amikacin. He is currently getting IV meropenem, but I think this may be over treatment. He may just need the wound to be opened up, air dry, cleaning up with Betadine 3 times a day should be enough. I will change his Ro catheter tomorrow. I have ordered a Ro catheter bag to be changed and also some bladder irrigations for him. I think the wound just needs to breathe so it can heal and drain. Past Medical History: As mentioned above patient has stroke, BPH, urinary retention, UTI, ESBL, hypertension, gout, Alzheimer's, solitary kidney, chronic renal disease, history of renal cell carcinoma, left radical nephrectomy, right partial nephrectomy, history of tobacco abuse, AAA, kidney stents, suprapubic catheter. Home Medications: Amlodipine, finasteride, lactulose, meclizine, , Remeron , omeprazole, tamsulosin, ___, Proscar, and Flomax. Past Surgical History: He had a TURP. Allergies: ARICEPT. Family History: Noncontributory. Social History: Nonsmoking. Resides at home. No caffeine use. No alcohol use. Review of Systems: A 10-point review of systems otherwise unremarkable. Physical Examination: Vital Signs: Afebrile, stable. HEENT: Normocephalic, atraumatic. Neck: Supple. Respiratory: Clear. Cardiovascular: S1-S2. Gastrointestinal: Soft. Skin: Suprapubic was covered with Cob[place] and 4x4. site unable to breathe, it was opened up. There was some drainage on the 4x4, left the wound open, covered this with a diaper. Assessment And Plan: Suprapubic tube infection by the skin area. We will leave area open up to drain. Clean the area with Betadine 3 times a day. Continue meropenem for another day. Bladder irrigation for another day. Discharge the patient home soon. PB/LORENA Voice ID: [id number] Report ID: [id number] SIER[place]
[2018-06-16] MEDS: FINASTERIDE 5 MG TAB PO SCH (20:13)
[2018-06-16] MEDS: MEMANTINE HCL 10 MG TABLET PO SCH (20:14)
[2018-06-17 05:44] LABS: Absolute Lymphocytes (CBC) 0.7 K/uL (0.7-4.9); Absolute Monocytes 0.6 K/uL (0.1-1.3); Absolute Neutrophil 2.1 K/uL (1.8-8.0); Basophils % 0.7 % (0-1.3); Eosinophils % 5.9 % (0-4.4); Hematocrit 32.1 % (39.6-49.0); Lymphocytes % 18.8 % (15.3-44.8); MCH 30.3 pg (27.0-35.0); MPV 9.3 fL (7.6-11.3); Monocytes % 15.8 % (3.3-12.3); RBC Red Blood Cell Count 3.57 M/uL (4.33-5.43)
[2018-06-17 06:00] LABS: Magnesium 1.8 mg/dL (1.8-2.4); Potassium 4.2 mmol/L (3.5-5.1)
[2018-06-17] MEDS: PANTOPRAZOLE 40MG TABLET PO SCH (06:11)
[2018-06-17 06:38] LABS: Blood Morphology Comment NOT SEEN (NOT SEEN); Platelet Estimate ADEQ
[2018-06-17 06:39] LABS: Anisocytosis 1+
[2018-06-17] MEDS: NA CHLORIDE 0.9% 1,000 ML IV SCH ×2 (10:10→22:39)
[2018-06-17] MEDS: Meropenem 500 MG in NA CHLORIDE 0.9% 100 ML IV SCH ×2 (10:10→22:40)
[2018-06-17] MEDS: AMLODIPINE 10 MG TAB PO SCH (10:12)
[2018-06-17] MEDS: TAMSULOSIN 0.4 MG SR CAP PO SCH (10:12)
--- NOTE | 2018-06-17 13:23 | P.PN ---
Subjective Date of Service: 06/17/18 Primary Care Provider: Dr. Pulido Chief Complaint: Suprapubic tenderness with purulent drainage pt seen and examined at bedside and chart reviewed. Case DW with Urology. No complains to offer. Working with PT at this time. Talked to patient family regarding the plan of care. Pt is Currently doing better. Will be ready to be Discharged [place] AM as family needs some time to setup the house for his return. Review of Systems 10-point ROS is otherwise unremarkable Physical Examination - Vital Signs Temperature: 98.1 F Blood Pressure: 146/86 Pulse: 82 Respirations: 18 Pulse Ox (%): 98 - Physical Exam General: Alert, In no apparent distress, Oriented x2 HEENT: Atraumatic, PERRLA, EOMI Neck: Supple, JVD not distended Respiratory: Clear to auscultation bilaterally, Normal air movement Cardiovascular: Regular rate/rhythm, Normal S1 S2 Gastrointestinal: Normal bowel sounds, No tenderness Musculoskeletal: No tenderness Integumentary: No rashes Neurological: Normal speech, Normal tone, Normal affect Lymphatics: No axilla or inguinal lymphadenopathy - Studies Medications List Reviewed: Yes Assessment And Plan - Current Problems (Diagnosis) (1) Toxic encephalopathy Onset Date: 03/04/18 Current Visit: No Status: Acute Plan: AMS most likely 2.2 to UTI -Recurrent UTI with history of complicated UTI and prior culture positive for ESBL -pt is Chronic colonizer for ESBL -Urine Culture + for ESBL again. -urology consulted. Appreciate [facility] -DC home after Gentamycin clean out (2) UTI (urinary tract infection) Onset Date: 06/16/18 Current Visit: Yes Status: Acute Plan: -Recurrent UTI with history of complicated UTI and prior culture positive for ESBL -This Culture + for ESBL as well -Urology consulted. Appreciate Re[facility] -DC home now. -No further need for Abx as patient is chronic colonizer Qualifiers: Urinary tract infection type: catheter-associated UTI Indwelling urinary catheter type: cystostomy catheter Encounter type: initial encounter Qualified Code(s): T83.510A - Infection and inflammatory reaction due to cystostomy catheter, initial encounter; N39.0 - Urinary tract infection, site not specified (3) Alzheimer disease Onset Date: 07/01/17 Current Visit: No Status: Chronic Qualifiers: Alzheimer's disease onset: early-onset Dementia behavioral disturbance: without behavioral disturbance Qualified Code(s): G30.0 - Alzheimer's disease with early onset; F02.80 - Dementia in other diseases classified elsewhere without behavioral disturbance (4) BPH (benign prostatic hyperplasia) Onset Date: 03/04/18 Current Visit: No Status: Chronic Plan: Benign prostatic hyperplasia with recent cystoscopy, TURP, suprapubic catheter placement -Will continue with medications-Flomax and Proscar. Qualifiers: Lower urinary tract symptom detail: unspecified (5) CKD (chronic kidney disease) stage 3, GFR 30-59 ml/min Onset Date: 07/01/17 Current Visit: No Status: Chronic (6) Coronary artery disease Onset Date: 07/01/17 Current Visit: No Status: Chronic Qualifiers: Coronary Disease-Associated Artery/Lesion type: [place] artery [place] vs. transplanted heart: [place] heart Associated angina: without angina Qualified Code(s): I25.10 - Atherosclerotic heart disease of [place] coronary artery without angina pectoris (7) Essential hypertension Onset Date: 07/01/17 Current Visit: No Status: Chronic (8) GERD (gastroesophageal reflux disease) Onset Date: 03/04/18 Current Visit: No Status: Suspected Qualifiers: Esophagitis presence: without esophagitis Qualified Code(s): K21.9 - Gastro -esophageal reflux disease without esophagitis Discharge Plan: Home Plan to discharge in: 24 Hours - Code Status/Comfort Care Code Status Assessed: Yes Critical Care: No
[2018-06-17] MEDS ORDERED: MECLIZINE HCL 12.5 MG TAB PO PRN (14:41)
--- NOTE | 2018-06-17 20:37 | PN ---
Subjective: Patient is stable, doing well. Objective: Patient is stable. Afebrile. Vital signs are stable. The suprapubic site is now clean. No more pus coming from the site, looks good. No redness. No signs of infection. Assessment: Suprapubic site infection. Plan: We are going ahead and change to our 16-[place] Ro suprapubic kit. He now has a new Ro a nd a new bag to go home. He is discharged home. Family is to clean the area with soap and water payal ry day. Only breathable dressing should be on the site or no dressing at all and there is to continu e irrigating his bladder also as prescribed previously every day. The patient can follow up with me in 1 month. MEENA/LORENA Voice ID: [id number] Report ID: [id number]
[2018-06-17] MEDS ORDERED: LORAZEPAM 1 MG TABLET PO SCH (21:00)
[2018-06-17] MEDS: FINASTERIDE 5 MG TAB PO SCH (22:40)
[2018-06-17] MEDS: FERROUS SULFATE 325 MG TAB PO SCH (22:40)
[2018-06-17] MEDS: MEMANTINE HCL 10 MG TABLET PO SCH (22:40)
[2018-06-18 00:41] VITALS: O2SAT 95
[2018-06-18] MEDS: PANTOPRAZOLE 40MG TABLET PO SCH (06:12)
[2018-06-18] MEDS: Meropenem 500 MG in NA CHLORIDE 0.9% 100 ML IV SCH (08:27)
[2018-06-18] MEDS: FERROUS SULFATE 325 MG TAB PO SCH (08:27)
[2018-06-18] MEDS: TAMSULOSIN 0.4 MG SR CAP PO SCH (08:27)
[2018-06-18] MEDS: AMLODIPINE 10 MG TAB PO SCH (08:28)
[2018-06-18] MEDS ORDERED: ASPIRIN EC 81 MG TAB PO SCH (09:00)
[2018-06-18] MEDS ORDERED: VITAMIN D 1000 UNIT TAB PO SCH (09:00)
[2018-06-18] MEDS: NA CHLORIDE 0.9% 1,000 ML IV SCH (12:40)
--- NOTE | 2018-06-18 16:23 | PN ---
Subjective: The patient is feeling rather well and ready to go home. Objective: Vital Signs: Temperature 98.2, pulse 102, respirations 16, BP 144/83. Assessment: Status post urinary tract infection and suprapubic tube infection positive dr gaxiola, clean. Bladder has been irrigated with gentamicin irrigation. Urine looks clear and the pat ient is ready for discharge. He is to follow up with me in 1 month for suprapubic change in the offi ce. PB/MODL Voice ID: [id number] Report ID: [id number]
--- NOTE | 2018-06-18 16:38 | P.DS ---
Admission Date: 06/15/18 Discharge Date: 06/18/18 Primary Care Provider: Dr. Pulido Disposition: ROUTINE DISCHARGE Discharge Condition: GOOD Reason for Admission: Suprapubic tenderness with purulent drainage Consultations: Urology - Dr Little Procedures: Suprapubic catheter revisit - Problems (1) Toxic encephalopathy Onset Date: 03/04/18 Current Visit: No Status: Acute (2) UTI (urinary tract infection) Onset Date: 06/16/18 Current Visit: Yes Status: Acute Qualifiers: Urinary tract infection type: catheter-associated UTI Indwelling urinary catheter type: cystostomy catheter Encounter type: initial encounter Qualified Code(s): T83.510A - Infection and inflammatory reaction due to cystostomy catheter, initial encounter; N39.0 - Urinary tract infection, site not specified (3) Alzheimer disease Onset Date: 07/01/17 Current Visit: No Status: Chronic Qualifiers: Alzheimer's disease onset: early-onset Dementia behavioral disturbance: without behavioral disturbance Qualified Code(s): G30.0 - Alzheimer's disease with early onset; F02.80 - Dementia in other diseases classified elsewhere without behavioral disturbance (4) BPH (benign prostatic hyperplasia) Onset Date: 03/04/18 Current Visit: No Status: Chronic Qualifiers: Lower urinary tract symptom detail: unspecified (5) CKD (chronic kidney disease) stage 3, GFR 30-59 ml/min Onset Date: 07/01/17 Current Visit: No Status: Chronic (6) Coronary artery disease Onset Date: 07/01/17 Current Visit: No Status: Chronic Qualifiers: Coronary Disease-Associated Artery/Lesion type: [place] artery [place] vs. transplanted heart: [place] heart Associated angina: without angina Qualified Code(s): I25.10 - Atherosclerotic heart disease of [place] coronary artery without angina pectoris (7) Essential hypertension Onset Date: 07/01/17 Current Visit: No Status: Chronic (8) GERD (gastroesophageal reflux disease) Onset Date: 03/04/18 Current Visit: No Status: Suspected Qualifiers: Esophagitis presence: without esophagitis Qualified Code(s): K21.9 - Gastro -esophageal reflux disease without esophagitis Brief History of Present Illness: Patient is a 73-year-old gentleman with a history of stroke, and pt is not really able to give much history. Patient presents to the hospital with suprapubic tenderness & drainage from the wound where a suprapubic catheter was placed. Patient's drainage was discolored and greenish. Patient was started on IV Merrem as patient has a history of ESBL resistant organism. This appears to be Pseudomonas which should be susceptible to Merrem. Await culture results. Hospital Course: Overall during the hospital stay patient remained stable The patient was admitted to the hospital initially for toxic metabolic encephalopathy most likely secondary to UTI. Patient has a chronic indwelling suprapubic catheter that was removed recently and started noticing drainage from the area. Urology was consulted who recommended the patient received 3 days of IV meropenem and then be washed away gentamicin and be sent home after that. Patient had IV meropenem here in the hospital. Did also have gentamicin washout. After which he did feel better and thus was discharged home under stable condition. Patient is a chronic colonizer of the es BL. Infectious disease was also consulted who agreed with the plan. Patient's family and patient at bedside were educated extensively and patient was discharged home under stable condition once patient had marked improvement in his symptoms. Vital Signs/Physical Exam: Temp Pulse Resp BP Pulse Ox 97.4 F 85 16 124/79 98 06/18/18 12:00 06/18/18 12:00 06/18/18 12:00 06/18/18 12:00 06/18/18 12:00 General: Alert, In no apparent distress HEENT: Atraumatic, PERRLA, EOMI Neck: Supple, JVD not distended Respiratory: Clear to auscultation bilaterally, Normal air movement Cardiovascular: Regular rate/rhythm, Normal S1 S2 Gastrointestinal: Normal bowel sounds, No tenderness Musculoskeletal: No tenderness Integumentary: No rashes Neurological: Normal speech, Normal tone, Normal affect Lymphatics: No axilla or inguinal lymphadenopathy Laboratory Data at Discharge: WBC 3.6 K/uL (4.3-10.9) L 06/17/18 05:31 Hgb 10.8 g/dL (13.6-17.9) L 06/17/18 05:31 Hct 32.1 % (39.6-49.0) L 06/17/18 05:31 Plt Count 140 K/uL (152-406) L 06/17/18 05:31 PT 12.9 SECONDS (9.5-12.5) H 06/13/18 22:22 INR 1.09 06/13/18 22:22 Sodium 144 mmol/L (136-145) 06/17/18 05:31 Potassium 4.2 mmol/L (3.5-5.1) 06/17/18 05:31 BUN 31 mg/dL (7-18) H 06/17/18 05:31 Creatinine 1.30 mg/dL (0.55-1.3) 06/17/18 05:31 Glucose 95 mg/dL (74-106) 06/17/18 05:31 Phosphorus 2.9 mg/dL (2.5-4.9) 06/14/18 08:14 Magnesium 1.8 mg/dL (1.8-2.4) 06/17/18 05:31 Total Bilirubin 0.4 mg/dL (0.2-1.0) 06/13/18 22:22 AST 16 U/L (15-37) 06/13/18 22:22 ALT 16 U/L (12-78) 06/13/18 22:22 Alkaline Phosphatase 87 U/L (45-117) 06/13/18 22:22 Home Medications: Amlodipine [Norvasc*] 5 mg PO DAILY 06/14/18 Finasteride [Proscar*] 5 mg PO BEDTIME 06/14/18 Lactulose [Cephulac*] 20 gm PO DAILY 06/14/18 Meclizine HCl [Antivert*] 12.5 mg PO BID PRN 06/14/18 Memantine HCl [Namenda*] 2 tab PO BID 06/14/18 Mirtazapine [Remeron] 15 mg PO BEDTIME 06/14/18 Omeprazole 20 mg PO DAILY PRN 06/14/18 Tamsulosin [Flomax*] 0.4 mg PO BEDTIME 06/14/18 Trazodone [Desyrel*] 100 mg PO BEDTIME 06/14/18 Aspirin [Aspir-Low] 81 mg PO DAILY 06/15/18 Cholecalciferol (Vitamin D3) [Vitamin D3] 1,000 unit PO DAILY 06/15/18 Ferrous Sulfate [Iron] 325 mg PO BID 06/15/18 LORazepam [Ativan*] 1 mg PO BEDTIME 06/15/18 Patient Discharge Instructions: Please f.u with PCP and Dr Little in 2 week post discharge. No New medication Diet: Regular Activity: Ad anjel Followup: Mary Little MD [ACTIVE - CAN ADMIT] - 1-2 Weeks (Call for appointment.) Be Vazquez MD [ACTIVE - CAN ADMIT] - 1 Week (Call for appointment.) Mike Pulido, [Primary Care Provider] - 1 Week (Call for appointment.)
[2018-06-18 17:32] VITALS: BP 157/81; TEMP 98
== END 2018-06-18 17:09 | disposition home health service (06) | DRG 698 ==
LOC: ER 20:08 → ERHOLD 06-14 00:43 → 2ND 06-14 01:24 → OBSVTOIN 06-15 16:10
PROVIDERS: ADMIT Hospitalist; ATTEND Family Medicine
PROC: 02HV33Z Insertion of Infusion Device into Superior Vena Cava, Percutaneous Approach (ICD-10-PCS; principal; 2018-06-15)
PROC: B548ZZA Ultrasonography of Superior Vena Cava, Guidance (ICD-10-PCS; 2018-06-15)
DX: T83.511A Infection and inflammatory reaction due to indwelling urethral catheter, initial encounter (principal); G92 Toxic encephalopathy; N17.9 Acute kidney failure, unspecified; N39.0 Urinary tract infection, site not specified; N99.511 Cystostomy infection; G30.0 Alzheimer's disease with early onset; F02.80 Dementia in other diseases classified elsewhere, unspecified severity, without behavioral disturbance, psychotic disturbance, mood disturbance, and anxiety; N40.1 Benign prostatic hyperplasia with lower urinary tract symptoms; I25.10 Atherosclerotic heart disease of native coronary artery without angina pectoris; K21.9 Gastro-esophageal reflux disease without esophagitis; I12.9 Hypertensive chronic kidney disease with stage 1 through stage 4 chronic kidney disease, or unspecified chronic kidney disease; N18.3 Chronic kidney disease, stage 3 (moderate); Z86.73 Personal history of transient ischemic attack (TIA), and cerebral infarction without residual deficits; E78.5 Hyperlipidemia, unspecified; Z85.528 Personal history of other malignant neoplasm of kidney; Z90.5 Acquired absence of kidney; Z87.891 Personal history of nicotine dependence; E86.0 Dehydration; G47.00 Insomnia, unspecified; K59.09 Other constipation
CPT/HCPCS: 36415; 71045; 80048; 80076; 81015; 83735; 83880; 84100; 84484; 85025; 85610; 87077; 87086; 87088; 87186; 93005; 96365; 97163; 99285; G0378; J1580; J2185; J3475; J7030

== ENCOUNTER 2018-07-13 06:44 | Emergency (ER) | payer OTHER ==
--- OUTSIDE RECORDS SUMMARY | 2018-07-13 06:47 | XMS REPORT | Clinical Summary ---
:1945 Author Organization [facility] Address [address] [place] [address] Care Team Providers Name Role Phone Magdy Page MD Primary Care Provider Unavailable Allergies Active Allergy Reactions Severity Noted Date Comments Donepezil Anaphylaxis High 08/08/2017 Medications Medication Sig Dispensed Refills Start Date End Date Status HYDROcodone-acetaminophen Take 1 tablet 0 Active (NORCO) 5-325 mg per by mouth every tablet 6 (six) hours as needed for moderate pain. amLODIPine (NORVASC) 10 Take 10 mg by 0 Active mg tablet mouth daily. bisacodyl 5 mg tablet Take by mouth. 0 Active cephalexin (KEFLEX) 500 Take 500 mg by 0 Active MG capsule mouth 4 (four) times a day. cholecalciferol, vitamin Take 1,000 0 Active D3, (VITAMIN D3) 1,000 Units by mouth unit tablet daily. senna (SENOKOT) 8.6 mg Take 1 tablet 0 Active tablet by mouth daily. ferrous sulfate, as mg of Take 15 mg by 0 Active FE, (ZIGGY-IN-HANH) 15 mg mouth daily. iron (75 mg)/mL drops hydroCHLOROthiazide Take 12.5 mg by 0 Active (HYDRODIURIL) 12.5 MG mouth daily. tablet lactulose (CEPHULAC) 10 Take 10 g by 0 Active gram packet mouth 3 (three) times a day. memantine (NAMENDA) 10 MG Take 10 mg by 0 Active tablet mouth 2 (two) times a day. menthol-zinc oxide Apply topically 0 Active (CALMOSEPTINE) 0.44-20.6 as needed. % ointment ondansetron (ZOFRAN) 4 MG Take 4 mg by 0 Active tablet mouth every 8 (eight) hours as needed for nausea or vomiting. POLYETHYLENE GLYCOL 3350 Take by mouth. 0 Active (MIRALAX ORAL) simethicone 80 mg tablet Take by mouth. 0 Active tamsulosin (FLOMAX) 0.4 Take 0.4 mg by 0 Active mg capsule,extended mouth daily. release 24hr cholecalciferol, vitamin Take 50,000 0 Active D3, (DECARA) 50,000 unit Units by mouth capsule daily. Hospital, Clinic, or Other Ordered Dose Route Frequency Start Date End Date Status Facility Administered Medication cefTRIAXone (ROCEPHIN) 1 g IM once 08/08/2017 08/08/2017 Ended injection 1 gIndications: Kidney stone Active Problems Not on file Encounters Date Type Specialty Care Team Description 09/04/2017 Hospital Encounter Radiology Gayle Norman MD 09/04/2017 Hospital Encounter Radiology Gayle Norman MD 09/04/2017 Hospital Encounter Radiology Gayle Norman MD 09/04/2017 Telephone Neurology [...] 08/07/2017 Telephone Urology Barbara Brooks MA after 07/12/2017 Social History Tobacco Use Types Packs/Day Years Used Date Former Smoker Smokeless Tobacco: Former User Alcohol Use Drinks/Week oz/Week Comments No Sex Assigned at Date Recorded Not on file Job Start Date Occupation Industry Not on file Not on file Not on file Travel History Travel Start Travel End No recent travel history available. Last Filed Vital Signs Not on file Plan of Treatment Health Maintenance Due Date Last Done Comments COLON CANCER SCREENING 1997 SHINGRIX VACCINE (1 of 2) 1997 ZOSTER VACCINE 2007 PNEUMOCOCCAL POLYSACCHARIDE VACCINE AGE 65 AND OVER 02/08/2012 PNEUMOCOCCAL-13 02/08/2012 INFLUENZA VACCINE 03/05/2018 Results Not on fileafter 07/12/2017 Insurance Payer Benefit Plan / Group Subscriber ID Type Phone Address MEDICARE MEDICARE PART A AND B xxxxxxxxxx Medicare [place], [place] MEDICAID MEDICAID xxxxxxxxx Medicaid Advance Directives Patient has advance care planning documents on file. For more information, please contact:Emeka Chiang[address] [place] [address]
--- NOTE | 2018-07-13 08:33 | ER ---
Nurse's Notes [facility] Name: Adam Rosas Age: 73 yrs Sex: Male : 1945 Arrival Date: 07/13/2018 Time: 06:55 Bed 14 Private MD: Diagnosis: Displacement of cystostomy catheter Presentation: 07/13 06:45 Presenting complaint: EMS states: pulled out his suprapubic catheter at 0600H this cc3 morning. Transition of care: [facility]. Onset of symptoms was July 13, 2018. Risk Assessment: Do you want to hurt yourself or someone else? Patient reports no desire to harm self or others. Initial Sepsis Screen: Does the patient meet any 2 criteria? No. Patient's initial sepsis screen is negative. Does the patient have a suspected source of infection? No. Patient's initial sepsis screen is negative. Care prior to arrival: None. 06:45 Method Of Arrival: EMS: [facility] cc3 06:45 Acuity: SCOTT 4 cc3 Triage Assessment: 06:45 General: Appears in no apparent distress. comfortable, Behavior is calm, cooperative. cc3 Pain: Denies pain. : pulled out suprapubic catheter. Historical: - Allergies: 06:45 Aricept; cc3 - Home Meds: 06:45 allopurinol 300 mg Oral tab 1 tab once daily [Active]; amlodipine 5 mg tab 1 tab once cc3 daily [Active]; amlodipine 2.5 mg tab 1 tab for BP over 130 systolic [Active]; bisacodyl 5 mg Oral chew 2 tabs once daily [Active]; bisacodyl 5 mg Oral chew 1 tab once daily [Active]; ferrous sulfate 325 mg (65 mg iron) Oral tab [Active]; ferrous sulfate 325 mg (65 mg iron) Oral chew twice a day [Active]; finasteride 5 mg Oral tab 1 tab once daily [Active]; hydrochlorothiazide 12.5 mg Oral tab 1 tab once daily [Active]; memantine 10 mg Oral tab 1 tab daily [Active]; mirtazapine 15 mg Oral tab 1 tab once daily [Active]; tamsulosin 0.4 mg Oral cp24 1 cap once daily [Active]; trazodone 50 mg Oral tab 1 tab nightly [Active]; - PMHx: 06:45 Alzheimers; CVA; Dementia; Hyperlipidemia; Hypertension; kidney cancer; kidney failure; cc3 Kidney stones; one kidney; suprapubic cathter; - Immunization history:: Adult Immunizations unknown. - Social history:: Smoking status: unknown. - Ebola Screening: : No symptoms or risks identified at this time. Screenin:45 Abuse screen: Denies threats or abuse. Denies injuries from another. Nutritional cc3 screening: No deficits noted. Tuberculosis screening: No symptoms or risk factors identified. Fall Risk Ambulatory Aid- None/Bed Rest/Nurse Assist (0 pts). Gait- Impaired (20 pts.). Mental Status- Overestimates/Forgets Limitations (15 pts.). Assessment: 07:00 General: Appears in no apparent distress. uncomfortable, Behavior is calm, cooperative, jl7 appropriate for age. Pain: Denies pain. Neuro: Level of Consciousness is obeys commands. Cardiovascular: Patient's skin is warm and dry. Respiratory: Airway is patent Respiratory effort is even, unlabored, Respiratory pattern is regular, symmetrical. Derm: Skin is pink, warm \T\ dry. 08:00 Reassessment: No changes from previously documented assessment. Patient and/or family jl7 updated on plan of care and expected duration. Pain level reassessed. Patient is alert, oriented x 3, equal unlabored respirations, skin warm/dry/pink. Vital Signs: 06:45 BP 132 / 80; Pulse 77; Resp 19 S; Temp 98.5(O); Pulse Ox 99% on R/A; cc3 08:00 BP 130 / 79; Pulse 75; Resp 16 S; Pulse Ox 99% on R/A; jl7 ED Course: 06:45 Arm band placed on right wrist. cc3 06:45 Patient has correct armband on for positive identification. Bed in low position. Call cc3 light in reach. Side rails up X2. Pulse ox on. NIBP on. 06:55 Patient arrived in ED. ds1 06:57 Report given to YUNIEL Benedict. cc3 07:00 Marichuy Mejia RN is Primary Nurse. jl7 07:00 Ronda Sutherland FNP-C is PHCP. snw 07:00 Crow Figueroa MD is Attending Physician. snw 07:06 Triage completed. cc3 08:00 No provider procedures requiring assistance completed. Patient did not have IV access [facility] during this emergency room visit. 08:25 Urine collected: Ro catheter specimen, cloudy, blood tinged. [facility] Administered Medications: No medications were administered Outcome: 08:32 Discharge ordered by . priti 08:58 [facility] Attempted to call report several times with no answer at [facility] facility. Pt's POA transported pt back to facility at this time. 08:58 Condition: stable 08:58 Discharge instructions given to patient, family, Instructed on discharge instructions, follow up and referral plans. Demonstrated understanding of instructions, follow-up care. 09:02 Patient left the ED. [facility] Signatures: Ronda Sutherland, ELECTRICAL MAINTENANCE ENGINEER-C ELECTRICAL MAINTENANCE ENGINEER-Csnw Caroline Diaz ds1 Marichuy Mejia RN RN jl7 Magalys Cope cc3
--- NOTE | 2018-07-13 08:34 | EDPHYS ---
Physician Documentation [facility] Name: Adam Rosas Age: 73 yrs Sex: Male : 1945 Arrival Date: 07/13/2018 Time: 06:55 Bed 14 Private MD: ED Physician Crow Figueroa HPI: 07/13 07:03 This 73 yrs old Male presents to ER via Unassigned with complaints of pulled snw out supra-pubic cath. 07:03 The patient presents with a Virk catheter problem, was pulled out accidentally. Onset: snw The symptoms/episode began/occurred suddenly. Associated signs and symptoms: The patient has no apparent associated signs or symptoms. Severity of symptoms: At their worst the symptoms were very mild. It is unknown whether or not the patient has had similar symptoms in the past. appt with Dr. Little 07/16/18. Historical: - Allergies: 06:45 Aricept; cc3 - Home Meds: 06:45 allopurinol 300 mg Oral tab 1 tab once daily [Active]; amlodipine 5 mg tab 1 tab once cc3 daily [Active]; amlodipine 2.5 mg tab 1 tab for BP over 130 systolic [Active]; bisacodyl 5 mg Oral chew 2 tabs once daily [Active]; bisacodyl 5 mg Oral chew 1 tab once daily [Active]; ferrous sulfate 325 mg (65 mg iron) Oral tab [Active]; ferrous sulfate 325 mg (65 mg iron) Oral chew twice a day [Active]; finasteride 5 mg Oral tab 1 tab once daily [Active]; hydrochlorothiazide 12.5 mg Oral tab 1 tab once daily [Active]; memantine 10 mg Oral tab 1 tab daily [Active]; mirtazapine 15 mg Oral tab 1 tab once daily [Active]; tamsulosin 0.4 mg Oral cp24 1 cap once daily [Active]; trazodone 50 mg Oral tab 1 tab nightly [Active]; - PMHx: 06:45 Alzheimers; CVA; Dementia; Hyperlipidemia; Hypertension; kidney cancer; kidney failure; cc3 Kidney stones; one kidney; suprapubic cathter; - Immunization history:: Adult Immunizations unknown. - Social history:: Smoking status: unknown. - Ebola Screening: : No symptoms or risks identified at this time. ROS: 07:04 Constitutional: Negative for fever, chills, and weight loss, Eyes: Negative for injury, snw pain, redness, and discharge, ENT: Negative for injury, pain, and discharge, Neck: Negative for injury, pain, and swelling, Cardiovascular: Negative for chest pain, palpitations, and edema, Respiratory: Negative for shortness of breath, cough, wheezing, and pleuritic chest pain, Abdomen/GI: Negative for abdominal pain, nausea, vomiting, diarrhea, and constipation, Back: Negative for injury and pain, : Negative for injury, bleeding, discharge, and swelling, pulled supra-pubic cath MS/Extremity: Negative for injury and deformity, Skin: Negative for injury, rash, and discoloration. 07:04 Neuro: Positive for dementia hx. Exam: 07:07 Head/Face: Normocephalic, atraumatic. Eyes: Pupils equal round and reactive to light, snw extra-ocular motions intact. Lids and lashes normal. Conjunctiva and sclera are non-icteric and not injected. Cornea within normal limits. Periorbital areas with no swelling, redness, or edema. ENT: Nares patent. No nasal discharge, no septal abnormalities noted. Tympanic membranes are normal and external auditory canals are clear. Oropharynx with no redness, swelling, or masses, exudates, or evidence of obstruction, uvula midline. Mucous membranes moist. Neck: Trachea midline, no thyromegaly or masses palpated, and no cervical lymphadenopathy. Supple, full range of motion without nuchal rigidity, or vertebral point tenderness. No Meningismus. Chest/axilla: Normal chest wall appearance and motion. Nontender with no deformity. No lesions are appreciated. Cardiovascular: Regular rate and rhythm with a normal S1 and S2. No gallops, murmurs, or rubs. Normal PMI, no JVD. No pulse deficits. Respiratory: Lungs have equal breath sounds bilaterally, clear to auscultation and percussion. No rales, rhonchi or wheezes noted. No increased work of breathing, no retractions or nasal flaring. Abdomen/GI: Soft, non-tender, with normal bowel sounds. No distension or tympany. No guarding or rebound. No evidence of tenderness throughout. Suprapubic area with stoma, no erythema, active bleeding. 16F virk at bedside pulled out per pt with balloon intact. 16F virk placed without difficulty per solid waste technician upon assessment, cloudy urine returned. Urine sent for U-davion and culture Back: No spinal tenderness. No costovertebral tenderness. Full range of motion. Skin: Warm, dry with normal turgor. Normal color with no rashes, no lesions, and no evidence of cellulitis. MS/ Extremity: Pulses equal, no cyanosis. Neurovascular intact. Full, normal range of motion. Neuro: Awake and alert, GCS 15, oriented to person, place, time, and situation. Cranial nerves II-XII grossly intact. Motor strength 5/5 in all extremities. Sensory grossly intact. Cerebellar exam normal. Normal gait. 07:07 Constitutional: The patient appears awake, noncommunicative Vital Signs: 06:45 BP 132 / 80; Pulse 77; Resp 19 S; Temp 98.5(O); Pulse Ox 99% on R/A; cc3 08:00 BP 130 / 79; Pulse 75; Resp 16 S; Pulse Ox 99% on R/A; jl7 MDM: 07:02 Patient medically screened. snw 08:33 Data reviewed: vital signs, nurses notes. Data interpreted: Pulse oximetry: on room air snw is 99 %. Interpretation: normal. Counseling: I had a detailed discussion with the patient and/or guardian regarding: the historical points, exam findings, and any diagnostic results supporting the discharge/admit diagnosis. 07/13 07:03 Order name: Urine Microscopic Only: Suprapubic; Complete Time: 09:23 snw 07/13 07:03 Order name: Urine Culture snw Administered Medications: No medications were administered Disposition: 07/13/18 08:32 Discharged to Home. Impression: Displacement of cystostomy catheter. - Condition is Stable. - Discharge Instructions: Suprapubic Catheter Replacement. - Medication Reconciliation Form, Thank You Letter, Antibiotic Education, Prescription Opioid Use form. - Follow up: Private Physician; When: 2 - 3 days; Reason: Recheck today's complaints, Continuance of care, Re-evaluation by your physician. Follow up: Emergency Department; When: As needed; Reason: Worsening of condition. Addendum: 07/16/2018 21:53 Co-signature as Attending Physician, Crow Figueroa MD Available for consultation at p s1 all times. . Signatures: [facility] Ronda Sutherland, CHISEL WORKER-C CHISEL WORKER-Csnw Marichuy Mejia, RN RN jl7 Crow Figueroa MD MD [facility] Magalys Cope cc3 Corrections: (The following items were deleted from the chart) 07/13 09:02 08:32 07/13/2018 08:32 Discharged to Home. Impression: Displacement of cystostomy jl7 catheter. Condition is Stable. Forms are Medication Reconciliation Form, Thank You Letter, Antibiotic Education, Prescription Opioid Use. Follow up: Private Physician; When: 2 - 3 days; Reason: Recheck today's complaints, Continuance of care, Re-evaluation by your physician. Follow up: Emergency Department; When: As needed; Reason: Worsening of condition. snw
[2018-07-13 09:07] VITALS: TEMP 98.5; O2SAT 99
[2018-07-13 09:08] VITALS: BP 130/79
[2018-07-13 09:19] LABS: Urine Bacteria <20 /HPF (NONE SEEN)
[2018-07-13 09:20] LABS: Urine Culture Reflex Order NOT NEEDED; Urine RBC >50 /HPF (NONE SEEN)
== END 2018-07-13 09:02 | disposition home or self-care (01) ==
LOC: ER 06:44
DX: T83.89XA Other specified complication of genitourinary prosthetic devices, implants and grafts, initial encounter (principal); G30.9 Alzheimer's disease, unspecified; F02.80 Dementia in other diseases classified elsewhere, unspecified severity, without behavioral disturbance, psychotic disturbance, mood disturbance, and anxiety; E78.5 Hyperlipidemia, unspecified; I10 Essential (primary) hypertension; N19 Unspecified kidney failure; Z79.899 Other long term (current) drug therapy; Z86.73 Personal history of transient ischemic attack (TIA), and cerebral infarction without residual deficits; Z85.528 Personal history of other malignant neoplasm of kidney
CPT/HCPCS: 81015; 87077; 87086; 87088; 87186; 99283

== ENCOUNTER 2018-07-20 03:26 | Emergency (ER) | payer OTHER ==
--- OUTSIDE RECORDS SUMMARY | 2018-07-20 03:28 | XMS REPORT | Clinical Summary ---
:1945 Author Organization [facility] [employer] Address [address] [place] [address] Care Team Providers Name Role Phone Magdy [...] 08/07/2017 Telephone Urology Barbara Brooks MA after 07/19/2017 Social History Tobacco Use Types Packs/Day Years [...] Last Done Comments COLON CANCER SCREENING 1997 SHINGLES VACCINES (1 of 2) 1997 PNEUMOCOCCAL POLYSACCHARIDE VACCINE AGE 65 AND OVER 02/08/2012 PNEUMOCOCCAL-13 02/08/2012 INFLUENZA VACCINE 03/05/2018 Results Not on fileafter 07/19/2017 Insurance Payer Benefit Plan / Group Subscriber ID Type Phone Address MEDICARE MEDICARE PART A AND B xxxxxxxxxx Medicare [place], [place] MEDICAID MEDICAID xxxxxxxxx Medicaid Advance Directives Patient has advance care planning documents on file. For more information, please contact:Emeka Chiang[address] [place] [address]
--- NOTE | 2018-07-20 04:04 | EDPHYS ---
Physician Documentation [facility] Name: Adam Rosas Age: 73 yrs Sex: Male : 1945 Arrival Date: 07/20/2018 Time: 03:27 Bed 16 Private MD: ED Physician Carlos Washburn HPI: 07/20 03:57 This 73 yrs old Male presents to ER via EMS with complaints of pulled ma2 suprapubic catheter accidently . 03:57 Onset: The symptoms/episode began/occurred suddenly, 4 hour(s) ago. Associated signs ma2 and symptoms: Pertinent negatives: cramping, dyspareunia, fever. Severity of symptoms: At their worst the symptoms were moderate, in the emergency department the symptoms are unchanged. The patient has not experienced similar symptoms in the past. Historical: - Allergies: 03:27 Aricept; jb4 - Home Meds: 03:27 allopurinol 300 mg Oral tab 1 tab once daily [Active]; amlodipine 5 mg tab 1 tab once jb4 daily [Active]; amlodipine 2.5 mg tab 1 tab for BP over 130 systolic [Active]; bisacodyl 5 mg Oral chew 2 tabs once daily [Active]; bisacodyl 5 mg Oral chew 1 tab once daily [Active]; ferrous sulfate 325 mg (65 mg iron) Oral tab [Active]; ferrous sulfate 325 mg (65 mg iron) Oral chew twice a day [Active]; finasteride 5 mg Oral tab 1 tab once daily [Active]; hydrochlorothiazide 12.5 mg Oral tab 1 tab once daily [Active]; memantine 10 mg Oral tab 1 tab daily [Active]; mirtazapine 15 mg Oral tab 1 tab once daily [Active]; tamsulosin 0.4 mg Oral cp24 1 cap once daily [Active]; trazodone 50 mg Oral tab 1 tab nightly [Active]; - PMHx: 03:27 Alzheimers; CVA; Dementia; Hyperlipidemia; Hypertension; kidney cancer; kidney failure; jb4 Kidney stones; one kidney; suprapubic cathter; - Immunization history:: Adult Immunizations unknown. - Social history:: Smoking status: unknown Patient/guardian denies using alcohol, street drugs, The patient lives with family. - Ebola Screening: : No symptoms or risks identified at this time. - Family history:: not pertinent. ROS: 03:57 Positive for suprapubic cath pulled . ma2 03:57 Constitutional: Negative for fever, chills, and weight loss, Eyes: Negative for injury, pain, redness, and discharge, ENT: Negative for injury, pain, and discharge, Neck: Negative for injury, pain, and swelling. 03:57 All other systems are negative. Exam: 03:57 Constitutional: This is a well developed, well nourished patient who is awake, alert, ma2 and in no acute distress. Head/Face: Normocephalic, atraumatic. Neck: Trachea midline, no thyromegaly or masses palpated, and no cervical lymphadenopathy. Supple, full range of motion without nuchal rigidity, or vertebral point tenderness. No Meningismus. Chest/axilla: Normal chest wall appearance and motion. Nontender with no deformity. No lesions are appreciated. Cardiovascular: Regular rate and rhythm with a normal S1 and S2. No gallops, murmurs, or rubs. Normal PMI, no JVD. No pulse deficits. Respiratory: Lungs have equal breath sounds bilaterally, clear to auscultation and percussion. No rales, rhonchi or wheezes noted. No increased work of breathing, no retractions or nasal flaring. 03:57 : a suprapubic catheter is noted, suprapubic catheter absent . Vital Signs: 03:27 BP 164 / 84; Pulse 73; Resp 18; Temp 99.0(O); Pulse Ox 100% on R/A; Weight 68.04 kg jb4 (R); Height 5 ft. 11 in. (180.34 cm) (R); Pain 0/10; 04:00 BP 157 / 96; Pulse 73; Resp 16; Pulse Ox 100% on R/A; jb4 04:30 BP 173 / 87; Pulse 65; Resp 16; Pulse Ox 100% on R/A; jb4 03:27 Body Mass Index 20.92 (68.04 kg, 180.34 cm) jb4 Procedures: 03:57 Ro cath inserted by myself - 16 Fr. Returned clear yellow urine. Balloon inflated. ma2 suprapubic. MDM: 03:36 Patient medically screened. ma2 03:57 Differential diagnosis: cath pulled accidently unlikely uti or trauma. Data reviewed: ma2 vital signs, nurses notes, EMS record. Counseling: I had a detailed discussion with the patient and/or guardian regarding: the historical points, exam findings, and any diagnostic results supporting the discharge/admit diagnosis, the presence of at least one elevated blood pressure reading (>120/80) during this emergency department visit, the need for outpatient follow up. Administered Medications: No medications were administered Disposition: 07/20/18 04:03 Discharged to Home. Impression: Displacement of other indwelling urethral catheter. - Condition is Stable. - Discharge Instructions: Suprapubic Catheter Replacement, Care After. - SBAR form, Medication Reconciliation Form, Thank You Letter, Antibiotic Education, Prescription Opioid Use form. - Follow up: Private Physician; When: Tomorrow; Reason: Continuance of care. Signatures: Adam Garner RN RN jb4 Carlos Washburn MD MD ma2 Corrections: (The following items were deleted from the chart) 05:06 04:03 07/20/2018 04:03 Discharged to Home. Impression: Displacement of other indwelling jb4 urethral catheter. Condition is Stable. Forms are Medication Reconciliation Form, Thank You Letter, Antibiotic Education, Prescription Opioid Use. Follow up: Private Physician; When: Tomorrow; Reason: Continuance of care. ma2
--- NOTE | 2018-07-20 04:04 | ER ---
Nurse's Notes [facility] Name: Adam Rosas Age: 73 yrs Sex: Male : 1945 Arrival Date: 07/20/2018 Time: 03:27 Bed 16 Private MD: Diagnosis: Displacement of other indwelling urethral catheter Presentation: 07/20 03:27 Presenting complaint: EMS states: Pt pulled out his feeding tube per skilled nursing staff jb4 report. When they walked into the room the pt was ambulating around the room and the feeding tube was on the floor. 03:27 Transition of care: patient was not received from another setting of care. Onset of jb4 symptoms was July 20, 2018. Risk Assessment: Do you want to hurt yourself or someone else? Patient reports no desire to harm self or others. Initial Sepsis Screen: Does the patient meet any 2 criteria? No. Patient's initial sepsis screen is negative. Does the patient have a suspected source of infection? No. Patient's initial sepsis screen is negative. Care prior to arrival: None. 03:27 Method Of Arrival: EMS: [facility] jb4 03:27 Acuity: SCOTT 3 jb4 Historical: - Allergies: 03:27 Aricept; jb4 - Home Meds: 03:27 allopurinol 300 mg Oral tab 1 tab once daily [Active]; amlodipine 5 mg tab 1 tab once jb4 daily [Active]; amlodipine 2.5 mg tab 1 tab for BP over 130 systolic [Active]; bisacodyl 5 mg Oral chew 2 tabs once daily [Active]; bisacodyl 5 mg Oral chew 1 tab once daily [Active]; ferrous sulfate 325 mg (65 mg iron) Oral tab [Active]; ferrous sulfate 325 mg (65 mg iron) Oral chew twice a day [Active]; finasteride 5 mg Oral tab 1 tab once daily [Active]; hydrochlorothiazide 12.5 mg Oral tab 1 tab once daily [Active]; memantine 10 mg Oral tab 1 tab daily [Active]; mirtazapine 15 mg Oral tab 1 tab once daily [Active]; tamsulosin 0.4 mg Oral cp24 1 cap once daily [Active]; trazodone 50 mg Oral tab 1 tab nightly [Active]; - PMHx: 03:27 Alzheimers; CVA; Dementia; Hyperlipidemia; Hypertension; kidney cancer; kidney failure; jb4 Kidney stones; one kidney; suprapubic cathter; - Immunization history:: Adult Immunizations unknown. - Social history:: Smoking status: unknown Patient/guardian denies using alcohol, street drugs, The patient lives with family. - Ebola Screening: : No symptoms or risks identified at this time. - Family history:: not pertinent. Screenin:27 Abuse screen: Denies threats or abuse. Nutritional screening: No deficits noted. jb4 Tuberculosis screening: No symptoms or risk factors identified. Fall Risk None identified. Assessment: 03:27 General: Appears in no apparent distress. comfortable, Behavior is calm, cooperative, jb4 appropriate for age. Pain: Denies pain. Neuro: Level of Consciousness is awake, alert, obeys commands, Oriented to person, This is pt's reported norm per EMS report.. Cardiovascular: Patient's skin is warm and dry. Respiratory: Airway is patent Respiratory effort is even, unlabored, Respiratory pattern is regular, symmetrical. GI: No signs and/or symptoms were reported involving the gastrointestinal system. : Suprapubic catheter ostomy noted to pelvic region. Pt removed suprapubic catheter prior to arrival. EENT: No signs and/or symptoms were reported regarding the EENT system. Derm: Skin is intact, Skin is pink, warm \T\ dry. Musculoskeletal: Circulation, motion, and sensation intact. 03:55 Reassessment: Patient appears in no apparent distress at this time. Patient and/or jb4 family updated on plan of care and expected duration. Pain level reassessed. Patient is alert, oriented x 3, equal unlabored respirations, skin warm/dry/pink. suprapubic catheter replace by ER Physician. 04:10 Reassessment: Patient appears in no apparent distress at this time. Patient and/or jb4 family updated on plan of care and expected duration. Pain level reassessed. Patient is alert, oriented x 3, equal unlabored respirations, skin warm/dry/pink. Pt discharged. Report called to [place]. awaiting EMS transport. 05:00 Reassessment: Patient appears in no apparent distress at this time. Patient and/or jb4 family updated on plan of care and expected duration. Pain level reassessed. Patient is alert, oriented x 3, equal unlabored respirations, skin warm/dry/pink. EMS at the bedside. Vital Signs: 03:27 BP 164 / 84; Pulse 73; Resp 18; Temp 99.0(O); Pulse Ox 100% on R/A; Weight 68.04 kg jb4 (R); Height 5 ft. 11 in. (180.34 cm) (R); Pain 0/10; 04:00 BP 157 / 96; Pulse 73; Resp 16; Pulse Ox 100% on R/A; jb4 04:30 BP 173 / 87; Pulse 65; Resp 16; Pulse Ox 100% on R/A; jb4 03:27 Body Mass Index 20.92 (68.04 kg, 180.34 cm) jb4 ED Course: 03:27 Patient arrived in ED. al2 03:27 Arm band placed on left wrist. jb4 03:27 Patient has correct armband on for positive identification. Bed in low position. Call jb4 light in reach. Side rails up X 1. Pulse ox on. NIBP on. 03:31 Carlos Washburn MD is Attending Physician. ma2 03:36 Adam Garner, RN is Primary Nurse. jb4 03:38 Triage completed. jb4 03:55 Suprapubic catheter replacement. jb4 04:30 Patient did not have IV access during this emergency room visit. jb4 Administered Medications: No medications were administered Outcome: 04:03 Discharge ordered by . ma2 05:00 Discharged to [facility]. Report called to YUNIEL Kaye 05:00 Condition: stable 05:00 Discharge instructions given to [facility], EMS, Instructed on discharge instructions, follow up and referral plans. Demonstrated understanding of instructions, follow-up care. 05:06 Patient left the ED. jb4 Signatures: Adam Garner, RN RN jbLexie Bernstein Mohammad, MD MD ma2
[2018-07-20 05:10] VITALS: TEMP 99; O2SAT 100
[2018-07-20 05:13] VITALS: BP 173/87
== END 2018-07-20 05:06 | disposition home or self-care (01) ==
LOC: ER 03:26
DX: T83.021A Displacement of indwelling urethral catheter, initial encounter (principal); I10 Essential (primary) hypertension; E78.5 Hyperlipidemia, unspecified; G30.9 Alzheimer's disease, unspecified; F02.80 Dementia in other diseases classified elsewhere, unspecified severity, without behavioral disturbance, psychotic disturbance, mood disturbance, and anxiety; Z88.8 Allergy status to other drugs, medicaments and biological substances; Z85.528 Personal history of other malignant neoplasm of kidney; Z86.73 Personal history of transient ischemic attack (TIA), and cerebral infarction without residual deficits
CPT/HCPCS: 51702; 99283

== ENCOUNTER 2018-07-22 08:50 | Emergency (ER) | payer OTHER ==
--- OUTSIDE RECORDS SUMMARY | 2018-07-22 08:59 | XMS REPORT | Clinical Summary ---
:1945 Author Organization [facility] Address [address] [place] [address] Care Team Providers Name Role Phone Magdy [...] 08/07/2017 Telephone Urology Barbara Brooks MA after 07/21/2017 Social History Tobacco Use Types Packs/Day Years [...] INFLUENZA VACCINE 03/05/2018 Results Not on fileafter 07/21/2017 Insurance Payer Benefit Plan / Group Subscriber ID Type Phone Address MEDICARE MEDICARE PART A AND B xxxxxxxxxx Medicare [place], [place] MEDICAID MEDICAID xxxxxxxxx Medicaid Advance Directives Patient has advance care planning documents on file. For more information, please contact:Emeka Chiang[address] [place] [address]
[2018-07-22 09:39] LABS: Absolute Lymphocytes (CBC) 0.6 K/uL (0.7-4.9); Absolute Monocytes 0.4 K/uL (0.1-1.3); Absolute Neutrophil 5.6 K/uL (1.8-8.0); Basophils % 0.4 % (0-1.3); Eosinophils % 2.7 % (0-4.4); Hematocrit 27.4 % (39.6-49.0); Lymphocytes % 8.8 % (15.3-44.8); MPV 8.5 fL (7.6-11.3); Monocytes % 6.3 % (3.3-12.3); RBC Red Blood Cell Count 2.99 M/uL (4.33-5.43)
[2018-07-22 09:43] LABS: Protime INR 1.03
--- NOTE | 2018-07-22 09:46 | RAD REPORT ---
EXAM DESCRIPTION: RAD - Chest Single View - 07/22/2018 9:40 am CLINICAL HISTORY: AMS Chest pain. COMPARISON: Chest Single View dated 06/15/2018; Chest Single View dated 06/13/2018; Chest Single View dated 04/10/2018; Chest Single View dated 03/04/2018 FINDINGS: Portable technique limits examination quality. The lungs are grossly clear. The heart is normal in size with a tortuous thoracic aorta. No displaced fractures. IMPRESSION: No acute intrathoracic process suspected.
[2018-07-22 10:00] LABS: ALT/SGPT 15 U/L (12-78); AST/SGOT 15 U/L (15-37); Albumin 3.4 g/dL (3.4-5.0); Alkaline Phosphatase 75 U/L (45-117); BUN Blood Urea Nitrogen 37 mg/dL (7-18); Bicarbonate 29 mmol/L (21-32); Bilirubin Direct < 0.1 mg/dL (0-0.2); Bilirubin Total 0.3 mg/dL (0.2-1.0); Glucose Level 88 mg/dL (74-106); Lipase 111 U/L (73-393); Potassium 4.3 mmol/L (3.5-5.1); Protein, Total 6.8 g/dL (6.4-8.2); Sodium Level 144 mmol/L (136-145); Troponin (Emerg Dept Use Only) < 0.02 ng/mL (0.0-0.045)
--- NOTE | 2018-07-22 10:23 | RAD REPORT ---
EXAM DESCRIPTION: CT - Head Brain Wo Cont - 07/22/2018 10:13 am CLINICAL HISTORY: MENTAL STATUS CHANGE Drowsiness COMPARISON: Head Brain Wo Cont dated 02/26/2018 TECHNIQUE: All CT scans are performed using dose optimization technique as appropriate and may inclu de automated exposure control or mA/KV adjustment according to patient size. FINDINGS: No intracranial hemorrhage, hydrocephalus or extra-axial fluid collection.Moderate general ized brain atrophy is present with moderate periventricular and deep white matter chronic microvascul ar ischemic changes.No areas of brain edema or evidence of midline shift. The paranasal sinuses and mastoids are clear. The calvarium is intact. IMPRESSION: No acute intracranial abnormality.
[2018-07-22] MEDS ORDERED: NA CHLORIDE 0.9% 500 ML ONE (10:25)
[2018-07-22 10:55] LABS: Urine Bacteria 20-50 /HPF (NONE SEEN); Urine Culture Reflex Order NOT NEEDED; Urine White Blood Cell Casts 0-5 /LPF (NONE SEEN)
--- NOTE | 2018-07-22 11:07 | EKG ---
Test Date: 2018-07-22 Test Time: 09:03:20 Mining Machinery Assembler: SHERIF MEASUREMENT RESULTS: Intervals: Rate: 76 KS: 146 QRSD: 90 QT: 386 QTc: 434 [place]: P: 69 KS: 146 QRS: 72 T: 68 INTERPRETIVE STATEMENTS: Normal sinus rhythm Normal ECG Compared to ECG 06/13/2018 22:25:20 Sinus bradycardia no longer present Electronically Signed On 07-22-18 11:05:51 WIRE BENDER by Herrera Loera
--- NOTE | 2018-07-22 11:44 | EDPHYS ---
Physician Documentation [facility] Name: Adam Rosas Age: 73 yrs Sex: Male : 1945 Arrival Date: 07/22/2018 Time: 08:58 Bed 3 Private MD: ED Physician Av De Luna HPI: 07/22 10:00 This 73 yrs old Male presents to ER via EMS with complaints of Altered Mental pm1 Status. 10:00 The patient presents with Aggressive behavior towards nursing staff at [facility]. pm1 Onset: The symptoms/episode began/occurred today. Possible causes: Family believes that the change in behavior might be due to UTI as it has in the past. Associated signs and symptoms:. Patient's baseline: Neuro: alert but confused, Motor: no deficits, Ambulation: walks with assist only, uses walker, Speech: normal, The patient has a previous history of CVA, Dementia, Alzheimers. The patient has experienced similar episodes in the past, a few times. Patient presents today with aggressive behavior towards the [facility] staff. Patient has a history of dementia and Alzheimer's. Family reports that the last time that he acted in the manner it was related to a UTI from his suprapubic catheter. Historical: - Allergies: 09:05 Aricept; ph - Home Meds: 09:17 allopurinol 300 mg Oral tab 1 tab once daily [Active]; amlodipine 5 mg tab 1 tab once ph daily [Active]; aspirin 81 mg Oral chew 1 tab once daily [Active]; finasteride 5 mg Oral tab 1 tab once daily [Active]; ferrous sulfate 325 mg (65 mg iron) Oral chew twice a day [Active]; lactulose 20 gram/30 mL Oral soln 30 mL once daily for Constipation [Active]; meclizine 12.5 mg Oral tab 1 tabs 3 times per day for Vertigo [Active]; mirtazapine 15 mg Oral tab 1 tab nightly [Active]; memantine 10 mg Oral tab 1 tab 2 times per day [Active]; omeprazole 20 mg Oral cpDR 1 cap once daily [Active]; simvastatin 20 mg Oral tab 1 tab nightly [Active]; tamsulosin 0.4 mg Oral cp24 1 cap nightly [Active]; trazodone 100 mg oral tab [Active]; venlafaxine 75 mg oral cp24 1 cap once daily [Active]; Vitamin D Oral 1,000 unit daily [Active]; - PMHx: 09:17 Alzheimers; CVA; Dementia; Hyperlipidemia; Hypertension; kidney cancer; kidney failure; ph Kidney stones; one kidney; suprapubic cathter; UTI/ESBL; Gout; - PSHx: 09:17 suprapubic cath; L nephrectomy; AAA repair; R partial nephrectomy; ph - Immunization history:: Adult Immunizations unknown. - Social history:: Smoking status: Patient/guardian denies using tobacco. - Ebola Screening: : No symptoms or risks identified at this time. ROS: 10:00 Constitutional: Negative for fever, chills, and weight loss, Eyes: Negative for injury, pm1 pain, redness, and discharge, ENT: Negative for injury, pain, and discharge, Neck: Negative for injury, pain, and swelling, Cardiovascular: Negative for chest pain, palpitations, and edema, Respiratory: Negative for shortness of breath, cough, wheezing, and pleuritic chest pain, Abdomen/GI: Negative for abdominal pain, nausea, vomiting, diarrhea, and constipation, Back: Negative for injury and pain, : Negative for injury, bleeding, discharge, and swelling. 10:00 MS/Extremity: Negative for injury and deformity, Skin: Negative for injury, rash, and discoloration, Neuro: Negative for headache, weakness, numbness, tingling, and seizure. 10:00 Unable to obtain ROS due to baseline dementia, obtained from family and EMS report. Exam: 10:00 Constitutional: This is a well developed, well nourished patient who is awake, alert, pm1 and in no acute distress. Head/Face: Normocephalic, atraumatic. Eyes: Pupils equal round and reactive to light, extra-ocular motions intact. Lids and lashes normal. Conjunctiva and sclera are non-icteric and not injected. Cornea within normal limits. Periorbital areas with no swelling, redness, or edema. ENT: Nares patent. No nasal discharge, no septal abnormalities noted. Tympanic membranes are normal and external auditory canals are clear. Oropharynx with no redness, swelling, or masses, exudates, or evidence of obstruction, uvula midline. Mucous membranes moist. Neck: Trachea midline, no thyromegaly or masses palpated, and no cervical lymphadenopathy. Supple, full range of motion without nuchal rigidity, or vertebral point tenderness. No Meningismus. Chest/axilla: Normal chest wall appearance and motion. Nontender with no deformity. No lesions are appreciated. Cardiovascular: Regular rate and rhythm with a normal S1 and S2. No gallops, murmurs, or rubs. Normal PMI, no JVD. No pulse deficits. Respiratory: Lungs have equal breath sounds bilaterally, clear to auscultation and percussion. No rales, rhonchi or wheezes noted. No increased work of breathing, no retractions or nasal flaring. Abdomen/GI: Soft, non-tender, with normal bowel sounds. No distension or tympany. No guarding or rebound. No evidence of tenderness throughout. Back: No spinal tenderness. No costovertebral tenderness. Full range of motion. 10:00 MS/ Extremity: Pulses equal, no cyanosis. Neurovascular intact. Full, normal range of motion. 10:00 Skin: injury, small skin tear to left elbow area. 10:00 Neuro: Orientation: Not oriented to person, place, time, situation, his baseline. Motor: moves all fours. Vital Signs: 09:03 BP 146 / 92; Pulse 78; Resp 18; Temp 97.8; Pulse Ox 100% on R/A; ph 09:05 Weight 59.87 kg; ph 10:37 BP 168 / 91; Pulse 81; Resp 16; Pulse Ox 100% on R/A; ph 11:30 BP 167 / 90; Pulse 78; Resp 18; Temp 97.9; Pulse Ox 99% on R/A; ph 12:45 BP 152 / 91; Pulse 81; Resp 18; Temp 97.8; Pulse Ox 99% on R/A; ph MDM: 09:07 Patient medically screened. pm1 11:15 Data interpreted: Pulse oximetry: on room air is 99 %. Interpretation: normal. pm1 11:25 Physician consultation: Mary Little MD was called at 11:32, was contacted at 11:25, pm1 regarding consult, patient's condition, Does not believe that he has an acute UTI and does not require antibiotics because the patient is not septic, does not have a fever, does not have a white count. 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 Likely dementia is the cause for change in behavior at the [facility]. Patient is calm in the ER. 17:29 Data reviewed: vital signs. pm1 07/22 09:08 Order name: Urine Culture pm1 07/22 09:08 Order name: Basic Metabolic Panel; Complete Time: 10:05 pm1 07/22 09:08 Order name: Blood Culture Adult (2) pm1 07/22 09:08 Order name: CBC with Diff; Complete Time: 10:05 pm1 07/22 09:08 Order name: Lactate; Complete Time: 10:05 pm1 07/22 09:08 Order name: LFT's; Complete Time: 10:05 pm1 07/22 09:08 Order name: Lipase; Complete Time: 10:05 pm1 07/22 09:08 Order name: Procalcitonin; Complete Time: 10:40 pm1 07/22 09:08 Order name: Protime (+inr); Complete Time: 10:05 pm1 07/22 09:08 Order name: Ptt, Activated; Complete Time: 10:05 pm1 07/22 09:08 Order name: Troponin (emerg Dept Use Only); Complete Time: 10:05 pm1 07/22 09:08 Order name: Urine Microscopic Only; Complete Time: 11:16 pm1 07/22 09:08 Order name: Chest Single View XRAY; Complete Time: 09:47 pm1 07/22 10:47 Order name: Urine Dipstick--Ancillary (enter results) bd 07/22 09:08 Order name: Accucheck; Complete Time: 09:36 pm1 07/22 09:08 Order name: Cardiac monitoring; Complete Time: 09:10 pm1 07/22 09:08 Order name: EKG - Nurse/Tech; Complete Time: 09:10 pm1 07/22 09:08 Order name: IV Saline Lock - Large Bore; Complete Time: 09:36 pm1 07/22 09:08 Order name: Labs collected and sent; Complete Time: 09:36 pm1 07/22 09:08 Order name: O2 Per Protocol; Complete Time: 09:10 pm1 07/22 09:08 Order name: O2 Sat Monitoring; Complete Time: 09:10 pm1 07/22 09:08 Order name: Urine Dipstick-Ancillary (obtain specimen); Complete Time: 10:38 pm1 07/22 09:48 Order name: CT Head Brain wo Cont; Complete Time: 10:40 pm1 07/22 10:22 Order name: EKG Electrocardiogram EDMS Administered Medications: 10:20 Drug: NS 0.9% 500 ml Route: IV; Rate: bolus; Site: left antecubital; ph Disposition: 07/22/18 11:44 Discharged to Home. Impression: Dementia in other diseases classified elsewhere. - Condition is Stable. - Discharge Instructions: Dementia. - Family Work Release, SBAR form, Medication Reconciliation Form, Thank You Letter, Antibiotic Education, Prescription Opioid Use form. - Follow up: Emergency Department; When: As needed; Reason: Recheck today's complaints, Continuance of care, Re-evaluation by your physician. Follow up: Private Physician; When: 2 - 3 days; Reason: Recheck today's complaints, Continuance of care, Re-evaluation by your physician. - Problem is new. - Symptoms have improved. Addendum: 08/07/2018 15:28 Co-signature as Attending Physician, Av De Luna MD I agree with the assessment and w a plan of care. Signatures: Dispatcher [employer] EDUT Jordyn Gee RN RN ph Claude Lopez, SOYFREEZE OPERATOR SOYFREEZE OPERATOR pm1 Av De Luna MD MD wa Corrections: (The following items were deleted from the chart) 07/22 13:46 11:44 07/22/2018 11:44 Discharged to Home. Impression: Dementia in other diseases ph classified elsewhere. Condition is Stable. Forms are Family Work Release, Medication Reconciliation Form, Thank You Letter, Antibiotic Education, Prescription Opioid Use. Follow up: Emergency Department; When: As needed; Reason: Recheck today's complaints, Continuance of care, Re-evaluation by your physician. Follow up: Private Physician; When: 2 - 3 days; Reason: Recheck today's complaints, Continuance of care, Re-evaluation by your physician. Problem is new. Symptoms have improved. pm1
--- NOTE | 2018-07-22 11:44 | ER ---
Nurse's Notes [facility] Name: Adam Rosas Age: 73 yrs Sex: Male : 1945 Arrival Date: 07/22/2018 Time: 08:58 Bed 3 Private MD: Diagnosis: Dementia in other diseases classified elsewhere Presentation: 07/22 08:58 Presenting complaint:. Transition of care: patient was not received from another setting of care. Onset of symptoms was July 22, 2018. Risk Assessment: Do you want to hurt yourself or someone else? Patient reports no desire to harm self or others. Initial Sepsis Screen: Does the patient meet any 2 criteria? Altered Mental Status. Does the patient have a suspected source of infection? Yes: Catheter related infection (Ro/dialysis/PICC/central line). Care prior to arrival: Glucose check: 109. 08:58 Method Of Arrival: EMS: [facility] 08:58 Acuity: SCOTT 3 ph Historical: - Allergies: 09:05 Aricept; ph - Home Meds: 09:17 allopurinol 300 mg Oral tab 1 tab once daily [Active]; amlodipine 5 mg tab 1 tab once ph daily [Active]; aspirin 81 mg Oral chew 1 tab once daily [Active]; finasteride 5 mg Oral tab 1 tab once daily [Active]; ferrous sulfate 325 mg (65 mg iron) Oral chew twice a day [Active]; lactulose 20 gram/30 mL Oral soln 30 mL once daily for Constipation [Active]; meclizine 12.5 mg Oral tab 1 tabs 3 times per day for Vertigo [Active]; mirtazapine 15 mg Oral tab 1 tab nightly [Active]; memantine 10 mg Oral tab 1 tab 2 times per day [Active]; omeprazole 20 mg Oral cpDR 1 cap once daily [Active]; simvastatin 20 mg Oral tab 1 tab nightly [Active]; tamsulosin 0.4 mg Oral cp24 1 cap nightly [Active]; trazodone 100 mg oral tab [Active]; venlafaxine 75 mg oral cp24 1 cap once daily [Active]; Vitamin D Oral 1,000 unit daily [Active]; - PMHx: 09:17 Alzheimers; CVA; Dementia; Hyperlipidemia; Hypertension; kidney cancer; kidney failure; ph Kidney stones; one kidney; suprapubic cathter; UTI/ESBL; Gout; - PSHx: 09:17 suprapubic cath; L nephrectomy; AAA repair; R partial nephrectomy; ph - Immunization history:: Adult Immunizations unknown. - Social history:: Smoking status: Patient/guardian denies using tobacco. - Ebola Screening: : No symptoms or risks identified at this time. Screenin:07 Abuse screen: Denies threats or abuse. Denies injuries from another. Nutritional ph screening: No deficits noted. Tuberculosis screening: No symptoms or risk factors identified. Fall Risk Fall in past 12 months (25 points). Secondary diagnosis (15 points) dementia, IV access (20 points). Ambulatory Aid- None/Bed Rest/Nurse Assist (0 pts). Gait- Normal/Bed Rest/Wheelchair (0 pts) Mental Status- Overestimates/Forgets Limitations (15 pts.). Total Mckay Fall Scale indicates High Risk Score (45 or more points). Fall prevention measures have been instituted. Side Rails Up X 2 Placed Close to Nursing Station Frequent Obs/Assessments Occuring Family Present and informed to notify staff if the need to leave the bedside As available patient and family educated on Fall Prevention Program and Strategies. Assessment: 09:00 General: Appears in no apparent distress. comfortable, slender, well groomed, Behavior ph is calm, cooperative, quiet. Pain: Denies pain. Neuro: Level of Consciousness is awake, alert, obeys commands, confused, Oriented to none Facial symmetry appears normal, Pupils are PERRLA. Cardiovascular: Capillary refill < 3 seconds in bilateral fingers Patient's skin is warm and dry. Respiratory: Airway is patent Respiratory effort is even, unlabored. GI: Abdomen is flat, non-distended, Bowel sounds present X 4 quads. : suprapubic catheter in place. Derm: Skin is fragile, is thin, Skin is pink, warm \T\ dry. Wound noted L elbow and R hand Wound is skin tears. Musculoskeletal: Circulation, motion, and sensation intact. Range of motion: intact in all extremities. 09:32 Reassessment: family at leaving, daughter in law left contact info, Alina Rosas # ph [phone]. 09:55 Reassessment: Patient appears in no apparent distress at this time. Pt taken to CT via ph stretcher. 10:35 Reassessment: Patient appears in no apparent distress at this time. Patient and/or ph family updated on plan of care and expected duration. Pain level reassessed. Pt awake and alert, w/ even and unlabored respirations, oriented to person only, urine sample obtained via catheter, awaiting results VSS at this time, will continue to monitor. 10:38 : suprapubic catheter in place to gravity drainage site noted to be slightly reddened ph w/ no purulent d/c noted, leg bag in place to L leg Urine is clear, rosalind colored. 12:03 Reassessment: Patient appears in no apparent distress at this time. Patient and/or ph family updated on plan of care and expected duration. Pain level reassessed. Spoke w/ nurse at [place] for pt report, nurse will call back w/ information for transport. 12:27 Reassessment: Patient appears in no apparent distress at this time. Patient and/or ph family updated on plan of care and expected duration. Pain level reassessed. Pt repeatedly attempting to get out of bed, tech currently at bedside, awaiting call back from nurse at [place] regarding transportation back to facility. 12:44 Reassessment: Patient appears in no apparent distress at this time. Patient and/or ph family updated on plan of care and expected duration. Pain level reassessed. Spoke w/ nurse at [place] who states that transport will be here for pt in approx 30 min. 13:40 Reassessment: Patient appears in no apparent distress at this time. Patient and/or ph family updated on plan of care and expected duration. Pain level reassessed. Pt transported back to [place]. Vital Signs: 09:03 BP 146 / 92; Pulse 78; Resp 18; Temp 97.8; Pulse Ox 100% on R/A; ph 09:05 Weight 59.87 kg; ph 10:37 BP 168 / 91; Pulse 81; Resp 16; Pulse Ox 100% on R/A; ph 11:30 BP 167 / 90; Pulse 78; Resp 18; Temp 97.9; Pulse Ox 99% on R/A; ph 12:45 BP 152 / 91; Pulse 81; Resp 18; Temp 97.8; Pulse Ox 99% on R/A; ph ED Course: 08:58 Patient arrived in ED. ph 09:00 Claude Lopez NP is PHCP. pm1 09:00 Av De Luna MD is Attending Physician. pm1 09:03 Triage completed. ph 09:03 EKG done, by sound effects technician. reviewed by Claude Lopez NP. at1 09:05 First set of blood cultures drawn by me. jb1 09:08 Arm band placed on. ph 09:08 Patient has correct armband on for positive identification. Placed in gown. Bed in low ph position. Call light in reach. Side rails up X2. Pulse ox on. NIBP on. Warm blanket given. Pillow given. 09:11 Wound care: to abrasion, located on left antecubital area was dressed with non-adherent jb1 gauze and tegaderm, Patient tolerated well. 09:18 Jordyn Gee, YUNIEL is Primary Nurse. ph 09:20 Second set of blood cultures drawn by me. jb1 09:28 X-ray completed. Portable x-ray completed in exam room. Patient tolerated procedure ls3 well. 09:32 Initial lab(s) drawn, by me, sent to lab. Inserted saline lock: 20 gauge in left jb1 antecubital area, using aseptic technique. Blood collected. 09:41 Chest Single View XRAY In Process Unspecified. EDMS 10:13 CT Head Brain wo Cont In Process Unspecified. EDMS 10:37 Urine collected: supra-pubic catheter. jb1 13:40 No provider procedures requiring assistance completed. IV discontinued, intact, ph bleeding controlled, No redness/swelling at site. Pressure dressing applied. Administered Medications: 10:20 Drug: NS 0.9% 500 ml Route: IV; Rate: bolus; Site: left antecubital; ph Outcome: 11:44 Discharge ordered by . pm1 13:40 Discharged to detention. ph 13:40 Condition: good 13:40 Discharge instructions given to detention, Instructed on discharge instructions, follow up and referral plans. 13:46 Patient left the ED. ph Addendum: 07/25/2018 11:05 Addendum: Culture Results: Positive urine culture. Phone call Attempt #1 left [email or web address] b Signatures: Dispatcher [employer] EDMS Raciel Hawthorne jb1 Rachel Brown, interior design teacher EKG Tat1 Jordyn Gee RN RN ph Claude Lopez NP PAPER BALING MACHINE OPERATOR pm1 Jamaica Fox RN RN Barbara Mcclendon ls3 Corrections: (The following items were deleted from the chart) 07/22 09:33 09:32 Reassessment: family at leaving, daughter in law left contact info, # ph [phone]
[2018-07-22 13:57] VITALS: BP 167/90; TEMP 97.9; O2SAT 99
[2018-07-22 14:23] LABS: Urine Blood TRACE (NEG); Urine Glucose NEGATIVE (NEG); Urine Protein 1+ (NEG); Urine pH 7.5 (5.0-7.0)
== END 2018-07-22 13:46 | disposition home or self-care (01) ==
LOC: ER 08:50
DX: G30.9 Alzheimer's disease, unspecified (principal); F02.80 Dementia in other diseases classified elsewhere, unspecified severity, without behavioral disturbance, psychotic disturbance, mood disturbance, and anxiety; I10 Essential (primary) hypertension; E78.5 Hyperlipidemia, unspecified; Z79.82 Long term (current) use of aspirin; Z85.528 Personal history of other malignant neoplasm of kidney; Z88.8 Allergy status to other drugs, medicaments and biological substances
CPT/HCPCS: 36415; 70450; 71045; 80048; 80076; 81003; 81015; 83605; 83690; 84145; 84484; 85025; 85610; 85730; 87040; 87077; 87086; 87088; 87186; 93005; 99284

== ENCOUNTER 2018-09-04 05:09 | Emergency (ER) | payer OTHER ==
--- OUTSIDE RECORDS SUMMARY | 2018-09-04 05:11 | XMS REPORT | Clinical Summary ---
:1945 Author Organization [facility] Address [address] [place] [address] Care Team Providers Name Role Phone Magdy [...] 50,000 unit Units by mouth capsule daily. Active Problems Not on file Encounters Date Type Specialty Care Team Description 09/04/2017 Hospital Encounter Radiology Gayle Norman MD 09/04/2017 Hospital Encounter Radiology Gayle Norman MD 09/04/2017 Hospital Encounter Radiology Gayle Norman MD 09/04/2017 Telephone Neurology Raciel Nichole MD after 09/03/2017 Social History Tobacco Use Types Packs/Day Years [...] INFLUENZA VACCINE 03/05/2018 Results Not on fileafter 09/03/2017 Insurance Payer Benefit Plan / Group Subscriber ID Type Phone Address MEDICARE MEDICARE PART A AND B xxxxxxxxxx Medicare [place], [place] MEDICAID MEDICAID xxxxxxxxx Medicaid Advance Directives Patient has advance care planning documents on file. For more information, please contact:[place] [address]
--- NOTE | 2018-09-04 05:22 | EDPHYS ---
Physician Documentation [facility] Name: Adam Rosas Age: 73 yrs Sex: Male : 1945 Arrival Date: 09/04/2018 Time: 05:10 Bed 5 Private MD: ED Physician Marcelo Catherine HPI: 09/04 05:19 This 73 yrs old Male presents to ER via Unassigned with complaints of Needs rn Urinary Catheter Replacement. 05:19 The patient presents with a Ro catheter problem, was pulled out accidentally. Onset: rn The symptoms/episode began/occurred just prior to arrival. Modifying factors: The symptoms are alleviated by nothing, the symptoms are aggravated by nothing. [facility] as accidentally pulled out suprapubic catheter, no other problems. . Historical: - Allergies: : Aricept; ed1 - Home Meds: : Acidophilus Oral cap 1 cap daily [Active]; allopurinol 300 mg Oral tab 1 tab once daily ed1 [Active]; amlodipine 5 mg tab 1 tab once daily [Active]; aspirin 81 mg Oral chew 1 tab once daily [Active]; cholecalciferol (vitamin D3) 1,000 unit oral tab 1 tab daily [Active]; Depakote Sprinkles 125 mg Oral cpSP 2 caps daily [Active]; Depakote Sprinkles 125 mg Oral cpSP 4 caps nightly [Active]; ferrous sulfate 325 mg (65 mg iron) Oral chew daily [Active]; finasteride 5 mg Oral tab 1 tab once daily [Active]; tamsulosin 0.4 mg Oral cp24 1 cap nightly [Active]; lactulose 20 gram/30 mL Oral soln 30 mL once daily for constipation [Active]; omeprazole 20 mg Oral cpDR 1 cap once daily [Active]; simvastatin 20 mg Oral tab 1 tab nightly [Active]; trazodone 100 mg Oral tab 1 tab nightly [Active]; - PMHx: 05:31 Alzheimers; CVA; Dementia; Gout; Hyperlipidemia; Hypertension; kidney cancer; kidney ed1 failure; Kidney stones; one kidney; suprapubic cathter; UTI/ESBL; - PSHx: 05:31 Unable to obtain; ed1 - Immunization history:: Adult Immunizations up to date. - Social history:: Smoking status: Patient/guardian denies using tobacco. - Family history:: not pertinent. - Ebola Screening: : Patient negative for fever greater than or equal to 101.5 degrees Fahrenheit, and additional compatible Ebola Virus Disease symptoms Patient denies exposure to infectious person Patient denies travel to an Ebola-affected area in the 21 days before illness onset No symptoms or risks identified at this time. - Hospitalizations: : No recent hospitalization is reported. ROS: 05:19 Unable to obtain ROS due to baseline dementia. rn Exam: 05:19 Constitutional: This is a well developed, well nourished patient who is awake, alert, rn and in no acute distress. Abdomen/GI: soft, non-tender, + patent suprapubic catheter stoma Vital Signs: 05:31 BP 144 / 77; Pulse 64; Resp 17; Temp 98.4(O); Pulse Ox 100% on R/A; Pain 0/10; ed1 Procedures: 05:19 Performed Suprapubic catheter, 16F, placed under sterile technique, no complications, rn no resistance, + urine obtained immediately, no blood. Catheter secured by nurse. MDM: 05:11 Patient medically screened. rn 05:19 Differential diagnosis: suprapubic catheter pulled out. Data reviewed: vital signs, rn nurses notes, and as a result, I will discharge patient. Counseling: I had a detailed discussion with the patient and/or guardian regarding: the historical points, exam findings, and any diagnostic results supporting the discharge/admit diagnosis, the need for outpatient follow up, to return to the emergency department if symptoms worsen or persist or if there are any questions or concerns that arise at home. Response to treatment: the patient's symptoms have resolved after treatment, and as a result, I will discharge patient. Special discussion: I discussed with the patient/guardian in detail that at this point there is no indication for admission to the hospital. It is understood, however, that if the symptoms persist or worsen the patient needs to return immediately for re-evaluation. Administered Medications: No medications were administered Disposition: 09/04/18 05:22 Discharged to Home. Impression: Encounter for replacement of suprapubic catheter. - Condition is Stable. - Discharge Instructions: Suprapubic Catheter Replacement, Suprapubic Catheter Replacement, Care After. - Medication Reconciliation Form, Thank You Letter, Antibiotic Education, Prescription Opioid Use form. - Follow up: Private Physician; When: As needed; Reason: Recheck today's complaints, Re-evaluation by your physician. - Problem is new. - Symptoms have improved. Signatures: Marcelo Catherine MD MD rn Riggs, Erika, RN RN ed1 Corrections: (The following items were deleted from the chart) 05:19 05:19 Unable to obtain ROS due to altered mental status, rn rn 05:21 05:19 Performed Suprapubic catheter, 16F, placed under sterile technique, no rn complications, no resistance, + urine obtained immediately, no blood. Catheter secured by RN. . rn 05:48 05:22 09/04/2018 05:22 Discharged to Home. Impression: Encounter for replacement of ed1 suprapubic catheter. Condition is Stable. Forms are Medication Reconciliation Form, Thank You Letter, Antibiotic Education, Prescription Opioid Use. Follow up: Private Physician; When: As needed; Reason: Recheck today's complaints, Re-evaluation by your physician. Problem is new. Symptoms have improved. rn
--- NOTE | 2018-09-04 05:49 | ER ---
Nurse's Notes [facility] Name: Adam Rosas Age: 73 yrs Sex: Male : 1945 Arrival Date: 09/04/2018 Time: 05:10 Bed 5 Private MD: Diagnosis: Encounter for replacement of suprapubic catheter Presentation: 09/04 05:11 Presenting complaint: EMS states: The long-term said he pulled out his suprapubic ed1 cathether about 20 minutes ago. Transition of care: patient was received from another setting of care (long-term care facility), [facility]. Onset of symptoms was September 04, 2018. Risk Assessment: Do you want to hurt yourself or someone else? Patient reports no desire to harm self or others. Initial Sepsis Screen: Does the patient meet any 2 criteria? No. Patient's initial sepsis screen is negative. Does the patient have a suspected source of infection? No. Patient's initial sepsis screen is negative. Care prior to arrival: None. 05:11 Method Of Arrival: EMS: [facility] ed1 05:11 Acuity: SCOTT 4 ed1 Triage Assessment: 05:31 General: Appears in no apparent distress. Behavior is cooperative. Pain: Denies pain. ed1 Historical: - Allergies: 05:31 Aricept; ed1 - Home Meds: 05:31 Acidophilus Oral cap 1 cap daily [Active]; allopurinol 300 mg Oral tab 1 tab once daily ed1 [Active]; amlodipine 5 mg tab 1 tab once daily [Active]; aspirin 81 mg Oral chew 1 tab once daily [Active]; cholecalciferol (vitamin D3) 1,000 unit oral tab 1 tab daily [Active]; Depakote Sprinkles 125 mg Oral cpSP 2 caps daily [Active]; Depakote Sprinkles 125 mg Oral cpSP 4 caps nightly [Active]; ferrous sulfate 325 mg (65 mg iron) Oral chew daily [Active]; finasteride 5 mg Oral tab 1 tab once daily [Active]; tamsulosin 0.4 mg Oral cp24 1 cap nightly [Active]; lactulose 20 gram/30 mL Oral soln 30 mL once daily for constipation [Active]; omeprazole 20 mg Oral cpDR 1 cap once daily [Active]; simvastatin 20 mg Oral tab 1 tab nightly [Active]; trazodone 100 mg Oral tab 1 tab nightly [Active]; - PMHx: 05:31 Alzheimers; CVA; Dementia; Gout; Hyperlipidemia; Hypertension; kidney cancer; kidney ed1 failure; Kidney stones; one kidney; suprapubic cathter; UTI/ESBL; - PSHx: 05:31 Unable to obtain; ed1 - Immunization history:: Adult Immunizations up to date. - Social history:: Smoking status: Patient/guardian denies using tobacco. - Family history:: not pertinent. - Ebola Screening: : Patient negative for fever greater than or equal to 101.5 degrees Fahrenheit, and additional compatible Ebola Virus Disease symptoms Patient denies exposure to infectious person Patient denies travel to an Ebola-affected area in the 21 days before illness onset No symptoms or risks identified at this time. - Hospitalizations: : No recent hospitalization is reported. Screenin:32 Abuse screen: Denies threats or abuse. Denies injuries from another. Nutritional ed1 screening: No deficits noted. Tuberculosis screening: No symptoms or risk factors identified. Fall Risk None identified. Assessment: 05:32 General: Appears in no apparent distress. Behavior is calm, cooperative. Pain: Denies ed1 pain. Neuro: Level of Consciousness is awake, alert, obeys commands, Oriented to person. Cardiovascular: Heart tones S1 S2 present. Respiratory: Airway is patent Respiratory effort is even, unlabored, Respiratory pattern is regular, symmetrical, Breath sounds are clear bilaterally. GI: No signs and/or symptoms were reported involving the gastrointestinal system. : suprapubic catheter removed SERVER ADMINISTRATOR. EENT: No signs and/or symptoms were reported regarding the EENT system. Derm: Skin is intact, Skin is dry, Skin is black, Skin temperature is warm. Musculoskeletal: Circulation, motion, and sensation intact. 05:39 Reassessment: Drainage bag replaced with leg bag per daughter's request. Daughter at ed1 bedside. She agreed to transport patient back to long-term. Vital Signs: 05:31 BP 144 / 77; Pulse 64; Resp 17; Temp 98.4(O); Pulse Ox 100% on R/A; Pain 0/10; ed1 ED Course: 05:10 Patient arrived in ED. ed1 05:11 Marcelo Catherine MD is Attending Physician. rn 05:24 Triage completed. ed1 05:31 Arm band placed on. ed1 05:32 Patient has correct armband on for positive identification. Placed in gown. Bed in low ed1 position. Call light in reach. Side rails up X2. Pulse ox on. NIBP on. 05:32 with replacement of suprapubic catheter. ed1 05:39 Patient did not have IV access during this emergency room visit. ed1 Administered Medications: No medications were administered Outcome: 05:22 Discharge ordered by . rn 05:39 Discharged to long-term. Report called to Iqra discharge instructions also given ed1 to daughter at bedside 05:39 Condition: good 05:39 Discharge instructions given to family, long-term, Instructed on discharge instructions, follow up and referral plans. Demonstrated understanding of instructions, follow-up care. 05:48 Patient left the ED. ed1 Signatures: Marcelo Catherine MD MD rn MuellerAngle RN RN ed1
[2018-09-04 05:53] VITALS: BP 144/77; TEMP 98.4; O2SAT 100
== END 2018-09-04 05:48 | disposition home or self-care (01) ==
LOC: ER 05:09
DX: T83.89XA Other specified complication of genitourinary prosthetic devices, implants and grafts, initial encounter (principal); E78.5 Hyperlipidemia, unspecified; I10 Essential (primary) hypertension; G30.9 Alzheimer's disease, unspecified; F02.80 Dementia in other diseases classified elsewhere, unspecified severity, without behavioral disturbance, psychotic disturbance, mood disturbance, and anxiety; M10.9 Gout, unspecified; Z79.82 Long term (current) use of aspirin; Z79.899 Other long term (current) drug therapy; Z86.73 Personal history of transient ischemic attack (TIA), and cerebral infarction without residual deficits
CPT/HCPCS: 99283

== ENCOUNTER 2018-09-21 16:25 | Inpatient (IN) | payer OTHER ==
--- OUTSIDE RECORDS SUMMARY | 2018-09-21 16:27 | XMS REPORT | Clinical Summary ---
:1945 Author Organization [facility] Address [address] [place] [address] Care Team Providers Name Role Phone Magdy [...] capsule daily. Active Problems Not on file Social History Tobacco Use Types Packs/Day Years [...] INFLUENZA VACCINE 03/05/2018 Results Not on fileafter 09/20/2017 Insurance Payer Benefit Plan / Group Subscriber ID Type Phone Address MEDICARE MEDICARE PART A AND B xxxxxxxxxx Medicare [place], [place] MEDICAID MEDICAID xxxxxxxxx Medicaid Advance Directives Patient has advance care planning documents on file. For more information, please contact:[place] [address]
--- NOTE | 2018-09-21 17:50 | RAD REPORT ---
EXAM DESCRIPTION: Evelyn Single View09/21/2018 5:32 pm CLINICAL HISTORY: Fever COMPARISON: July 2018 FINDINGS: The lungs appear clear of acute infiltrate. The heart is mildly enlarged. Aorta is tortuo us/ectatic. Calcified lung granulomas IMPRESSION: No acute abnormalities displayed
[2018-09-21 18:19] LABS: Absolute Lymphocytes (CBC) 0.5 K/uL (0.7-4.9); Absolute Monocytes 0.6 K/uL (0.1-1.3); Absolute Neutrophil 5.6 K/uL (1.8-8.0); Basophils % 0.4 % (0-1.3); Eosinophils % 3.4 % (0-4.4); Hematocrit 27.8 % (39.6-49.0); Lymphocytes % 7.7 % (15.3-44.8); Monocytes % 8.1 % (3.3-12.3); RBC Red Blood Cell Count 3.04 M/uL (4.33-5.43)
[2018-09-21 18:22] LABS: Protime INR 1.11
[2018-09-21 18:38] LABS: ALT/SGPT 15 U/L (12-78); AST/SGOT 16 U/L (15-37); Albumin 3.2 g/dL (3.4-5.0); Alkaline Phosphatase 58 U/L (45-117); BUN Blood Urea Nitrogen 39 mg/dL (7-18); Bicarbonate 27 mmol/L (21-32); Bilirubin Direct < 0.1 mg/dL (0-0.2); Bilirubin Total 0.2 mg/dL (0.2-1.0); Creatine Phosphokinase 88 U/L (39-308); Glucose Level 99 mg/dL (74-106); Lipase 90 U/L (73-393); NT PRO-BNP 357 pg/mL (<125); Potassium 4.3 mmol/L (3.5-5.1); Protein, Total 6.5 g/dL (6.4-8.2); Sodium Level 143 mmol/L (136-145); Troponin (Emerg Dept Use Only) < 0.02 ng/mL (0.0-0.045)
[2018-09-21 18:59] LABS: Urine Amorphous Sediment 3+ /HPF (NONE SEEN); Urine Bacteria 20-50 /HPF (NONE SEEN); Urine Culture Reflex Order REFLEXED
[2018-09-21] MEDS ORDERED: NA CHLORIDE 0.9% 500 ML ONE (19:01)
[2018-09-21 19:06] LABS: Urine Blood 1+ (NEG); Urine Glucose NEGATIVE (NEG); Urine Protein 2+ (NEG)
--- NOTE | 2018-09-21 19:09 | ER ---
Nurse's Notes [facility] Name: Adam Rosas Age: 73 yrs Sex: Male : 1945 Arrival Date: 09/21/2018 Time: 16:26 Bed 8 Private MD: Diagnosis: Urinary tract infection, site not specified;Altered mental status, unspecified;Dehydration Presentation: 09/21 16:27 Presenting complaint: EMS states: from [facility], pt started to be acting hj aggressive to staff hence they called EMS, presence of skin tear on the L hand, no V/S taken; A\T\O x2;. Transition of care: patient was received from another setting of care (long-term care facility), [facility]. Onset of symptoms was September 21, 2018. Risk Assessment: Do you want to hurt yourself or someone else? Patient reports no desire to harm self or others. Initial Sepsis Screen: Does the patient meet any 2 criteria? No. Patient's initial sepsis screen is negative. Does the patient have a suspected source of infection? No. Patient's initial sepsis screen is negative. Care prior to arrival: None. 16:27 Method Of Arrival: EMS: [facility] 16:27 Acuity: SCOTT 3 hj Triage Assessment: 16:30 General: Appears in no apparent distress. uncomfortable, Behavior is cooperative, hj appropriate for age. Pain: Denies pain. Neuro: Level of Consciousness is awake, alert, obeys commands, Oriented to person, situation, Appropriate for age. Historical: - Allergies: 16:30 Aricept; - Home Meds: 16:30 Acidophilus Oral cap 1 cap daily [Active]; allopurinol 300 mg Oral tab 1 tab once daily [Active]; amlodipine 5 mg tab 1 tab once daily [Active]; aspirin 81 mg Oral chew 1 tab once daily [Active]; cholecalciferol (vitamin D3) 1,000 unit Oral tab 1 tab daily [Active]; Depakote Sprinkles 125 mg Oral cpSP 2 caps daily [Active]; Depakote Sprinkles 125 mg Oral cpSP 4 caps nightly [Active]; ferrous sulfate 325 mg (65 mg iron) Oral chew daily [Active]; finasteride 5 mg Oral tab 1 tab once daily [Active]; lactulose 20 gram/30 mL Oral soln 30 mL once daily for constipation [Active]; omeprazole 20 mg Oral cpDR 1 cap once daily [Active]; simvastatin 20 mg Oral tab 1 tab nightly [Active]; tamsulosin 0.4 mg Oral cp24 1 cap nightly [Active]; trazodone 100 mg Oral tab 1 tab nightly [Active]; - PMHx: 16:30 Alzheimers; CVA; Dementia; Gout; Hyperlipidemia; Hypertension; kidney cancer; kidney hj failure; Kidney stones; one kidney; suprapubic cathter; UTI/ESBL; - PSHx: 16:30 Unable to obtain; hj - Immunization history:: Adult Immunizations unknown. - Social history:: Smoking status: Patient/guardian denies using tobacco, Patient/guardian denies using alcohol. - Ebola Screening: : Patient negative for fever greater than or equal to 101.5 degrees Fahrenheit, and additional compatible Ebola Virus Disease symptoms Patient denies exposure to infectious person Patient denies travel to an Ebola-affected area in the 21 days before illness onset. Screenin:31 Abuse screen: Denies threats or abuse. Denies injuries from another. Nutritional hj screening: No deficits noted. Tuberculosis screening: No symptoms or risk factors identified. Fall Risk None identified. Assessment: 16:44 General: Appears in no apparent distress. comfortable, Behavior is cooperative, flat, ph quiet, Denies chills. Pain: Denies pain. Neuro: Level of Consciousness is awake, obeys commands, confused, Oriented to person, Moves all extremities. Speech is slurred, Facial symmetry appears normal, Denies headache. Cardiovascular: Denies chest pain, Capillary refill < 3 seconds in bilateral fingers Edema is 2+ to left ankle, left foot, right ankle and right foot skin reddened in appearance and warm to touch. Respiratory: Airway is patent Respiratory effort is even, unlabored, Respiratory pattern is regular, symmetrical. GI: Abdomen is round non-distended. : suprapubic catheter in place to gravity drainage leg bag in place, site normal in appearance Urine is cloudy, scrotum raw and red in appearance Denies pain in suprapubic area. Derm: Skin is fragile, is thin, has skin tears on dorsal aspect of L hand and wrist, small amount of bleeding noted. Musculoskeletal: Circulation, motion, and sensation intact. 18:07 Reassessment: Patient appears in no apparent distress at this time. Patient and/or ph family updated on plan of care and expected duration. Pain level reassessed. Pt awake and alert, oriented to person and place, family at bedside, leg drainage bag changed to bedside drainage bag, urine sample obtained, cloudy in appearance. 18:45 Reassessment: Patient appears in no apparent distress at this time. Patient and/or ph family updated on plan of care and expected duration. Pain level reassessed. Assisted family in giving pt a bed bath and placed pt in pajamas, pt smelled strongly of urine and had build-up noted between toes prior to bedbath. 19:31 Reassessment: pt awake and alert, resp unlabored, resting quietly, IV site intact, bb patent, with fluids infusing, suprapubic catheter in place to bedside drain with clear yellow urine, family at bedside, pt to be admitted awaiting room assignment. 20:12 Reassessment: pt appears to be sleeping, eyes closed resp unlabored awaiting room bb assignment. 21:11 Reassessment: No changes from previously documented assessment. report called to Adri Merritt RN for room 429. Vital Signs: 16:31 BP 152 / 90; Pulse 88; Resp 18; Temp 99.1(R); Pulse Ox 98% on R/A; Weight 83.91 kg; hj Height 5 ft. 11 in. (180.34 cm); 18:10 BP 157 / 87; Pulse 68; Resp 16; Pulse Ox 100% on R/A; ph 19:20 BP 165 / 86; Pulse 74; Resp 18; Pulse Ox 99% on R/A; ph 20:11 BP 141 / 82; Pulse 65; Resp 16 S; Pulse Ox 98% on R/A; bb 20:50 BP 176 / 76; Pulse 70; Resp 17; Temp 97.9(TE); Pulse Ox 99% on R/A; lp1 16:31 Body Mass Index 25.80 (83.91 kg, 180.34 cm) ED Course: 16:26 Patient arrived in ED. 16:29 Triage completed. 16:31 Arm band placed on right wrist. 16:31 Patient has correct armband on for positive identification. Bed in low position. Call light in reach. Side rails up X 1. 16:36 Dov Lance PA is PHCP. jr8 16:36 Gustabo Orourke MD is Attending Physician. jr8 16:44 Jordyn Gee RN is Primary Nurse. ph 17:31 Chest Single View XRAY In Process Unspecified. EDMS 18:09 Missed attempt(s): 22 gauge in right antecubital area. Bleeding controlled, band aid ph applied, catheter tip intact. 18:09 Missed attempt(s): 22 gauge in right upper arm. Bleeding controlled, band aid applied, ph catheter tip intact. 18:15 Inserted saline lock: 20 gauge in right antecubital area, using aseptic technique. iw 19:08 Carlos Lopez MD is Hospitalizing Provider. jr8 19:15 No provider procedures requiring assistance completed. Patient admitted, IV remains in ph place. 19:40 Primary Nurse role handed off by Jordyn Gee RN ed1 Administered Medications: 18:50 Drug: NS 0.9% 500 ml {Note: administered by Jordyn BRICE.} Route: IV; Rate: bolus; Site: bb right antecubital; 19:30 Follow up: IV Status: Completed infusion; IV Intake: 500ml bb 20:19 Drug: NS 0.9% 1000 ml Route: IV; Rate: 75 ml/hr; Site: right antecubital; bb 21:18 Follow up: IV Status: Infusion continued upon admission bb Intake: 19:30 IV: 500ml; Total: 500ml. bb Outcome: 19:08 Decision to Hospitalize by Provider. jr8 19:35 Instructed on the need for admit. bb 20:13 Condition: stable bb 21:11 Admitted to Tele accompanied by tech, via stretcher, room 429, with chart, Report bb called to Adri Merritt RN 21:43 Patient left the ED. bb Signatures: Dispatcher [employer] EDMS Yue De La Cruz RN RN bb Lillian Woo RN RN iw Angle Mueller RN RN ed1 Ena Krishna RN RN lp1 Dov Lance PA PA jr8 Jordyn Gee RN RN Chiki Fitzpatrick RN RN Corrections: (The following items were deleted from the chart) 16:38 16:31 BP 152 / 90; Pulse 88bpm; Resp 18bpm; Pulse Ox 98% RA; 83.91 kg; Height 5 ft. 11 hj in.; BMI: 25.8; hj 18:10 18:09 Missed attempt(s): 22 gauge in right antecubital area. ph ph
--- NOTE | 2018-09-21 19:09 | EDPHYS ---
Physician Documentation [facility] Name: Adam Rosas Age: 73 yrs Sex: Male : 1945 Arrival Date: 09/21/2018 Time: 16:26 Bed 8 Private MD: ED Physician Gustabo Orourke HPI: 09/21 18:04 This 73 yrs old Male presents to ER via EMS with complaints of Altered Mental jr8 Status. 18:04 The patient presents with agitation, confusion. Onset: The symptoms/episode jr8 began/occurred acutely, today. Possible causes: UTI. Supposedly being treated for UTI currently. Has frequent UTI's due to suprapubic catheter . Associated signs and symptoms: The patient has no apparent associated signs or symptoms. Current symptoms: In the emergency department the patient's symptoms are unchanged from the initial presentation. Patient's baseline: Neuro: alert but confused, Motor: no deficits, Ambulation: unable to walk, Speech: slow. It is unknown whether or not the patient has had similar symptoms in the past. It is unknown whether or not the patient has recently seen a physician. EMS stated that they were called out to [place] for a more altered and agitated patient. Historical: - Allergies: 16:30 Aricept; hj - Home Meds: 16:30 Acidophilus Oral cap 1 cap daily [Active]; allopurinol 300 mg Oral tab 1 tab once daily [Active]; amlodipine 5 mg tab 1 tab once daily [Active]; aspirin 81 mg Oral chew 1 tab once daily [Active]; cholecalciferol (vitamin D3) 1,000 unit Oral tab 1 tab daily [Active]; Depakote Sprinkles 125 mg Oral cpSP 2 caps daily [Active]; Depakote Sprinkles 125 mg Oral cpSP 4 caps nightly [Active]; ferrous sulfate 325 mg (65 mg iron) Oral chew daily [Active]; finasteride 5 mg Oral tab 1 tab once daily [Active]; lactulose 20 gram/30 mL Oral soln 30 mL once daily for constipation [Active]; omeprazole 20 mg Oral cpDR 1 cap once daily [Active]; simvastatin 20 mg Oral tab 1 tab nightly [Active]; tamsulosin 0.4 mg Oral cp24 1 cap nightly [Active]; trazodone 100 mg Oral tab 1 tab nightly [Active]; - PMHx: 16:30 Alzheimers; CVA; Dementia; Gout; Hyperlipidemia; Hypertension; kidney cancer; kidney hj failure; Kidney stones; one kidney; suprapubic cathter; UTI/ESBL; - PSHx: 16:30 Unable to obtain; hj - Immunization history:: Adult Immunizations unknown. - Social history:: Smoking status: Patient/guardian denies using tobacco, Patient/guardian denies using alcohol. - Ebola Screening: : Patient negative for fever greater than or equal to 101.5 degrees Fahrenheit, and additional compatible Ebola Virus Disease symptoms Patient denies exposure to infectious person Patient denies travel to an Ebola-affected area in the 21 days before illness onset. ROS: 18:04 Unable to obtain ROS due to altered mental status, baseline dementia. jr8 Exam: 18:04 Eyes: Pupils equal round and reactive to light, extra-ocular motions intact. Lids and jr8 lashes normal. Conjunctiva and sclera are non-icteric and not injected. Cornea within normal limits. Periorbital areas with no swelling, redness, or edema. ENT: Nares patent. No nasal discharge, no septal abnormalities noted. Tympanic membranes are normal and external auditory canals are clear. Oropharynx with no redness, swelling, or masses, exudates, or evidence of obstruction, uvula midline. Mucous membranes moist. Neck: Trachea midline, no thyromegaly or masses palpated, and no cervical lymphadenopathy. Supple, full range of motion without nuchal rigidity, or vertebral point tenderness. No Meningismus. Cardiovascular: Regular rate and rhythm with a normal S1 and S2. No gallops, murmurs, or rubs. Normal PMI, no JVD. No pulse deficits. Respiratory: Lungs have equal breath sounds bilaterally, clear to auscultation and percussion. No rales, rhonchi or wheezes noted. No increased work of breathing, no retractions or nasal flaring. Abdomen/GI: Soft, non-tender, with normal bowel sounds. No distension or tympany. No guarding or rebound. No evidence of tenderness throughout. Back: No spinal tenderness. No costovertebral tenderness. Full range of motion. Skin: Warm, dry with normal turgor. Normal color with no rashes, no lesions, and no evidence of cellulitis. Mild skin tears noted to left dorsal hand MS/ Extremity: Pulses equal, no cyanosis. Neurovascular intact. Full, normal range of motion. 18:04 Neuro: Orientation: to person, Mentation: able to follow commands, slow to respond, Memory: immediate memory is impaired, remote memory is impaired, recent memory is impaired, Cranial nerves: extraocular movements are intact, Speech is slowed, Tongue strength is normal, Cerebellar function: unable to test, Motor: moves all fours, Sensation: no obvious gross deficits, Gait: not tested. seizure activity, is not displayed by the patient, Abnormal movements: there are no abnormal movements. Vital Signs: 16:31 BP 152 / 90; Pulse 88; Resp 18; Temp 99.1(R); Pulse Ox 98% on R/A; Weight 83.91 kg; hj Height 5 ft. 11 in. (180.34 cm); 18:10 BP 157 / 87; Pulse 68; Resp 16; Pulse Ox 100% on R/A; ph 19:20 BP 165 / 86; Pulse 74; Resp 18; Pulse Ox 99% on R/A; ph 20:11 BP 141 / 82; Pulse 65; Resp 16 S; Pulse Ox 98% on R/A; bb 20:50 BP 176 / 76; Pulse 70; Resp 17; Temp 97.9(TE); Pulse Ox 99% on R/A; lp1 16:31 Body Mass Index 25.80 (83.91 kg, 180.34 cm) hj MDM: 16:55 Patient medically screened. 8 19:07 Data reviewed: vital signs, nurses notes, lab test result(s), EKG, radiologic studies, [facility] plain films, and as a result, I will admit patient. Data interpreted: Pulse oximetry: on room air is 100 %. Interpretation: normal. Counseling: I had a detailed discussion with the patient and/or guardian regarding: the historical points, exam findings, and any diagnostic results supporting the discharge/admit diagnosis, lab results, radiology results, the need for further work-up and treatment in the hospital. 09/21 16:56 Order name: Urine Culture 09/21 16:56 Order name: Basic Metabolic Panel; Complete Time: 18:40 09/21 16:56 Order name: Blood Culture Adult (2) 09/21 16:56 Order name: CBC with Diff; Complete Time: 18:33 09/21 16:56 Order name: CPK; Complete Time: 18:40 09/21 16:56 Order name: LFT's; Complete Time: 18:40 09/21 16:56 Order name: Lipase; Complete Time: 18:40 09/21 16:56 Order name: Procalcitonin; Complete Time: 19:07 09/21 16:56 Order name: Protime (+inr); Complete Time: 18:33 09/21 16:56 Order name: Troponin (emerg Dept Use Only); Complete Time: 18:40 09/21 16:56 Order name: Urine Microscopic Only; Complete Time: 19:07 09/21 16:56 Order name: BNP; Complete Time: 18:40 09/21 18:07 Order name: Urine Dipstick--Ancillary (enter results) ms 09/21 20:07 Order name: CBC with Automated Diff EDMS 09/21 16:56 Order name: Chest Single View XRAY; Complete Time: 18:00 09/21 16:56 Order name: Accucheck; Complete Time: 18:44 09/21 16:56 Order name: Cardiac monitoring; Complete Time: 18:44 09/21 16:56 Order name: EKG - Nurse/Tech; Complete Time: 19:01 09/21 16:56 Order name: IV Saline Lock - Large Bore; Complete Time: 18:44 09/21 16:56 Order name: Labs collected and sent; Complete Time: 18:45 09/21 16:56 Order name: O2 Per Protocol; Complete Time: 18:45 09/21 16:56 Order name: O2 Sat Monitoring; Complete Time: 18:45 09/21 16:56 Order name: Urine Dipstick-Ancillary (obtain specimen); Complete Time: 18:45 09/21 20:07 Order name: CONS Pharmacy Consult EDMS 09/21 20:07 Order name: Regular EDMS 09/21 20:07 Order name: CBC with Automated Diff EDMS 09/21 20:07 Order name: Comprehensive Metabolic Panel EDMS 09/21 20:07 Order name: Comprehensive Metabolic Panel EDMS Administered Medications: 18:50 Drug: NS 0.9% 500 ml {Note: administered by Jordyn BRICE.} Route: IV; Rate: bolus; Site: bb right antecubital; 19:30 Follow up: IV Status: Completed infusion; IV Intake: 500ml 20:19 Drug: NS 0.9% 1000 ml Route: IV; Rate: 75 ml/hr; Site: right antecubital; bb 21:18 Follow up: IV Status: Infusion continued upon admission bb Disposition: 09/22 16:48 Co-signature as Attending Physician, Gustabo Orourke MD. Disposition: 09/21/18 19:08 Hospitalization ordered by Carlos Lopez for Observation. Preliminary diagnosis are Urinary tract infection, site not specified, Altered mental status, unspecified, Dehydration. - Bed requested for Telemetry/MedSurg (observation). - Status is Observation. bb - Condition is Stable. - Problem is new. - Symptoms are unchanged. UTI on Admission? Yes Signatures: Dispatcher [employer] EDMS Reva Sy RN RN aa1 Yue De La Cruz RN RN bb Dov Lance PA PA jr8 Chiki Fitzpatrick RN RN hj Starr, Gregory, MD MD Corrections: (The following items were deleted from the chart) 09/21 20:46 19:08 Hospitalization Ordered by Carlos Lopez MD for Observation. Preliminary aa1 diagnosis is Urinary tract infection, site not specified; Altered mental status, unspecified; Dehydration. Bed requested for Telemetry/MedSurg (observation). Status is Observation. Condition is Stable. Problem is new. Symptoms are unchanged. UTI on Admission? Yes. jr8 21:43 20:46 09/21/2018 19:08 Hospitalization Ordered by Cralos Lopez MD for Observation. bb Preliminary diagnosis is Urinary tract infection, site not specified; Altered mental status, unspecified; Dehydration. Bed requested for Telemetry/MedSurg (observation). Status is Observation. Condition is Stable. Problem is new. Symptoms are unchanged. UTI on Admission? Yes. aa1
[2018-09-21] MEDS ORDERED: ONDANSETRON 4 MG/2 ML VIAL IV PRN (20:04)
[2018-09-21] MEDS ORDERED: ACETAMINOPHEN 500 MG TAB PO PRN (20:04)
[2018-09-21] MEDS ORDERED: MORPHINE 2 MG/ML SYR IV PRN (20:04)
[2018-09-21] MEDS ORDERED: NA CHLORIDE 0.9% 1,000 ML ONE (20:56)
[2018-09-21] MEDS: NA CHLORIDE 0.9% 1,000 ML IV SCH (21:00)
[2018-09-21 22:34] VITALS: BMI 23.0
[2018-09-22] MEDS ORDERED: METOPROLOL TAR 50 MG TAB PO ONE (01:18)
[2018-09-22] MEDS ORDERED: ZIPRASIDONE MESYLA 20 MG/VIAL IM ONE (05:16)
[2018-09-22] MEDS ORDERED: WATER FOR INJ,STERILE 10 ML IM PRN (05:16)
[2018-09-22 06:15] LABS: Absolute Lymphocytes (CBC) 1.2 K/uL (0.7-4.9); Absolute Monocytes 0.7 K/uL (0.1-1.3); Absolute Neutrophil 4.8 K/uL (1.8-8.0); Basophils % 0.5 % (0-1.3); Eosinophils % 4.7 % (0-4.4); Hematocrit 31.1 % (39.6-49.0); Lymphocytes % 16.9 % (15.3-44.8); MPV 9.3 fL (7.6-11.3); Monocytes % 9.8 % (3.3-12.3); RBC Red Blood Cell Count 3.43 M/uL (4.33-5.43)
[2018-09-22] MEDS ORDERED: HYDROMORPHONE HCL 1 MG/ML INJ IV ONE (06:17)
[2018-09-22 06:33] LABS: Albumin 3.2 g/dL (3.4-5.0); Bilirubin Total 0.4 mg/dL (0.2-1.0); Potassium 3.8 mmol/L (3.5-5.1); Protein, Total 6.7 g/dL (6.4-8.2)
[2018-09-22] MEDS ORDERED: HYDRALAZINE HCL 20 MG/ML VIAL IV PRN (08:10)
--- NOTE | 2018-09-22 08:28 | P.HP ---
Certification for Inpatient Patient admitted to: Inpatient With expected LOS: >2 Midnights Patient will require the following post-hospital care: None Practitioner: I am a practitioner with admitting privileges, knowledge of patient current condition, hospital course, and medical plan of care. Services: Services provided to patient in accordance with Admission requirements found in Title 42 Section 412.3 of the Code of Federal Regulations Patient History Date of Service: 09/21/18 Reason for admission: Altered mental status History of Present Illness: Patient is a 73-year-old gentleman who lives at the group home. He appeared disheveled and not really able to give me any history because of dementia. Per reviewing the chart he has been confused and altered and has been sleeping a lot. His mentation is much different than his baseline. They brought him into the hospital in his workup revealed a urinary tract infection. His electrolytes were normal. It appears has a toxic encephalopathy. Will continue treat him with IV antibiotics and IV hydration. Hopefully his mentation improves suprapubic catheter in place and voiding adequately. Allergies donepezil [From Aricept] Allergy (Verified 01/07/18 11:46) Itching/Hives/Rash Home Medications: Amlodipine [Norvasc*] 5 mg PO DAILY 06/14/18 Finasteride [Proscar*] 5 mg PO BEDTIME 06/14/18 Lactulose [Cephulac*] 20 gm PO DAILY 06/14/18 Memantine HCl [Namenda*] 2 tab PO BID 06/14/18 Mirtazapine [Remeron] 15 mg PO BEDTIME 06/14/18 Omeprazole 20 mg PO DAILY PRN 06/14/18 Tamsulosin [Flomax*] 0.4 mg PO BEDTIME 06/14/18 Trazodone [Desyrel*] 100 mg PO BEDTIME 06/14/18 Aspirin [Aspir-Low] 81 mg PO DAILY 06/15/18 Cholecalciferol (Vitamin D3) [Vitamin D3] 1,000 unit PO DAILY 06/15/18 Ferrous Sulfate [Iron] 325 mg PO BID 06/15/18 LORazepam [Ativan*] 1 mg PO BEDTIME 06/15/18 Simvastatin 20 mg PO BEDTIME 09/21/18 - Past Medical/Surgical History Has patient received pneumonia vaccine in the past: Yes Diabetic: No -: Recurrent UTI with history of ESBL -: Hypertension -: Hypertension hyperlipidemia -: Benign prostatic hyperplasia now with suprapubic catheter -: Gout -: CAD -: Alzheimer's dementia with behavioral disturbance -: Chronic renal disease, stage II -: History of Renal cell carcinoma -: History left nephrectomy, right partial nephrectomy -: History tobacco/alcohol abuse -: History AAA repair -: Left nephrectomy -: Partial right nephrectomy -: AAA repair -: Kidney stents x3 -: Suprapubic catheter Psychosocial/ Personal History: The patient lives with his son. He is fully dependent on the son. Patient is a . - Family History Father Medical History: Cancer Notes: kidney Mother Medical History: Cancer Notes: throat, lung Brother Medical History: Cancer - Social History Smoking Status: Former smoker Alcohol use: No CD- Drugs: No Caffeine use: No Place of Residence: [facility] Review of Systems 10-point ROS is otherwise unremarkable Physical Examination - Vital Signs Temperature: 97.2 F Blood Pressure: 199/90 Pulse: 57 Respirations: 16 Pulse Ox (%): 94 - Physical Exam General: Alert, In no apparent distress, Oriented x1, Disheveled, Demented HEENT: Atraumatic, PERRLA, Mucous membr. moist/pink, EOMI, Sclerae nonicteric Neck: Supple, 2+ carotid pulse no bruit, No LAD, Without JVD or thyroid abnormality Respiratory: Clear to auscultation bilaterally, Normal air movement Cardiovascular: Regular rate/rhythm, Normal S1 S2, No murmurs Gastrointestinal: Normal bowel sounds, Soft and benign, Non-distended, No tenderness, Other (Suprapubic catheter in place) Musculoskeletal: No tenderness Integumentary: No rashes Neurological: Normal speech, Normal tone, Sensation intact, Cranial nerves 3-12 intact, Normal affect, Abnormal gait, Abnormal strength Lymphatics: No axilla or inguinal lymphadenopathy - Studies Laboratory Data (last 24 hrs) 09/21/18 18:00: PT 13.1 H, INR 1.11 09/21/18 18:00: WBC 7.0 D, Hgb 8.8 L, Hct 27.8 L, Plt Count 152 09/21/18 18:00: Sodium 143, Potassium 4.3, BUN 39 H, Creatinine 1.73 H, Glucose 99, Total Bilirubin 0.2, AST 16, ALT 15, Alkaline Phosphatase 58, Lipase 90 Assessment & Plan - Problems (Diagnosis) (1) UTI (urinary tract infection) Current Visit: Yes Status: Acute (2) Dehydration Onset Date: 07/01/17 Current Visit: No Status: Acute (3) Dysphagia Current Visit: No Status: Acute (4) Fecal retention Onset Date: 01/07/18 Current Visit: No Status: Acute Qualifiers: (5) Obstructive uropathy Onset Date: 06/16/18 Current Visit: No Status: Acute (6) Toxic encephalopathy Onset Date: 03/04/18 Current Visit: No Status: Acute (7) UTI (urinary tract infection) Onset Date: 01/07/18 Current Visit: No Status: Acute Qualifiers: (8) Alzheimer disease Onset Date: 07/01/17 Current Visit: No Status: Chronic Qualifiers: (9) Coronary artery disease Onset Date: 07/01/17 Current Visit: No Status: Chronic Qualifiers: (10) Essential hypertension Onset Date: 07/01/17 Current Visit: No Status: Chronic (11) Renal stone Onset Date: 07/01/17 Current Visit: No Status: Chronic - Plan Plan: 1. IV hydration 2. IV antibiotics 3. Await U micro results 4. Monitor electrolytes 5. Neurochecks every 4 hr 6. Strict blood pressure and blood sugar control 7. GI and DVT prophylaxis Discharge Plan: Home Plan to discharge in: Greater than 2 days - Advance Directives Does patient have a Living Will: Yes Does patient have a Durable POA for Healthcare: Yes - Code Status/Comfort Care Code Status Assessed: Yes Code Status: Full Code Critical Care: No Time Spent Managing PTS Care (In Minutes): 45
--- NOTE | 2018-09-22 08:31 | P.PN ---
Date of Service: 09/22/18 Patient had apparently removed suprapubic catheter. Will get a 18 gauge Ro catheter and tried to replace it through patient's suprapubic catheter tract that was created by the suprapubic catheter. Urology will be consulted as well. Were able to give patient cleaned and prepped with Betadine solution. We located the suprapubic catheter tract and reinserted Ro through the fistula that was created. We had adequate urine output and patient is making quite a bit of urine. Will continue to monitor and await specialty consultation.
--- NOTE | 2018-09-22 08:52 | EKG ---
Test Date: 2018-09-21 Test Time: 18:54:05 Deputy Sheriff Building Guard: CESAR MEASUREMENT RESULTS: Intervals: Rate: 63 CT: 128 QRSD: 100 QT: 422 QTc: 431 [place]: P: 62 CT: 128 QRS: 64 T: 57 INTERPRETIVE STATEMENTS: Sinus rhythm with premature supraventricular complexes Abnormal ECG Compared to ECG 07/22/2018 09:03:20 Atrial premature complex(es) now present Electronically Signed On 09-22-18 08:51:55 REGISTRY NP by Son Ferguson
[2018-09-22] MEDS ORDERED: CEFTRIAXONE/SWI 1gm 1 GM/10 ML SYR IV SCH (09:00)
[2018-09-22] MEDS ORDERED: CEFTRIAXONE 1 GM/NS 50 ML 1 GM/50 ML BAG IV SCH (09:00)
[2018-09-22] MEDS: NA CHLORIDE 0.9% 1,000 ML IV SCH ×2 (10:20→19:34)
[2018-09-22 11:50] LABS: Absolute Lymphocytes (CBC) 0.5 K/uL (0.7-4.9); Absolute Monocytes 0.6 K/uL (0.1-1.3); Absolute Neutrophil 7.4 K/uL (1.8-8.0); Basophils % 0.3 % (0-1.3); Eosinophils % 0.2 % (0-4.4); Hematocrit 30.9 % (39.6-49.0); Lymphocytes % 5.8 % (15.3-44.8); MPV 9.4 fL (7.6-11.3); RBC Red Blood Cell Count 3.42 M/uL (4.33-5.43)
--- NOTE | 2018-09-22 11:59 | CON ---
History Of Present Illness: Mr. Rosas is admitted via the emergency room for altered mental status, p ossible UTI. The patient has been aggressive due to his dementia. Ro suprapubic catheter out and hospitalist Dr. Lopez replaced it last night. It has drained 300 cc. The nurse is going to go ahead and flush it today, make sure that it is in the right position. The patient is also status post TUR P, so it should have a wide opening to place a urethral Ro catheter if needed and that will be don e today. Allergies: TO ARICEPT. Home Medications: Acidophilus, allopurinol, amlodipine, aspirin, vitamin D3, Depakote, iron, finaste ride, lactulose, omeprazole, simvastatin, tamsulosin, trazodone. Past Medical History: Alzheimer's dementia, CVA, gout, hyperlipidemia, hypertension, kidney cancer, kidney failure, kidney stones, suprapubic catheter, UTI, ESBL. Past Surgical History: TURP. Review of Systems: Unable to obtain review of systems, the patient has dementia. Physical Examination: Vital signs: Shows temperature 97.8, pulse 65, respiratory rate 18, BP 190/97, sats 98%. HEENT: Atraumatic, normocephalic. Lungs: Clear. Abdomen: Soft, nontender. Suprapubic tube draining clear urine. : Phallus descended. Phallus stable. No lesions. Testicles descended. Extremities: Normal range of motion. Laboratory Exam: White count 7.0, H and H 10 and 31, platelet count 182. Coags normal. Chemistry; sodium 141, potassium 3.8, chloride 109, carbon dioxide 24, BUN 30, creatinine 1.5 GFR 46, glucose 94 , calcium 8.5. Urine shows pH 7.0, specific gravity 1.020, ketone negative, blood 1+, nitrite negati ve, esterase 1+, rbc 5-10, wbc 20-50, squamous cell less than 5, amorphous sediment 3+, urine bacteri a 20-50, total protein 2+. Assessment: Altered mental status suprapubic tube just got changed. We will culture urine and see w hat it shows, treat if necessary to look for underlying cause of altered mental status. Thank you very much. MEENA/LORENA Voice ID: [id number] Report ID: [id number]
[2018-09-22 12:07] LABS: Albumin 3.3 g/dL (3.4-5.0); Bilirubin Total 0.2 mg/dL (0.2-1.0); Magnesium 1.7 mg/dL (1.8-2.4); Phosphorus 2.8 mg/dL (2.5-4.9); Protein, Total 6.7 g/dL (6.4-8.2)
[2018-09-22 12:22] LABS: Blood Morphology Comment NOT SEEN (NOT SEEN); Platelet Estimate ADEQ; Urine White Blood Cell Casts OK
[2018-09-22] MEDS: Meropenem 1,000 MG in NA CHLORIDE 0.9% 100 ML IV SCH ×2 (12:44→21:16)
[2018-09-22] MEDS ORDERED: LACTULOSE 20 GM/30 ML UCUP PO PRN (14:52)
--- NOTE | 2018-09-22 15:00 | P.PN ---
Subjective Date of Service: 09/22/18 Primary Care Provider: unknown Chief Complaint: Altered mental status Subjective: Demented (Patient resting in bed.) Physical Examination - Vital Signs Temperature: 97.6 F Blood Pressure: 179/77 Pulse: 86 Respirations: 18 Pulse Ox (%): 93 - Physical Exam General: Alert, Demented HEENT: Atraumatic Neck: Supple Respiratory: Clear to auscultation bilaterally, Normal air movement Cardiovascular: Normal pulses, Regular rate/rhythm Gastrointestinal: Normal bowel sounds, Soft and benign, Non-distended Neurological: Dementia - Studies Laboratory Data (last 24 hrs) 09/21/18 18:00: PT 13.1 H, INR 1.11 09/21/18 18:00: WBC 7.0 D, Hgb 8.8 L, Hct 27.8 L, Plt Count 152 09/21/18 18:00: Sodium 143, Potassium 4.3, BUN 39 H, Creatinine 1.73 H, Glucose 99, Total Bilirubin 0.2, AST 16, ALT 15, Alkaline Phosphatase 58, Lipase 90 Medications List Reviewed: Yes Assessment & Plan Discharge Plan: [facility] Plan to discharge in: Greater than 2 days Physician Review Additional Text: Impression: Toxic encephalopathy secondary to UTI likely ESBL with history of recurrent UTI complicated with suprapubic catheter status post replacement after patient pulled out catheter Hypertension BPH Iron deficiency anemia Alzheimer's dementia with behavioral disturbance Acute renal injury likely dehydration Plan: Toxic encephalopathy secondary to UTI likely ESBL with history of recurrent UTI complicated with suprapubic catheter status post replacement after patient pulled out catheter: Case discussed with urology. Will continue with IV meropenem as the patient has a history of ESBL. Suprapubic catheter was replaced by urology. Continue monitor patient closely. Await culture results. Hypertension: Continue with medication. Provide IV medication if required. BPH: Continue with medication Iron deficiency anemia: Continue medication. Alzheimer's dementia with behavioral disturbance: Home medication reviewed and restarted. Will provide medication for agitation and agitation. Patient was agitated last night and required Geodon. Continue monitor the patient closely. Acute renal injury likely dehydration: Patient continues to improve. Dc IV fluids if taking oral intake well. Time Spent Managing Pts Care (In Minutes): 55
[2018-09-22] MEDS: ENOXAPARIN 30 MG/0.3 ML SQ SCH (16:44)
[2018-09-22] MEDS: AMLODIPINE 5 MG TAB PO SCH (17:38)
[2018-09-22] MEDS: METOPROLOL TAR 50 MG TAB PO SCH ×2 (17:53→21:00)
[2018-09-22] MEDS: LORazepam 2 MG/ML VIAL IV PRN (20:39)
[2018-09-22] MEDS ORDERED: LORAZEPAM 1 MG TABLET PO SCH (21:00)
[2018-09-22] MEDS ORDERED: TRAZODONE 50 MG TABLET PO SCH (21:00)
[2018-09-22] MEDS ORDERED: METOPROLOL TAR 50 MG TAB PO SCH (21:00)
[2018-09-22] MEDS: ATORVASTATIN 10 MG TAB PO SCH (21:30)
[2018-09-22] MEDS: FERROUS SULFATE 325 MG TAB PO SCH (21:31)
[2018-09-22] MEDS: FINASTERIDE 5 MG TAB PO SCH (21:31)
[2018-09-22] MEDS: MEMANTINE HCL 10 MG TABLET PO SCH (21:31)
[2018-09-22] MEDS: TAMSULOSIN 0.4 MG SR CAP PO SCH (21:31)
[2018-09-22] MEDS: JUVEN PACKET PO SCH (21:33)
[2018-09-23] MEDS ORDERED: LORazepam 2 MG/ML VIAL IV ONE (01:18)
[2018-09-23] MEDS ORDERED: WATER FOR INJ,STERILE 10 ML IM PRN (01:23)
[2018-09-23] MEDS ORDERED: ZIPRASIDONE MESYLA 20 MG/VIAL IM ONE (01:23)
[2018-09-23 04:25] LABS: Absolute Lymphocytes (CBC) 0.6 K/uL (0.7-4.9); Absolute Monocytes 0.6 K/uL (0.1-1.3); Absolute Neutrophil 5.3 K/uL (1.8-8.0); Basophils % 0.4 % (0-1.3); Eosinophils % 1.5 % (0-4.4); Hematocrit 31.1 % (39.6-49.0); Lymphocytes % 9.6 % (15.3-44.8); MPV 9.5 fL (7.6-11.3); Monocytes % 9.5 % (3.3-12.3); RBC Red Blood Cell Count 3.45 M/uL (4.33-5.43)
[2018-09-23 04:31] LABS: Magnesium 1.7 mg/dL (1.8-2.4); Potassium 3.6 mmol/L (3.5-5.1)
[2018-09-23] MEDS ORDERED: MAGNESIUM SULFATE 1 gm IVPB 1 GM/100 ML BAG IV ONE (04:58)
[2018-09-23] MEDS: LORazepam 2 MG/ML VIAL IV PRN ×2 (05:20→13:20)
[2018-09-23] MEDS: AMLODIPINE 5 MG TAB PO SCH (08:00)
[2018-09-23] MEDS: ASPIRIN EC 81 MG TAB PO SCH (08:00)
[2018-09-23] MEDS: VITAMIN D 1000 UNIT TAB PO SCH (08:00)
[2018-09-23] MEDS: MEMANTINE HCL 10 MG TABLET PO SCH ×2 (08:00→20:04)
[2018-09-23] MEDS: FERROUS SULFATE 325 MG TAB PO SCH ×2 (08:00→20:05)
[2018-09-23] MEDS: METOPROLOL TAR 50 MG TAB PO SCH ×2 (08:01→20:04)
[2018-09-23] MEDS: JUVEN PACKET PO SCH ×2 (08:47→20:05)
[2018-09-23] MEDS: CEFTRIAXONE/SWI 1gm 1 GM/10 ML SYR IV SCH (08:47)
--- NOTE | 2018-09-23 08:53 | P.PN ---
Subjective Date of Service: 09/23/18 Primary Care Provider: unknown Chief Complaint: Altered mental status Subjective: Demented, Other (Patient still agitated. Patient required Geodon last night. Patient pulled IV out. This was replaced.) Physical Examination - Vital Signs Temperature: 98.9 F Blood Pressure: 141/81 Pulse: 65 Respirations: 26 Pulse Ox (%): 99 - Physical Exam General: Demented (Moderate to severe), Other (Increase sedation due to medication) HEENT: Atraumatic Neck: Supple Respiratory: Clear to auscultation bilaterally, Normal air movement Cardiovascular: Normal pulses, Regular rate/rhythm Gastrointestinal: Normal bowel sounds, Soft and benign, Non-distended Neurological: Normal strength at 5/5 x4 extr, Dementia - Studies Microbiology Data (last 24 hrs): 09/21/18 19:15 Catheterized Urine [place] Count - Final >100,000 CFU/ML. 09/21/18 19:15 Catheterized Urine - Final Citrobacter Amalonaticus Medications List Reviewed: Yes Assessment & Plan Discharge Plan: [facility] Plan to discharge in: Greater than 2 days Physician Review Additional Text: Impression: Toxic encephalopathy secondary to UTI, urine culture positive for Citrobacter with history of recurrent UTI complicated with suprapubic catheter status post replacement after patient pulled out catheter Hypertension BPH Iron deficiency anemia Alzheimer's dementia with behavioral disturbance Acute renal injury likely dehydration Plan: Toxic encephalopathy secondary to UTI, urine culture positive for Citrobacter with history of recurrent UTI complicated with suprapubic catheter status post replacement after patient pulled out catheter: Case discussed with urology. Will change IV meropenem to Rocephin to narrow coverage. Patient still agitated. Will check CT head to rule out other etiology of encephalopathy. Will continue to monitor urine culture as the patient has a history of ESBL. So far urine culture positive for Citrobacter. Suprapubic catheter was replaced by urology. Continue monitor patient closely. Await culture results. Hypertension: Medication adjusted. Will continue monitor closely. BPH: Continue with medication Iron deficiency anemia: Continue medication. Alzheimer's dementia with behavioral disturbance: Home medication reviewed and restarted. Patient still with agitation. Patient required Geodon last night. Will monitor closely. Will check CT head to rule out other etiology of his encephalopathy. Hopefully this will get back to his normal baseline status. Acute renal injury likely dehydration: Renal function improved. Continue IV fluids. Time Spent Managing Pts Care (In Minutes): 55
--- NOTE | 2018-09-23 10:33 | RAD REPORT ---
EXAM DESCRIPTION: CT - Head Brain Wo Cont - 09/23/2018 10:26 am CLINICAL HISTORY: Alteration of awareness/confusion COMPARISON: July 2018 TECHNIQUE: Computed axial tomography of the head was obtained. IV contrast was not requested. All CT scans are performed using dose optimization technique as appropriate and may include automated exposure control or mA/KV adjustment according to patient size. FINDINGS: Images are degraded by patient motion artifact An intracranial bleed is not seen . The ventricles are normal in caliber. No extra-axial fluid collection is noted. Mild to moderate low-density areas within periventricular, deep and subcortical white matter likely represent ischemic changes secondary to small vessel disease . Fluid within the sinuses/ mastoids is not seen. IMPRESSION: No gross acute intracranial abnormality seen
[2018-09-23] MEDS: NA CHLORIDE 0.9% 1,000 ML IV SCH (12:42)
[2018-09-23] MEDS: ENOXAPARIN 30 MG/0.3 ML SQ SCH (16:47)
[2018-09-23] MEDS: ATORVASTATIN 10 MG TAB PO SCH (20:05)
[2018-09-23] MEDS: MIRTAZAPINE 15 MG TAB PO SCH (20:05)
[2018-09-23] MEDS: FINASTERIDE 5 MG TAB PO SCH (20:05)
[2018-09-23] MEDS: TAMSULOSIN 0.4 MG SR CAP PO SCH (20:05)
[2018-09-23] MEDS: TRAZODONE 150 MG TAB PO SCH (20:05)
[2018-09-23] MEDS ORDERED: MIRTAZAPINE 15 MG PO SCH (21:00)
[2018-09-24] MEDS: NA CHLORIDE 0.9% 1,000 ML IV SCH ×2 (00:25→15:40)
[2018-09-24] MEDS: LORazepam 2 MG/ML VIAL IV PRN ×2 (00:25→23:44)
[2018-09-24 04:44] LABS: Absolute Lymphocytes (CBC) 0.9 K/uL (0.7-4.9); Absolute Monocytes 0.7 K/uL (0.1-1.3); Basophils % 0.8 % (0-1.3); Eosinophils % 5.2 % (0-4.4); Hematocrit 34.8 % (39.6-49.0); Lymphocytes % 15.1 % (15.3-44.8); MPV 9.3 fL (7.6-11.3); RBC Red Blood Cell Count 3.83 M/uL (4.33-5.43)
[2018-09-24 05:03] LABS: Magnesium 1.9 mg/dL (1.8-2.4); Potassium 3.5 mmol/L (3.5-5.1)
[2018-09-24] MEDS: VITAMIN D 1000 UNIT TAB PO SCH (09:00)
[2018-09-24] MEDS: AMLODIPINE 5 MG TAB PO SCH (09:00)
[2018-09-24] MEDS: MEMANTINE HCL 10 MG TABLET PO SCH ×2 (09:00→21:00)
[2018-09-24] MEDS: FERROUS SULFATE 325 MG TAB PO SCH ×2 (09:00→21:00)
[2018-09-24] MEDS: JUVEN PACKET PO SCH ×2 (09:00→21:00)
[2018-09-24] MEDS: ASPIRIN EC 81 MG TAB PO SCH (09:00)
[2018-09-24] MEDS: METOPROLOL TAR 50 MG TAB PO SCH ×2 (09:00→21:00)
[2018-09-24] MEDS: CEFTRIAXONE/SWI 1gm 1 GM/10 ML SYR IV SCH (09:25)
--- NOTE | 2018-09-24 11:44 | P.PN ---
Subjective Date of Service: 09/24/18 Primary Care Provider: unknown Chief Complaint: Altered mental status Subjective: Demented, Other (Still with agitation last night. Patient required medication.) Physical Examination - Vital Signs Temperature: 97.8 F Blood Pressure: 157/70 Pulse: 57 Respirations: 14 Pulse Ox (%): 94 - Physical Exam General: Demented, Confused HEENT: Atraumatic Neck: Supple Respiratory: Clear to auscultation bilaterally, Normal air movement Cardiovascular: Normal pulses, Regular rate/rhythm Gastrointestinal: Normal bowel sounds, Soft and benign, Non-distended Neurological: Normal strength at 5/5 x4 extr, Normal tone, Dementia - Studies Microbiology Data (last 24 hrs): 09/21/18 19:15 Catheterized Urine [place] Count - Final >100,000 CFU/ML. 09/21/18 19:15 Catheterized Urine - Final Citrobacter Amalonaticus Medications List Reviewed: Yes Assessment & Plan Discharge Plan: Correction Plan to discharge in: 48 Hours Physician Review Additional Text: Impression: Toxic encephalopathy secondary to UTI, urine culture positive for Citrobacter with history of recurrent UTI complicated with suprapubic catheter status post replacement after patient pulled out catheter Hypertension BPH Iron deficiency anemia Alzheimer's dementia with behavioral disturbance Acute renal injury likely dehydration Plan: Toxic encephalopathy secondary to UTI, urine culture positive for Citrobacter with history of recurrent UTI complicated with suprapubic catheter status post replacement after patient pulled out catheter: Patient's altered mental status continues to be an issue. CT scan of head unremarkable for stroke. Pro calcitonin within normal range. Antibiotic coverage has been adjusted. His current condition may be related to worsening Alzheimer's dementia. If his oral intake declines an is condition continues to worsen will need to discuss with family about options of care including hospice. This was addressed in detail yesterday. Will Re discuss this further with family today. Hypertension: Medication adjusted. Will continue monitor closely. BPH: Continue with medication Iron deficiency anemia: Continue medication. Alzheimer's dementia with behavioral disturbance: Medications adjusted. Still with increased agitation requiring medication at night. Alzheimer's dementia likely getting worse. Will need discuss with family about the possibility of hospice. Acute renal injury likely dehydration: Renal function improved. Continue IV fluids. Time Spent Managing Pts Care (In Minutes): 55
[2018-09-24] MEDS: HYDRALAZINE HCL 20 MG/ML VIAL IV PRN ×2 (12:17→23:18)
[2018-09-24] MEDS: ENOXAPARIN 30 MG/0.3 ML SQ SCH (17:00)
[2018-09-24] MEDS: FINASTERIDE 5 MG TAB PO SCH (21:00)
[2018-09-24] MEDS: ATORVASTATIN 10 MG TAB PO SCH (21:00)
[2018-09-24] MEDS: TAMSULOSIN 0.4 MG SR CAP PO SCH (21:00)
[2018-09-24] MEDS: TRAZODONE 150 MG TAB PO SCH (21:00)
[2018-09-24] MEDS: MIRTAZAPINE 15 MG TAB PO SCH (21:00)
[2018-09-25 04:12] LABS: Absolute Lymphocytes (CBC) 0.9 K/uL (0.7-4.9); Absolute Monocytes 0.7 K/uL (0.1-1.3); Absolute Neutrophil 4.6 K/uL (1.8-8.0); Basophils % 0.5 % (0-1.3); Eosinophils % 2.4 % (0-4.4); Hematocrit 34.2 % (39.6-49.0); Lymphocytes % 13.4 % (15.3-44.8); MPV 9.1 fL (7.6-11.3); Monocytes % 11.2 % (3.3-12.3); RBC Red Blood Cell Count 3.83 M/uL (4.33-5.43)
[2018-09-25 04:27] LABS: Magnesium 1.8 mg/dL (1.8-2.4); Potassium 4.1 mmol/L (3.5-5.1)
[2018-09-25] MEDS: NA CHLORIDE 0.9% 1,000 ML IV SCH (05:00)
[2018-09-25] MEDS: LORazepam 2 MG/ML VIAL IV PRN ×2 (06:15→19:17)
[2018-09-25] MEDS: CEFTRIAXONE/SWI 1gm 1 GM/10 ML SYR IV SCH (08:30)
[2018-09-25] MEDS: JUVEN PACKET PO SCH ×2 (09:00→21:00)
[2018-09-25] MEDS ORDERED: MAGNESIUM SULFATE 1 gm IVPB 1 GM/100 ML BAG IV ONE (09:00)
[2018-09-25] MEDS: MEMANTINE HCL 10 MG TABLET PO SCH ×3 (09:00→22:35)
[2018-09-25] MEDS: METOPROLOL TAR 50 MG TAB PO SCH ×3 (09:00→22:34)
[2018-09-25] MEDS: ASPIRIN EC 81 MG TAB PO SCH (09:00)
[2018-09-25] MEDS: FERROUS SULFATE 325 MG TAB PO SCH ×2 (09:00→22:35)
[2018-09-25] MEDS: VITAMIN D 1000 UNIT TAB PO SCH (09:00)
[2018-09-25] MEDS: AMLODIPINE 5 MG TAB PO SCH (09:00)
--- NOTE | 2018-09-25 13:18 | P.PN ---
Subjective Date of Service: 09/25/18 Primary Care Provider: unknown Chief Complaint: Altered mental status Subjective: Demented (No change in mentation showing improvement.) Physical Examination - Vital Signs Temperature: 98.3 F Blood Pressure: 90/56 Pulse: 108 Respirations: 18 Pulse Ox (%): 97 - Physical Exam General: Demented (severe) Neck: Supple Respiratory: Clear to auscultation bilaterally, Normal air movement Cardiovascular: Normal pulses, Regular rate/rhythm Neurological: Dementia - Studies Medications List Reviewed: Yes Assessment & Plan Discharge Plan: Other (Hospice likely at snf) Plan to discharge in: 24 Hours Physician Review Additional Text: Impression: Toxic encephalopathy secondary to UTI, urine culture positive for Citrobacter with history of recurrent UTI complicated with suprapubic catheter status post replacement after patient pulled out catheter Hypertension BPH Iron deficiency anemia Alzheimer's dementia with behavioral disturbance Acute renal injury likely dehydration Plan: Toxic encephalopathy secondary to UTI, urine culture positive for Citrobacter with history of recurrent UTI complicated with suprapubic catheter status post replacement after patient pulled out catheter: Patient's altered mental status continues to decline. No significant improvement in mentation. Poor oral intake. Patient not a good candidate for PEG tube. Case discussed at length with family yesterday. Family understands his condition. Family agreeable to hospice. Family arranging for different snf with hospice. Hypertension: Medication adjusted. Will continue monitor closely. BPH: Continue with medication Iron deficiency anemia: Continue medication. Alzheimer's dementia with behavioral disturbance: Continue as above. Acute renal injury likely dehydration: Renal function improved. Continue IV fluids. Time Spent Managing Pts Care (In Minutes): 55
[2018-09-25] MEDS: ENOXAPARIN 30 MG/0.3 ML SQ SCH (17:00)
[2018-09-25] MEDS: MIRTAZAPINE 15 MG TAB PO SCH ×2 (20:45→22:35)
[2018-09-25] MEDS: HYDRALAZINE HCL 20 MG/ML VIAL IV PRN (21:08)
[2018-09-25] MEDS: FINASTERIDE 5 MG TAB PO SCH (22:33)
[2018-09-25] MEDS: TAMSULOSIN 0.4 MG SR CAP PO SCH (22:34)
[2018-09-25] MEDS: TRAZODONE 150 MG TAB PO SCH (22:35)
[2018-09-25] MEDS: ATORVASTATIN 10 MG TAB PO SCH (22:36)
[2018-09-26] MEDS: LORazepam 2 MG/ML VIAL IV PRN (06:08)
[2018-09-26] MEDS: FERROUS SULFATE 325 MG TAB PO SCH ×2 (09:00→20:27)
[2018-09-26] MEDS: METOPROLOL TAR 50 MG TAB PO SCH ×2 (09:00→20:21)
[2018-09-26] MEDS: VITAMIN D 1000 UNIT TAB PO SCH (09:00)
[2018-09-26] MEDS: AMLODIPINE 5 MG TAB PO SCH (09:00)
[2018-09-26] MEDS: JUVEN PACKET PO SCH ×2 (09:00→20:20)
[2018-09-26] MEDS: ASPIRIN EC 81 MG TAB PO SCH (09:00)
[2018-09-26] MEDS: MEMANTINE HCL 10 MG TABLET PO SCH ×2 (09:00→20:21)
[2018-09-26] MEDS ORDERED: LORazepam 2 MG/ML VIAL IV PRN (09:28)
--- NOTE | 2018-09-26 16:08 | P.PN ---
Subjective Date of Service: 09/26/18 Primary Care Provider: unknown Chief Complaint: Altered mental status Subjective: Demented Physical Examination - Vital Signs Temperature: 98.1 F Blood Pressure: 157/83 Pulse: 62 Respirations: 16 Pulse Ox (%): 100 - Physical Exam General: Demented Neck: Supple Respiratory: Clear to auscultation bilaterally, Normal air movement Cardiovascular: Normal pulses, Regular rate/rhythm Gastrointestinal: Normal bowel sounds Neurological: Dementia - Studies Medications List Reviewed: Yes Assessment & Plan Discharge Plan: Other (Inpatient hospice) Plan to discharge in: 24 Hours Physician Review Additional Text: Impression: Toxic encephalopathy secondary to UTI, urine culture positive for Citrobacter with history of recurrent UTI complicated with suprapubic catheter status post replacement after patient pulled out catheter Hypertension BPH Iron deficiency anemia Alzheimer's dementia with behavioral disturbance Acute renal injury likely dehydration Plan: Toxic encephalopathy secondary to UTI, urine culture positive for Citrobacter with history of recurrent UTI complicated with suprapubic catheter status post replacement after patient pulled out catheter: Patient's altered mental status continues to decline. Spoke with family in detail yesterday. Family has decided on inpatient hospice. Will try to arrange this. Continue comfort measures. Antibiotics, lab draws, medications discontinued. Continue comfort measures. Anticipate transfer to inpatient hospice soon Hypertension: Continue comfort measures. Will continue monitor closely. BPH: Continue comfort measures Iron deficiency anemia: Continue comfort measures. Alzheimer's dementia with behavioral disturbance: Inpatient hospice to be initiated. Anticipate discharge to inpatient hospice soon. Acute renal injury likely dehydration: IV fluids stopped. Continue comfort measures Time Spent Managing Pts Care (In Minutes): 55
[2018-09-26 20:08] VITALS: BP 160/88; TEMP 97.7
[2018-09-26 20:13] VITALS: O2SAT 97
[2018-09-26] MEDS: HYDRALAZINE HCL 20 MG/ML VIAL IV PRN (20:15)
[2018-09-26] MEDS: FINASTERIDE 5 MG TAB PO SCH (20:21)
[2018-09-26] MEDS: ATORVASTATIN 10 MG TAB PO SCH (20:21)
[2018-09-26] MEDS: MIRTAZAPINE 15 MG TAB PO SCH (20:22)
[2018-09-26] MEDS: TRAZODONE 150 MG TAB PO SCH (20:27)
[2018-09-26] MEDS: TAMSULOSIN 0.4 MG SR CAP PO SCH (20:27)
--- NOTE | 2018-09-27 10:47 | P.DS ---
Admission Date: 09/21/18 Discharge Date: 09/27/18 Primary Care Provider: unknown Disposition: HOSPICE-MEDICAL FACILITY Discharge Condition: FAIR Reason for Admission: Altered mental status Consultations: Urology-Dr. Little Procedures: Impression: Toxic encephalopathy secondary to UTI, urine culture positive for Citrobacter with history of recurrent UTI complicated with suprapubic catheter status post replacement after patient pulled out catheter Severe and worsening in Alzheimer's dementia with behavioral disturbance Hypertension BPH Iron deficiency anemia Acute renal injury likely dehydration Brief History of Present Illness: 73-year-old male presented with altered mental status. Patient with severe Alzheimer's dementia. Suspected UTI was noted. Hospital Course: Patient presented with toxic encephalopathy secondary to UTI, urine culture positive for Citrobacter. Patient with history of recurrent UTI complicated with suprapubic catheter. During the course of his stay the patient did pull out his catheter. This was replaced by urology. Patient continued to have increase agitation with no significant improvement. Patient with severe Alzheimer's dementia with behavioral disturbance. After no significant improvement case discussed at length with family concerning plan of care. Patient likely not a good candidate for PEG tube. Advanced directives had been addressed initially and confirmed with family. Patient was do not resuscitate. After a long discussion with family concerning the patient's lack of improvement and deteriorating Alzheimer's dementia, they agreed for inpatient hospice. Patient transferred to inpatient hospice to continue comfort measures. Antibiotics, lab draws and medications discontinued. Further adjustment in medication can be done by inpatient hospice. Vital Signs/Physical Exam: Temp Pulse Resp BP Pulse Ox 97.7 F 55 15 160/88 H 97 09/26/18 20:00 09/26/18 20:21 09/26/18 20:00 09/26/18 20:21 09/26/18 20:00 General: Demented (Severe dementia) HEENT: Atraumatic Neck: Supple Respiratory: Clear to auscultation bilaterally Gastrointestinal: Other (Patient in position) Neurological: Dementia (Severe) Laboratory Data at Discharge: WBC 6.4 K/uL (4.3-10.9) 09/25/18 03:33 Hgb 11.2 g/dL (13.6-17.9) L 09/25/18 03:33 Hct 34.2 % (39.6-49.0) L 09/25/18 03:33 Plt Count 190 K/uL (152-406) 09/25/18 03:33 PT 13.1 SECONDS (9.5-12.5) H 09/21/18 18:00 INR 1.11 09/21/18 18:00 Sodium 143 mmol/L (136-145) 09/25/18 03:33 Potassium 4.1 mmol/L (3.5-5.1) 09/25/18 03:33 BUN 28 mg/dL (7-18) H 09/25/18 03:33 Creatinine 1.34 mg/dL (0.55-1.3) H 09/25/18 03:33 Glucose 89 mg/dL (74-106) 09/25/18 03:33 Phosphorus 2.8 mg/dL (2.5-4.9) 09/22/18 11:23 Magnesium 1.8 mg/dL (1.8-2.4) 09/25/18 03:33 Total Bilirubin 0.2 mg/dL (0.2-1.0) 09/22/18 11:23 AST 17 U/L (15-37) 09/22/18 11:23 ALT 15 U/L (12-78) 09/22/18 11:23 Alkaline Phosphatase 68 U/L (45-117) 09/22/18 11:23 Lipase 90 U/L (73-393) 09/21/18 18:00 Home Medications: Amlodipine [Norvasc*] 5 mg PO DAILY 06/14/18 Finasteride [Proscar*] 5 mg PO BEDTIME 06/14/18 Lactulose [Cephulac*] 20 gm PO DAILY 06/14/18 Memantine HCl [Namenda*] 2 tab PO BID 06/14/18 Mirtazapine [Remeron] 15 mg PO BEDTIME 06/14/18 Omeprazole 20 mg PO DAILY PRN 06/14/18 Tamsulosin [Flomax*] 0.4 mg PO BEDTIME 06/14/18 Trazodone [Desyrel*] 100 mg PO BEDTIME 06/14/18 Aspirin [Aspir-Low] 81 mg PO DAILY 06/15/18 Cholecalciferol (Vitamin D3) [Vitamin D3] 1,000 unit PO DAILY 06/15/18 Ferrous Sulfate [Iron] 325 mg PO BID 06/15/18 LORazepam [Ativan*] 1 mg PO BEDTIME 06/15/18 Simvastatin 20 mg PO BEDTIME 09/21/18 Patient Discharge Instructions: Patient to enter inpatient hospice. Continue comfort measures. Diet: Comfort feeding Activity: Bedrest Time spent managing pt's care (in minutes): 55
== END 2018-09-26 23:35 | disposition hospice, inpatient (51) | DRG 698 ==
LOC: ER 16:25 → ERHOLD 20:18 → 4TH 21:17
PROVIDERS: ADMIT Hospitalist; ATTEND Family Medicine
DX: T83.511A Infection and inflammatory reaction due to indwelling urethral catheter, initial encounter (principal); G92 Toxic encephalopathy; F02.81 Dementia in other diseases classified elsewhere, unspecified severity, with behavioral disturbance; N17.9 Acute kidney failure, unspecified; N39.0 Urinary tract infection, site not specified; G30.9 Alzheimer's disease, unspecified; E78.5 Hyperlipidemia, unspecified; Z86.73 Personal history of transient ischemic attack (TIA), and cerebral infarction without residual deficits; Z51.5 Encounter for palliative care; Z66 Do not resuscitate; Z85.528 Personal history of other malignant neoplasm of kidney; Z90.5 Acquired absence of kidney; N40.0 Benign prostatic hyperplasia without lower urinary tract symptoms; I12.9 Hypertensive chronic kidney disease with stage 1 through stage 4 chronic kidney disease, or unspecified chronic kidney disease; N18.2 Chronic kidney disease, stage 2 (mild); I25.10 Atherosclerotic heart disease of native coronary artery without angina pectoris; Z87.891 Personal history of nicotine dependence; E86.0 Dehydration; R13.10 Dysphagia, unspecified; K59.00 Constipation, unspecified; N13.9 Obstructive and reflux uropathy, unspecified; D50.9 Iron deficiency anemia, unspecified; B96.89 Other specified bacterial agents as the cause of diseases classified elsewhere; Y73.8 Miscellaneous gastroenterology and urology devices associated with adverse incidents, not elsewhere classified; Y92.129 Unspecified place in nursing home as the place of occurrence of the external cause
CPT/HCPCS: 36415; 70450; 71045; 80048; 80053; 80076; 81003; 81015; 82550; 83690; 83735; 83880; 84100; 84145; 84484; 85025; 85610; 87040; 87077; 87086; 87088; 87186; 93005; 96360; 96361; 99285; J0360; J0696; J1170; J1650; J2270; J3475; J3486; J7030

== ENCOUNTER 2018-09-26 23:46 | Inpatient (IN) | payer OTHER ==
--- OUTSIDE RECORDS SUMMARY | 2018-09-26 23:50 | XMS REPORT | Clinical Summary ---
:1945 Author Organization [facility] Address [address] [place] [address] Care Team Providers Name Role Phone Magdy [...] Comments COLON CANCER SCREENING 1997 SHINGLES VACCINES (#1) 1997 65+ PNEUMOCOCCAL VACCINE (1 of 2 - PCV13) 02/08/2012 PNEUMOCOCCAL POLYSACCHARIDE VACCINE AGE 65 AND OVER 02/08/2012 INFLUENZA VACCINE 03/05/2018 Results Not on fileafter 09/25/2017 Insurance Payer Benefit Plan / Group Subscriber ID Type Phone Address MEDICARE MEDICARE PART A AND B xxxxxxxxxx Medicare [place], [place] MEDICAID MEDICAID xxxxxxxxx Medicaid Advance Directives Patient has advance care planning documents on file. For more information, please contact:[place] [address]
[2018-09-26] MEDS ORDERED: HYOSCYAMINE SULF 0.125 MG TAB PO PRN (23:56)
[2018-09-26] MEDS ORDERED: SODIUM CHLORIDE 0.9% 10ML INJ IV PRN (23:59)
[2018-09-26] MEDS ORDERED: PROMETHAZINE 25 MG TABLET PO PRN (23:59)
[2018-09-26] MEDS ORDERED: ACETAMINOPHEN 650MG/RECT SUPP PR PRN (23:59)
[2018-09-26] MEDS ORDERED: BISACODYL 10 MG RECTAL SUPP PR PRN (23:59)
[2018-09-26] MEDS ORDERED: PROMETHAZINE 25 MG/SUPP PR PRN (23:59)
[2018-09-27] MEDS ORDERED: HYDRALAZINE HCL 20 MG/ML VIAL IV PRN (00:07)
[2018-09-27] MEDS: LORazepam 2 MG/ML VIAL IV PRN ×6 (03:24→23:02)
[2018-09-27] MEDS: METOPROLOL TAR 50 MG TAB PO SCH ×2 (09:00→21:00)
[2018-09-27] MEDS: AMLODIPINE 5 MG TAB PO SCH (09:00)
[2018-09-27] MEDS: MORPHINE 2 MG/ML SYR IV PRN (14:58)
[2018-09-28] MEDS: LORazepam 2 MG/ML VIAL IV PRN ×5 (01:51→22:57)
[2018-09-28] MEDS: MORPHINE 2 MG/ML SYR IV PRN ×2 (03:16→15:00)
[2018-09-28] MEDS: METOPROLOL TAR 50 MG TAB PO SCH ×2 (10:58→20:24)
[2018-09-28] MEDS: AMLODIPINE 5 MG TAB PO SCH (10:58)
[2018-09-29] MEDS: LORazepam 2 MG/ML VIAL IV PRN ×6 (01:29→20:30)
[2018-09-29] MEDS: METOPROLOL TAR 50 MG TAB PO SCH ×2 (11:57→21:00)
[2018-09-29] MEDS: AMLODIPINE 5 MG TAB PO SCH (11:57)
[2018-09-30] MEDS: LORazepam 2 MG/ML VIAL IV PRN ×6 (01:44→21:06)
[2018-09-30 07:47] VITALS: BMI 19.8
[2018-09-30] MEDS: AMLODIPINE 5 MG TAB PO SCH (09:00)
[2018-09-30] MEDS: METOPROLOL TAR 50 MG TAB PO SCH ×2 (09:00→21:00)
[2018-10-01] MEDS: METOPROLOL TAR 50 MG TAB PO SCH (00:43)
[2018-10-01] MEDS: LORazepam 2 MG/ML VIAL IV PRN ×6 (00:44→14:17)
[2018-10-01] MEDS: AMLODIPINE 5 MG TAB PO SCH (09:00)
[2018-10-01 09:45] VITALS: O2SAT 99
[2018-10-01 10:22] VITALS: BP 159/106; TEMP 97.6
--- NOTE | 2018-10-03 17:05 | P.HP ---
Certification for Inpatient Patient admitted to: Inpatient With expected LOS: >2 Midnights Patient will require the following post-hospital care: None Practitioner: I am a practitioner with admitting privileges, knowledge of patient current condition, hospital course, and medical plan of care. Services: Services provided to patient in accordance with Admission requirements found in Title 42 Section 412.3 of the Code of Federal Regulations Patient History Date of Service: 09/27/18 History of Present Illness: The 3-year-old male with significant past medical history of Alzheimer's dementia and chronic UTI with acutely declining was going to be admitted to the hospital under hospice care for inpatient hospice. Allergies donepezil [From Aricept] Allergy (Intermediate, Verified 09/27/18 00:50) Itching/Hives/Rash Home Medications: Amlodipine [Norvasc*] 5 mg PO DAILY 06/14/18 Finasteride [Proscar*] 5 mg PO BEDTIME 06/14/18 Lactulose [Cephulac*] 20 gm PO DAILY 06/14/18 Memantine HCl [Namenda*] 2 tab PO BID 06/14/18 Mirtazapine [Remeron] 15 mg PO BEDTIME 06/14/18 Omeprazole 20 mg PO DAILY PRN 06/14/18 Tamsulosin [Flomax*] 0.4 mg PO BEDTIME 06/14/18 Trazodone [Desyrel*] 100 mg PO BEDTIME 06/14/18 Aspirin [Aspir-Low] 81 mg PO DAILY 06/15/18 Cholecalciferol (Vitamin D3) [Vitamin D3] 1,000 unit PO DAILY 06/15/18 Ferrous Sulfate [Iron] 325 mg PO BID 06/15/18 LORazepam [Ativan*] 1 mg PO BEDTIME 06/15/18 Simvastatin 20 mg PO BEDTIME 09/21/18 - Past Medical/Surgical History Has patient received pneumonia vaccine in the past: Yes Diabetic: No -: Recurrent UTI with history of ESBL -: Hypertension -: Hypertension hyperlipidemia -: Benign prostatic hyperplasia now with suprapubic catheter -: Gout -: CAD -: Alzheimer's dementia with behavioral disturbance -: Chronic renal disease, stage II -: History of Renal cell carcinoma -: History left nephrectomy, right partial nephrectomy -: History tobacco/alcohol abuse -: History AAA repair -: Left nephrectomy -: Partial right nephrectomy -: AAA repair -: Kidney stents x3 -: Suprapubic catheter Psychosocial/ Personal History: The patient lives with his son. He is fully dependent on the son. Patient is a . - Family History Father -: Cancer Notes: kidney Mother -: Cancer Notes: throat, lung Brother -: Cancer - Social History Smoking Status: Former smoker Alcohol use: No CD- Drugs: No Caffeine use: No [facility] Review of Systems 10-point ROS is otherwise unremarkable Physical Examination - Vital Signs Temperature: 97.6 F Blood Pressure: 159/106 Pulse: 85 Respirations: 20 Pulse Ox (%): 99 - Physical Exam General: In no apparent distress, Cachectic, Acute distress HEENT: Atraumatic, PERRLA, Mucous membr. moist/pink, EOMI, Sclerae nonicteric Neck: Supple, 2+ carotid pulse no bruit, No LAD, Without JVD or thyroid abnormality Respiratory: Normal air movement, Expiratory wheezes, Inspiratory wheezes Cardiovascular: Regular rate/rhythm, Normal S1 S2 Gastrointestinal: Normal bowel sounds, No tenderness Musculoskeletal: No tenderness Integumentary: No rashes Lymphatics: No axilla or inguinal lymphadenopathy Urinary: Suprapubic catheter Assessment and Plan - Problems (Diagnosis) (1) Admission for hospice care Status: Acute (2) UTI (urinary tract infection) Onset Date: 01/07/18 Status: Chronic Qualifiers: Urinary tract infection type: catheter-associated UTI Indwelling urinary catheter type: cystostomy catheter Encounter type: initial encounter Qualified Code(s): T83.510A - Infection and inflammatory reaction due to cystostomy catheter, initial encounter; N39.0 - Urinary tract infection, site not specified (3) Alzheimer disease Onset Date: 07/01/17 Status: Chronic Qualifiers: Alzheimer's disease onset: early-onset Dementia behavioral disturbance: with behavioral disturbance Qualified Code(s): G30.0 - Alzheimer's disease with early onset; F02.81 - Dementia in other diseases classified elsewhere with behavioral disturbance (4) CKD (chronic kidney disease) stage 3, GFR 30-59 ml/min Onset Date: 07/01/17 Status: Chronic (5) Coronary artery disease Onset Date: 07/01/17 Status: Chronic Qualifiers: Coronary Disease-Associated Artery/Lesion type: [place] artery [place] vs. transplanted heart: [place] heart Associated angina: with stable angina Qualified Code(s): I25.118 - Atherosclerotic heart disease of [place] coronary artery with other forms of angina pectoris (6) Essential hypertension Onset Date: 07/01/17 Status: Chronic (7) History of ischemic stroke without residual deficits Onset Date: 07/01/17 Status: Chronic - Plan 9-year-old male with significant past medical history who was acutely declining and was under acute care and now transferred to inpatient hospice care after detailed discussion with the family. Patient's with hospice diagnosis of end-stage also ensure and recurrent UTI along with sepsis that is worsening now. Will continue to monitor patient here in the hospital and provide comfort measures. Discharge Plan: Other Plan to discharge in: Unknown - Advance Directives Does patient have a Living Will: Yes Does patient have a Durable POA for Healthcare: Yes - Code Status/Comfort Care Code Status Assessed: Yes Comfort Measures: Hospice Care Critical Care: No
--- NOTE | 2018-10-03 17:08 | P.DS ---
Admission Date: 09/26/18 Discharge Date: 10/01/18 Disposition: HOSPICE-HOME Discharge Condition: FAIR - Problems (1) Admission for hospice care Status: Acute (2) UTI (urinary tract infection) Onset Date: 01/07/18 Status: Chronic Qualifiers: Urinary tract infection type: catheter-associated UTI Indwelling urinary catheter type: cystostomy catheter Encounter type: initial encounter Qualified Code(s): T83.510A - Infection and inflammatory reaction due to cystostomy catheter, initial encounter; N39.0 - Urinary tract infection, site not specified (3) Alzheimer disease Onset Date: 07/01/17 Status: Chronic Qualifiers: Alzheimer's disease onset: early-onset Dementia behavioral disturbance: with behavioral disturbance Qualified Code(s): G30.0 - Alzheimer's disease with early onset; F02.81 - Dementia in other diseases classified elsewhere with behavioral disturbance (4) CKD (chronic kidney disease) stage 3, GFR 30-59 ml/min Onset Date: 07/01/17 Status: Chronic (5) Coronary artery disease Onset Date: 07/01/17 Status: Chronic Qualifiers: Coronary Disease-Associated Artery/Lesion type: [place] artery [place] vs. transplanted heart: [place] heart Associated angina: with stable angina Qualified Code(s): I25.118 - Atherosclerotic heart disease of [place] coronary artery with other forms of angina pectoris (6) Essential hypertension Onset Date: 07/01/17 Status: Chronic (7) History of ischemic stroke without residual deficits Onset Date: 07/01/17 Status: Chronic Brief History of Present Illness: The 3-year-old male with significant past medical history of Alzheimer's dementia and chronic UTI with acutely declining was going to be admitted to the hospital under hospice care for inpatient hospice. Hospital Course: Overall during the hospital stay patient remained stable Patient was initially admitted to the hospital for inpatient hospice care. Remained stable while here in the hospital was provided comfort measures. Now discharged home to continue with hospice care at home. Vital Signs/Physical Exam: Temp Pulse Resp BP Pulse Ox 97.6 F 85 20 159/106 H 99 10/03/18 17:05 10/03/18 17:05 10/03/18 17:05 10/03/18 17:05 10/03/18 17:05 Home Medications: Amlodipine [Norvasc*] 5 mg PO DAILY 06/14/18 Finasteride [Proscar*] 5 mg PO BEDTIME 06/14/18 Lactulose [Cephulac*] 20 gm PO DAILY 06/14/18 Memantine HCl [Namenda*] 2 tab PO BID 06/14/18 Mirtazapine [Remeron] 15 mg PO BEDTIME 06/14/18 Omeprazole 20 mg PO DAILY PRN 06/14/18 Tamsulosin [Flomax*] 0.4 mg PO BEDTIME 06/14/18 Trazodone [Desyrel*] 100 mg PO BEDTIME 06/14/18 Aspirin [Aspir-Low] 81 mg PO DAILY 06/15/18 Cholecalciferol (Vitamin D3) [Vitamin D3] 1,000 unit PO DAILY 06/15/18 Ferrous Sulfate [Iron] 325 mg PO BID 06/15/18 LORazepam [Ativan*] 1 mg PO BEDTIME 06/15/18 Simvastatin 20 mg PO BEDTIME 09/21/18
== END 2018-10-01 14:30 | disposition hospice, home (50) | DRG 951 ==
LOC: 4TH 23:46
PROVIDERS: ADMIT Internal Medicine; ATTEND Family Medicine
DX: Z51.5 Encounter for palliative care (principal); F02.81 Dementia in other diseases classified elsewhere, unspecified severity, with behavioral disturbance; T83.510A Infection and inflammatory reaction due to cystostomy catheter, initial encounter; N39.0 Urinary tract infection, site not specified; G30.0 Alzheimer's disease with early onset; I12.9 Hypertensive chronic kidney disease with stage 1 through stage 4 chronic kidney disease, or unspecified chronic kidney disease; N18.3 Chronic kidney disease, stage 3 (moderate); Z86.73 Personal history of transient ischemic attack (TIA), and cerebral infarction without residual deficits; E78.5 Hyperlipidemia, unspecified; N40.0 Benign prostatic hyperplasia without lower urinary tract symptoms; Z85.528 Personal history of other malignant neoplasm of kidney; Z90.5 Acquired absence of kidney; I25.10 Atherosclerotic heart disease of native coronary artery without angina pectoris; Z87.891 Personal history of nicotine dependence
CPT/HCPCS: J0360; J2270